=== PATIENT | female | born 1945 | race Caucasian/White ===

== ENCOUNTER 2017-02-03 14:36 | Observation (INO) | payer MEDICAID, MEDICARE, OTHER ==
--- NOTE | 2017-02-03 15:34 | RAD ---
CHEST 1 VIEW: HISTORY: Chest pain. COMPARISON: 02/03/17. FINDINGS: Cardiac silhouette is magnified by projection. Pulmonary vasculature remains upper limits of normal . Mediastinum is midline with postoperative changes evident. property assessment monitor leads overlie the [address]. IMPRESSION: Stable radiographic appearance of the chest. POS: [facility]
[2017-02-03 15:37] LABS: #Eosinphils 0.1 thou/uL (0.0-0.7); #Lymphocytes 0.6 thou/uL (1.20-3.40); #Monocytes 0.4 thou/uL (0.11-0.59); #Neutrophils 6.3 thou/uL (1.40-6.50); %Eosinophils 1.2 % (0.0-10.0); %Lymphocytes 8.5 % (21.0-51.0); %Monocytes 5.3 % (0.0-10.0); Hematocrit 37.1 % (36.0-47.0); Mean Platelet Volume 8.5 fL (7.4-10.4); Red Blood Cell (RBC) Count 3.84 mill/uL (4.20-5.40); White Blood Cell (WBC) Count 7.4 thou/uL (4.8-10.8)
[2017-02-03 16:00] LABS: Troponin I Less than 0.010 ng/mL (< 0.028)
[2017-02-03 16:10] LABS: ALT (SGPT) 26 U/L (8-55); AST (SGOT) 31 U/L (5-34); Alkaline Phosphatase 107 U/L (40-150); Anion Gap 13 mmol/L (10-20); BUN (Urea Nitrogen) 40 mg/dL (9.8-20.1); Bilirubin, Total Less than 1.0 mg/dL (0.2-1.2); Calc. Creatinine Clearance 0 mL/min (70-130); Calcium 8.7 mg/dL (7.8-10.44); Carbon Dioxide 21 mmol/L (23-31); Chloride 105 mmol/L (98-107); Estimated GFR-MDRD 25; Globulin 4.8 g/dL (2.4-3.5); Protein, Total 7.9 g/dL (6.0-8.3)
[2017-02-03 18:57] LABS: Troponin I Less than 0.010 ng/mL (< 0.028)
[2017-02-03] MEDS ORDERED: Nitroglycerin 0.4 MG TAB (25 Tab Bottle) PO PRN (18:57)
[2017-02-03] MEDS ORDERED: Dextrose 5% in Water 1,000 ML IV PRN (19:00)
[2017-02-03] MEDS ORDERED: Dextrose 50% Abboject 50 ML SYRINGE SLOW IVP PRN (19:00)
[2017-02-03 19:21] VITALS: BMI 34.0
--- NOTE | 2017-02-03 19:39 | HP ---
DATE OF ADMISSION: 02/03/2017 DATE OF DISCHARGE: 02/03/2017 PRIMARY CARE PHYSICIAN: Dr. Elie Crenshaw. CHIEF COMPLAINT: Chest pain. HISTORY OF PRESENT ILLNESS: Ms. Shaffer is a pleasant 71-year-old lady who was seen at [facility] on 02/03/2017 for chest discomfort. She reports the 2 days ago, she woke up around 9:00 p.m. after falling asleep. She did not remember going to bed. She reports that his chest felt \\\\"funny.\\\\" She reports that it was hurting, but s he is unable to describe it further. She tried to stand up, but could not. She called her friend a nd daughter, they saw her at her house, she was reportedly pale, the episode was resolved. Today, she was at [employer] and she felt nauseous and had a strange feeling in the chest. She drove to the emergency room at [place] and was subsequently transferred here for further management. She reports that the chest pain has resolved. She denies any cough, fever, or chills. She is unabl e to characterize the pain further. She also reports that 2 days ago, prior to the first episode, her blood sugar was in the 600 range. She reports that it has improved since then. REVIEW OF SYSTEMS: The following complete review of systems was negative, unless otherwise mentione d in the HPI or below: Constitutional: Weight loss or gain, sense of well-being, ability to conduct usual activities, exer cise tolerance. Skin/Breast: Rash, itching, changes in hair growth or loss, nail changes, breast lumps, tenderness, swelling, nipple discharge. Eyes: Vision, double vision, tearing, blind spots, pain. ENT/Mouth: Headaches (location, time of onset, duration, precipitating factors), vertigo, lighthead edness, injury. Vision, double vision, tearing, blind spots, pain, nose bleeding, colds, obstruction , discharge, dental difficulties, gingival bleeding, dentures, neck stiffness, pain, tenderness, mas ses in thyroid or other areas. Cardiovascular: Precordial pain, substernal distress, palpitations, syncope, dyspnea on exertion, o rthopnea, nocturnal paroxysmal dyspnea, edema, cyanosis, hypertension, heart murmurs, varicosities, phlebitis, claudication. Respiratory: Pain, shortness of breath, wheezing, stridor, cough, hemoptysis, fever or night sweats . Gastrointestinal: Poor appetite, dysphagia, indigestion, abdominal pain, heartburn, eructation, syeda sea, vomiting, hematemesis, jaundice, constipation, or diarrhea, abnormal stools (verona-colored, ced y, bloody, greasy, foul smelling), flatulence, hemorrhoids, recent changes in bowel habits. Genitourinary: Urgency, frequency, dysuria, nocturia, hematuria, polyuria, oliguria, unusual (or ch osvaldo in) color of urine, stones, hesitancy, change in size of stream, dribbling, acute retention or incontinence, libido, potency. Musculoskeletal: Pain, swelling, redness or heat of muscles or joints, limitation, of motion, muscu lar weakness, atrophy, cramps. Neurologic/Psychiatric: Convulsions, paralyses, tremor, incoordination, paresthesias, difficulties with memory of speech, sensory or motor disturbances, or muscular coordination (ataxia, tremor), emo tional problems, anxiety, depression, previous psychiatric care, unusual perceptions, hallucinations . Allergy/Immunologic: Skin rash, anemia, bleeding tendency, polydipsia, polyuria, intolerance to hea t or cold. PAST MEDICAL HISTORY: Significant for hypothyroidism, diabetes mellitus type 2, Crohn disease, manager payroll alek anemia, TIA, CVA, chronic pain syndrome, fibromyalgia, dyslipidemia, coronary artery disease, ga stroesophageal reflux disease, diastolic heart failure, chronic kidney disease, anxiety, and depress ion. PAST SURGICAL HISTORY: Significant for quadruple bypass, abdominal wall abscess drainage, tummy tuc k surgery repair of umbilical hernia, mastectomy, tonsillectomy, and ileostomy with partial small-benny wel resection. SOCIAL HISTORY: She denies tobacco use, alcohol use, or recreational drug use. She lives alone wit h her dog. CODE STATUS: I discussed Ms. Shaffer's code status. She is FULL CODE. ALLERGIES: She is allergic to SULFA, IMURAN, PHENERGAN, and TETANUS TOXOID. CURRENT MEDICATIONS: Metoprolol 12.5 mg 2 times a day, ursodiol 300 mg 2 times a day, Protonix 40 m g 2 times a day, Lasix 80 mg 2 times a day, potassium chloride 20 mEq 2 times a day, Mirapex 1.5 mg 2 times a day, levothyroxine 25 mcg daily, atorvastatin 10 mg daily, aspirin 81 mg daily, Celexa 20 mg daily, Feosol 325 mg daily, Lantus insulin 70 units subcutaneously 2 times a day, Jardiance 10 mg daily, NovoLog 10 units 3 times a day. FAMILY HISTORY: The patient is adopted, does not know her family history. PHYSICAL EXAMINATION: GENERAL: Ms. Shaffer is awake and alert, not in acute distress. VITAL SIGNS: Blood pressure is 112/50, pulse is 76. She is breathing at rate of 16 and saturating 96% on 2 liters of oxygen. She is afebrile. EYES: No scleral icterus. No conjunctival pallor. ENT: Moist mucosal membranes. No oropharyngeal erythema or exudates. NECK: Supple, nontender, normal range of movement. Trachea is midline. RESPIRATORY: Accessory muscles of breathing are not active. Chest wall movements are symmetric nena aterally. LUNGS: Clear to auscultation without wheeze, rhonchi, or crepitations. CARDIOVASCULAR: S1 and S2 are heard, regular. LUNGS: Peripheral pulses are palpable. No carotid bruit, no pericardial rub. ABDOMEN: Soft, nontender, bowel sounds heard. No hepatomegaly, no splenomegaly. She has a right l ower quadrant ileostomy. She also appears to have a fistula in the left lower quadrant, close to [facility]. NEUROLOGIC: Cranial nerves II through XII are intact. Deep tendon reflexes are 2+. PSYCHIATRIC: Normal mood, normal affect. Patient is oriented to time, place, and person. MUSCULOSKELETAL: Power is 5/5 in all 4 extremities. Normal range of movement at all major extremit y joints. SKIN: No rashes or subcutaneous nodules. LYMPHATIC: No cervical lymphadenopathy. LABORATORY DATA: Ms. Shaffer's labs and investigations were reviewed. I reviewed her electrocardiog rebel, which shows normal sinus rhythm, no ST changes to suggest an acute coronary syndrome. I also r eviewed his chest x-ray, which does not show any pulmonary infiltrates. Laboratory investigation sh ows a normal white count, normal hemoglobin, decreased platelet count of 97,000, decreased sodium of 135, elevated creatinine of 1.97, last known creatinine 1.83 on 08/04/2016, decreased albumin of 3. 1 and otherwise unremarkable liver profile and normal troponin I. ASSESSMENT AND PLAN: Ms. Shaffer is a pleasant 71-year-old lady who was seen at [facility] on 02/03/2017. Her problem list includes: 1. Chest pain: The etiology is unclear. Chest pain has resolved. Given her significant cardiac h istory, we will obtain a stress test to rule out cardiac causes. We will also monitor on telemetry. 2. Diabetes mellitus: Continue home medications, start Accu-Cheks and insulin sliding scale. 3. Hypothyroidism: Continue Synthroid. 4. Dyslipidemia: Continue statins. 5. Diastolic heart failure. Continue diuretics. 6. Chronic kidney disease: Appears stable. Many thanks for allowing me to participate in your patient's care. Please feel free to contact me w ith any questions or concerns. LEVEL OF RISK: High. LEVEL OF COMPLEXITY: High.
[2017-02-03] MEDS: Insulin Detemir 100 UNITS/ML 70 UNITS in Pre-Filled Syringe 1 EACH SC SCH (20:53)
[2017-02-03] MEDS: Heparin 5,000 UNITS/ML VIAL SC SCH (20:54)
[2017-02-03] MEDS: Atorvastatin Calcium 10 MG TAB PO SCH (20:54)
[2017-02-03] MEDS: Lactinex Tablet PO SCH (20:54)
[2017-02-03] MEDS: Magnesium Oxide 400 MG TAB PO SCH (20:55)
[2017-02-03] MEDS: Metoprolol Tartrate 25 MG TAB PO SCH (20:56)
[2017-02-03] MEDS: Pramipexole Di-HCl 0.25 MG TAB PO SCH (20:56)
[2017-02-03] MEDS: Ursodiol 300 MG CAP PO SCH (20:57)
[2017-02-03] MEDS ORDERED: INSULIN GLARGINE HUM REC ANLOG 70 UNIT SQ SCH (21:00)
[2017-02-04] MEDS ORDERED: ADENOSINE 60 MG/20 ML VIAL ONE ×2 (03:51→12:00)
[2017-02-04] MEDS: Levothyroxine Sodium 25 MCG TAB PO SCH (04:11)
[2017-02-04 04:21] LABS: #Eosinphils 0.2 thou/uL (0.0-0.7); #Monocytes 0.5 thou/uL (0.11-0.59); #Neutrophils 6.8 thou/uL (1.40-6.50); %Basophils 0.3 % (0.0-1.0); %Eosinophils 2.1 % (0.0-10.0); %Lymphocytes 11.4 % (21.0-51.0); %Monocytes 5.6 % (0.0-10.0); Hematocrit 39.1 % (36.0-47.0); Mean Platelet Volume 8.6 fL (7.4-10.4); Red Blood Cell (RBC) Count 4.04 mill/uL (4.20-5.40); White Blood Cell (WBC) Count 8.4 thou/uL (4.8-10.8)
[2017-02-04 04:37] LABS: Anion Gap 12 mmol/L (10-20); BUN (Urea Nitrogen) 38 mg/dL (9.8-20.1); Calc. Creatinine Clearance 34 mL/min (70-130); Calcium 8.7 mg/dL (7.8-10.44); Carbon Dioxide 22 mmol/L (23-31); Chloride 107 mmol/L (98-107); Estimated GFR-MDRD 26
[2017-02-04] MEDS ORDERED: Empagliflozin [Jardiance] 10 MG PO SCH (09:00)
[2017-02-04] MEDS ORDERED: FLU VACC TS2017-18 (>65YR) 0.5 ML SYRINGE IM ONE (09:00)
[2017-02-04] MEDS ORDERED: Lorazepam 2 MG/ML VIAL ONE (09:35)
[2017-02-04] MEDS ORDERED: Lorazepam 2 MG/ML VIAL SLOW IVP SCH (10:00)
[2017-02-04] MEDS: Insulin Detemir 100 UNITS/ML 70 UNITS in Pre-Filled Syringe 1 EACH SC SCH ×2 (12:33→20:36)
[2017-02-04] MEDS: Furosemide 40 MG TAB PO SCH ×2 (12:41→13:46)
[2017-02-04] MEDS: Ferrous Sulfate 325 MG TAB PO SCH (12:42)
[2017-02-04] MEDS: Metoprolol Tartrate 25 MG TAB PO SCH ×2 (12:42→20:36)
[2017-02-04] MEDS: Potassium Chloride 20 MEQ TAB PO SCH ×2 (12:42→17:15)
[2017-02-04] MEDS: Pramipexole Di-HCl 0.25 MG TAB PO SCH ×2 (12:43→20:35)
[2017-02-04] MEDS: Heparin 5,000 UNITS/ML VIAL SC SCH ×3 (12:43→20:37)
[2017-02-04] MEDS: Ursodiol 300 MG CAP PO SCH ×2 (12:43→20:35)
[2017-02-04] MEDS: HumaLOG 300 UNITS/3 ML VIAL SC PRN ×3 (12:44→20:41)
[2017-02-04] MEDS: Multivit, Therapeutic 1 TAB PO SCH (12:52)
--- NOTE | 2017-02-04 13:10 | PDOC.PN ---
- Subjective Encounter Start Date: 02/04/17 Encounter Start Time: 10:00 Pt seen for followup re: chest pain. Denies chest pain, shortness of breath, fevers or chills. - Objective MAR Reviewed: Yes Vital Signs & Weight: Vital Signs (12 hours) Temp Pulse Resp BP Pulse Ox 02/04/17 12:22 97.7 F 78 20 144/60 H 96 02/04/17 07:50 98.5 F 76 16 02/04/17 07:43 98.5 F 76 16 108/52 L 92 L 02/04/17 07:37 93 L 02/04/17 04:07 97.7 F 73 18 106/53 L 92 L Weight Weight 174 lb 6 oz Result Diagrams: 02/04/17 04:07 02/04/17 04:07 Additional Labs: Accuchecks 02/04/17 02/04/17 02/03/17 12:25 04:07 20:35 POC Glucose 379 H 219 H 272 H EKG Reviewed by me: Yes (Tele: NSR) Phys Exam - Physical Examination Constitutional: NAD HEENT: moist MMs, oral pharynx no lesions Neck: supple Respiratory: no wheezing, no rales, no rhonchi, clear to auscultation bilateral Cardiovascular: RRR, no rub Gastrointestinal: soft, non-tender, no distention, positive bowel sounds ostomy+; fistula+ Musculoskeletal: no edema, pulses present Neurological: non-focal, moves all 4 limbs Lymphatic: no nodes Psychiatric: normal affect, A&O x 3 Skin: no rash, normal turgor, cap refill <2 seconds Dx/Plan (1) Chest pain Code(s): R07.9 - CHEST PAIN, UNSPECIFIED Status: Acute (2) Chronic diastolic heart failure Code(s): I50.32 - CHRONIC DIASTOLIC (CONGESTIVE) HEART FAILURE Status: Chronic (3) Chronic pain syndrome Code(s): G89.4 - CHRONIC PAIN SYNDROME Status: Chronic (4) DM type 2 (diabetes mellitus, type 2) Status: Chronic Qualifiers: (5) H/O: CVA (cerebrovascular accident) Code(s): Z86.73 - PRSNL HX OF TIA (TIA), AND CEREB INFRC W/O RESID DEFICITS Status: Chronic (6) Hypertension Code(s): I10 - ESSENTIAL (PRIMARY) HYPERTENSION Status: Chronic Qualifiers: (7) Hypothyroidism Code(s): E03.9 - HYPOTHYROIDISM, UNSPECIFIED Status: Chronic Qualifiers: (8) IBD (inflammatory bowel disease) Code(s): K63.89 - OTHER SPECIFIED DISEASES OF INTESTINE Status: Chronic Comment: crohn's - Plan DVT proph w/heparin * . Await stress test, 2D echo. Continue insulin sliding scale. Continue athletic monitor. Review of Systems - Medications/Allergies Allergies/Adverse Reactions: Allergies Allergy/AdvReac Type Severity Reaction Status Date / Time azathioprine [From Imuran] Allergy Severe PANCREATITI Verified 05/14/16 10:02 S azathioprine sodium Allergy Severe PANCREATITI Verified 05/14/16 10:02 [From Imuran] S Sulfa (Sulfonamide Allergy Severe Verified 05/14/16 10:02 Antibiotics) sulfamethoxazole Allergy Severe Verified 05/14/16 10:02 [From Bactrim] tetanus and diphtheria Allergy Severe Hives Verified 05/14/16 10:02 toxoids [Tetanus&Diphtheria Toxoid] promethazine HCl Allergy Intermediate RESTLESS Verified 02/03/17 19:39 [From Phenergan] LEGS trimethoprim [From Bactrim] Allergy Unknown Verified 05/14/16 10:02 Medications: Current Medications Acidophilus (Floranex) 2 tab PO HS [facility] Last Admin: 02/03/17 20:54 Dose: 2 tab Aspirin (Aspirin Chewable) 81 mg PO DAILY [facility] Last Admin: 02/04/17 12:42 Dose: 81 mg Atorvastatin Calcium (Lipitor) 10 mg PO [facility] Last Admin: 02/03/17 20:54 Dose: 10 mg Citalopram Hydrobromide (Celexa) 20 mg PO [facility] Last Admin: 02/03/17 20:54 Dose: 20 mg Dextrose/Water (Dextrose 50%) 25 gm SLOW IVP PRN PRN PRN Reason: Hypoglycemia Ferrous Sulfate (Feosol) 325 mg PO QAM-WM [facility] Last Admin: 02/04/17 12:42 Dose: 325 mg Furosemide (Lasix) 80 mg PO 0600,1400 [facility] Last Admin: 02/04/17 12:41 Dose: 80 mg Glucagon (Glucagon) 1 mg IM PRN PRN PRN Reason: Hypoglycemia Heparin Sodium (Porcine) (Heparin) 5,000 units SC TID [facility] Last Admin: 02/04/17 12:43 Dose: 5,000 units Dextrose/Water (D5w) 1,000 mls @ 0 mls/hr IV .Q0M PRN; As Directed PRN Reason: Hypoglycemia Insulin Detemir 70 units/ (Miscellaneous Medication) 0.7 mls @ 0 mls/hr SC BID [facility] Last Admin: 02/04/17 12:33 Dose: Not Given Insulin Human Lispro (Humalog) 0 units SC .MILD SLIDING SCALE PRN PRN Reason: Mild Correctional Scale Last Admin: 02/04/17 12:44 Dose: 10 unit Levothyroxine Sodium (Synthroid) 25 mcg PO 0600 [facility] Last Admin: 02/04/17 04:11 Dose: 25 mcg Magnesium Oxide (Magnesium Oxide) 400 mg PO HS [facility] Last Admin: 02/03/17 20:55 Dose: 400 mg Metoprolol Tartrate (Lopressor) 12.5 mg PO BID [facility] Last Admin: 02/04/17 12:42 Dose: 12.5 mg Multivitamins (Theragran) 2 tab PO DAILY [facility] Last Admin: 02/04/17 12:52 Dose: Not Given Nitroglycerin (Nitrostat) 0.4 mg PO Q5MIN PRN PRN Reason: Chest Pain Empagliflozin [ (Jardiance] 10 Mg) 10 mg PO DAILY [facility] Pantoprazole Sodium (Protonix) 40 mg PO BID [facility] Last Admin: 02/04/17 12:43 Dose: 40 mg Potassium Chloride (K-Dur) 20 meq PO BID-WM [facility] Last Admin: 02/04/17 12:42 Dose: 20 meq Pramipexole Dihydrochloride (Mirapex) 0.5 mg PO BID [facility] Last Admin: 02/04/17 12:43 Dose: 0.5 mg Ursodiol (Actigal) 300 mg PO BID [facility] Last Admin: 02/04/17 12:43 Dose: 300 mg
--- NOTE | 2017-02-04 13:14 | NM ---
RADIONUCLIDE STRESS REST MYOCARDIAL PERFUSION SCAN WITH CT ATTENUATION CORRECTION AND SPECT IMAGING LEFT VENTRICULAR WALL MOTION EVALUATION AND EJECTION FRACTION: HISTORY: Chest pain. FINDINGS: Adenosine protocol was used. There is heterogeneous uptake of radiotracer throughout the left ventr icular myocardium. No focal perfusion defect or reversibility are apparent. QGS analysis of gated SPECT images shows no focal wall motion abnormalities. Left ventricular ejection fraction is calcul ated at 65%. IMPRESSION: 1. Normal myocardial perfusion scan. 2. Normal left ventricular ejection fraction. POS: [facility]
[2017-02-04] MEDS: metroNIDAZOLE 250 MG TAB PO SCH ×2 (13:46→20:36)
[2017-02-04] MEDS: Lactinex Tablet PO SCH (20:35)
[2017-02-04] MEDS: Atorvastatin Calcium 10 MG TAB PO SCH (20:36)
[2017-02-04] MEDS: Magnesium Oxide 400 MG TAB PO SCH (20:36)
[2017-02-05 04:24] VITALS: TEMP 98.2
[2017-02-05 04:38] LABS: #Eosinphils 0.1 thou/uL (0.0-0.7); #Lymphocytes 0.6 thou/uL (1.20-3.40); #Monocytes 0.3 thou/uL (0.11-0.59); #Neutrophils 4.7 thou/uL (1.40-6.50); %Basophils 0.4 % (0.0-1.0); %Eosinophils 2.2 % (0.0-10.0); %Lymphocytes 10.1 % (21.0-51.0); %Monocytes 5.9 % (0.0-10.0); Hematocrit 36.1 % (36.0-47.0); White Blood Cell (WBC) Count 5.7 thou/uL (4.8-10.8)
[2017-02-05 04:40] LABS: Anion Gap 10 mmol/L (10-20); BUN (Urea Nitrogen) 30 mg/dL (9.8-20.1); Calc. Creatinine Clearance 36 mL/min (70-130); Calcium 8.6 mg/dL (7.8-10.44); Carbon Dioxide 25 mmol/L (23-31); Chloride 103 mmol/L (98-107); Estimated GFR-MDRD 27
[2017-02-05] MEDS: HumaLOG 300 UNITS/3 ML VIAL SC PRN (05:31)
[2017-02-05] MEDS: Levothyroxine Sodium 25 MCG TAB PO SCH (05:31)
[2017-02-05] MEDS: Furosemide 40 MG TAB PO SCH (05:31)
[2017-02-05] MEDS: Pramipexole Di-HCl 0.25 MG TAB PO SCH (07:54)
[2017-02-05] MEDS: Potassium Chloride 20 MEQ TAB PO SCH (07:56)
[2017-02-05] MEDS: Ferrous Sulfate 325 MG TAB PO SCH (07:56)
[2017-02-05] MEDS: Multivit, Therapeutic 1 TAB PO SCH (07:57)
[2017-02-05] MEDS: Ursodiol 300 MG CAP PO SCH (07:57)
[2017-02-05] MEDS: metroNIDAZOLE 250 MG TAB PO SCH (07:58)
[2017-02-05] MEDS: Heparin 5,000 UNITS/ML VIAL SC SCH (08:00)
[2017-02-05] MEDS: Insulin Detemir 100 UNITS/ML 70 UNITS in Pre-Filled Syringe 1 EACH SC SCH (08:00)
[2017-02-05 09:01] VITALS: BP 113/56
[2017-02-05] MEDS: Metoprolol Tartrate 25 MG TAB PO SCH (09:24)
--- NOTE | 2017-02-05 09:47 | DIS ---
PRIMARY CARE PHYSICIAN: Dr. Elie Crenshaw DATE OF ADMISSION: 02/03/2017 DATE OF DISCHARGE: 02/05/2017 DISCHARGE DIAGNOSES: 1. Chest pain, resolved. 2. 2D echocardiogram with normal right ventricular size and function, left ventricular ejection fra ction estimated at 60-65%. CONDITION OF PATIENT AT THE TIME OF DISCHARGE: Stable. I assessed Ms. Shaffer on the day of discharge. She denies any chest pain or shortness of breath. V ital signs are stable. S1 and S2 are heard, regular. Lungs are clear to auscultation bilaterally. DISCHARGE MEDICATIONS: The same as preadmission home medications as dictated on the history and phy sical note from 02/03/2017. HOSPITAL COURSE: Ms. Shaffer is a pleasant 71-year-old lady who was admitted to [facility] on 02/03/2017 for chest pain. Her chest pain resolved. She had a nuclear stress test , which showed normal left ventricular ejection fraction at 65% and was a normal myocardial perfusio n scan. She also had a 2D echocardiogram during this hospitalization, result as described above. On 02/05/2017, she has a white count of 5700, hemoglobin 11.9, platelet count of 90,000. Sodium 130 , potassium 3.9, creatinine 1.83. Many thanks for allowing me to participate in your patient's care. Please feel free to contact me i f any questions or concerns. DISCHARGE DESTINATION: Home.
== END 2017-02-05 12:30 | disposition home or self-care (01) ==
LOC: ERS 14:36 → 2SW 17:54
PROVIDERS: ADMIT Internal Medicine; ATTEND Internal Medicine
DX: R07.89 Other chest pain (principal); I25.10 Atherosclerotic heart disease of native coronary artery without angina pectoris; K21.9 Gastro-esophageal reflux disease without esophagitis; E11.22 Type 2 diabetes mellitus with diabetic chronic kidney disease; N18.9 Chronic kidney disease, unspecified; I50.9 Heart failure, unspecified; F41.9 Anxiety disorder, unspecified; E03.9 Hypothyroidism, unspecified; F32.9 Major depressive disorder, single episode, unspecified; Z79.82 Long term (current) use of aspirin; Z79.4 Long term (current) use of insulin; Z79.899 Other long term (current) drug therapy; Z95.1 Presence of aortocoronary bypass graft; Z90.10 Acquired absence of unspecified breast and nipple; Z90.89 Acquired absence of other organs; Z90.49 Acquired absence of other specified parts of digestive tract; Z93.2 Ileostomy status; Z98.890 Other specified postprocedural states; Z86.73 Personal history of transient ischemic attack (TIA), and cerebral infarction without residual deficits
CPT/HCPCS: 71010; 78452; 80048 ×2; 80053; 82553; 82962 ×3; 84484; 85025 ×3; 93005; 93017; 93306; 94760 ×3; 96374; 99285; A9500; G0008; G0378; Q2036; 36415; 36416; 90471; 90682; 93010; J0153; J1644; J1815; J2060

== ENCOUNTER 2017-02-06 18:50 | Emergency (ER) | payer MEDICARE, MEDICAID ==
[~2017-02-06 18:50] MED LIST: Iopamidol 250 51% 100 ML VIAL FS ONE
[2017-02-06 19:27] LABS: #Eosinphils 0.1 thou/uL (0.0-0.7); #Lymphocytes 0.7 thou/uL (1.20-3.40); #Monocytes 0.5 thou/uL (0.11-0.59); #Neutrophils 8.7 thou/uL (1.40-6.50); %Basophils 0.2 % (0.0-1.0); %Eosinophils 0.6 % (0.0-10.0); %Lymphocytes 6.9 % (21.0-51.0); %Monocytes 4.6 % (0.0-10.0); Hematocrit 43.3 % (36.0-47.0); Mean Platelet Volume 8.6 fL (7.4-10.4); Red Blood Cell (RBC) Count 4.51 mill/uL (4.20-5.40); White Blood Cell (WBC) Count 9.9 thou/uL (4.8-10.8)
[2017-02-06 19:27] LABS: Bilirubin Negative (Negative); Blood, Urine Negative (Negative); Glucose, Urine (Dipstick) >=1000 mg/dL (Negative); Ketone, Urine Negative (Negative); Nitrite Negative (Negative); Protein, Urine (Dipstick) Negative (Neg-Trace); Urobilinogen 0.2 mg/dL (0.2-1.0)
[2017-02-06 19:49] LABS: ALT (SGPT) 28 U/L (8-55); AST (SGOT) 35 U/L (5-34); Alkaline Phosphatase 121 U/L (40-150); Anion Gap 13 mmol/L (10-20); BUN (Urea Nitrogen) 27 mg/dL (9.8-20.1); Bilirubin, Total 0.4 mg/dL (0.2-1.2); Calc. Creatinine Clearance 0 mL/min (70-130); Calcium 9.7 mg/dL (7.8-10.44); Carbon Dioxide 31 mmol/L (23-31); Chloride 97 mmol/L (98-107); Estimated GFR-MDRD 25; Globulin 5.6 g/dL (2.4-3.5); Lipase 51 U/L (8-78); Protein, Total 9.4 g/dL (6.0-8.3)
--- NOTE | 2017-02-06 23:49 | CT ---
CT ABDOMEN AND PELVIS WITHOUT IV CONTRAST: 02/06/17 HISTORY: Shooting abdominal pain which is episodic every two to three minutes with associated nausea and vomi ting. Patient reports history of prior pancreatitis. COMPARISON: 05/20/16 FINDINGS: There is linear bibasilar scarring and atelectasis. Midline sternotomy wires are present involving t he lower sternum. Vascular calcifications are seen in the region of the coronary arteries a well as involving the abdo alis aorta and iliac arteries. Postsurgical changes related to total colectomy are noted. Ostomy is again seen in the right lower q uadrant. There are postsurgical changes involving a loop of small bowel in the right anterolateral p cl which is mildly dilated, but this a stable finding. Previously noted thickening involving the second portion of the duodenum has resolved. There is sugg ested thickening in the region of the gastric antrum, but this is probably related to incomplete dis tention in this region and peristalsis. Contrast is seen in the ostomy bag. There is no findings to suggest a bowel obstruction. The dilated loop of small bowel in the right aspect of the pelvis was a lso seen on the prior exam. Spleen is enlarged in AP dimension measuring 14 cm. The liver, pancreas, bilateral adrenal glands, kidneys, urinary bladder, and uterus demonstrate a gr ossly normal nonenhanced CT appearance. No renal or ureteral calculi are seen bilaterally, there is no evidence of hydronephrosis. There is stable area of scarring seen in the presacral location. Midline abdominal wall defect is again seen. There is a remote burst fracture with severe loss of height involving the L1 vertebral body, also se en on prior exam. IMPRESSION: 1. Postsurgical changes related to colectomy with ostomy in the right lower quadrant. Contrast is seen in the ostomy bag. While there is a dilated loop of small bowel in the right aspect of the p cl in region of sutures, there is no evidence of a bowel obstruction. 2. Prominent area of scarring in presacral location unchanged from prior exam. This is also sta ble when compared to study in 2015. 3. Mild splenomegaly. 4. No renal or ureteral calculi are seen bilaterally. 5. Bibasilar atelectasis and/or scarring. 6. Stable burst fracture involving the L1 vertebral body. POS: [facility]
== END 2017-02-07 00:30 | disposition home or self-care (01) ==
LOC: ERS 18:50
DX: K59.00 Constipation, unspecified (principal); I25.10 Atherosclerotic heart disease of native coronary artery without angina pectoris; I25.2 Old myocardial infarction; E11.9 Type 2 diabetes mellitus without complications; E03.9 Hypothyroidism, unspecified; D50.9 Iron deficiency anemia, unspecified; K50.90 Crohn's disease, unspecified, without complications; I50.9 Heart failure, unspecified; F32.9 Major depressive disorder, single episode, unspecified; F41.9 Anxiety disorder, unspecified; Z87.891 Personal history of nicotine dependence; Z86.73 Personal history of transient ischemic attack (TIA), and cerebral infarction without residual deficits; Z79.4 Long term (current) use of insulin; Z86.14 Personal history of Methicillin resistant Staphylococcus aureus infection; Z87.01 Personal history of pneumonia (recurrent); Z79.82 Long term (current) use of aspirin; Z79.899 Other long term (current) drug therapy
CPT/HCPCS: 36415; 74176; 80053; 81003; 83690; 85025; 87070; 87077; 87186; 87205; 93005; 96360

== ENCOUNTER 2017-02-10 21:20 | Inpatient (IN) | payer MEDICARE, MEDICAID ==
[~2017-02-10 21:20] MED LIST changes: +ISOVUE-370 76%-LOCM 1 ML ONE; -Iopamidol 250 51% 100 ML VIAL FS ONE
[2017-02-10 22:25] LABS: #Lymphocytes 0.7 thou/uL (1.20-3.40); #Monocytes 0.5 thou/uL (0.11-0.59); #Neutrophils 10.8 thou/uL (1.40-6.50); %Basophils 0.1 % (0.0-1.0); %Eosinophils 0.3 % (0.0-10.0); %Lymphocytes 5.6 % (21.0-51.0); %Monocytes 3.9 % (0.0-10.0); Hematocrit 43.5 % (36.0-47.0); Mean Platelet Volume 8.4 fL (7.4-10.4); Red Blood Cell (RBC) Count 4.52 mill/uL (4.20-5.40)
[2017-02-10] MEDS ORDERED: Ondansetron HCl/PF 4 MG/2 ML Vial ONE (22:44)
[2017-02-10 22:52] LABS: ALT (SGPT) 28 U/L (8-55); AST (SGOT) 39 U/L (5-34); Alkaline Phosphatase 113 U/L (40-150); Anion Gap 16 mmol/L (10-20); BUN (Urea Nitrogen) 32 mg/dL (9.8-20.1); Bilirubin, Total 0.6 mg/dL (0.2-1.2); Calc. Creatinine Clearance 0 mL/min (70-130); Calcium 9.5 mg/dL (7.8-10.44); Carbon Dioxide 25 mmol/L (23-31); Chloride 101 mmol/L (98-107); Estimated GFR-MDRD 24; Globulin 5.4 g/dL (2.4-3.5); Lipase 47 U/L (8-78)
[2017-02-10 22:56] LABS: Troponin I Less than 0.010 ng/mL (< 0.028)
--- NOTE | 2017-02-10 23:31 | RAD ---
RADIOGRAPH CHEST 1 VIEW: HISTORY: A 71-year-old female with chest and abdominal pain with vomiting. FINDINGS: There are no air space densities, pulmonary edema, pneumothorax, or cardiomegaly. The lateral costo phrenic angles are sharp. IMPRESSION: 1. No acute cardiopulmonary findings. 2. Evidence for previous open heart surgery. 3. Chronic bilateral interstitial densities. 4. No interval change since 02/03/2017. melinda POS: [facility]
[2017-02-10 23:53] LABS: Bilirubin Negative (Negative); Blood, Urine Negative (Negative); Glucose, Urine (Dipstick) 500 mg/dL (Negative); Ketone, Urine Negative (Negative); Nitrite Negative (Negative); Protein, Urine (Dipstick) Negative (Neg-Trace); Urobilinogen 0.2 mg/dL (0.2-1.0)
[2017-02-10 23:56] LABS: Bacteria/HPF Rare-Few HPF (None Seen); Hyaline Casts/LPF 0-3 HYALINE CAST LPF (0-3 Hyaline); Squamous Epithelial 0-3 HPF (0-3); WBC/HPF 21-50 HPF (0-3)
[2017-02-11] MEDS ORDERED: Water For Inject, Bacteriostat 30 ML ONE (01:03)
[2017-02-11] MEDS ORDERED: methylPREDNISolone Sod Succ/PF 125 MG/2 ML VIAL ONE (01:03)
[2017-02-11] MEDS ORDERED: cefTRIAXone Sodium 1 MG in Syringe 0 ML IVPB SCH (01:45)
[2017-02-11] MEDS: Sodium Chloride 0.9% 1,000 ML IV SCH ×2 (01:50→17:54)
[2017-02-11] MEDS ORDERED: cefTRIAXone\\ROCEPHIN 1 GM in Sodium Chloride 0.9% 100 ML IVPB SCH (02:00)
[2017-02-11 02:19] VITALS: BMI 32.5
[2017-02-11] MEDS ORDERED: Dextrose 50% Abboject 50 ML SYRINGE SLOW IVP PRN (02:25)
[2017-02-11] MEDS ORDERED: Dextrose 5% in Water 1,000 ML IV PRN (02:25)
--- NOTE | 2017-02-11 02:42 | HP ---
PRIMARY CARE PHYSICIAN: Valente Crenshaw M.D. CHIEF COMPLAINT: Nausea and vomiting. HISTORY OF PRESENT ILLNESS: Ms. Shaffer is a pleasant 71-year-old lady who was seen at [facility] on 02/11/2017. She was hospitalized at this facility on observation status fro m 02/03/2017 to 02/05/2017 for chest pain. During that hospitalization, she had a nuclear stress te st as well as 2D echocardiogram. She has a history of Crohn's disease, ileostomy following colectomy. She reports that yesterday she developed pain over the right side of her abdomen. She describes it as a squeezing sensation, 9/10 at its worst, constant, no known aggravating or relieving factors. It has resolved now. She also reports nausea and vomiting. She thinks she may have had a low grade fever. She denies any dysuria or increased frequency of urination. REVIEW OF SYSTEMS: The following complete review of systems was negative, unless otherwise mentione d in the HPI or below: Constitutional: Weight loss or gain, sense of well-being, ability to conduct usual activities, exer cise tolerance. Skin/Breast: Rash, itching, changes in hair growth or loss, nail changes, breast lumps, tenderness, swelling, nipple discharge. Eyes: Vision, double vision, tearing, blind spots, pain. ENT/Mouth: Headaches (location, time of onset, duration, precipitating factors), vertigo, lighthead edness, injury. Vision, double vision, tearing, blind spots, pain, nose bleeding, colds, obstruction , discharge, dental difficulties, gingival bleeding, dentures, neck stiffness, pain, tenderness, mas ses in thyroid or other areas. Cardiovascular: Precordial pain, substernal distress, palpitations, syncope, dyspnea on exertion, o rthopnea, nocturnal paroxysmal dyspnea, edema, cyanosis, hypertension, heart murmurs, varicosities, phlebitis, claudication. Respiratory: Pain, shortness of breath, wheezing, stridor, cough, hemoptysis, fever or night sweats . Gastrointestinal: Poor appetite, dysphagia, indigestion, abdominal pain, heartburn, eructation, syeda sea, vomiting, hematemesis, jaundice, constipation, or diarrhea, abnormal stools (verona-colored, ced y, bloody, greasy, foul smelling), flatulence, hemorrhoids, recent changes in bowel habits. Genitourinary: Urgency, frequency, dysuria, nocturia, hematuria, polyuria, oliguria, unusual (or ch osvaldo in) color of urine, stones, hesitancy, change in size of stream, dribbling, acute retention or incontinence, libido, potency. Musculoskeletal: Pain, swelling, redness or heat of muscles or joints, limitation, of motion, muscu lar weakness, atrophy, cramps. Neurologic/Psychiatric: Convulsions, paralyses, tremor, incoordination, paresthesias, difficulties with memory of speech, sensory or motor disturbances, or muscular coordination (ataxia, tremor), emo tional problems, anxiety, depression, previous psychiatric care, unusual perceptions, hallucinations . Allergy/Immunologic: Skin rash, anemia, bleeding tendency, polydipsia, polyuria, intolerance to hea t or cold. PAST MEDICAL HISTORY: Significant for diabetes mellitus type 2, hypothyroidism, Crohn's disease, ch ronic anemia, CVA, TIA, chronic pain syndrome, fibromyalgia, dyslipidemia, coronary artery disease, gastroesophageal reflux disease, diastolic heart failure, chronic kidney disease, anxiety, and depre ssion. PAST SURGICAL HISTORY: Significant for quadruple bypass, abdominal wall abscess drainage, tummy tuc k surgery, repair of umbilical hernia, mastectomy, tonsillectomy and ileostomy with partial small-benny wel resection. SOCIAL HISTORY: The patient denies tobacco use, alcohol use or recreational drug use. She lives al one with her dog. CODE STATUS: She is FULL CODE. ALLERGIES: SULFA, IMURAN, PHENERGAN, and TETANUS TOXOID. CURRENT MEDICATIONS: Include metoprolol 12.5 mg 2 times a day, ursodiol 300 mg 2 times a day, Arjun nix 40 mg 2 times a day, Lasix 80 mg 2 times a day, potassium chloride 20 mEq 2 times a day, Mirapex 1.5 mg 2 times a day, levothyroxine 25 mcg daily, atorvastatin 10 mg daily, aspirin 81 mg daily, Ce alka 20 mg daily, Feosol 325 mg daily, Lantus insulin 70 units subcutaneously 2 times a day, Jardian ce 10 mg daily, NovoLog 10 units 3 times a day and metronidazole 500 mg 3 times a day. FAMILY HISTORY: The patient is adopted, does not know her family history. PHYSICAL EXAMINATION: GENERAL: On examination, Ms. Shaffer is awake and alert, not in acute distress. VITAL SIGNS: Blood pressure is 95/51, pulse is 79. She is breathing at rate of 18, and saturating 98% on room air. Her T-max in the emergency room was 99.4 degrees Fahrenheit. EYES: No scleral icterus, no conjunctival pallor. ENT: Moist mucosal membranes, no oropharyngeal erythema or exudates. NECK: Supple, nontender, normal range of movement. Trachea is midline. RESPIRATORY: Accessory muscles of breathing are not active. Chest wall movements are symmetric nena aterally. LUNGS: Clear to auscultation without wheeze, rhonchi, or crepitations. CARDIOVASCULAR: S1 and S2 are heard, regular. Peripheral pulses palpable. No carotid bruit, no pe ricardial rub. ABDOMEN: Soft, nontender, bowel sounds heard, no hepatomegaly, no splenomegaly. EXTREMITIES: She has a right-sided ileostomy. She also has a fistula over the abdominal wall. NEUROLOGIC: Cranial nerves II-XII intact, deep tendon reflexes are 2+. SKIN: No rashes or subcutaneous nodules. MUSCULOSKELETAL: Power is 5/5 in all 4 extremities, normal range of movement at all major extremity joints. PSYCHIATRIC: Normal mood, normal affect, patient is oriented to person, place, and time. SKIN: No rashes or subcutaneous nodules. LYMPHATIC: No cervical lymphadenopathy. LABORATORY DATA: Ms. Shaffer's labs and investigations were reviewed. I reviewed her electrocardiog rebel, which shows normal sinus rhythm, occasional PVCs, no ST changes to suggest an acute coronary sy ndrome. I also reviewed her chest x-ray, which does not show any pulmonary infiltrates. She also h ad a CT scan of the abdomen and pelvis, which reportedly shows small-bowel obstruction, according to the emergency room physician. Laboratory investigations show leukocytosis with 12,000 white cells, of which 90.1% are neutrophils, normal hemoglobin, normal platelet count, normal electrolytes, elev ated blood urea nitrogen of 32, elevated creatinine of 2.07, last known creatinine 2.00 on 7, normal lactic acid, mildly elevated AST of 39, normal ALT, normal alkaline phosphatase, normal to yusef bilirubin, normal troponin I, normal BNP, elevated serum globulin of 5.4, elevated total protein of 9.0 and normal lipase. Urinalysis is positive for moderate amount of leukocyte esterase and glu cose. ASSESSMENT AND PLAN: Ms. Shaffer is a pleasant 71-year-old lady who was seen at [facility]. Her problem list includes: 1. Small-bowel obstruction: Ms. Shaffer came with abdominal pain secondary to small-bowel obstructi on. Following CT scan, her abdominal pain has resolved. She will be kept n.p.o., consideration for nasogastric tube placement will be made if she starts vomiting again. The small-bowel obstruction is most likely secondary to flareup of Crohn's disease. Emergency room physician has already discus sed her case with her coating machine operator and consulted Gastroenterology Service. She has started he r on steroids, which I will continue, Solu-Medrol 20 mg intravenously every 6 hours. We will contin ue her oral home medications with sips of water. 2. Urinary tract infection: Based on urinalysis, the patient will be started on ceftriaxone. Awai t urine cultures. 3. Restless legs syndrome: The patient reports that her Mirapex is not working. She reports that trying several medications for restless leg syndrome in the past. She is unsure if she was ever annalisa ated with Requip. We will initiate Requip for now. 4. Diabetes mellitus: Start Accu-Cheks, insulin sliding scale. 5. Hypothyroidism: Continue Synthroid. 6. Chronic pain syndrome: Continue home medications. 7. Dyslipidemia: Continue statin. 8. History of congestive heart failure: Continue Lasix, potassium supplements. 9. History of cerebrovascular accident: Continue aspirin, statin. Many thanks for allowing me to participate in your patient's care. Please feel free to contact me w ith any questions or concerns. LEVEL OF RISK: High. LEVEL OF COMPLEXITY: High.
[2017-02-11] MEDS: Morphine Sulfate 2 MG/ML SYRINGE SLOW IVP PRN ×2 (05:40→13:30)
[2017-02-11] MEDS: Levothyroxine Sodium 25 MCG TAB PO SCH (05:40)
[2017-02-11 06:26] LABS: Anion Gap 13 mmol/L (10-20); BUN (Urea Nitrogen) 32 mg/dL (9.8-20.1); Calc. Creatinine Clearance 36 mL/min (70-130); Calcium 8.6 mg/dL (7.8-10.44); Carbon Dioxide 24 mmol/L (23-31); Chloride 103 mmol/L (98-107); Estimated GFR-MDRD 28
[2017-02-11 06:50] LABS: #Lymphocytes 0.5 thou/uL (1.20-3.40); #Monocytes 0.1 thou/uL (0.11-0.59); #Neutrophils 6.8 thou/uL (1.40-6.50); %Basophils 0.4 % (0.0-1.0); %Eosinophils 0.2 % (0.0-10.0); %Lymphocytes 6.9 % (21.0-51.0); %Monocytes 1.1 % (0.0-10.0); Hematocrit 40.8 % (36.0-47.0); Mean Platelet Volume 8.9 fL (7.4-10.4); Red Blood Cell (RBC) Count 4.21 mill/uL (4.20-5.40); White Blood Cell (WBC) Count 7.4 thou/uL (4.8-10.8)
--- NOTE | 2017-02-11 08:00 | CT ---
CT ABDOMEN WITH CONTRAST CT PELVIS WITH CONTRAST: DATE: 02/10/17 TIME: 2342 HOURS HISTORY: 71-year-old female with right-sided abdominal pain, nausea, emesis, and minimal output seen in the o stomy bag. History of Crohn's disease. Suspected small bowel obstruction. COMPARISON: 02/06/[address] TECHNIQUE: IV injection of iodinated contrast media: Isovue. Oral contrast media: Not administered. FINDINGS: Again noted is the right lower quadrant ileostomy. The colon is surgically absent; it is uncertain w hether this is a total or subtotal colectomy. While there is a new finding of collapse of small janse l loops abutting the anterior peritoneal surface of the right lower quadrant of the abdominal cavity near the ostomy, there is dilation of multiple small bowel loops also in much of the abdominal cavi ty and pelvis, especially the right lower quadrant and midline, with air fluid levels. There is stoo l filling and expanding one of the bowel loops in the right lower quadrant, which is surrounded by a suture line. It is uncertain whether this represents a segment of colon or dilated small bowel loo p (fecalization of small intestine). There are nondilated jejunal loops in the left upper quadrant a bdominal cavity. There is splenomegaly. No major pathology of the liver identified. No hydronephrosi s bilaterally. Old burst fracture of L1 with vertebra plana and bony retropulsion. No adrenal mass. No major pancreatic abnormality. No abdominal aortic aneurysm. Postsurgical scar at midline in the p osterior pelvic cavity. The uterus has moderately low attenuation now. This is nonspecific. Urinary bladder is partially filled. Old ventral abdominal surgical wound defect is again noted. No pneumope ritoneum. No pleural effusion. No ascites. IMPRESSION: 1. Status post colectomy (total vs subtotal?). 2. There is suspicion for acute small bowel obstruction at the right lower quadrant ostomy site. 3. Splenomegaly. JNR POS: TAPAN
[2017-02-11] MEDS: rOPINIRole HCl 0.25 MG TAB PO SCH (08:17)
[2017-02-11] MEDS: Metoprolol Tartrate 25 MG TAB PO SCH ×2 (08:18→21:30)
[2017-02-11] MEDS: Ursodiol 300 MG CAP PO SCH ×2 (08:20→21:30)
[2017-02-11] MEDS: Potassium Chloride 20 MEQ TAB PO SCH ×2 (08:20→19:07)
[2017-02-11] MEDS: Enoxaparin Sodium 30 MG/0.3 ML SYRINGE SC SCH (08:23)
[2017-02-11] MEDS: NPH, Human Insulin Isophane 300 UNIT/3 ML VIAL SC SCH ×3 (08:26→17:56)
--- NOTE | 2017-02-11 12:06 | PDOC.PN ---
- Subjective Encounter Start Date: 02/11/17 Encounter Start Time: 12:04 Ms. Shaffer is still having abdominal pain. She has not passed gas or had a bowel movement. She denies nausea or vomiting - Objective Resuscitation Status: Resuscitation Status FULL:Full Resuscitation MAR Reviewed: Yes Vital Signs & Weight: Vital Signs (12 hours) Temp Pulse Resp BP BP BP Pulse Ox 02/11/17 11:26 97.4 F L 74 20 116/70 90 L 02/11/17 08:23 107/66 02/11/17 08:00 97.8 F 78 20 02/11/17 07:37 97.8 F 78 20 98/62 92 L 02/11/17 04:00 98.9 F 71 20 110/70 94 L 02/11/17 03:01 97 02/11/17 01:36 97.8 F 82 16 02/11/17 01:25 97.8 F 82 16 134/68 97 Weight Weight 172 lb 3.2 oz Result Diagrams: 02/11/17 05:20 02/11/17 05:20 Additional Labs: Accuchecks 02/11/17 02/11/17 10:58 04:54 POC Glucose 231 H 143 H Phys Exam - Physical Examination HEENT: PERRLA Respiratory: no wheezing, no rales, no rhonchi, clear to auscultation bilateral Cardiovascular: RRR, no significant murmur Gastrointestinal: soft, positive bowel sounds + diffuse tenderness, no rebound or guarding Musculoskeletal: no edema Dx/Plan (1) Small bowel obstruction Code(s): K56.609 - UNSP INTESTNL OBST, UNSP TO PARTIAL VERSUS COMPLETE OBST Status: Acute (2) Crohn disease Code(s): K50.90 - CROHN'S DISEASE, UNSPECIFIED, WITHOUT COMPLICATIONS Status: Acute (3) Cholelithiasis Code(s): K80.20 - CALCULUS OF GALLBLADDER W/O CHOLECYSTITIS W/O OBSTRUCTION Status: Chronic Comment: not a candidate for surgery per patient report (4) Chronic diastolic heart failure Code(s): I50.32 - CHRONIC DIASTOLIC (CONGESTIVE) HEART FAILURE Status: Chronic (5) DM type 2 (diabetes mellitus, type 2) Status: Chronic Qualifiers: (6) Hypertension Code(s): I10 - ESSENTIAL (PRIMARY) HYPERTENSION Status: Chronic Qualifiers: (7) Hypothyroidism Code(s): E03.9 - HYPOTHYROIDISM, UNSPECIFIED Status: Chronic Qualifiers: - Plan * Small bowel obstruction- continue bowel rest, and IV fluids * Crohn's disease flair- Continue Steroids IV * Await further recommendations from GI * CAD- stable * DM- blood glucose is stable- continue NPH insulin, and SSI * HTN- blood pressure is stable
[2017-02-11] MEDS: Furosemide 80 MG TAB PO SCH (13:38)
[2017-02-11 14:36] LABS: Magnesium 2.4 mg/dL (1.6-2.6)
[2017-02-11] MEDS: metroNIDAZOLE 500 MG in Premix Bag 1 BAG IVPB SCH ×2 (15:11→21:32)
--- NOTE | 2017-02-11 17:38 | CON ---
DATE OF CONSULTATION: 02/11/2017 REASON FOR CONSULTATION: Concern for bowel obstruction. HISTORY OF PRESENT ILLNESS: Ms. Shaffer is a 71-year-old female who has had a long history of inflam matory bowel disease, initially was felt to have Crohn's disease many years ago and had a colectomy and J-pouch inflammation which was ultimately removed and she was diagnosed with Crohn's. She has h ad previous bowel obstruction requiring resection related to that. Previous therapy for inflammator y bowel disease includes Remicade in the distant past. More recently this year in April, she was started on Entyvio as she was found to have severe deep ulcers in the stomach and duodenum on endosc opy in April. She has been on that religiously since that time. She has had problems intermitten tly with fistulas draining in her abdomen and felt small fistulas. In the past couple of weeks, she has been having problems with abdominal pain in the lower abdomen around the ostomy and also on and off cramping and vomiting. She came to the hospital in the ER on and had a CAT scan and was t old she had constipation and discharged home. She was in the hospital from 02/03/2017 to 02/05/2017 with chest pain and had a negative cardiac workup. She denies fever or chills. She denies hematem esis. She denies any blood from ostomy at this time. PAST MEDICAL HISTORY: Ulcerative colitis with diagnosis changed to Crohn's as outlined above. Prio r cerebrovascular accident, diabetes, hypertension, vertebral fracture, hernias, tonsillectomy, driss nary artery bypass grafting, abdominal surgery for obstruction. She had gallstones and that is the reasons she is taking ursodiol prophylaxis for this. REVIEW OF SYSTEMS: The patient is having ostomy output except for some scant gas in the past 24 alexander rs. She has had no bleeding. SOCIAL HISTORY: The patient does not smoke, she had in the past, she has quit over 10 years. She does not drink alcohol. FAMILY HISTORY: Negative. PSYCHIATRIC HISTORY: Negative. ALLERGIES: BACTRIM, IMURAN cause pancreatitis, SULFA DRUGS, TETANUS TOXOID, PHENERGAN. HOME MEDICATIONS: Metoprolol, ursodiol, Protonix, Lasix, Klor-Con, levothyroxine, atorvastatin, asp irin, Celexa, iron, Lantus insulin, NovoLog, clonazepam p.r.n., and Entyvio. PRESENT MEDICATIONS: Aspirin, atorvastatin, Celexa, Lovenox, Lasix, glucagon, Humalog sliding scale , levothyroxine, metoprolol, morphine, insulin sliding scale, normal saline at 100 an hour, Protonix 40 b.i.d., potassium chloride p.r.n., ursodiol 300 b.i.d., Rocephin, methylprednisolone 20 mg IV q. 6 hours. She is n.p.o. presently. REVIEW OF SYSTEMS: Negative for dysphagia, odynophagia, fever, chills, rashes. She has had some dr marie just to the left of her ostomy site which she has been told small fistulas. She was most rec ently seen in the office of Dr. Patel just a couple of weeks ago. She has her next Entyvio infusion in early February. PHYSICAL EXAMINATION: VITAL SIGNS: Temperature 97.4, pulse 74, O2 sat 90%-92%, blood pressure 116/70. LUNGS: Clear. HEART: Regular rate and rhythm. ABDOMEN: Soft, slightly protuberant in the right lower quadrant. The ostomy is pink. Digital exam in the ostomy reveals no overt obstruction. Bowel sounds are quiescent. There is no rebound. The re is no guarding. There are some sinus tracts just left of the ostomy and a scar, but there is no drainage there. At this time, she states the pus does drain from them occasionally. EXTREMITIES: No clubbing, cyanosis, or edema. LABORATORY STUDIES: White count was 12,000 last night, 7000 in the day; hemoglobin is 13.1, platele t count 114, MCV 97. Sodium 135, potassium 4, chloride 103, BUN and creatinine are 32 and 1.78, 32 and 2.07 yesterday, AST 39, ALT 28, alkaline phosphatase 113. Protein 9, albumin 3.6. Troponin on 02/10/2017 was normal. Chest x-ray on 02/10/2017, chronic bilateral interstitial densities, evidence of previous surgery. CT scan of abdomen and pelvis shows fecalization in the small bowel and the distal small bowel. ___ __ obstruction in the right lower quadrant. It is unclear if this is an anastomotic site of the ost sallie on the digital exam. There is no distention of the stomach. There is some slight distension or there were some nondilated jejunal loops in the left upper quadrant, but these are not overly diste nded. There is also some splenomegaly. ASSESSMENT: This is a 71-year-old female with a long history of inflammatory bowel disease, initial ly diagnosed as ulcerative colitis, now Crohn's. She has had a complete colectomy. She has had mul tiple abdominal surgeries for fistulas, abscesses, and obstructions. It seems that she has been on Remicade in the past by her report, but she does not recall exactly and then I do not see any record that we have treated with that here but that does not mean she has not received it. She has been a patient of Dr. Reinaldo Patel for many years. Presently, she was started on Entyvio and generally this year when Dr. Sinha found that she had large ulcers in the duodenum and stomach that were felt to b e Crohn's related, evaluation was negative for Cytomegalovirus at that point in time. In terms of a nti-TNF therapy, she has had a negative QuantiFERON in April of this year. She has no signs of he patitis B or C, she has been treated in the past. Since she has been on Entyvio, she seems to be do ing much better with resolution of anemia this present April. She seems she still had some proble ms with draining fistulas in the left lower abdomen. PLAN: 1. IV fluids. 2. She is not vomiting acutely right now and has no signs of acute abdomen. We will manage with IV fluids, IV steroids, change her antibiotics to Levaquin and Flagyl which may help with Crohn's. Th is will probably cover any UTI that may be present with white blood cells of 21-50 and moderate bact eria noted on her UA on admission. We will consult Dr. Dennis of General surgeon tomorrow. 3. We will plan for upper and lower endoscopy tomorrow to evaluate the mucosa in response to the En tyvio. If she has signs of strictures may be amenable to dilatation in the ileum, it looks like the inspissated stools may be above or near her suture line there. If, however, she is not amenable to endoscopic therapy, she may need another surgery. We will discuss with Dr. Patel and Dr. Sinha who have been treating her more recently other options and therapies including TNF therapies.
[2017-02-11] MEDS: Atorvastatin Calcium 10 MG TAB PO SCH (21:31)
[2017-02-12] MEDS: Morphine Sulfate 2 MG/ML SYRINGE SLOW IVP PRN ×2 (00:35→11:34)
[2017-02-12] MEDS: Furosemide 80 MG TAB PO SCH (00:36)
[2017-02-12] MEDS: Ondansetron HCl/PF 4 MG/2 ML Vial IVP PRN ×2 (02:10→11:34)
[2017-02-12] MEDS: metroNIDAZOLE 500 MG in Premix Bag 1 BAG IVPB SCH ×3 (05:24→21:47)
[2017-02-12] MEDS: Levothyroxine Sodium 25 MCG TAB PO SCH (05:25)
[2017-02-12 06:02] LABS: #Lymphocytes 0.5 thou/uL (1.20-3.40); #Monocytes 0.2 thou/uL (0.11-0.59); #Neutrophils 6.3 thou/uL (1.40-6.50); %Basophils 0.2 % (0.0-1.0); %Eosinophils 0.1 % (0.0-10.0); %Lymphocytes 7.6 % (21.0-51.0); %Monocytes 2.3 % (0.0-10.0); Hematocrit 39.4 % (36.0-47.0); Mean Platelet Volume 9.4 fL (7.4-10.4); Red Blood Cell (RBC) Count 3.98 mill/uL (4.20-5.40)
[2017-02-12] MEDS: HumaLOG 300 UNITS/3 ML VIAL SC PRN ×2 (06:09→16:02)
[2017-02-12 06:21] LABS: Anion Gap 16 mmol/L (10-20); BUN (Urea Nitrogen) 46 mg/dL (9.8-20.1); Calc. Creatinine Clearance 34 mL/min (70-130); Calcium 8.4 mg/dL (7.8-10.44); Carbon Dioxide 18 mmol/L (23-31); Chloride 107 mmol/L (98-107); Estimated GFR-MDRD 26
[2017-02-12] MEDS: Sodium Chloride 0.9% 1,000 ML IV SCH ×3 (07:41→19:45)
[2017-02-12] MEDS: NPH, Human Insulin Isophane 300 UNIT/3 ML VIAL SC SCH ×3 (08:00→17:29)
[2017-02-12] MEDS ORDERED: Propofol 200 MG/20 ML VIAL ONE (08:07)
[2017-02-12] MEDS ORDERED: Lidocaine 1% PF 5 ML VIAL ONE (08:07)
[2017-02-12] MEDS: rOPINIRole HCl 0.25 MG TAB PO SCH (09:00)
[2017-02-12] MEDS: Ursodiol 300 MG CAP PO SCH ×2 (09:00→21:47)
[2017-02-12] MEDS: Enoxaparin Sodium 30 MG/0.3 ML SYRINGE SC SCH (09:00)
[2017-02-12] MEDS: Metoprolol Tartrate 25 MG TAB PO SCH ×2 (09:00→21:47)
--- NOTE | 2017-02-12 11:32 | OP ---
DATE OF PROCEDURE: 02/12/2017 SURGEON: Garry Stephenson M.D. OPERATIVE PROCEDURE: Esophagogastroduodenoscopy, ileoscopy. PREOPERATIVE DIAGNOSES: 1. History of Crohn's. 2. History of symptoms of what appears to be a partial small-bowel obstruction. 3. Upper endoscopy in 04/2016 with multiple large deep ulcerations in the first and second portion of duodenum related to Crohn's. Since that time she has been Entyvio. POSTOPERATIVE DIAGNOSES: 1. EGD with normal esophagus, normal stomach and duodenum, is much improved with no ulcers, erosion s or strictures. There was a little bit of proud tissue in the junction of the apex and bulb and se cond portion which was biopsied. 2. Ileoscopy normal to 22 cm, unable to advance the scope further beyond that secondary to excessiv e looping, sharp turns, no active Crohn's seen in this area. 3. 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 This in conjunction with her splenomegaly raises co ncerns for possible underlying liver disease. RECOMMENDATIONS: 1. Surgical consultation and Gastrografin small bowel follow through. 2. Continue Entyvio, it seems to be working. ANESTHESIA: TIVA. PROCEDURE IN DETAIL: After the patient was informed of the risks, benefits, possible complications of endoscopy including perforation, bleeding, reactions to medication and aspiration, informed conse nt was obtained. The patient brought to endoscopy suite where she was sedated in gradual fashion. Once she was comfortable, a bite block was placed in the incisural orifice. The endoscope was advan karis through the esophagus, stomach and second and third portion of duodenum and slowly removed. The re was good visualization of mucosa. The esophagus and stomach were normal. The esophagus was nota ble for grade I-II varices. The stomach was normal except for some mild petechia in the antrum. Th e duodenal bulb was normal to the third portion except for a few proud areas of tissue. There appea red to be inflammatory nodules, there were no ulcers or masses. These nodules were biopsied at the apex, bulb and second portion. The scope was removed. The patient tolerated this portion of the pr ocedure well with no complications. The patient was turned in the room, her ileostomy bag was removed and the duodenal exam was performe d with ileoscopy with no evidence of fistulas, fissures or strictures. The endoscope was advanced t hrough the ileostomy to a distance of about 22-23 cm. Beyond this, the scope could not be passed se condary to excessive looping and sharp turns. There was no evidence of active disease or strictures in this region. This could not rule out obstruction more proximal to this. The scope was removed. The patient tolerated the procedure well with no complications.
--- NOTE | 2017-02-12 12:23 | PDOC.PN ---
- Subjective Encounter Start Date: 02/12/17 Encounter Start Time: 09:00 -: old records requested/rev Patient seen and examined. No new complaints. No overnight events - Objective Resuscitation Status: Resuscitation Status FULL:Full Resuscitation MAR Reviewed: Yes Vital Signs & Weight: Vital Signs (12 hours) Temp Pulse Resp BP BP Pulse Ox 02/12/17 08:00 98.2 F 68 18 119/63 96 02/12/17 04:00 97.6 F 67 16 111/73 95 Weight Admit Weight 172 lb 3.2 oz Weight 172 lb 3.2 oz I&O: 02/11/17 02/12/17 02/13/17 06:59 06:59 06:59 Intake Total 1400 Output Total 20 Balance 1380 Result Diagrams: 02/12/17 05:13 02/12/17 05:13 Additional Labs: Accuchecks 02/12/17 02/11/17 02/11/17 05:31 20:00 17:26 POC Glucose 233 H 174 H 186 H Phys Exam - Physical Examination Constitutional: NAD HEENT: PERRLA, moist MMs, sclera anicteric Neck: no JVD, supple Respiratory: no wheezing, no rales, no rhonchi Cardiovascular: RRR, no significant murmur, no rub Gastrointestinal: soft, positive bowel sounds mild soreness, hypoactive bowel sound, iliostomy+ Musculoskeletal: no edema, pulses present Neurological: non-focal, normal sensation, moves all 4 limbs Psychiatric: normal affect, A&O x 3 Skin: no rash, normal turgor Dx/Plan (1) Acute worsening of stage 3 chronic kidney disease Code(s): N18.3 - CHRONIC KIDNEY DISEASE, STAGE 3 (MODERATE) Status: Acute (2) Exacerbation of Crohn's disease of small intestine Code(s): K50.00 - CROHN'S DISEASE OF SMALL INTESTINE WITHOUT COMPLICATIONS Status: Acute (3) Hyperkalemia Code(s): E87.5 - HYPERKALEMIA Status: Acute (4) Small bowel obstruction Code(s): K56.609 - UNSP INTESTNL OBST, UNSP TO PARTIAL VERSUS COMPLETE OBST Status: Acute (5) Anxiety and depression Code(s): F41.9 - ANXIETY DISORDER, UNSPECIFIED; F32.9 - MAJOR DEPRESSIVE DISORDER, SINGLE EPISODE, UNSPECIFIED Status: Chronic (6) CAD (coronary artery disease) Code(s): I25.10 - ATHSCL HEART DISEASE OF [place] CORONARY ARTERY W/O ANG PCTRS Status: Chronic Qualifiers: Comment: h/o [place] 2008 (7) Cholelithiasis Code(s): K80.20 - CALCULUS OF GALLBLADDER W/O CHOLECYSTITIS W/O OBSTRUCTION Status: Chronic Comment: not a candidate for surgery per patient report (8) Chronic diastolic heart failure Code(s): I50.32 - CHRONIC DIASTOLIC (CONGESTIVE) HEART FAILURE Status: Chronic (9) Chronic pain syndrome Code(s): G89.4 - CHRONIC PAIN SYNDROME Status: Chronic (10) DM type 2 (diabetes mellitus, type 2) Status: Chronic Qualifiers: (11) GERD (gastroesophageal reflux disease) Code(s): K21.9 - GASTRO-ESOPHAGEAL REFLUX DISEASE WITHOUT ESOPHAGITIS Status: Chronic Qualifiers: (12) H/O: CVA (cerebrovascular accident) Code(s): Z86.73 - PRSNL HX OF TIA (TIA), AND CEREB INFRC W/O RESID DEFICITS Status: Chronic (13) Hypertension Code(s): I10 - ESSENTIAL (PRIMARY) HYPERTENSION Status: Chronic Qualifiers: (14) Hypothyroidism Code(s): E03.9 - HYPOTHYROIDISM, UNSPECIFIED Status: Chronic Qualifiers: (15) IBD (inflammatory bowel disease) Code(s): K63.89 - OTHER SPECIFIED DISEASES OF INTESTINE Status: Chronic Comment: crohn's (16) TAISHA (iron deficiency anemia) Code(s): D50.9 - IRON DEFICIENCY ANEMIA, UNSPECIFIED Status: Chronic Qualifiers: (17) Obesity (BMI 30.0-34.9) Code(s): E66.9 - OBESITY, UNSPECIFIED Status: Chronic (18) RLS (restless legs syndrome) Status: Chronic - Plan cont current plan of care * will dc potassium supplement * spoke with dr sung, no obstruction and EGD was also improved finding * medication reviewed as below * symptomatic treatment * today gastrographin small bowel follow through * surgeon will see today * continue conservative treatment. Review of Systems - Review of Systems Constitutional: negative: Fever, Chills, Sweats, Weakness, Malaise, Other Eyes: negative: Pain, Vision Change, Conjunctivae Inflammation, Eyelid Inflammation, Redness, Other ENT: negative: Ear Pain, Ear Discharge, Nose Pain, Nose Discharge, Nose Congestion, Mouth Pain, Mouth Swelling, Throat Pain, Throat Swelling, Other Respiratory: negative: Cough, Dry, Shortness of Breath, Hemoptysis, SOB with Excertion, Pleuritic Pain, Sputum, Wheezing Cardiovascular: negative: Chest Pain, Palpitations, Orthopnea, Paroxysmal Noc. Dyspnea, Edema, Light Headedness, Other Gastrointestinal: Abdominal Pain. negative: Nausea, Vomiting, Diarrhea, Constipation, Melena, Hematochezia, Other Genitourinary: negative: Dysuria, Frequency, Incontinence, Hematuria, Retention , Other Musculoskeletal: negative: Neck Pain, Shoulder Pain, Arm Pain, Back Pain, Hand Pain, Leg Pain, Foot Pain, Other Skin: negative: Rash, Lesions, Alex, Bruising, Other - Medications/Allergies Allergies/Adverse Reactions: Allergies Allergy/AdvReac Type Severity Reaction Status Date / Time azathioprine [From Imuran] Allergy Severe PANCREATITI Verified 02/11/17 03:13 S azathioprine sodium Allergy Severe PANCREATITI Verified 02/11/17 03:13 [From Imuran] S Sulfa (Sulfonamide Allergy Severe Verified 02/11/17 03:13 Antibiotics) sulfamethoxazole Allergy Severe Verified 02/11/17 03:13 [From Bactrim] tetanus and diphtheria Allergy Severe Hives Verified 02/11/17 03:13 toxoids [Tetanus&Diphtheria Toxoid] promethazine HCl Allergy Intermediate RESTLESS Verified 02/11/17 03:13 [From Phenergan] LEGS trimethoprim [From Bactrim] Allergy Unknown Verified 02/11/17 03:13 Medications: Current Medications Aspirin (Aspirin Chewable) 81 mg PO DAILY [facility] BEDS AT [facility] Last Admin: 02/11/17 08:18 Dose: 81 mg Atorvastatin Calcium (Lipitor) 10 mg PO HS [facility]S [facility]CLUDE 234 BEDS AT [facility] Last Admin: 02/11/17 21:31 Dose: 10 mg Citalopram Hydrobromide (Celexa) 20 mg PO HS [facility]S [facility]CLUDE 234 BEDS AT [facility] Last Admin: 02/11/17 21:31 Dose: 20 mg Dextrose/Water (Dextrose 50%) 25 gm SLOW IVP PRN PRN PRN Reason: Hypoglycemia Enoxaparin Sodium (Lovenox) 30 mg SC 0900 COUNTS INCLUDE 234 BEDS AT THE [facility] Last Admin: 02/11/17 08:23 Dose: 30 mg Glucagon (Glucagon) 1 mg IM PRN PRN PRN Reason: Hypoglycemia Sodium Chloride (Normal Saline 0.9%) 1,000 mls @ 100 mls/hr IV .Q10H COUNTS INCLUDE 234 BEDS AT THE [facility] Last Admin: 02/12/17 07:41 Dose: Not Given Dextrose/Water (D5w) 1,000 mls @ 0 mls/hr IV .Q0M PRN; As Directed PRN Reason: Hypoglycemia Levofloxacin 500 mg/ Device 100 mls @ 100 mls/hr IVPB Q24HR COUNTS INCLUDE 234 BEDS AT THE [facility] Last Admin: 02/11/17 13:38 Dose: 100 mls Metronidazole 500 mg/ Device 100 mls @ 100 mls/hr IVPB Q8HR COUNTS INCLUDE 234 BEDS AT THE [facility] Last Admin: 02/12/17 05:24 Dose: 100 mls Insulin Human Lispro (Humalog) 0 units SC .MILD SLIDING SCALE PRN PRN Reason: Mild Correctional Scale Last Admin: 02/12/17 06:09 Dose: 4 unit/kg Insulin Human NPH (Humulin N) 10 unit SC TID-WM COUNTS INCLUDE 234 BEDS AT THE [facility] Last Admin: 02/11/17 17:56 Dose: Not Given Levothyroxine Sodium (Synthroid) 25 mcg PO 0600 COUNTS INCLUDE 234 BEDS AT THE [facility] Last Admin: 02/12/17 05:25 Dose: 25 mcg Methylprednisolone Sodium Succinate (Solu-Medrol) 20 mg IVP Q6HR COUNTS INCLUDE 234 BEDS AT THE [facility] Last Admin: 02/12/17 05:25 Dose: 20 mg Metoprolol Tartrate (Lopressor) 12.5 mg PO BID COUNTS INCLUDE 234 BEDS AT THE [facility] Last Admin: 02/11/17 21:30 Dose: 12.5 mg Morphine Sulfate (Morphine Sulfate) 2 mg SLOW IVP Q4H PRN PRN Reason: Pain 7-10 Last Admin: 02/12/17 11:34 Dose: 2 mg Ondansetron HCl (Zofran) 4 mg IVP Q6H PRN PRN Reason: Nausea/Vomiting Last Admin: 02/12/17 11:34 Dose: 4 mg Pantoprazole Sodium (Protonix) 40 mg PO BID COUNTS INCLUDE 234 BEDS AT THE [facility] Last Admin: 02/11/17 21:31 Dose: 40 mg Ropinirole HCl (Requip) 0.25 mg PO DAILY COUNTS INCLUDE 234 BEDS AT THE [facility] Last Admin: 02/11/17 08:17 Dose: 0.25 mg Sodium Chloride (Flush - Normal Saline) 10 ml IVF PRN PRN PRN Reason: Saline Flush Last Admin: 02/12/17 05:26 Dose: 10 ml Sodium Chloride (Flush - Normal Saline) 10 ml IVF PRN PRN PRN Reason: Saline Flush Ursodiol (Actigal) 300 mg PO BID [facility] Last Admin: 02/11/17 21:30 Dose: 300 mg
[2017-02-12] MEDS ORDERED: MD-Gastroview 120 ML BOT ONE (16:38)
--- NOTE | 2017-02-12 17:16 | RAD ---
GASTROGRAFIN SMALL BOWEL EXAM: 02/12/17 Patient was given gastrografin orally and sequential imaging of abdomen obtained. HISTORY: Partial small bowel obstruction. History of Crohn's disease. COMPARISON: CT of 02/10/17. That exam revealed dilated loops of small bowel with decompressed loops distally at the ostomy on the right. On today's exam, there is dilated loops of proximal and mid small bowel. The mid and distal small benny wel loops are significantly dilated. Contrast fills the ostomy bag at three hours. IMPRESSION: Continued small bowel dilatation. A partial obstruction is suspected distally which would correspond to the recent CT of 02/10/17. POS: [facility]
[2017-02-12] MEDS: Atorvastatin Calcium 10 MG TAB PO SCH (21:45)
--- NOTE | 2017-02-12 22:06 | CON ---
DATE OF CONSULTATION: 02/12/2017 SURGICAL CONSULTATION CONSULTING PHYSICIAN: Dr. Garry Stephenson. REASON FOR CONSULTATION: Small-bowel obstruction. HISTORY OF PRESENT ILLNESS: This patient is a 71-year-old chronically ill white female, well known to myself. She has a history of a total colectomy for presumed ulcerative colitis. She was subsequ ently recognized to have Crohn disease and was given a permanent ileostomy when her lower anastomosi s failed. In 2012, I performed an extensive lysis of adhesions, requiring an almost 4 hours to comp lete. Segmental small bowel resection was performed at that time. She required complex closure of her abdominal wall. Subsequent to that surgery, she had numerous medical problems for which she was hospitalized for a l engthy period of time. She ended up requiring a tracheostomy and a PEG tube placement. She require d a lengthy rehabilitation. I told her at that time that I was uncertain that she would ever tolera te another laparotomy if that became necessary. The patient presented to the hospital in April and upper GI endoscopy revealed multiple large deep ulcerations of the ulcer related to her Crohn's. She was treated at that time with Entyvio. She h ad returned at this time with coffee ground stool and some blood from her ostomy. She had apparentl y been vomiting as well. CT scan upon arrival revealed findings consistent with a bowel obstruction , was initially felt to be constipation. Further evaluation reveals that this is fecalization of ma terial within the small bowel. She underwent endoscopy today per Dr. Stephenson, revealing that [facility] findings had resolved. He was unable to pass the scope significantly at the end of the ileostomy. Gastrografin small bowel follow-through was obtained later in the day and contrast passed through the bowel into the stoma of ostomy bag. She did have some dilated bowels distally. PAST MEDICAL HISTORY: Significant for Crohn disease, prior cerebrovascular accident, diabetes, hype rtension, hernias, tonsillectomy, heart disease, and cholelithiasis. PAST SURGICAL HISTORY: Include a total colectomy with formation of a J pouch, J pouch takedown with formation of ileostomy, 4-vessel coronary artery bypass graft, repair of ventral incisional hernia with mesh, exploratory laparotomy, small bowel resection and primary anastomosis in 2012, tracheosto my, tonsillectomy, PEG tube placement, abdominoplasty, retinal surgery x2 for retinal detachment. PERSONAL AND SOCIAL HISTORY: She is , with 2 children. PHYSICAL EXAMINATION: VITAL SIGNS: Temperature 98.2, pulse 68, blood pressure 107/66. GENERAL: She is a well-developed, well-nourished, pleasant female, currently in no acute distress. She tells me she feels well. She tells me she has had substantial ostomy output today, subsequent to small bowel study. LUNGS: Clear to auscultation. CARDIAC: Regular rate and rhythm. ABDOMEN: Soft, nontender, nondistended. Bowel sounds are hypoactive at this time. Ostomy is funct ional with ostomy output in the bag currently. EXTREMITIES: Unremarkable. LABORATORY STUDIES: CBC from today reveals white blood cell count of 7 with hemoglobin of 12.6. He r creatinine is little elevated at 1.9. This is essentially at her baseline, however. ASSESSMENT AND PLAN: Patient with what appears to have been some degree of bowel obstruction. I mckeon spect that this is actually a functional constipation, leading to fecalization. It seems that the c ombination of medications that she has had (including the Gastrografin from today) has flushed out w henever hard formed material was in her small bowel that was causing the obstruction. She may have some degree of stenosis at her anastomosis (which she certainly did back in 2012). I would certainl y recommend taking any measures necessary to avoid subsequent surgery on her. As it appears that he r obstructive process is resolved, I think it is safe to initiate a clear liquid diet. We will obta in follow up x-rays tomorrow and see how those work. If she is able to progress and tolerate adequa te oral intake, then she would be able to be discharged soon. May give consideration to a low resid ue diet to minimize problems with further obstruction. Patient notes that she does not wear her bot liberty dentures when she eats she had a hard time chewing up food and therefore swallows allow her food whole and this may lead to the functional obstructions in her intestine.
[2017-02-13] MEDS: Sodium Chloride 0.9% 1,000 ML IV SCH ×2 (05:44→18:54)
[2017-02-13] MEDS: Levothyroxine Sodium 25 MCG TAB PO SCH (05:45)
[2017-02-13] MEDS: metroNIDAZOLE 500 MG in Premix Bag 1 BAG IVPB SCH ×2 (05:45→14:12)
[2017-02-13] MEDS: HumaLOG 300 UNITS/3 ML VIAL SC PRN ×4 (05:46→22:10)
[2017-02-13 05:56] LABS: Anion Gap 13 mmol/L (10-20); BUN (Urea Nitrogen) 46 mg/dL (9.8-20.1); Calc. Creatinine Clearance 41 mL/min (70-130); Calcium 7.8 mg/dL (7.8-10.44); Carbon Dioxide 16 mmol/L (23-31); Chloride 108 mmol/L (98-107); Estimated GFR-MDRD 33
[2017-02-13 05:57] LABS: #Lymphocytes 0.5 thou/uL (1.20-3.40); #Monocytes 0.1 thou/uL (0.11-0.59); #Neutrophils 5.3 thou/uL (1.40-6.50); %Basophils 0.4 % (0.0-1.0); %Eosinophils 0.2 % (0.0-10.0); %Lymphocytes 7.5 % (21.0-51.0); %Monocytes 2.3 % (0.0-10.0); Hematocrit 37.8 % (36.0-47.0); Mean Platelet Volume 9.3 fL (7.4-10.4); Red Blood Cell (RBC) Count 3.74 mill/uL (4.20-5.40); White Blood Cell (WBC) Count 5.9 thou/uL (4.8-10.8)
--- NOTE | 2017-02-13 08:36 | RAD ---
TWO VIEW ABDOMEN: History: Small bowel obstruction. Correlation made to yesterday's small bowel study. FINDINGS/IMPRESSION: Supine and upright views obtained. There continued to be gas filled dilated loops of small bowel in the right abdomen. There is no residual contrast seen within the bowel. No free air or other acute a bnormality. POS: [facility]
[2017-02-13] MEDS: Cyanocobalamin (Vitamin B-12) 1,000 MCG TAB PO SCH (09:16)
[2017-02-13] MEDS: rOPINIRole HCl 0.25 MG TAB PO SCH (09:16)
[2017-02-13] MEDS: Ursodiol 300 MG CAP PO SCH ×2 (09:16→20:45)
[2017-02-13] MEDS: Folic Acid 1 MG TAB PO SCH (09:17)
[2017-02-13] MEDS: Metoprolol Tartrate 25 MG TAB PO SCH ×2 (09:17→20:45)
[2017-02-13] MEDS: NPH, Human Insulin Isophane 300 UNIT/3 ML VIAL SC SCH ×3 (09:18→17:58)
--- NOTE | 2017-02-13 12:13 | PRG ---
DATE OF SERVICE: 02/13/2017 Ms. Shaffer is hospital day #3 in regard to her recent small-bowel obstruction. Although she still h ad some dilated loops of small bowel on her small bowel follow through yesterday, she certainly had passage of all of her contrast into her ileostomy. I started her on a clear liquid diet last night and she tolerated this well. She has had no nausea or vomiting. She denies any abdominal pain. Anju mclean notes that she still had voluminous output from her ileostomy. PHYSICAL EXAMINATION: VITAL SIGNS: On examination today, she is afebrile and vital signs are within normal limits. ABDOMEN: Soft and nontender. She has got normoactive bowel sounds. LABORATORY STUDIES: Reveal an essentially normal CBC. She has some electrolyte abnormalities on he r basic metabolic panel including hyperkalemia of 5.5. Her glucose is elevated at 280. Her abdomin al films revealed mild area of bowel dilatation with some gas within it that appears to not be an ob structive finding. ASSESSMENT: Patient with resolved small-bowel obstruction. She may have actually had a functional bezoar from food that she was eating. I will advance her today to a full liquid diet. From a surgi dino standpoint, she may be discharged at any time. Given her electrolyte abnormalities, it may be b kayla to observe this for another day or two to ensure stability before discharge home. I will see her in the future as needed.
--- NOTE | 2017-02-13 12:26 | PDOC.PN ---
- Subjective Encounter Start Date: 02/13/17 Encounter Start Time: 08:45 pt is tolerating liquid diet, no abdominal pain, feels better - Objective Resuscitation Status: Resuscitation Status FULL:Full Resuscitation MAR Reviewed: Yes Vital Signs & Weight: Vital Signs (12 hours) Temp Pulse Resp BP Pulse Ox 02/13/17 08:38 98.2 F 60 18 125/64 92 L 02/13/17 04:00 98.0 F 57 L 16 113/70 93 L Weight Admit Weight 172 lb 3.2 oz Weight 172 lb 3.2 oz I&O: 02/12/17 02/13/17 02/14/17 06:59 06:59 06:59 Intake Total 2740 Output Total 20 Balance 2720 Result Diagrams: 02/13/17 05:09 02/13/17 05:09 Additional Labs: Accuchecks 02/13/17 02/13/17 02/12/17 12:07 03:11 19:33 POC Glucose 275 H 251 H 206 H 02/12/17 16:00 POC Glucose 282 H Phys Exam - Physical Examination Constitutional: NAD HEENT: PERRLA, moist MMs, sclera anicteric Neck: no JVD, supple Respiratory: no wheezing, no rales, no rhonchi Cardiovascular: RRR, no significant murmur, no rub Gastrointestinal: soft, non-tender, no distention, positive bowel sounds iliostomy+ Musculoskeletal: no edema, pulses present Neurological: non-focal, normal sensation, moves all 4 limbs Psychiatric: normal affect, A&O x 3 Skin: no rash, normal turgor Dx/Plan (1) Acute worsening of stage 3 chronic kidney disease Code(s): N18.3 - CHRONIC KIDNEY DISEASE, STAGE 3 (MODERATE) Status: Acute (2) Exacerbation of Crohn's disease of small intestine Code(s): K50.00 - CROHN'S DISEASE OF SMALL INTESTINE WITHOUT COMPLICATIONS Status: Acute (3) Hyperkalemia Code(s): E87.5 - HYPERKALEMIA Status: Acute (4) Small bowel obstruction Code(s): K56.609 - UNSP INTESTNL OBST, UNSP TO PARTIAL VERSUS COMPLETE OBST Status: Acute (5) Anxiety and depression Code(s): F41.9 - ANXIETY DISORDER, UNSPECIFIED; F32.9 - MAJOR DEPRESSIVE DISORDER, SINGLE EPISODE, UNSPECIFIED Status: Chronic (6) CAD (coronary artery disease) Code(s): I25.10 - ATHSCL HEART DISEASE OF [place] CORONARY ARTERY W/O ANG PCTRS Status: Chronic Qualifiers: Comment: h/o [place] 2008 (7) Cholelithiasis Code(s): K80.20 - CALCULUS OF GALLBLADDER W/O CHOLECYSTITIS W/O OBSTRUCTION Status: Chronic Comment: not a candidate for surgery per patient report (8) Chronic diastolic heart failure Code(s): I50.32 - CHRONIC DIASTOLIC (CONGESTIVE) HEART FAILURE Status: Chronic (9) Chronic pain syndrome Code(s): G89.4 - CHRONIC PAIN SYNDROME Status: Chronic (10) DM type 2 (diabetes mellitus, type 2) Status: Chronic Qualifiers: (11) GERD (gastroesophageal reflux disease) Code(s): K21.9 - GASTRO-ESOPHAGEAL REFLUX DISEASE WITHOUT ESOPHAGITIS Status: Chronic Qualifiers: (12) H/O: CVA (cerebrovascular accident) Code(s): Z86.73 - PRSNL HX OF TIA (TIA), AND CEREB INFRC W/O RESID DEFICITS Status: Chronic (13) Hypertension Code(s): I10 - ESSENTIAL (PRIMARY) HYPERTENSION Status: Chronic Qualifiers: (14) Hypothyroidism Code(s): E03.9 - HYPOTHYROIDISM, UNSPECIFIED Status: Chronic Qualifiers: (15) IBD (inflammatory bowel disease) Code(s): K63.89 - OTHER SPECIFIED DISEASES OF INTESTINE Status: Chronic Comment: crohn's (16) TAISHA (iron deficiency anemia) Code(s): D50.9 - IRON DEFICIENCY ANEMIA, UNSPECIFIED Status: Chronic Qualifiers: (17) Obesity (BMI 30.0-34.9) Code(s): E66.9 - OBESITY, UNSPECIFIED Status: Chronic (18) RLS (restless legs syndrome) Status: Chronic - Plan cont current plan of care * renal function continue to improve * monitor potassium * SBO resolved and now advanced diet to full liquid diet * spoke with surgeon and they are ok with discharge * now will monitor today and repeat labs tomorrow, if renal function and potassium stable and improve, will discharge tomorrow * medication reviewed as below * symptomatic treatment. Review of Systems - Review of Systems ENT: negative: Ear Pain, Ear Discharge, Nose Pain, Nose Discharge, Nose Congestion, Mouth Pain, Mouth Swelling, Throat Pain, Throat Swelling, Other Respiratory: negative: Cough, Dry, Shortness of Breath, Hemoptysis, SOB with Excertion, Pleuritic Pain, Sputum, Wheezing Cardiovascular: negative: Chest Pain, Palpitations, Orthopnea, Paroxysmal Noc. Dyspnea, Edema, Light Headedness, Other Gastrointestinal: negative: Nausea, Vomiting, Abdominal Pain, Diarrhea, Constipation, Melena, Hematochezia, Other Genitourinary: negative: Dysuria, Frequency, Incontinence, Hematuria, Retention , Other Musculoskeletal: negative: Neck Pain, Shoulder Pain, Arm Pain, Back Pain, Hand Pain, Leg Pain, Foot Pain, Other - Medications/Allergies Allergies/Adverse Reactions: Allergies Allergy/AdvReac Type Severity Reaction Status Date / Time azathioprine [From Imuran] Allergy Severe PANCREATITI Verified 02/11/17 03:13 S azathioprine sodium Allergy Severe PANCREATITI Verified 02/11/17 03:13 [From Imuran] S Sulfa (Sulfonamide Allergy Severe Verified 02/11/17 03:13 Antibiotics) sulfamethoxazole Allergy Severe Verified 02/11/17 03:13 [From Bactrim] tetanus and diphtheria Allergy Severe Hives Verified 02/11/17 03:13 toxoids [Tetanus&Diphtheria Toxoid] promethazine HCl Allergy Intermediate RESTLESS Verified 02/11/17 03:13 [From Phenergan] LEGS trimethoprim [From Bactrim] Allergy Unknown Verified 02/11/17 03:13 Medications: Current Medications Aspirin (Aspirin Chewable) 81 mg PO DAILY [facility] Last Admin: 02/13/17 09:16 Dose: 81 mg Atorvastatin Calcium (Lipitor) 10 mg PO [facility] Last Admin: 02/12/17 21:45 Dose: 10 mg Citalopram Hydrobromide (Celexa) 20 mg PO HS [facility] Last Admin: 02/12/17 21:46 Dose: 20 mg Cyanocobalamin (Vitamin B-12) 1,000 mcg PO DAILY [facility] Last Admin: 02/13/17 09:16 Dose: 1,000 mcg Dextrose/Water (Dextrose 50%) 25 gm SLOW IVP PRN PRN PRN Reason: Hypoglycemia Folic Acid (Folvite) 1 mg PO DAILY [facility] Last Admin: 02/13/17 09:17 Dose: 1 mg Glucagon (Glucagon) 1 mg IM PRN PRN PRN Reason: Hypoglycemia Sodium Chloride (Normal Saline 0.9%) 1,000 mls @ 30 mls/hr IV .Q24H [facility] Last Admin: 02/13/17 05:44 Dose: 1,000 mls Dextrose/Water (D5w) 1,000 mls @ 0 mls/hr IV .Q0M PRN; As Directed PRN Reason: Hypoglycemia Levofloxacin 500 mg/ Device 100 mls @ 100 mls/hr IVPB Q24HR [facility] Last Admin: 02/12/17 14:22 Dose: 100 mls Metronidazole 500 mg/ Device 100 mls @ 100 mls/hr IVPB Q8HR [facility] Last Admin: 02/13/17 05:45 Dose: 100 mls Insulin Human Lispro (Humalog) 0 units SC .MILD SLIDING SCALE PRN PRN Reason: Mild Correctional Scale Last Admin: 02/13/17 05:46 Dose: 6 unit/kg Insulin Human NPH (Humulin N) 10 unit SC TID-WM [facility] Last Admin: 02/13/17 09:18 Dose: 10 units Levothyroxine Sodium (Synthroid) 25 mcg PO 0600 [facility] Last Admin: 02/13/17 05:45 Dose: 25 mcg Methylprednisolone Sodium Succinate (Solu-Medrol) 20 mg IVP Q6HR [facility] Last Admin: 02/13/17 05:45 Dose: 20 mg Metoprolol Tartrate (Lopressor) 12.5 mg PO BID [facility] Last Admin: 02/13/17 09:17 Dose: 12.5 mg Morphine Sulfate (Morphine Sulfate) 2 mg SLOW IVP Q4H PRN PRN Reason: Pain 7-10 Last Admin: 02/12/17 11:34 Dose: 2 mg Ondansetron HCl (Zofran) 4 mg IVP Q6H PRN PRN Reason: Nausea/Vomiting Last Admin: 02/12/17 11:34 Dose: 4 mg Pantoprazole Sodium (Protonix) 40 mg PO BID [facility] Last Admin: 02/13/17 09:18 Dose: 40 mg Ropinirole HCl (Requip) 0.25 mg PO DAILY [facility] Last Admin: 02/13/17 09:16 Dose: 0.25 mg Sodium Chloride (Flush - Normal Saline) 10 ml IVF PRN PRN PRN Reason: Saline Flush Last Admin: 02/13/17 01:00 Dose: 10 ml Ursodiol (Actigal) 300 mg PO BID [facility] Last Admin: 02/13/17 09:16 Dose: 300 mg
[2017-02-13] MEDS: Atorvastatin Calcium 10 MG TAB PO SCH (20:45)
[2017-02-13] MEDS: metroNIDAZOLE 500 MG TAB PO SCH (20:45)
[2017-02-14 04:22] LABS: #Lymphocytes 0.7 thou/uL (1.20-3.40); #Monocytes 0.5 thou/uL (0.11-0.59); #Neutrophils 3.9 thou/uL (1.40-6.50); %Basophils 0.6 % (0.0-1.0); %Eosinophils 0.3 % (0.0-10.0); %Lymphocytes 14.3 % (21.0-51.0); %Monocytes 8.8 % (0.0-10.0); Hematocrit 35.5 % (36.0-47.0); Mean Platelet Volume 9.3 fL (7.4-10.4); White Blood Cell (WBC) Count 5.2 thou/uL (4.8-10.8)
[2017-02-14 04:35] LABS: Anion Gap 9 mmol/L (10-20); BUN (Urea Nitrogen) 40 mg/dL (9.8-20.1); Calc. Creatinine Clearance 48 mL/min (70-130); Carbon Dioxide 22 mmol/L (23-31); Chloride 107 mmol/L (98-107); Estimated GFR-MDRD 39
[2017-02-14 04:36] LABS: Calcium 8.2 mg/dL (7.8-10.44)
[2017-02-14] MEDS: Levothyroxine Sodium 25 MCG TAB PO SCH (05:30)
[2017-02-14] MEDS: metroNIDAZOLE 500 MG TAB PO SCH ×2 (05:30→14:44)
[2017-02-14] MEDS ORDERED: predniSONE 20 MG TAB PO SCH ×2 (08:00→09:00)
[2017-02-14 08:32] VITALS: BP 119/55; TEMP 97.5
[2017-02-14] MEDS: Cyanocobalamin (Vitamin B-12) 1,000 MCG TAB PO SCH (08:32)
[2017-02-14] MEDS: Metoprolol Tartrate 25 MG TAB PO SCH (08:32)
[2017-02-14] MEDS: Folic Acid 1 MG TAB PO SCH (08:32)
[2017-02-14] MEDS: Ursodiol 300 MG CAP PO SCH (08:33)
[2017-02-14] MEDS: NPH, Human Insulin Isophane 300 UNIT/3 ML VIAL SC SCH ×2 (08:33→12:51)
[2017-02-14] MEDS: rOPINIRole HCl 0.25 MG TAB PO SCH (08:33)
--- NOTE | 2017-02-14 10:08 | PRG ---
DATE OF SERVICE: 02/13/2017 Ms. Shaffer is tolerating a full liquid diet. Her small bowel follow through did shows some dilated loops of small bowel distally. The follow up x-ray this morning shows gas filled loops of small bow el in the right upper abdomen. No residual contrast was present. VITAL SIGNS: Temperature is 98.2, pulse 60, blood pressure 125/64. LUNGS: Clear. ABDOMEN: Soft, nontender. LABORATORY STUDIES: White count 5.9, hemoglobin 11.6, MCV 101, platelet count 88, BUN and creatinin e are 46 and 1.56. ASSESSMENT: 1. Crohn's disease. 2. History of large gastric ulcers, now healed. Biopsies of the duodenum showed mild duodenitis. Ileoscopy was normal. 3. Bowel obstruction likely related to stricture anastomosis. There was no evidence of stenosis at the ileostomy and normal functioning ileostomy. She has noted some [id number] material in her bowels at times; however, she is not significa ntly anemic. She does have sed rate of 95 on admission. CRP was less than 25. PLAN: At this time, will progress with a low residue diet, continue her Entyvio as it seems that he r Crohn's is doing much better and treat her as having a partial bowel obstruction secondary to adhe sions from prior surgery or anastomotic stricture. At this time since she has been able to avoid a surgery she has had intermittent symptoms like this in the past. In the future, it may be reasonabl e to proceed with a CT enterography. When she is discharged, she can follow up with Dr. Patel in a w [place] or two.
--- NOTE | 2017-02-14 10:49 | PDOC.PN ---
- Subjective Encounter Start Date: 02/14/17 Encounter Start Time: 10:00 Patient seen and examined. No new complaints. No overnight events - Objective Resuscitation Status: Resuscitation Status FULL:Full Resuscitation MAR Reviewed: Yes Vital Signs & Weight: Vital Signs (12 hours) Temp Pulse Resp BP BP Pulse Ox 02/14/17 08:31 97.5 F L 60 16 119/55 L 94 L 02/14/17 08:00 97.5 F L 60 16 02/14/17 04:05 97.8 F 61 20 137/70 96 02/14/17 00:00 97.9 F 55 L 20 100/56 L 92 L Weight Admit Weight 172 lb 3.2 oz Weight 172 lb 3.2 oz I&O: 02/13/17 02/14/17 02/15/17 06:59 06:59 06:59 Intake Total 2740 600 Output Total 20 Balance 2720 600 Result Diagrams: 02/14/17 03:56 02/14/17 03:56 Additional Labs: Accuchecks 02/14/17 02/13/17 02/13/17 05:34 20:52 17:14 POC Glucose 119 H 310 H 295 H 02/13/17 12:07 POC Glucose 275 H Phys Exam - Physical Examination Constitutional: NAD HEENT: PERRLA, moist MMs, sclera anicteric Neck: no JVD, supple Respiratory: no wheezing, no rales, no rhonchi Cardiovascular: RRR, no significant murmur, no rub Gastrointestinal: soft, non-tender, no distention, positive bowel sounds iliostomy+ Musculoskeletal: no edema, pulses present Neurological: non-focal, normal sensation Psychiatric: normal affect, A&O x 3 Skin: no rash, normal turgor Dx/Plan (1) Acute worsening of stage 3 chronic kidney disease Code(s): N18.3 - CHRONIC KIDNEY DISEASE, STAGE 3 (MODERATE) Status: Acute (2) Exacerbation of Crohn's disease of small intestine Code(s): K50.00 - CROHN'S DISEASE OF SMALL INTESTINE WITHOUT COMPLICATIONS Status: Acute (3) Hyperkalemia Code(s): E87.5 - HYPERKALEMIA Status: Acute (4) Small bowel obstruction Code(s): K56.609 - UNSP INTESTNL OBST, UNSP TO PARTIAL VERSUS COMPLETE OBST Status: Acute (5) Anxiety and depression Code(s): F41.9 - ANXIETY DISORDER, UNSPECIFIED; F32.9 - MAJOR DEPRESSIVE DISORDER, SINGLE EPISODE, UNSPECIFIED Status: Chronic (6) CAD (coronary artery disease) Code(s): I25.10 - ATHSCL HEART DISEASE OF FALSE PASS CORONARY ARTERY W/O ANG PCTRS Status: Chronic Qualifiers: Comment: h/o MA 2008 (7) Cholelithiasis Code(s): K80.20 - CALCULUS OF GALLBLADDER W/O CHOLECYSTITIS W/O OBSTRUCTION Status: Chronic Comment: not a candidate for surgery per patient report (8) Chronic diastolic heart failure Code(s): I50.32 - CHRONIC DIASTOLIC (CONGESTIVE) HEART FAILURE Status: Chronic (9) Chronic pain syndrome Code(s): G89.4 - CHRONIC PAIN SYNDROME Status: Chronic (10) DM type 2 (diabetes mellitus, type 2) Status: Chronic Qualifiers: (11) GERD (gastroesophageal reflux disease) Code(s): K21.9 - GASTRO-ESOPHAGEAL REFLUX DISEASE WITHOUT ESOPHAGITIS Status: Chronic Qualifiers: (12) H/O: CVA (cerebrovascular accident) Code(s): Z86.73 - PRSNL HX OF TIA (TIA), AND CEREB INFRC W/O RESID DEFICITS Status: Chronic (13) Hypertension Code(s): I10 - ESSENTIAL (PRIMARY) HYPERTENSION Status: Chronic Qualifiers: (14) Hypothyroidism Code(s): E03.9 - HYPOTHYROIDISM, UNSPECIFIED Status: Chronic Qualifiers: (15) IBD (inflammatory bowel disease) Code(s): K63.89 - OTHER SPECIFIED DISEASES OF INTESTINE Status: Chronic Comment: crohn's (16) TAISHA (iron deficiency anemia) Code(s): D50.9 - IRON DEFICIENCY ANEMIA, UNSPECIFIED Status: Chronic Qualifiers: (17) Obesity (BMI 30.0-34.9) Code(s): E66.9 - OBESITY, UNSPECIFIED Status: Chronic (18) RLS (restless legs syndrome) Status: Chronic - Plan cont current plan of care, continue antibiotics * dietary consult * discharge medication reconciled * possible discharge later today * medication reviewed as below * symptomatic treatment * lasix and potassium only as neded for edema and dyspnea as directed. Review of Systems - Review of Systems ENT: negative: Ear Pain, Ear Discharge, Nose Pain, Nose Discharge, Nose Congestion, Mouth Pain, Mouth Swelling, Throat Pain, Throat Swelling, Other Respiratory: negative: Cough, Dry, Shortness of Breath, Hemoptysis, SOB with Excertion, Pleuritic Pain, Sputum, Wheezing Cardiovascular: negative: Chest Pain, Palpitations, Orthopnea, Paroxysmal Noc. Dyspnea, Edema, Light Headedness, Other Gastrointestinal: negative: Nausea, Vomiting, Abdominal Pain, Diarrhea, Constipation, Melena, Hematochezia, Other Genitourinary: negative: Dysuria, Frequency, Incontinence, Hematuria, Retention , Other Musculoskeletal: negative: Neck Pain, Shoulder Pain, Arm Pain, Back Pain, Hand Pain, Leg Pain, Foot Pain, Other - Medications/Allergies Allergies/Adverse Reactions: Allergies Allergy/AdvReac Type Severity Reaction Status Date / Time azathioprine [From Imuran] Allergy Severe PANCREATITI Verified 02/11/17 03:13 S azathioprine sodium Allergy Severe PANCREATITI Verified 02/11/17 03:13 [From Imuran] S Sulfa (Sulfonamide Allergy Severe Verified 02/11/17 03:13 Antibiotics) sulfamethoxazole Allergy Severe Verified 02/11/17 03:13 [From Bactrim] tetanus and diphtheria Allergy Severe Hives Verified 02/11/17 03:13 toxoids [Tetanus&Diphtheria Toxoid] promethazine HCl Allergy Intermediate RESTLESS Verified 02/11/17 03:13 [From Phenergan] LEGS trimethoprim [From Bactrim] Allergy Unknown Verified 02/11/17 03:13 Medications: Current Medications Aspirin (Aspirin Chewable) 81 mg PO DAILY [facility] Last Admin: 02/14/17 08:33 Dose: 81 mg Atorvastatin Calcium (Lipitor) 10 mg PO HS [facility] Last Admin: 02/13/17 20:45 Dose: 10 mg Citalopram Hydrobromide (Celexa) 20 mg PO HS [facility] Last Admin: 02/13/17 20:45 Dose: 20 mg Cyanocobalamin (Vitamin B-12) 1,000 mcg PO DAILY [facility] Last Admin: 02/14/17 08:32 Dose: 1,000 mcg Dextrose/Water (Dextrose 50%) 25 gm SLOW IVP PRN PRN PRN Reason: Hypoglycemia Folic Acid (Folvite) 1 mg PO DAILY [facility] Last Admin: 02/14/17 08:32 Dose: 1 mg Glucagon (Glucagon) 1 mg IM PRN PRN PRN Reason: Hypoglycemia Dextrose/Water (D5w) 1,000 mls @ 0 mls/hr IV .Q0M PRN; As Directed PRN Reason: Hypoglycemia Insulin Human Lispro (Humalog) 0 units SC .MILD SLIDING SCALE PRN PRN Reason: Mild Correctional Scale Last Admin: 02/13/17 22:10 Dose: 8 unit Insulin Human NPH (Humulin N) 10 unit SC TID[facility] Last Admin: 02/14/17 08:33 Dose: 10 units Levofloxacin (Levaquin) 500 mg PO 0600 [facility] Last Admin: 02/14/17 05:30 Dose: 500 mg Levothyroxine Sodium (Synthroid) 25 mcg PO 0600 [facility] Last Admin: 02/14/17 05:30 Dose: 25 mcg Metoprolol Tartrate (Lopressor) 12.5 mg PO BID [facility] Last Admin: 02/14/17 08:32 Dose: 12.5 mg Metronidazole (Flagyl) 500 mg PO Q8HR [facility] Last Admin: 02/14/17 05:30 Dose: 500 mg Morphine Sulfate (Morphine Sulfate) 2 mg SLOW IVP Q4H PRN PRN Reason: Pain 7-10 Last Admin: 02/12/17 11:34 Dose: 2 mg Ondansetron HCl (Zofran) 4 mg IVP Q6H PRN PRN Reason: Nausea/Vomiting Last Admin: 02/12/17 11:34 Dose: 4 mg Pantoprazole Sodium (Protonix) 40 mg PO BID [facility] Last Admin: 02/14/17 08:32 Dose: 40 mg Prednisone (Prednisone) 40 mg PO QAM[facility] Last Admin: 02/14/17 08:32 Dose: 40 mg Ropinirole HCl (Requip) 0.25 mg PO DAILY [facility] Last Admin: 02/14/17 08:33 Dose: 0.25 mg Sodium Chloride (Flush - Normal Saline) 10 ml IVF PRN PRN PRN Reason: Saline Flush Last Admin: 02/13/17 01:00 Dose: 10 ml Ursodiol (Actigal) 300 mg PO BID [facility] Last Admin: 02/14/17 08:33 Dose: 300 mg
--- NOTE | 2017-02-14 11:58 | DIS ---
DATE OF ADMISSION: 02/11/2017 DATE OF DISCHARGE: 02/14/2017 PRIMARY CARE PHYSICIAN: Dr. Valente Crenshaw. DISCHARGE DISPOSITION: Home. PRIMARY DISCHARGE DIAGNOSES: 1. Acute on chronic kidney failure, baseline chronic kidney disease, stage 3. 2. Small-bowel obstruction. 3. Exacerbation of Crohn's disease in small intestine. 4. Hyperkalemia due to medication. SECONDARY DISCHARGE DIAGNOSES: 1. Thrombocytopenia. 2. Restless legs syndrome. 3. Obesity with BMI 32. 4. Macrocytosis. 5. Iron deficiency anemia. 6. Inflammatory bowel disease. 7. Hypothyroidism. 8. Hypertension. 9. History of cerebrovascular accident. 10. Gastroesophageal reflux disease. 11. Diabetes, type 2. 12. Chronic pain disorder. 13. Chronic diastolic heart failure. 14. Cholelithiasis. 15. Coronary artery disease. 16. Anxiety and depression. PRIMARY PROCEDURE/OPERATION: The patient had upper endoscopy; it was performed by Dr. Stephenson and co lonoscopy through the ileostomy. The patient had significant improvement in ulcer, erosion, and str icture in her stomach and duodenum. Ileoscopy was also unremarkable. RADIOLOGICAL INVESTIGATION: Chest x-ray was normal. Abdomen and pelvis CT scan on admission showed status post colectomy suspicious for acute small-bowel obstruction at right lower quadrant osteoma site, splenomegaly. Small bowel x-ray showed no evidence of obstruction. Abdomen x-ray was unremar kable. SIGNIFICANT LABORATORY DATA: WBC 5.2, hemoglobin 11.4, platelets 79. Sodium 134, potassium 4.4, ch loride 107, BUN 40, creatinine 1.35, glucose 120, calcium 8.2. Urinalysis: Leukocyte esterase mode rate. DISCHARGE MEDICATIONS: Aspirin 81 mg p.o. daily, Lipitor 10 mg p.o. at bedtime, Celexa 20 mg p.o. d aily, vitamin B12 1000 mcg p.o. daily, folic acid 1 mg p.o. daily, Lasix 40 mg p.o. daily as directe d, Lantus 70 units subcu b.i.d., NPH/Novolin N 10 units subcu t.i.d., Levaquin 500 mg p.o. daily for 5 days, Synthroid 25 mcg p.o. daily, metoprolol tartrate 12.5 mg p.o. b.i.d., Protonix 40 mg p.o. d aily, potassium chloride 10 mEq p.o. daily p.r.n. with Lasix, ursodiol 300 mg p.o. b.i.d., Flagyl 50 0 mg p.o. t.i.d. for 5 days, prednisone 20 mg p.o. daily for 5 days. CONTRAINDICATIONS: None. CODE STATUS: FULL CODE. INPATIENT CONSULTANTS: Dr. Stephenson was following while in hospital. Dr. Dennis was following while in hospital. TEST RESULTS PENDING ON DISCHARGE: None. ALLERGIES: AZATHIOPRINE and SULFA DRUGS. DISCHARGE PLAN: Post hospital, the patient will follow up with primary care physician, Dr. Valente [place] in 1 week. The patient is advised to follow up with primary database design analyst and Dr. Tyra shields, as instructed. HOSPITAL COURSE: A 71-year-old female, who came to hospital on 02/11/2017. Please see Dr. Robertson's H and P for further details. The patient was having nausea, vomiting, and right lower quadrant abdo alis pain. This patient had CT of the abdomen and pelvis, which showed small-bowel obstruction in the right lower quadrant at osteotomy site. This patient was also suspected for Crohn's flareup and that is why Dr. Stephenson was consulted. Dr. Stephenson did upper endoscopy and patient had improvement i n her findings, which was seen before. Patient was on Entyvio therapy for Crohn's disease. It seem s like that Entyvio therapy is working while in hospital. We continued with IV steroid, and on disc harge, we changed to p.o. prednisone for 5 more days. The patient was also given empiric antibiotic therapy with Levaquin and Flagyl while in hospital, wh ich was given for 5 more days upon discharge. Dr. Dennis was consulted and he was not thinking that this patient has any mechanical obstruction, but it was related with functional obstruction, because patient does not have any lower dentures and patient was eating food, which was not chewed well and that is why that food bezoar was causing obs truction. Dietary consultation was done before discharge. Patient is given education about low residue diet a nd is advised to chew diet very well. Patient's small-bowel obstruction resolved. We started on diet and advanced diet to regular diet wi thout any problem. While in hospital, we noted that her kidney was not working. Her potassium was high and that is why we discontinued potassium supplementation schedule and Lasix schedule. At this point, patient is e uvolemic and I advised her to take Lasix and potassium only as needed basis for edema. All new medi cation prescriptions sent to her pharmacy. Patient had mild ileostomy bleeding before discharge, but that was self-limiting. The patient is seen and examined at bedside today. Please see my progress note from today for furth er details. Total time spent on discharge day more than 30 minutes.
[2017-02-14] MEDS: HumaLOG 300 UNITS/3 ML VIAL SC PRN (12:52)
== END 2017-02-14 15:35 | disposition home health service (06) | DRG 386 ==
LOC: ERS 21:20 → T4-B 02-11 00:41
PROVIDERS: ADMIT Internal Medicine; ATTEND Internal Medicine
PROC: 0DB98ZX Excision of Duodenum, Via Natural or Artificial Opening Endoscopic, Diagnostic (ICD-10-PCS; principal; 2017-02-12)
PROC: 0DJD8ZZ Inspection of Lower Intestinal Tract, Via Natural or Artificial Opening Endoscopic (ICD-10-PCS; 2017-02-12)
DX: K50.00 Crohn's disease of small intestine without complications (principal); K56.699 Other intestinal obstruction unspecified as to partial versus complete obstruction; N17.9 Acute kidney failure, unspecified; E11.22 Type 2 diabetes mellitus with diabetic chronic kidney disease; I85.00 Esophageal varices without bleeding; D69.6 Thrombocytopenia, unspecified; I13.0 Hypertensive heart and chronic kidney disease with heart failure and stage 1 through stage 4 chronic kidney disease, or unspecified chronic kidney disease; N18.3 Chronic kidney disease, stage 3 (moderate); I50.32 Chronic diastolic (congestive) heart failure; N39.0 Urinary tract infection, site not specified; E87.5 Hyperkalemia; Z93.2 Ileostomy status; D50.9 Iron deficiency anemia, unspecified; R63.8 Other symptoms and signs concerning food and fluid intake; G25.81 Restless legs syndrome; Z90.49 Acquired absence of other specified parts of digestive tract; E66.9 Obesity, unspecified; Z68.32 Body mass index [BMI] 32.0-32.9, adult; D75.89 Other specified diseases of blood and blood-forming organs; K58.9 Irritable bowel syndrome, unspecified; E03.9 Hypothyroidism, unspecified; K21.9 Gastro-esophageal reflux disease without esophagitis; K80.20 Calculus of gallbladder without cholecystitis without obstruction; I25.10 Atherosclerotic heart disease of native coronary artery without angina pectoris; F41.9 Anxiety disorder, unspecified; F32.9 Major depressive disorder, single episode, unspecified; R16.1 Splenomegaly, not elsewhere classified; G89.4 Chronic pain syndrome; E78.5 Hyperlipidemia, unspecified; Z95.1 Presence of aortocoronary bypass graft; Z79.4 Long term (current) use of insulin
CPT/HCPCS: 36415; 36416; 71010; 74020; 74177; 74250; 80048; 80053; 81003; 81015; 82553; 83605; 83690; 83735; 83880; 84100; 84484; 85025; 85652; 86140; 86480; 87385; 87497; 88305; 93005; 96361; 96374; 96375; J0696; J1650; J1815; J1956; J2001; J2270; J2405; J2704; J2920; J2930; J7050; J7506

== ENCOUNTER 2017-02-22 10:08 | Inpatient (IN) | payer MEDICARE, MEDICAID ==
[2017-02-22] MEDS ORDERED: Fentanyl 100 MCG/2 ML VIAL ONE (10:41)
[2017-02-22 11:20] LABS: PTT 30.3 SEC (22.9-36.1); Prothrombin Time 15.3 SEC (12.0-14.7)
[2017-02-22 11:33] LABS: #Eosinphils 0.1 thou/uL (0.0-0.7); #Lymphocytes 0.9 thou/uL (1.20-3.40); #Monocytes 0.7 thou/uL (0.11-0.59); %Basophils 0.1 % (0.0-1.0); %Eosinophils 0.6 % (0.0-10.0); %Lymphocytes 8.2 % (21.0-51.0); %Monocytes 6.4 % (0.0-10.0); Hematocrit 40.1 % (36.0-47.0); Mean Platelet Volume 8.1 fL (7.4-10.4); Red Blood Cell (RBC) Count 4.11 mill/uL (4.20-5.40); White Blood Cell (WBC) Count 10.6 thou/uL (4.8-10.8)
--- NOTE | 2017-02-22 12:08 | RAD ---
LEFT ANKLE THREE VIEWS: History: Patient status post fall. FINDINGS: The bones appear somewhat demineralized. There are no signs of fracture or dislocation. Vascular dino cifications are seen. IMPRESSION: No evidence of fracture. POS: OFF
--- NOTE | 2017-02-22 12:09 | RAD ---
RADIOGRAPH CHEST 1 VIEW: HISTORY: 71-year-old female status post acute chest trauma, status post fall. FINDINGS: The thoracic aorta is tortuous and ectatic. There is no evidence of air space density, pneumothorax , or pulmonary edema. The lateral costophrenic angles are sharp. There are sternotomy wires. There is pulmonary vascular engorgement in the upper lobes. IMPRESSION: 1) No acute pulmonary findings. 2) Ectasia of thoracic aorta. brian POS: [facility]
--- NOTE | 2017-02-22 12:10 | RAD ---
AP PELVIS: History: Patient status post fall with left hip pain. FINDINGS: The bones are demineralized. There is a left femoral neck fracture. It involves the medial cortex. I t is difficult to see the entire extent. There is no significant displacement. IMPRESSION: Left femoral neck fracture. POS: OFF
--- NOTE | 2017-02-22 12:13 | RAD ---
RADIOGRAPH LEFT FEMUR TWO VIEWS: History: 71-year-old female with acute left hip traumatic pain from fall. FINDINGS: There is diffuse osteopenia. There is minimally displaced fracture of the femoral neck. There is dif fuse osteopenia. The femoral diaphysis is intact. Femoral condyles appear to be intact. Femoral head contour is maintained. No high grade degenerative changes or dislocation of the left hip. There are multiple surgical clips along the medial aspect of the left thigh. IMPRESSION: 1. Acute, traumatic, minimally displaced closed transverse fracture of the left femoral neck. 2. The femoral shaft is intact. 3. Status post left greater saphenous vein harvest. POS: [facility]
[2017-02-22 13:15] LABS: Chloride 112 mmol/L (98-107)
[2017-02-22 13:16] LABS: Calcium 9.1 mg/dL (7.8-10.44)
[2017-02-22 13:17] LABS: Globulin 5.1 g/dL (2.4-3.5); Protein, Total 8.5 g/dL (6.0-8.3)
[2017-02-22 13:18] LABS: Anion Gap 16 mmol/L (10-20); Bilirubin, Total 0.6 mg/dL (0.2-1.2); Carbon Dioxide 16 mmol/L (23-31)
[2017-02-22 13:19] LABS: Alkaline Phosphatase 69 U/L (40-150)
[2017-02-22 13:20] LABS: Calc. Creatinine Clearance 0 mL/min (70-130); Estimated GFR-MDRD 32
[2017-02-22 13:21] LABS: BUN (Urea Nitrogen) 41 mg/dL (9.8-20.1)
[2017-02-22 13:22] LABS: ALT (SGPT) 30 U/L (8-55); AST (SGOT) 81 U/L (5-34)
[2017-02-22] MEDS: Morphine 10 MG/ML VIAL ONE ×4 (13:40→15:30)
[2017-02-22] MEDS ORDERED: Ondansetron ODT 4 MG TAB SL PRN (14:04)
[2017-02-22] MEDS ORDERED: Ondansetron HCl/PF 4 MG/2 ML Vial IVP PRN ×2 (14:04→14:25)
[2017-02-22] MEDS ORDERED: Diazepam 10 MG/2 ML SYRINGE IVP PRN (14:05)
[2017-02-22] MEDS ORDERED: CEFAZOLIN/Water 2 GM/20 ML SYRINGE SLOW IVP SCH (14:15)
[2017-02-22] MEDS ORDERED: Morphine 2 MG/ML SYRINGE IVP PRN (14:25)
[2017-02-22] MEDS ORDERED: hydrALAZINE 20 MG/ML VIAL SLOW IVP PRN (14:25)
[2017-02-22] MEDS ORDERED: Ondansetron ODT 4 MG TAB PO PRN (14:25)
[2017-02-22] MEDS ORDERED: Dextrose 5% in Water 1,000 ML IV PRN (14:25)
[2017-02-22] MEDS ORDERED: Dextrose 50% Abboject 50 ML SYRINGE SLOW IVP PRN (14:25)
[2017-02-22 14:59] VITALS: BMI 27.9
[2017-02-22] MEDS: Acetaminophen 1,000 MG in Premix Bag 1 BAG IVPB SCH ×2 (15:01→22:53)
[2017-02-22] MEDS: Sodium Chloride 0.9% 1,000 ML IV SCH ×3 (15:29→23:28)
--- NOTE | 2017-02-22 16:04 | HP ---
DATE OF ADMISSION: 02/22/2017 REQUESTING PHYSICIAN: Elie Dunn M.D. ATTENDING SURGEON: Shyam Pemberton D.O. CONSULTATION: Orthopedics, Raul Henderson M.D. HISTORY OF PRESENT ILLNESS: The patient is a 71-year-old woman who was at home walking wi th her cane in her house when she slipped and fell. The patient landed on her left side and had imm ediate left hip pain. Afterwards, she started developing left knee and ankle pain. She was brought to the Emergency Department, evaluated and examined and noted have a left femoral neck fracture at which time we were asked to evaluate the patient for admission and to obtain orthopedic consultation s. ALLERGIES: AZATHIOPRINE, SULFA MEDICATIONS, PHENERGAN, and TETANUS. CURRENT MEDICATIONS: Metoprolol, ursodiol, Protonix, Lasix, Klor-Con, levothyroxine, atorvastatin, aspirin, Celexa, Feosol, Lantus, clonazepam. PAST MEDICAL HISTORY: Congestive heart failure, coronary artery disease, myocardial infarction, ins ulin-dependent diabetes, hypothyroidism, inflammatory bowel disease, Crohn's disease, iron deficienc y anemia, anxiety and depression. Patient has a history of having coccyx fracture and right arm fra cture. PAST SURGICAL HISTORY: Abdominal wall abscess, coronary artery bypass graft 4-vessel, colostomy and ileostomy with colectomy, tonsillectomy, tracheotomy, abdominoplasty, incision and drainage of abdo alis wall abscess, depression. SOCIAL HISTORY: The patient is a former tobacco user. She quit more than 10 years ago. Denies aliya g or alcohol use. She lives at home alone currently. REVIEW OF SYSTEMS: Ten-point review of systems was negative, unless otherwise stated. PHYSICAL EXAMINATION: VITAL SIGNS: Blood pressure 109/55, heart rate 84, respirations 16, oxygen saturation is 95% on cristy m air, and temperature is 98.8. HEAD: Normocephalic, atraumatic. EYES: Extraocular motion intact. PERRLA bilaterally. EARS: Atraumatic without discharge. NOSE: Atraumatic without discharge. OROPHARYNX: Clear. NECK: Nontender. Trachea is midline. No JVD. CHEST: Clear to auscultation with moderate inspiratory and expiratory effort. ABDOMEN: Soft and nontender with gas and stool in her ostomy bag. PELVIC: Stable. EXTREMITIES: Patient is tender to palpation to the left hip. She is neurologically intact x4. Cap illary refill is less than 3 seconds. Pulses are 2+ in all extremities. BACK: By report, it is nontender and atraumatic. LABORATORY DATA AND IMAGING: White blood cell count 10.6, hemoglobin 13.1, hematocrit 40.1, and arben telets 117,000. Sodium 138, potassium 6.4, chloride 112, CO2 16, BUN 41, creatinine 1.58, and gluco se 110. LFTs are unremarkable. PT 15, INR 1.2, PTT 30. AP pelvis radiograph shows a left femoral neck fracture. Radiographs of the left femur shows an acute traumatic minimally displaced closed tr ansverse fracture of the left femoral neck. AP chest shows no acute pulmonary findings. Radiograph s of the left ankle showed no evidence of fracture. ASSESSMENT AND PLAN: 1. Status post ground level fall. 2. Multiple comorbidities. 3. Left hip fracture. Plan will be to admit the patient to the surgical floor. Pulmonary toilet, gastritis, mechanical DV T prophylaxis, pain control. The patient will be evaluated by Orthopedics. Once she arrives on the floor, we will resume her home medications as soon as we were able to most likely when she is no lo nger n.p.o. The evaluation, examination, radiographic and laboratory findings were discussed with Sunni Pemberton at time of dictation. He has evaluated the patient on the surgical floor. The patient and her family questions were answered at that time.
[2017-02-22 16:15] LABS: Anion Gap 11 mmol/L (10-20); BUN (Urea Nitrogen) 38 mg/dL (9.8-20.1); Calc. Creatinine Clearance 42 mL/min (70-130); Calcium 8.8 mg/dL (7.8-10.44); Carbon Dioxide 22 mmol/L (23-31); Chloride 105 mmol/L (98-107); Estimated GFR-MDRD 35; Magnesium 1.5 mg/dL (1.6-2.6); Phosphorus 3.4 mg/dL (2.3-4.7)
[2017-02-22] MEDS ORDERED: Magnesium Sulfate 3 GM in Sodium Chloride 0.9% 250 ML 250 ML IVPB SCH (16:30)
[2017-02-22] MEDS: Dextrose 5% in Water 1,000 ML IV SCH (16:52)
[2017-02-22] MEDS ORDERED: Morphine 10 MG/ML VIAL ONE (17:08)
[2017-02-22 17:13] LABS: Bilirubin Negative (Negative); Blood, Urine Negative (Negative); Glucose, Urine (Dipstick) 250 mg/dL (Negative); Ketone, Urine Negative (Negative); Nitrite Negative (Negative); Protein, Urine (Dipstick) Trace mg/dL (Neg-Trace); Urobilinogen 0.2 mg/dL (0.2-1.0)
[2017-02-22 17:15] LABS: Bacteria/HPF None Seen HPF (None Seen); Hyaline Casts/LPF 0-3 HYALINE CAST LPF (0-3 Hyaline); RBC/HPF 0-3 HPF (0-3); Squamous Epithelial 0-3 HPF (0-3); WBC/HPF 0-3 HPF (0-3)
[2017-02-22] MEDS ORDERED: CEFAZOLIN/Water 2 GM/20 ML SYRINGE ONE (18:12)
[2017-02-22] MEDS ORDERED: Diprivan 40 ML ONE (20:02)
[2017-02-22] MEDS ORDERED: PHENYLEPHRINE-NS 100 MCG/ML 10 ML SYRINGE ONE (20:59)
[2017-02-22] MEDS ORDERED: ePHEDrine/0.9% NaCl/PF SYRINGE 50 mg/10 ml ONE (20:59)
--- NOTE | 2017-02-22 21:00 | CON ---
DATE OF CONSULTATION: 02/22/2017 HISTORY OF PRESENT ILLNESS: We were asked by ER and trauma to see patient. The patient fell today, she states her right leg gave out and she spun around and landed on her left hip. Since that time, she has had very significant pain in her hip with and without movement. The pain comes in waves, s he describes it as being quite sharp. She does have a history of neuropathies from her diabetes, bi lateral lower extremities but with touching her feet, she is able to feel them and moves fairly well . She is surrounded by her family at the bedside. She is awake, alert, answering questions well, r sabinoall the incident, and did not have any head injury or loss of consciousness. Unfortunately, the bill de la torre just left the hospital on the of this month and she was here for a partial bowel obstruc tion. She sees Dr. Dennis for that. PAST MEDICAL HISTORY: Significant for diabetes, hypothyroidism, Crohn's, anemia, CVA, TIA, chronic pain, fibromyalgia, dyslipidemia, coronary artery disease, GERD, heart failure, kidney disease, anxi ety. PAST SURGICAL HISTORY: Quadruple bypass, abdominal abscess, drainage; tummy tuck; repair of umbilic al hernia; mastectomy; tonsillectomy; ileostomy with partial small-bowel obstruction which took a ye ar for the wounds to heal per family members. SOCIAL HISTORY: She resides alone currently. Family is close by to help with any of the care needs she has. No alcohol or nicotine products. CURRENT MEDICATIONS: Metoprolol, ursodiol, Protonix, Klor-Con, Lasix, levothyroxine, atorvastatin, 81 mg aspirin, Celexa, Feosol, iron, Probio5, X-factor multivitamins, Lantus, clonazepam, Jardiance, MiraLax. SPECIAL MEDICATIONS: NovoLog, Entyvio infusions; p.r.n. meds tramadol, extra strength Tylenol and Z ofran. ALLERGIES: AZATHIOPRINE, SULFA, TETANUS, PROMETHAZINE. REVIEW OF SYSTEMS: Currently, no chest pain, no shortness of breath. She does suffer from extremit y neuropathy in the lower extremities. She does have significant pain in that left hip and does hav e extensive history of GI difficulties due to the surgeries as listed above. The rest of review of systems currently is negative. PHYSICAL EXAMINATION: GENERAL: Well-nourished female, very sweet, pleasant, but in some significant amount of pain. Spee ch clear, oriented, and again family is at the bedside. HEENT: Normal exam. NECK: Supple. Trachea midline. EXTREMITIES: Upper extremities: She has some bruising to her forearms, otherwise equal size, shape symmetry, normal bulk and tone. Lower extremities: She does have some lymphadenopathy on the left lower extremity. Right lower extremity, no redness DP, PT pulses are equal. She is able to feel l ight touch in bilateral lower extremities, just has some diminished deep sensation. She is moving b ilateral lower extremities okay. Left, little limited due to pain. ASSESSMENT: Left hip fracture. PLAN: I spoke with the family and patient extensively. Our goal will be to do percutaneous screws, but we may need to do a hemiarthroplasty and this has been explained to the patient and family, pro cedures have been discussed at length, they are amenable to go forth with either procedure, but agai n our plan would be to do percutaneous screws. I have gone over the risks and benefits of surgery v ersus not doing surgery. We discussed her GI issues that she was just released from the hospital. Our plan is to go forth with the surgery this evening keep her n.p.o. We will have anesthesia come up and evaluate her for her multiple comorbidities. I explained the x-rays with the family and the findings and the need for surgery, not only for pain control, but to get her mobile again, to keep h er GI system functional and they are happy with explanation and again amenable to go forth with surg [place]. We will get her on the surgery schedule, anesthesia will see her and we hope to plan and do th is this evening. We will allow her morphine for pain. She is having a little bit of spasm. We genaro l do a low dose of Valium for this and give her some lemon glycerin swabs as we are keeping her n.p. o. She will also need IV started. Carlo Glez PA-C, dictating for Raul Henderson M.D.
[2017-02-23] MEDS ORDERED: HYDROcodone/Acetaminophen 5/325 mg Tablet PO PRN (00:15)
[2017-02-23] MEDS: HYDROcodone/Acetaminophen 5/325 mg Tablet PO PRN ×4 (00:18→14:05)
[2017-02-23] MEDS: Dextrose 5% in Water 1,000 ML IV SCH ×3 (02:14→23:39)
[2017-02-23] MEDS: CEFAZOLIN/Water 2 GM/20 ML SYRINGE SLOW IVP SCH ×2 (02:19→14:44)
[2017-02-23 05:42] LABS: #Basophils 0.1 thou/uL (0.0-0.2); #Eosinphils 0.1 thou/uL (0.0-0.7); #Lymphocytes 0.7 thou/uL (1.20-3.40); #Neutrophils 8.9 thou/uL (1.40-6.50); %Basophils 0.7 % (0.0-1.0); %Eosinophils 0.5 % (0.0-10.0); %Lymphocytes 6.5 % (21.0-51.0); %Monocytes 9.1 % (0.0-10.0); Hematocrit 38.3 % (36.0-47.0); Mean Platelet Volume 9.3 fL (7.4-10.4); Red Blood Cell (RBC) Count 3.85 mill/uL (4.20-5.40); White Blood Cell (WBC) Count 10.6 thou/uL (4.8-10.8)
[2017-02-23 05:46] LABS: Anion Gap 8 mmol/L (10-20); BUN (Urea Nitrogen) 33 mg/dL (9.8-20.1); Calc. Creatinine Clearance 39 mL/min (70-130); Calcium 8.9 mg/dL (7.8-10.44); Carbon Dioxide 26 mmol/L (23-31); Chloride 104 mmol/L (98-107); Estimated GFR-MDRD 33
--- NOTE | 2017-02-23 08:37 | RAD ---
LEFT HIP 2 VIEWS: Date: 02/22/17 HISTORY: Left hip fracture. FINDINGS/IMPRESSION: Two spot fluoroscopic intraoperative images of the left hip demonstrate internal fixation of the fra cture of the neck of the left femur since earlier exam at 1120 hours from the same date. Three screw s have been placed. POS: DAVID
[2017-02-23] MEDS: Sodium Chloride 0.9% 1,000 ML IV SCH ×2 (09:17→17:30)
[2017-02-23] MEDS: Famotidine 20 MG TAB PO SCH (09:18)
[2017-02-23] MEDS ORDERED: Diazepam 2 MG TAB PO PRN (10:17)
--- NOTE | 2017-02-23 12:09 | OP ---
DATE OF SURGERY: 02/22/2017 PREOPERATIVE DIAGNOSIS: Left femoral neck fracture. POSTOPERATIVE DIAGNOSIS: Left femoral neck fracture. SURGICAL PROCEDURE: Closed reduction and cannulated screw fixation of left femoral neck fracture. ANESTHESIA: Spinal SURGEON: Raul Henderson M.D. ESTIMATED BLOOD LOSS: 20 mL. IMPLANTS: Synthes 7.3 mm cannulated screws x3. COMPLICATIONS: None. DRAINS: None. SPECIMEN: None. OUTCOME: Satisfactory. INDICATIONS: Patient is a 71-year-old lady status post ground level fall sustaining a left femoral neck fracture with minimal displacement. After discussion with patient and her family including ris ks and benefits, we have decided to proceed with cannulated screw stabilization given the nondisplac ed nature of her fracture. Informed consent has been obtained. I believe all questions answered. DESCRIPTION OF THE PROCEDURE: After the induction of spinal anesthesia, patient was positioned supi ne on the fracture table with the well leg held in extension and padded and the injured extremity he ld in longitudinal traction with slight scissoring of the hips to allow for AP lateral C-arm imaging . Next, a sterile prep and drape was performed of the left lateral thigh. A small incision was mad e distal to the greater trochanter and dissection bluntly extended deeper. Next, a threaded guidewi re was passed from the lateral cortex of the femur up the femoral neck into the femoral head and in an inferior position. This was then followed by placement of an anterosuperior and anteroposterior guidewire all under C-arm imaging. Once appropriate position of the threaded wires was achieved, me asurement off these wires was used to determine screw length and screws were then passed over the wi res and driven up into appropriate position and depth. The wires were then removed and final AP and lateral C-arm images were obtained that showed anatomic alignment of the fracture and appropriate p ositioning of the hardware. The small incision was then irrigated with bulb syringe and then closed in layers with 2-0 Vicryl followed by chaim. A Xeroform gauze and tape dressing was applied to t he thigh and then patient was transferred to recovery room in stable condition. There were no compl ications. She tolerated the procedure well.
--- NOTE | 2017-02-23 13:54 | PRG ---
DATE OF SERVICE: 02/23/2017 SUBJECTIVE: No acute events overnight. The patient is doing well. She is postoperative day 1 from her closed reduction, cannulated screw fixation of left femoral neck fracture. The patient reports her pain is being well controlled. No other issues at this time. PHYSICAL EXAMINATION: VITAL SIGNS: Temperature 97.6, heart rate 72, respiratory rate 16, 94% on 2 liters oxygen, blood pr essure 112/61. HEENT: No acute distress. Atraumatic and normocephalic. PULMONARY: Clear bilaterally to auscultation. CARDIOVASCULAR: S1 and S2, regular rate and rhythm. ABDOMEN: Soft, nontender, nondistended. EXTREMITIES: Surgical site is slightly tender, otherwise bilateral lower extremities no edema, posi tive pulses. LABORATORY RESULTS: WBC 10.6, hemoglobin 12.2, hematocrit 38.3, platelet count 88. Chemistries; so dium 134, potassium 4.3, chloride 104, bicarbonate 26, BUN 33, creatinine 1.57. Glucose 133. ASSESSMENT: 1. Status post fall. 2. Left femoral neck fracture. PLAN: She is postoperative day #1 from closed reduction, cannulation with screws for a femoral neck fracture. The patient will continue to work with PT and OT, have her pain optimized with p.o. and IV analgesics. We will saline lock her fluids. Restart her home medications. We will plan on disc ontinuing the Slater postoperative day 2 in the a.m. The above patient has been seen at bedside with Dr. Shyam Pemberton and he agrees with the above plan.
[2017-02-23] MEDS: Famotidine/PF 20 mg/2ml Vial SLOW IVP SCH (13:57)
[2017-02-23] MEDS: traMADol HCl 50 MG TAB PO SCH ×3 (14:45→21:35)
[2017-02-23] MEDS: Insulin Regular 300 UNITS/3 ML VIAL SC PRN (16:11)
[2017-02-23] MEDS ORDERED: Citalopram 20 MG TAB PO SCH (21:00)
[2017-02-23] MEDS ORDERED: INSULIN GLARGINE HUM REC ANLOG 50 UNIT SQ SCH (21:00)
[2017-02-23] MEDS ORDERED: Magnesium Oxide 400 MG TAB PO SCH (21:00)
[2017-02-23] MEDS ORDERED: Atorvastatin Calcium 10 MG TAB PO SCH (21:00)
[2017-02-23] MEDS ORDERED: Lactinex Tablet PO SCH (21:00)
[2017-02-23] MEDS ORDERED: Polyethylene Glycol 3350 17 GM Packet PO SCH (21:00)
[2017-02-23] MEDS: Senokot S 8.6-50 MG TAB PO SCH (21:32)
[2017-02-23] MEDS: Ursodiol 300 MG CAP PO SCH (21:32)
[2017-02-23] MEDS: Metoprolol Tartrate 25 MG TAB PO SCH (21:33)
[2017-02-23] MEDS: Insulin Detemir 100 UNITS/ML 50 UNITS in Pre-Filled Syringe 1 EACH SC SCH (21:37)
[2017-02-24] MEDS: HYDROcodone/Acetaminophen 5/325 mg Tablet PO PRN ×2 (00:35→15:30)
[2017-02-24] MEDS ORDERED: Diazepam 2 MG TAB PO SCH ×2 (01:15→18:00)
[2017-02-24] MEDS: traMADol HCl 50 MG TAB PO SCH ×3 (03:44→14:16)
[2017-02-24] MEDS ORDERED: Levothyroxine Sodium 25 MCG TAB PO SCH (06:00)
[2017-02-24 06:13] LABS: Anion Gap 8 mmol/L (10-20); BUN (Urea Nitrogen) 23 mg/dL (9.8-20.1); Calc. Creatinine Clearance 48 mL/min (70-130); Calcium 8.2 mg/dL (7.8-10.44); Carbon Dioxide 25 mmol/L (23-31); Chloride 105 mmol/L (98-107); Estimated GFR-MDRD 42; Magnesium 1.7 mg/dL (1.6-2.6); Phosphorus 2.5 mg/dL (2.3-4.7)
[2017-02-24] MEDS: Famotidine 20 MG TAB PO SCH (08:55)
[2017-02-24] MEDS: Dextrose 5% in Water 1,000 ML IV SCH ×2 (08:55→14:20)
[2017-02-24] MEDS: Famotidine/PF 20 mg/2ml Vial SLOW IVP SCH (08:55)
[2017-02-24] MEDS: Metoprolol Tartrate 25 MG TAB PO SCH (08:56)
[2017-02-24] MEDS: Insulin Detemir 100 UNITS/ML 50 UNITS in Pre-Filled Syringe 1 EACH SC SCH (08:56)
[2017-02-24] MEDS: Senokot S 8.6-50 MG TAB PO SCH (08:57)
[2017-02-24] MEDS: Ursodiol 300 MG CAP PO SCH (08:58)
[2017-02-24] MEDS ORDERED: Empagliflozin [Jardiance] 10 MG PO SCH ×2 (09:00)
[2017-02-24] MEDS: Insulin Regular 300 UNITS/3 ML VIAL SC PRN (15:31)
[2017-02-24] MEDS ORDERED: Cyclobenzaprine 10 MG TAB PO PRN (15:52)
[2017-02-24 16:07] VITALS: BP 121/67; TEMP 98.2
== END 2017-02-24 19:00 | DRG 481 ==
LOC: ERS 10:08 → SURG A 14:06
PROVIDERS: ADMIT Surgery; ATTEND Surgery
PROC: 0QS734Z Reposition Left Upper Femur with Internal Fixation Device, Percutaneous Approach (ICD-10-PCS; principal; 2017-02-22)
DX: S72.002A Fracture of unspecified part of neck of left femur, initial encounter for closed fracture (principal); K50.90 Crohn's disease, unspecified, without complications; I50.9 Heart failure, unspecified; D50.9 Iron deficiency anemia, unspecified; F32.9 Major depressive disorder, single episode, unspecified; E11.9 Type 2 diabetes mellitus without complications; E03.9 Hypothyroidism, unspecified; W01.0XXA Fall on same level from slipping, tripping and stumbling without subsequent striking against object, initial encounter; Y92.019 Unspecified place in single-family (private) house as the place of occurrence of the external cause; Z88.2 Allergy status to sulfonamides; Z88.7 Allergy status to serum and vaccine; Z88.8 Allergy status to other drugs, medicaments and biological substances; Z79.82 Long term (current) use of aspirin; Z79.4 Long term (current) use of insulin; I25.10 Atherosclerotic heart disease of native coronary artery without angina pectoris; I25.2 Old myocardial infarction; F41.9 Anxiety disorder, unspecified; Z95.1 Presence of aortocoronary bypass graft; Z90.49 Acquired absence of other specified parts of digestive tract; Z87.891 Personal history of nicotine dependence; M79.7 Fibromyalgia; G89.29 Other chronic pain; Z86.14 Personal history of Methicillin resistant Staphylococcus aureus infection; N18.9 Chronic kidney disease, unspecified
CPT/HCPCS: 36415; 36416; 71010; 72170; 76001; 80048; 80053; 81001; 83735; 84100; 85025; 85610; 85730; 86850; 86900; 86901; 87086; 93005; 96374; C1713; C1769; G8978-GP-CL; G8979-GP-CJ; G8987-GO-CK; G8988-GO-CI; G8996-GN-CI; G8996-GN-CK; G8997-GN-CI; J0131; J1815; J2270; J2704; J3010; J3475; J7050

== ENCOUNTER 2017-03-15 15:01 | Observation (INO) | payer MEDICARE, MEDICAID ==
--- NOTE | 2017-03-15 15:40 | RAD ---
LEFT HIP SERIES: Date: 03/15/17 INDICATION: Trauma. FINDINGS: There are three metallic screws traversing the left femoral head and neck. Alignment of transfixed fr acture site is grossly stable to views dated 02/22/17. No acute hardware complication identified. IMPRESSION: Grossly stable postoperative left hip. POS: C
--- NOTE | 2017-03-15 15:56 | RAD ---
AP PELVIS: DATE: 03/15/17. COMPARISON: 02/22/17. HISTORY: Trauma, pain. FINDINGS: Previously noted femoral neck fracture on the left has been treated with 3 cannulated lag screws. Th ere is no widening of the sacroiliac joints or the pubic symphysis. Pelvic ring is intact. Neither hip is dislocated. No new fracture is evident. IMPRESSION: Previously noted left femoral neck fracture. Recommend dedicated imaging of the left hip. POS: TAPAN
[2017-03-15] MEDS ORDERED: Ketorolac Tromethamine 30 MG/ML VIAL ONE (16:05)
--- NOTE | 2017-03-15 16:39 | RAD ---
TWO VIEW DISTAL LEFT FEMUR 03/15/17 CLINICAL HISTORY: Pain, slight trauma. FINDINGS: There is no fracture of the imaged mid to distal left femur. Degenerative changes incidentally noted at the left knee. IMPRESSION: No acute fracture of the mid to distal left femur. POS: C
[2017-03-15] MEDS ORDERED: Ketorolac Tromethamine 30 MG/ML VIAL IVP PRN (18:06)
[2017-03-15] MEDS ORDERED: Ondansetron ODT 4 MG TAB SL PRN (18:06)
[2017-03-15] MEDS ORDERED: Ondansetron HCl/PF 4 MG/2 ML Vial IVP PRN ×2 (18:06→18:13)
[2017-03-15] MEDS ORDERED: Acetaminophen 325 MG TAB PO PRN (18:06)
[2017-03-15] MEDS ORDERED: HYDROcodone/Acetaminophen 5/325 mg Tablet PO PRN ×4 (18:06→18:13)
[2017-03-15] MEDS ORDERED: hydrALAZINE 20 MG/ML VIAL SLOW IVP PRN (18:13)
[2017-03-15] MEDS ORDERED: HumaLOG 300 UNITS/3 ML VIAL SC PRN ×2 (18:13)
[2017-03-15] MEDS ORDERED: Ondansetron ODT 4 MG TAB PO PRN (18:13)
[2017-03-15] MEDS ORDERED: Acetaminophen 500 MG TAB PO PRN (18:13)
[2017-03-15] MEDS ORDERED: Dextrose 50% Abboject 50 ML SYRINGE SLOW IVP PRN (18:13)
[2017-03-15] MEDS ORDERED: cloNIDine 0.1 MG TAB PO PRN (18:13)
[2017-03-15] MEDS ORDERED: Dextrose 5% in Water 1,000 ML IV PRN (18:13)
[2017-03-15] MEDS ORDERED: Insulin Detemir 100 UNITS/ML 50 UNITS in Pre-Filled Syringe 1 EACH SC SCH (21:00)
[2017-03-15] MEDS: Citalopram 20 MG TAB PO SCH (21:39)
[2017-03-15] MEDS: Metoprolol Tartrate 25 MG TAB PO SCH (21:39)
[2017-03-15] MEDS: Famotidine 20 MG TAB PO SCH (21:41)
[2017-03-15] MEDS: Ursodiol 300 MG CAP PO SCH (21:41)
[2017-03-15] MEDS: Magnesium Oxide 400 MG TAB PO SCH (21:41)
[2017-03-15] MEDS: clonazePAM 1 MG TAB PO SCH (21:41)
[2017-03-15] MEDS: Atorvastatin Calcium 10 MG TAB PO SCH (21:41)
[2017-03-15] MEDS: Morphine PF 1 MG/ML SYR IVP PRN (21:46)
--- NOTE | 2017-03-15 23:22 | HP ---
DATE OF ADMISSION: 03/15/2017 PRIMARY CARE PHYSICIAN: Valente Crenshaw M.D. PRIMARY ORTHOPEDIC SURGEON: Raul Henderson M.D. CHIEF COMPLAINT: Left hip and lower extremity pain. HISTORY OF PRESENT ILLNESS: This is a 71-year-old female who presents to [facility] complaining of excruciating and debilitating left lower extremity pain after apparen tly sitting down on a recliner. The patient states she was about to sit down in her chair when she d eveloped a sharp, shooting pain down her left lower extremity from the hip region. The patient state s she underwent a closed reduction of her left hip fracture status post ground level fall in 02/23/20 17 with cannulated screw fixation of the left femoral neck fracture. The patient was given pain cont rol and referred to [facility] after discharge on 02/24/2017. The patient states she was at [facility] until 03/12/2017 being discharged back to home with home health services with [facility]. The patient states that she did not fall aft er returning home but had marked difficulty with ambulation as she was only applying approximately 50 % to the left lower extremity for weight bearing status using a rolling walker. The patient states s he had difficulty ambulating in her home, getting to the kitchen or restroom with overall weakness. The patient denies any specific fever, chills, increased left lower extremity swelling, shortness of breath, or unilateral weakness. The patient again denied any recent falls. In the emergency room, t he patient underwent general evaluation including hip, pelvic, and femur radiographs showing no evide nce of acute process with stable hardware and screw fixation in the left femoral neck. The patient w as apparently nonambulatory in the emergency room after assessment by ER personnel and was not deemed safe to return home. The patient is stating she felt like she should have been discharged to a [facility] led facility after discharge from inpatient rehabilitation due to limited mobility status. The patie nt was referred to the Hospitalist Service for evaluation. PAST MEDICAL HISTORY: 1. Status post mechanical fall with left hip fracture 02/22/2017. 2. Diabetes mellitus type 2, insulin requiring. 3. Hypothyroidism. 4. Crohn's disease. 5. Chronic anemia. 6. History of CVA/TIA. 7. Chronic pain syndrome. 8. Fibromyalgia. 9. Dyslipidemia. 10. Coronary artery disease. 11. Gastroesophageal reflux disease. 12. Diastolic heart failure, compensated. 13. Chronic kidney disease stage 3. 14. Anxiety. 15. Depression. PAST SURGICAL HISTORY: 1. Status post closed reduction with screw cannulation of the left femoral neck fracture, 02/22/2017 . 2. Status post coronary artery bypass grafting x4 vessels. 3. Status post abdominal wall abscess incision and drainage. 4. Status post tummy tuck. 5. Status post repair of umbilical hernia. 6. Status post mastectomy. 7. Status post tonsillectomy. 8. Status post ileostomy with partial small bowel resection. CURRENT MEDICATIONS: 1. Enteric coated aspirin 81 mg 1 tab p.o. daily. 2. Lipitor 10 mg p.o. at bedtime. 3. Citalopram 20 mg 1 tab p.o. at bedtime. 4. Clonazepam 1 mg p.o. at bedtime. 5. Jardiance 10 mg p.o. daily. 6. Pepcid 20 mg p.o. b.i.d. 7. Lasix 40 mg 2 tabs p.o. b.i.d. 8. Neola 5/325 mg 1 to 2 tabs p.o. q. 4-6 hours p.r.n. 9. Levemir 50 units subcutaneously b.i.d. 10. DuoNebs 3 mL nebulized q.4 hours p.r.n. 11. Feosol 65 mg p.o. daily. 12. Levothyroxine 25 mcg 1 tab p.o. daily. 13. Metoprolol tartrate 12.5 mg p.o. b.i.d. 14. Protonix 40 mg p.o. b.i.d. 15. Potassium chloride 10 mEq 1 tab p.o. b.i.d. 16. Ursodiol 300 mg p.o. b.i.d. ALLERGIES: 1. AZATHIOPRINE. 2. SULFA. 3. IMURAN. 4. PHENERGAN. 5. TETANUS TOXOID. FAMILY HISTORY: The patient is adopted. SOCIAL HISTORY: The patient resides in [place], [place]. No current alcohol, tobacco, or illicit aliya g use. Ambulatory with rolling walker and standby assistance. History of falls. Accompanied by her daughter in the emergency room. REVIEW OF SYSTEMS: The following complete review of systems was negative, unless otherwise mentioned in the HPI or below: CONSTITUTIONAL: Weight loss or gain, ability to conduct usual activities. SKIN: Rash, itching. EYES: Double vision, pain. ENT/MOUTH: Nose bleeding, neck stiffness, pain, tenderness. CARDIOVASCULAR: Palpitations, dyspnea on exertion, orthopnea. RESPIRATORY: Shortness of breath, wheezing, cough, hemoptysis, fever or night sweats. GASTROINTESTINAL: Poor appetite, abdominal pain, heartburn, nausea, vomiting, constipation, or diarr hea. GENITOURINARY: Urgency, frequency, dysuria, nocturia. MUSCULOSKELETAL: Pain, swelling. NEUROLOGIC/PSYCHIATRIC: Anxiety, depression. ALLERGY/IMMUNOLOGIC: Skin rash, bleeding tendency. PHYSICAL EXAMINATION: VITAL SIGNS: On admission, blood pressure is 128/65, pulse 68, respiratory rate 20, temperature 98.7 degrees Fahrenheit, O2 saturation 94% on room air. GENERAL APPEARANCE: This is a 71-year-old female, alert and oriented x3, pleasant, in no a cute distress. HEENT: Pupils are equal, round, and reactive to light and accommodation. Extraocular muscles are in tact. No scleral icterus, no conjunctival injection. Nares patent. OP is clear. Teeth in good rep air. NECK: Supple, no cervical adenopathy, no thyromegaly, no carotid bruits, no JVD appreciated. Cervic al spine is with full active and passive range of motion. No meningeal signs appreciated. CHEST: Lungs are clear to auscultation bilaterally. CARDIOVASCULAR: S1, S2, without noted murmur. ABDOMEN: Rounded, soft, nontender, nondistended. Bowel sounds are positive in all four quadrants. There is no hepatosplenomegaly, no abdominal bruits, no rebound or guarding appreciated. EXTREMITIES: Warm and dry with fair turgor. Mild edema of the left lower extremity. Seven chaim in the left greater trochanter region. No purulence noted. Pulses palpable distally at the dorsalis pedis, posterior tibial, and popliteal arteries bilaterally. Capillary refill is less than 2 second s. NEUROLOGIC: Cranial nerves II through XII are grossly intact. No focal or lateralizing signs apprec iated. PERTINENT LABORATORY AND X-RAY FINDINGS: From 03/07/2017 showed a sodium of 137, potassium 4.7, chlo ride 106, CO2 of 24, BUN 34, creatinine 1.46, estimated GFR of 35, calcium 8.7. CBC showed a white b lood cell count of 4.3, hemoglobin 12.3, hematocrit 38, platelet count 106 with a normal differential . ASSESSMENT AND PLAN: 1. Intractable left hip pain, nonambulatory status. The patient will be placed in observation statu s on the medical floor. We will continue pain control with morphine sulfate 2 mg IV q. 4 hours p.r.n . PT, OT evaluation in the a.m. for functional assessment. We will consult Orthopedic Surgery servi ce due to recent surgery 02/22/2017 with screw fixation of left femoral neck fracture. Case manageme nt consult for long term facility options. 2. Status post left femoral neck fracture with screw cannulation, fixation 02/22/2017. Stable hardw are by plain radiograph imaging. We will consult Orthopedic Surgery service to review radiographs an d make further recommendations for management. Pain control as needed. 3. Hypertension. Resume home antihypertensive regimen and monitor clinical response. 4. Diabetes mellitus type 2, insulin requiring. Resume home insulin regimen with Levemir 50 units s ubcutaneously q. 12 hours. Insulin sliding scale for reflexive coverage. ADA diet. 5. Chronic pain syndrome. History of chronic pain. We will resume home pain regimen and monitor cl inical response. 6. Chronic kidney disease stage 3. Avoid nephrotoxic agents and contrast media. Serial creatinine monitoring. 7. Gastroesophageal reflux. Continue Protonix 40 mg p.o. b.i.d. 8. Hypothyroidism. Resume Synthroid. 9. Prophylaxis. Sequential compression devices while in bed. General fall precautions. PT, OT joanna luation in the a.m. 10. Code status is FULL. The surrogate medical decision maker is the patient's daughter.
[2017-03-15] MEDS ORDERED: Insulin Detemir 100 UNITS/ML 5 UNITS in Pre-Filled Syringe 1 EACH SC SCH (23:45)
[2017-03-16 01:40] VITALS: BMI 27.0
[2017-03-16 04:50] LABS: Anion Gap 13 mmol/L (10-20); BUN (Urea Nitrogen) 25 mg/dL (9.8-20.1); Calc. Creatinine Clearance 37 mL/min (70-130); Calcium 8.7 mg/dL (7.8-10.44); Carbon Dioxide 27 mmol/L (23-31); Chloride 103 mmol/L (98-107); Estimated GFR-MDRD 31
[2017-03-16 05:49] LABS: Band 1 % (5-11); Neutrophil 72 % (42-75); Red Blood Cell (RBC) Count 3.79 mill/uL (4.20-5.40); White Blood Cell (WBC) Count 3.6 thou/uL (4.8-10.8)
[2017-03-16] MEDS ORDERED: Levothyroxine Sodium 25 MCG TAB PO SCH (06:00)
[2017-03-16] MEDS: Morphine PF 1 MG/ML SYR IVP PRN ×3 (06:12→22:04)
[2017-03-16] MEDS: Furosemide 40 MG TAB PO SCH ×2 (06:12→15:46)
[2017-03-16] MEDS ORDERED: Ferrous Sulfate 325 MG TAB PO SCH (08:00)
[2017-03-16] MEDS ORDERED: Multivit, Therapeutic 1 TAB PO SCH (09:00)
[2017-03-16] MEDS ORDERED: Empagliflozin [Jardiance] PO SCH (09:00)
[2017-03-16] MEDS ORDERED: Insulin Detemir 100 UNITS/ML 45 UNITS in Pre-Filled Syringe 1 EACH SC SCH (09:00)
[2017-03-16] MEDS: Ursodiol 300 MG CAP PO SCH ×2 (09:03→20:20)
[2017-03-16] MEDS: Famotidine 20 MG TAB PO SCH ×2 (09:03→20:20)
[2017-03-16] MEDS: Metoprolol Tartrate 25 MG TAB PO SCH ×2 (09:05→20:20)
--- NOTE | 2017-03-16 14:21 | PDOC.PN ---
- Subjective Encounter Start Date: 03/16/17 Encounter Start Time: 14:16 Ms. Shaffer is complaining of continued pain in her left leg. It is primary in the left knee area and thigh. She did not have this when she was in Rehab. - Objective Resuscitation Status: Resuscitation Status FULL:Full Resuscitation MAR Reviewed: Yes Vital Signs & Weight: Vital Signs (12 hours) Temp Pulse Resp BP BP Pulse Ox 03/16/17 08:00 98.2 F 62 18 03/16/17 07:23 98.2 F 62 18 109/69 92 L 03/16/17 04:56 98.3 F 75 18 111/66 95 Weight Weight 162 lb 4 oz I&O: 03/15/17 03/16/17 03/17/17 06:59 06:59 06:59 Intake Total 240 Output Total 50 Balance -50 240 Result Diagrams: 03/16/17 03:40 03/16/17 03:40 Additional Labs: Accuchecks 03/16/17 03/16/17 03/15/17 12:23 03:55 21:42 POC Glucose 164 H 175 H 234 H 03/15/17 19:26 POC Glucose 61 L Phys Exam - Physical Examination HEENT: PERRLA Respiratory: no wheezing, no rales, no rhonchi, clear to auscultation bilateral Cardiovascular: RRR, no significant murmur, no rub Gastrointestinal: soft, non-tender, positive bowel sounds Musculoskeletal: no edema + negative straight leg raises no pain on internal or external rotation + strength is intact, able to dorsiflex the foot, and toes Neurological: non-focal Dx/Plan (1) Left leg pain Code(s): M79.605 - PAIN IN LEFT LEG Status: Acute (2) CAD (coronary artery disease) Code(s): I25.10 - ATHSCL HEART DISEASE OF [place] CORONARY ARTERY W/O ANG PCTRS Status: Chronic Qualifiers: Comment: h/o NH 2008 (3) Chronic diastolic heart failure Code(s): I50.32 - CHRONIC DIASTOLIC (CONGESTIVE) HEART FAILURE Status: Chronic (4) DM type 2 (diabetes mellitus, type 2) Status: Chronic Qualifiers: (5) Hypertension Code(s): I10 - ESSENTIAL (PRIMARY) HYPERTENSION Status: Chronic Qualifiers: (6) Hypothyroidism Code(s): E03.9 - HYPOTHYROIDISM, UNSPECIFIED Status: Chronic Qualifiers: (7) IBD (inflammatory bowel disease) Code(s): K63.89 - OTHER SPECIFIED DISEASES OF INTESTINE Status: Chronic Comment: crohn's - Plan * Left leg pain- the pain does not appear to be in the hip joint clinically- will check an X-ray of the Lumbar spine, to rule out referred pain * DM- blood glucose is stable, but she is concerned about the dose of her medication- will change this to her home dose * Chronic systolic heart failure- compensated- will continue Lasix, but at 20mg a day, her current home dose * HTN - blood pressure is low normal- will monitor * Will consult case management for a jail evaluation.
--- NOTE | 2017-03-16 15:38 | RAD ---
EXAM: LUMBAR SPINE ONE VIEW 03/16/17 COMPARISON: 04/27/14 HISTORY: Radicular pain. FINDINGS: There is a moderate compression fracture at L1, likely chronic as it is suggested on the prior exam. There are five lumbar type vertebral bodies. Mild leftward curvature of the lumbar spine. Extensive a therosclerosis of the splenic artery is noted. IMPRESSION: Moderate, likely chronic compression fracture at L1. POS: DAVID
[2017-03-16] MEDS: Atorvastatin Calcium 10 MG TAB PO SCH (20:19)
[2017-03-16] MEDS: Magnesium Oxide 400 MG TAB PO SCH (20:19)
[2017-03-16] MEDS: Citalopram 20 MG TAB PO SCH (20:20)
[2017-03-16] MEDS: clonazePAM 1 MG TAB PO SCH (20:20)
[2017-03-16 20:51] VITALS: BP 101/54
[2017-03-16] MEDS ORDERED: Insulin Detemir 100 UNITS/ML 5 UNITS in Pre-Filled Syringe 1 EACH SC SCH ×4 (21:00)
[2017-03-16 21:36] VITALS: TEMP 99
--- NOTE | 2017-03-17 00:39 | DIS ---
DATE OF ADMISSION: 03/15/2017 DATE OF DISCHARGE: 03/16/2017 DISCHARGE DISPOSITION: To nursing home. DISCHARGE DIAGNOSES: 1. Recent left femoral head fracture. 2. Diabetes mellitus, type 2. 3. History of Crohn's disease. 4. Hypothyroidism. 5. Chronic anemia. 6. History of cerebrovascular accident. 7. History of fibromyalgia. DISCHARGE MEDICATIONS: These are the same as that on admission and include, Ursodiol, tramadol 100 m g q.6 hours, ropinirole 0.5 mg t.i.d., Klor-Con 10 mEq twice a day, pantoprazole 40 mg twice daily, Z ofran 4 mg q.8 hours p.r.n., Theragran-M 2 tablets daily, metoprolol 12.5 mg twice a daily, magnesium oxide 400 mg at bedtime, Synthroid 25 mcg daily, iron 65 mg Sunday, Sunday and Sunday, DuoNeb q.4 hours as needed, Levemir insulin 40 units in the morning and 5 units in the evening, [place] 5/325 two tablets q.6 hours as needed, Lasix 20 mg daily, Jardiance 10 mg daily, clonazepam 1 mg at bedtime, C elexa 20 mg at bedtime, Lipitor 10 mg at bedtime, aspirin 81 mg daily, Tylenol 1000 mg q.4 hours as n eeded, and lactobacillus 2 capsules daily. PROCEDURES DONE DURING ADMISSION: The patient had an x-ray of the lumbar spine showing a moderate li eliu chronic compression fracture at L1. The patient also had an x-ray of the femur and pelvis and h ip, which were negative for fracture. CODE STATUS: FULL CODE. ALLERGIES: AZATHIOPRINE and SULFA as well as PROMETHAZINE, TRIMETHOPRIM, TETANUS and DIPHTHERIA TOXO ID. HOSPITAL COURSE: Ms. Shaffer is a pleasant 71-year-old female who [facility] after she had been diagnosed with a left femoral head fracture. The patient had a cannulate d screw fixation of the left femoral head and had been transferred to the inpatient rehab center. Th , she was progressing well and was discharged home. Apparently, she was only home for a day when she sat down and had extreme shooting pain in the hip and was unable to ambulate and as a result retu rned back to the emergency room where she was placed in observation. She underwent x-ray of the hip and the femur and pelvis as well as the lumbar spine. There were no new fractures noted, but it was noted that she had what appears to be an old L1 lumbar fracture, which is unlikely to be causing her symptoms. She also was evaluated by physical therapy and felt a good candidate for nursing home a nd was then transferred to the nursing home on 03/16/2017.
[2017-03-17] MEDS ORDERED: Furosemide 20 MG TAB PO SCH (09:00)
[2017-03-17] MEDS ORDERED: Insulin Detemir 100 UNITS/ML 40 UNITS in Pre-Filled Syringe 1 EACH SC SCH (09:00)
== END 2017-03-16 22:34 ==
LOC: ERS 15:01 → T4-A 17:00
PROVIDERS: ADMIT Family Medicine; ATTEND Family Medicine
DX: G89.4 Chronic pain syndrome (principal); S72.052A Unspecified fracture of head of left femur, initial encounter for closed fracture; K50.90 Crohn's disease, unspecified, without complications; E03.9 Hypothyroidism, unspecified; D64.9 Anemia, unspecified; M79.7 Fibromyalgia; E78.5 Hyperlipidemia, unspecified; I25.10 Atherosclerotic heart disease of native coronary artery without angina pectoris; K21.9 Gastro-esophageal reflux disease without esophagitis; E11.22 Type 2 diabetes mellitus with diabetic chronic kidney disease; N18.3 Chronic kidney disease, stage 3 (moderate); I13.0 Hypertensive heart and chronic kidney disease with heart failure and stage 1 through stage 4 chronic kidney disease, or unspecified chronic kidney disease; I50.32 Chronic diastolic (congestive) heart failure; F32.9 Major depressive disorder, single episode, unspecified; F41.9 Anxiety disorder, unspecified; K63.89 Other specified diseases of intestine; Z79.82 Long term (current) use of aspirin; Z79.4 Long term (current) use of insulin; Z79.899 Other long term (current) drug therapy; Z88.1 Allergy status to other antibiotic agents; Z88.2 Allergy status to sulfonamides; Z88.7 Allergy status to serum and vaccine; Z88.8 Allergy status to other drugs, medicaments and biological substances; Z93.2 Ileostomy status; Z96.7 Presence of other bone and tendon implants; Z95.1 Presence of aortocoronary bypass graft; Z90.10 Acquired absence of unspecified breast and nipple; Z90.89 Acquired absence of other organs; Z98.890 Other specified postprocedural states; Z91.81 History of falling; Z87.891 Personal history of nicotine dependence; Z86.73 Personal history of transient ischemic attack (TIA), and cerebral infarction without residual deficits
CPT/HCPCS: 72020; 72170; 73502; 73552; 80048; 82962 ×2; 85007; 85027; 96374; 96375; 96376; 97139 ×3; 97530; 99284; G0378; G8987; G8988; 36415; 36416; J1815; J1885; J2274

== ENCOUNTER 2017-04-06 12:51 | Day surgery (SDC) | payer MEDICARE, MEDICAID ==
[2017-04-06] MEDS ORDERED: Sodium Chloride 0.9% 20 ML ONE (13:02)
[2017-04-06] MEDS ORDERED: Loratadine/Pseudoephedrine 10/240 mg Tablet PO PRN (13:26)
[2017-04-06] MEDS ORDERED: Vedolizumab 300 MG in Sodium Chloride 0.9% 250 ML 250 ML IVPB SCH ×2 (13:30→13:45)
[2017-04-06] MEDS ORDERED: diphenhydrAMINE 25 MG CAP PO SCH (13:30)
[2017-04-06] MEDS ORDERED: Acetaminophen 500 MG TAB PO SCH (13:30)
== END 2017-04-06 16:06 | disposition home or self-care (01) ==
LOC: ONC/OP 12:51
PROVIDERS: ATTEND Internal Medicine Gastroenterology
DX: K50.90 Crohn's disease, unspecified, without complications (principal); E03.9 Hypothyroidism, unspecified; E78.5 Hyperlipidemia, unspecified; I25.10 Atherosclerotic heart disease of native coronary artery without angina pectoris; K21.9 Gastro-esophageal reflux disease without esophagitis; F41.9 Anxiety disorder, unspecified; F32.9 Major depressive disorder, single episode, unspecified; I13.0 Hypertensive heart and chronic kidney disease with heart failure and stage 1 through stage 4 chronic kidney disease, or unspecified chronic kidney disease; E11.22 Type 2 diabetes mellitus with diabetic chronic kidney disease; I50.30 Unspecified diastolic (congestive) heart failure; N18.3 Chronic kidney disease, stage 3 (moderate); Z88.2 Allergy status to sulfonamides; Z88.1 Allergy status to other antibiotic agents; Z88.7 Allergy status to serum and vaccine; Z88.8 Allergy status to other drugs, medicaments and biological substances; Z79.899 Other long term (current) drug therapy; Z90.10 Acquired absence of unspecified breast and nipple; Z98.890 Other specified postprocedural states; Z95.1 Presence of aortocoronary bypass graft; Z86.73 Personal history of transient ischemic attack (TIA), and cerebral infarction without residual deficits
CPT/HCPCS: 96413; A4216; J3380; J7050

== ENCOUNTER 2017-05-16 09:21 | Emergency (ER) | payer MEDICARE, MEDICAID | END 2017-05-16 14:03 | disposition home or self-care (01) | LOC: ERS 09:21 | DX: K92.2 Gastrointestinal hemorrhage, unspecified (principal); I25.10 Atherosclerotic heart disease of native coronary artery without angina pectoris; I25.2 Old myocardial infarction; E11.9 Type 2 diabetes mellitus without complications; I50.9 Heart failure, unspecified; Z79.4 Long term (current) use of insulin; E03.9 Hypothyroidism, unspecified; D50.0 Iron deficiency anemia secondary to blood loss (chronic); Z86.73 Personal history of transient ischemic attack (TIA), and cerebral infarction without residual deficits; F41.9 Anxiety disorder, unspecified; F32.9 Major depressive disorder, single episode, unspecified; Z79.899 Other long term (current) drug therapy; Z79.82 Long term (current) use of aspirin | CPT/HCPCS: 99284 ==

== ENCOUNTER 2017-05-25 12:37 | Outpatient (CLI) | payer MEDICARE, MEDICAID ==
[2017-05-25] MEDS ORDERED: Sodium Chloride 0.9% 15 ML NEB ONE (15:41)
== END 2017-05-25 12:38 | disposition home or self-care (01) ==
LOC: WCC 12:37
PROVIDERS: ATTEND Family Medicine
DX: K94.00 Colostomy complication, unspecified (principal)
CPT/HCPCS: 97139; G0463; 99211; A4218

== ENCOUNTER 2017-05-31 16:30 | Inpatient (IN) | payer MEDICARE, MEDICAID ==
[2017-05-31 16:59] LABS: #Eosinphils 0.1 thou/uL (0.0-0.7); #Lymphocytes 1.2 thou/uL (1.20-3.40); #Monocytes 0.6 thou/uL (0.11-0.59); %Basophils 0.2 % (0.0-1.0); %Eosinophils 1.3 % (0.0-10.0); %Lymphocytes 15.5 % (21.0-51.0); %Monocytes 7.8 % (0.0-10.0); %Neutrophils 75.2 % (42.0-75.0); Hemoglobin 12.9 g/dL (12.0-16.0); Mean Corpuscular HGB CONC 31.2 g/dL (32.0-36.0); Mean Corpuscular Hemoglobin 30.4 pg (27.0-31.0); Mean Corpuscular Volume 97.5 fl (81.0-99.0); Mean Platelet Volume 8.4 fL (7.4-10.4); Platelet Count 144 thou/uL (130-400); Red Blood Cell (RBC) Count 4.25 mill/uL (4.20-5.40)
[2017-05-31 17:21] LABS: ALT (SGPT) 19 U/L (8-55); AST (SGOT) 25 U/L (5-34); Albumin 3.9 g/dL (3.4-4.8); Alkaline Phosphatase 113 U/L (40-150); Anion Gap 14 mmol/L (10-20); BUN (Urea Nitrogen) 21 mg/dL (9.8-20.1); Bilirubin, Total 0.5 mg/dL (0.2-1.2); Calc. Creatinine Clearance 0 mL/min (70-130); Calcium 9.7 mg/dL (7.8-10.44); Carbon Dioxide 28 mmol/L (23-31); Chloride 102 mmol/L (98-107); Estimated GFR-MDRD 30; Globulin 5.1 g/dL (2.4-3.5); Glucose 82 mg/dL (80-115); Potassium 3.5 mmol/L (3.5-5.1); Sodium 140 mmol/L (136-145)
[2017-05-31] MEDS ORDERED: Ondansetron HCl/PF 4 MG/2 ML Vial ONE (17:38)
[2017-05-31 19:21] LABS: Bilirubin Negative (Negative); Blood, Urine Negative (Negative); Clarity CLOUDY (Clear); Glucose, Urine (Dipstick) 250 mg/dL (Negative); Leukocyte Moderate (Negative); Nitrite Positive (Negative); Protein, Urine (Dipstick) Negative (Neg-Trace); Specific Gravity, Urine 1.019 (1.002-1.036); Urobilinogen 0.2 mg/dL (0.2-1.0); pH, Urine 5.5 (5.0-9.0)
[2017-05-31 19:23] LABS: Bacteria/HPF 3+ HPF (None Seen); Hyaline Casts/LPF 0-3 HYALINE CAST LPF (0-3 Hyaline); Pathc Cast-AUWi Flag 0.13 (0-2.49); Squamous Epithelial None Seen HPF (0-3)
--- NOTE | 2017-05-31 19:48 | CT ---
ABDOMEN AND PELVIC CT SCAN WITHOUT IV CONTRAST: 05/31/17 HISTORY: 71-year-old female with history of abdominal pain with concern for small bowel obstruction. Past medi dino history of Crohn's disease with an ileostomy. The lung bases are clear. The liver appears unremarkable. Stable splenomegaly. Cholelithiasis within the gallbladder without gallbladder wall thickening or pericholecystic abnormal fat stranding. There is abnormal small bowel dilatation with some associated fecalization in the right sided small bowel. The small bowel is dilated up to 5.3 cm. The distal small bowel is nondilated including the small bow el entering the ileostomy. Patient appears to be status post colectomy. IMPRESSION: Evidence for high grade small bowel obstruction with dilated small bowel and air fluid levels and mukesh e prominent fecalization within several small bowel loops with a very nondilated decompressed distal small bowel including the small bowel at the level of the ileostomy. Stable splenomegaly. No abscess or abnormal fluid collection within the abdomen or pelvis. No evidence for parastomal hernia. POS: TAPAN
[2017-05-31] MEDS ORDERED: Dextrose 50% Abboject 50 ML SYRINGE SLOW IVP PRN (20:13)
[2017-05-31] MEDS ORDERED: Dextrose 5% in Water 1,000 ML IV PRN (20:13)
[2017-05-31] MEDS ORDERED: Ondansetron HCl/PF 4 MG/2 ML Vial IVP PRN (20:44)
[2017-05-31] MEDS ORDERED: Acetaminophen 650 MG Suppository PR PRN (20:44)
[2017-05-31] MEDS ORDERED: Heparin 5,000 UNITS/ML VIAL SC SCH (21:00)
[2017-05-31] MEDS ORDERED: D5 1/2 NS 500 ML IV SCH (21:00)
--- NOTE | 2017-05-31 21:02 | RAD ---
ABDOMEN ONE VIEW: 05/31/17 HISTORY: 71-year-old female for NG tube position confirmation. The NG tube is noted coiled in the distal esophagus and will need to be pulled back and reinserted. T here is some abnormally dilated loops of small bowel as well as some fecalization within dilated smal l bowel in the right mid lower abdomen. IMPRESSION: NG tube is coiled multiple times in the distal esophagus. Gas pattern is abnormal with dilated small bowel loops as well as some fecalization within dilated small bowel loop in the right abdomen. POS: TAPAN
[2017-06-01] MEDS ORDERED: Dextrose 5 %-0.45 % NaCl 500 ML IV SCH ×2 (01:00)
--- NOTE | 2017-06-01 01:30 | CON ---
DATE OF CONSULTATION: 05/31/2017 CHIEF COMPLAINT: Abdominal pain. HISTORY OF PRESENT ILLNESS: Ms. Shaffer is a 71-year-old woman who woke up with right-sided abdominal pain this morning. She had her last output around 7:00 this morning from her ileostomy and since she has had no output from her ileostomy. She has had progressive pain that has become more gener alized in her abdomen. She ate some butternut squash yesterday which felt like caused obstruction fr om the fibrous food. She had a CT scan performed in the emergency room which showed dilated small benny wel up to 5.3 cm with fecalization in the small bowel above a strictured segment with decompression o f the distal small bowel. Air fluid levels were noted. She had some mild vomiting of a couple of ta blespoons of fluid, but she has had no significant large volume emesis. She has had no blood in the stool. She really has had no significant symptoms lately and has been well controlled with Entyvio. She is due for Entyvio infusion tomorrow. She has had no fevers. She complains of now right-sided to diffuse cramping continuous pain that has not responded adequately with 2 doses of morphine. She was hospitalized in last January with similar presentation. She ultimately underwent upper and lower endoscopy that did not show any active inflammation; however, the scope could not be advanced to the small bowel segment that was involved with apparent strictured area. She did have small bowel dilat ion at that time. Small bowel follow-through with Gastrografin, which did allow contrast to go throu gh the area of partial obstruction. PAST MEDICAL HISTORY: Intermittent small-bowel obstructions related to likely adhesions and it is un clear the role of small bowel Crohn's is also playing with this. It seems that her Crohn's has been well controlled with Entyvio over the last several months. She has a history of stroke, diabetes, hy pertension, coronary artery disease. She has known gallstones treated medically with ursodiol. PAST SURGICAL HISTORY: Abdominal surgeries for obstruction and coronary artery bypass graft, hernia repair, tonsillectomy. FAMILY HISTORY: Negative for GI malignancy. SOCIAL HISTORY: No alcohol, tobacco or drugs. ALLERGIES: IMURAN, TETANUS, PHENERGAN, BACTRIM. REVIEW OF SYSTEMS: Negative x10 systems reviewed except as stated in the history of present illness. PHYSICAL EXAMINATION: GENERAL: She is in no acute distress, alert and oriented x3. HEENT: Eyes have no scleral icterus. OROPHARYNX: Clear, without lesions. NECK: No cervical or supraclavicular lymphadenopathy. NEUROLOGIC: Cranial nerves are grossly intact. LUNGS: Clear to auscultation bilaterally. HEART: Regular rate and rhythm. ABDOMEN: Mildly distended with absent bowel sounds. She is tender diffusely, but no guarding. EXTREMITIES: She has 1+ lower extremity edema with some erythema of the left lower extremity. LABORATORY DATA: White blood cell count 8.0, hemoglobin 12.9, platelets 144, creatinine 1.67, biliru bin 0.5, AST 25, ALT 19, alkaline phosphatase 113, total protein is 9 with albumin of 3.9, globulin 5 .1, globulin has been chronically elevated in the past. IMPRESSION: 1. Crohn's disease of the small intestine. She is status post colectomy and ileostomy in the past. She was admitted in April 2016 with upper gastrointestinal bleed with deep ulcerations suggestive of Crohn's disease related ulcers. She was started on Entyvio after that and had marked clinical imp rovement with the Entyvio. She has failed to respond to Remicade in the past. 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 She had pancreatitis with azathioprine in the past. 2. Recurrent small-bowel obstruction/partial small-bowel obstruction. She was last admitted in 01/29 but ultimately her partial obstruction opened up and the Gastrografin passed through. She has farley d chronic dilation of the small bowel with fecalization above a segment in the right lower quadrant. She has decompression of the distal small bowel. It is unclear if her current symptoms are due to a n inflammatory stricture from Crohn's or if this is adhesion related obstruction. The patient states that she does not want any type of surgery and therefore we will try to treat this medically. I wou ld check a C-reactive protein and if she starts passing bowel movements and fecal calprotectin. Endo scopy in January did not show any active disease; however, the involved segment could not be reached endoscopically. RECOMMENDATIONS: 1. She is due for Entyvio tomorrow for every 8-week dosing. We will give this here in the hospital. She was supposed to have outpatient infusion tomorrow. 2. Check C-reactive protein and if she starts passing stool again, fecal calprotectin. 3. We will start IV steroids with methylprednisolone 20 mg q.8 hours. 4. Surgical consultation. She is adamant at this point that she does not want surgery; however, a s urgical opinion still valued. 5. She is not actively vomiting at this point. The NG tube curled in her esophagus and has to be re placed. She will be given low intermittent suction. If she continues or if she shows improvement an d does not have vomiting tomorrow, then we could consider Gastrografin small bowel follow through as the next step.
[2017-06-01 02:04] VITALS: BMI 27.8
--- NOTE | 2017-06-01 02:15 | HP ---
PRIMARY CARE PHYSICIAN: Valente Crenshaw M.D. PRESENTING COMPLAINT: Abdominal pain. HISTORY OF PRESENT ILLNESS: This is a 71-year-old female with a past medical history of Crohn's disease, who presented to the emergency room with abdominal pain. Patient reports she emptied her colostomy bag around 7:00 a.m. and then noticed there was no further output from the back. She reports she usually has high outputs. Later when she developed severe excruciating cramping abdominal pain, 10/10, diffuse did not radiate with no aggravating or relieving factors. She immediately called her GI physician and was seen at his office where a small bowel obstruction was suspected and then she was sent to the emergency room. She denies fevers, chills, shortness of breath, chest pain. She had no nausea or vomiting and she has no urinary symptoms. PAST MEDICAL HISTORY: Type 2 diabetes mellitus, prior CVA x2. CAD, IBD, hypertension, hypothyroidism, Crohn's disease. PAST SURGICAL HISTORY: Status post total/full colectomy. FAMILY HISTORY: Reviewed and noncontributory. SOCIAL HISTORY: Denies smoking cigarettes, drinking alcohol, or use of illicit drugs. ALLERGIES: TETANUS VACCINATION, IMURAN, BACTRIM, PHENERGAN. REVIEW OF SYSTEMS: [place]: Per HPI. Eyes: Denies any changes in vision. ENT: Denies ear pain, discharge, sore throat. Cardiovascular: Denies chest pain, shortness of breath, palpitations, PND. Respiratory: Negative. Denies cough, shortness of breath. GI: Per HPI. Skin/Psychiatric/Musculoskeletal: Negative. Skin: Positive for chronic left lower extremity swelling with erythema. Neurologic: Negative. Endocrine: Negative. Hematologic/lymphatic : Negative. Psychiatric: Negative. All other review of systems negative apart from as listed in HPI. PHYSICAL EXAMINATION: VITAL SIGNS: Stable. CONSTITUTIONAL: She was in mild distress from pain. Well oriented, nontoxic appearing. HEENT: Normocephalic, atraumatic. PERRLA, EOMI not pale, anicteric. NECK: Supple, full range of movement. RESPIRATORY: Vesicular to auscultation bilaterally with no wheezes or rales. CARDIOVASCULAR: S1 and S2, only. Regular rate and rhythm. No murmurs or gallops. ABDOMEN: Hyperactive bowel sounds. Tenderness, diffuse with no rebound or guarding. Ostomy present to the right mid abdomen with minimal output. MUSCULOSKELETAL: Moves all extremities spontaneously, has left lower extremity edema with erythema, which patient reports as chronic. NEUROLOGIC: Alert and well oriented with no focal deficits. SKIN: Erythema in the left lower extremity, but no differential warmth or tenderness. PSYCHIATRIC: Alert, normal mood and affect. LABORATORY DATA: CBC largely normal. CMP with elevated BUN/creatinine of 21/ 1.67, but seems to be patient's baseline. Urinalysis with elevated WBC, but patient is asymptomatic. CT abdomen without contrast showed evidence of high grade bowel obstruction with dilated small bowel with an air fluid levels and some prominent fecalization with several small bowel loops in the very nondilated decompressed distal small bowel including the small bowel at the level of the ileostomy. Stable splenomegaly. No abscess or abnormal fluid collection within the bowel or pelvis. No evidence of parastomal hernia. ASSESSMENT/PLAN: 1. Small-bowel obstruction. Patient is currently clinically stable and does not appear toxic. She has been deemed a poor surgical candidates in the past after multiple abdominal surgeries. GI has been consulted and they evaluated the patient in the emergency room and NG tube has been placed and draining to intermittent suction. We will ensure adequate pain control and she will also be placed on gentle hydration. The patient will remain n.p.o. and will be reevaluated by GI in the morning. 2. Lymphedema. Patient reports a chronic history of left lower extremity lymphedema, limb has some erythema, but she is asymptomatic. We will monitor. Other chronic medical conditions includes type 2 diabetes mellitus for which she will be placed on sliding scale insulin and her p.o. medications will be held. Other chronic medical conditions including hypothyroidism, CAD, restless leg syndrome on chronic diastolic heart failure. Patient not in acute exacerbation. She is currently being held n.p.o. We will monitor vital signs closely. POLO
[2017-06-01] MEDS ORDERED: Lorazepam 2 MG/ML VIAL SLOW IVP SCH ×2 (02:30→22:15)
[2017-06-01] MEDS ORDERED: rOPINIRole HCl 0.5 MG TAB PO SCH ×2 (02:30→22:15)
[2017-06-01] MEDS: Morphine 2 MG/ML SYRINGE SLOW IVP PRN ×3 (02:50→20:28)
[2017-06-01 04:39] LABS: ALT (SGPT) 18 U/L (8-55); AST (SGOT) 26 U/L (5-34); Albumin 3.5 g/dL (3.4-4.8); Alkaline Phosphatase 100 U/L (40-150); Anion Gap 14 mmol/L (10-20); BUN (Urea Nitrogen) 26 mg/dL (9.8-20.1); Bilirubin, Total 0.6 mg/dL (0.2-1.2); Calc. Creatinine Clearance 31 mL/min (70-130); Carbon Dioxide 24 mmol/L (23-31); Chloride 102 mmol/L (98-107); Estimated GFR-MDRD 27; Globulin 4.4 g/dL (2.4-3.5); Glucose 190 mg/dL (80-115); Potassium 4.8 mmol/L (3.5-5.1); Protein, Total 7.9 g/dL (6.0-8.3); Sodium 135 mmol/L (136-145)
[2017-06-01 05:26] LABS: #Basophils 0.1 thou/uL (0.0-0.2); #Lymphocytes 0.2 thou/uL (1.20-3.40); #Monocytes 0.1 thou/uL (0.11-0.59); #Neutrophils 6.4 thou/uL (1.40-6.50); %Basophils 1.3 % (0.0-1.0); %Eosinophils 0.3 % (0.0-10.0); %Lymphocytes 3.2 % (21.0-51.0); %Neutrophils 94.3 % (42.0-75.0); Hemoglobin 12.1 g/dL (12.0-16.0); Mean Corpuscular HGB CONC 31.8 g/dL (32.0-36.0); Mean Corpuscular Hemoglobin 31.1 pg (27.0-31.0); Mean Corpuscular Volume 97.8 fl (81.0-99.0); Mean Platelet Volume 9.1 fL (7.4-10.4); PLT Morphology Comment Appears Decreased; Platelet Count 104 thou/uL (130-400); RBC Distribution Width 12.8 % (11.5-14.5); Red Blood Cell (RBC) Count 3.89 mill/uL (4.20-5.40); White Blood Cell (WBC) Count 6.8 thou/uL (4.8-10.8)
[2017-06-01] MEDS ORDERED: Vedolizumab 300 MG in Sodium Chloride 0.9% 250 ML 250 ML IVPB SCH ×2 (09:00→10:00)
[2017-06-01] MEDS ORDERED: diphenhydrAMINE 50 MG/ML VIAL IVP SCH (11:45)
[2017-06-01] MEDS ORDERED: Acetaminophen 1,000 MG in Premix Bag 1 BAG IVPB SCH (11:45)
--- NOTE | 2017-06-01 12:07 | PQF ---
DATE: 06-01-17 ATTN: DR. JUS MCMANUS Please exercise your independent, professional judgment in responding to the clarification form. Clinical indicators are provided on the bottom of this form for your review Please check appropriate box(s): [ ] UTI [ ] Contaminated urine specimen without UTI [x ] Other diagnosis Asymptomatic bacteruria [ ] Unable to determine In addition, please specify: Present on Admission (POA): [ x ] Yes [ ] No [ ] Unable to determine For continuity of documentation, please document condition throughout progress notes and discharge summary. Thank You. CLINICAL INDICATORS - SIGNS / SYMPTOMS / LABS ER DIAGNOSIS: BOWEL OBSTRUCTION, CROHN'S, CYSTITIS URINE: 05-31-17: URINE GLUCOSE 250 H URINE NITRITE POSITIVE H UR LEUKOCYTE ESTERASE MODERATE H URINE WBC GREATER THAN 50-TNTC H URINE BACTERIA +3 H RISK FACTORS: ER DOCUMENTATION: HX OF CROHN'S, ILEOSTOMY, CVA X2, CHF, DM 2, MRSA ER DIAGNOSIS: BOWEL OBSTRUCTION, CROHN'S, CYSTITIS TREATMENT: ER- LEVAQUIN IV (This form is maintained as a part of the permanent medical record) 2014 [employer]. All Rights Reserved NURIS [email or web address] Office: [phone] [facility] HOSPITALSunni
--- NOTE | 2017-06-01 15:02 | PDOC.PN ---
- Subjective Encounter Start Date: 06/01/17 Encounter Start Time: 12:50 Subjective: no nausea or vomiting -: has ng tube, mild abd vague pain more on right Upper quadrant - Objective Resuscitation Status: Resuscitation Status DNR:Do Not Resuscitate MAR Reviewed: Yes Vital Signs & Weight: Vital Signs (12 hours) Temp Pulse Resp BP Pulse Ox 06/01/17 11:00 98.0 F 67 16 147/74 H 91 L 06/01/17 08:00 97.9 F 67 16 06/01/17 07:19 97.9 F 67 16 112/70 91 L 06/01/17 04:00 98.2 F 82 20 106/64 95 Weight Admit Weight 152 lb 8 oz Weight 152 lb 8 oz I&O: 05/31/17 06/01/17 06/02/17 06:59 06:59 06:59 Intake Total 281 Output Total 25 Balance 256 Result Diagrams: 06/01/17 03:39 06/01/17 03:39 Additional Labs: Accuchecks 06/01/17 06/01/17 10:55 04:19 POC Glucose 254 H 197 H Phys Exam - Physical Examination HEENT: PERRLA, moist MMs Neck: no JVD, supple Respiratory: no wheezing, no rales Cardiovascular: RRR, no significant murmur Gastrointestinal: soft ileostomy has old stool from yesterday per patient Musculoskeletal: no edema, pulses present left LE erythema+ Neurological: non-focal, moves all 4 limbs Psychiatric: A&O x 3 Dx/Plan (1) Small bowel obstruction Code(s): K56.609 - UNSP INTESTNL OBST, UNSP TO PARTIAL VERSUS COMPLETE OBST Status: Acute (2) Exacerbation of Crohn's disease of small intestine Code(s): K50.00 - CROHN'S DISEASE OF SMALL INTESTINE WITHOUT COMPLICATIONS Status: Suspected (3) CAD (coronary artery disease) Code(s): I25.10 - ATHSCL HEART DISEASE OF [place] CORONARY ARTERY W/O ANG PCTRS Status: Chronic Qualifiers: Coronary Disease-Associated Artery/Lesion type: [place] artery [place] vs. transplanted heart: [place] heart Associated angina: without angina Qualified Code(s): I25.10 - Atherosclerotic heart disease of [place] coronary artery without angina pectoris Comment: h/o [place] 2008 (4) Chronic diastolic heart failure Code(s): I50.32 - CHRONIC DIASTOLIC (CONGESTIVE) HEART FAILURE Status: Chronic (5) DM type 2 (diabetes mellitus, type 2) Status: Chronic Qualifiers: Diabetes mellitus complication status: with unspecified complications Diabetes mellitus senior living insulin use: without senior living use Qualified Code( s): E11.8 - Type 2 diabetes mellitus with unspecified complications (6) Hypertension Code(s): I10 - ESSENTIAL (PRIMARY) HYPERTENSION Status: Chronic Qualifiers: Hypertension type: essential hypertension (7) Hypothyroidism Code(s): E03.9 - HYPOTHYROIDISM, UNSPECIFIED Status: Chronic Qualifiers: Hypothyroidism type: unspecified - Plan will recieve her entyvio dose today -: for ng intermittent low suction -: iv steroids, morphine prn -: npo until her ileostomy starts working * . Review of Systems - Medications/Allergies Allergies/Adverse Reactions: Allergies Allergy/AdvReac Type Severity Reaction Status Date / Time azathioprine [From Imuran] Allergy Severe PANCREATITI Verified 06/01/17 01:18 S azathioprine sodium Allergy Severe PANCREATITI Verified 06/01/17 01:18 [From Imuran] S Sulfa (Sulfonamide Allergy Severe Verified 06/01/17 01:18 Antibiotics) sulfamethoxazole Allergy Severe Verified 06/01/17 01:18 [From Bactrim] tetanus and diphtheria Allergy Severe Hives Verified 06/01/17 01:18 toxoids [Tetanus&Diphtheria Toxoid] promethazine HCl Allergy Intermediate RESTLESS Verified 06/01/17 01:18 [From Phenergan] LEGS trimethoprim [From Bactrim] Allergy Unknown Verified 06/01/17 01:18 Medications: Current Medications Acetaminophen (Tylenol) 650 mg PA Q4H PRN PRN Reason: Headache/Fever or Pain Dextrose/Water (Dextrose 50%) 25 gm SLOW IVP PRN PRN PRN Reason: Hypoglycemia Glucagon (Glucagon) 1 mg IM PRN PRN PRN Reason: Hypoglycemia Dextrose/Water (D5w) 1,000 mls @ 0 mls/hr IV .Q0M PRN; As Directed PRN Reason: Hypoglycemia Vedolizumab 300 mg/ Sodium (Chloride) 255 mls @ 510 mls/hr IVPB 1000 BIA Stop: 06/01/17 23:59 Last Admin: 06/01/17 13:32 Dose: 255 mls Insulin Human Lispro (Humalog) 0 units SC .MILD SLIDING SCALE PRN PRN Reason: Mild Correctional Scale Methylprednisolone Sodium Succinate (Solu-Medrol) 20 mg IVP Q8HR BIA Last Admin: 06/01/17 14:07 Dose: 20 mg Morphine Sulfate (Morphine) 2 mg SLOW IVP Q4H PRN PRN Reason: Severe Pain (7-10) Last Admin: 06/01/17 14:00 Dose: 2 mg Ondansetron HCl (Zofran) 4 mg IVP Q6H PRN PRN Reason: Nausea/Vomiting
[2017-06-01] MEDS ORDERED: Polyethylene Glycol 3350 17 GM Packet PO SCH ×2 (15:30→19:30)
--- NOTE | 2017-06-01 17:46 | CON ---
DATE OF CONSULTATION: 06/01/2017 CONSULTING PHYSICIAN: Ignacio Sinha M.D. REASON FOR CONSULTATION: Small-bowel obstruction. HISTORY OF PRESENT ILLNESS: The patient is a 71-year-old chronically ill white female well known to myself. She has a history of total colectomy for presumed ulcerative colitis. She was then subseque ntly recognized to have Crohn's disease and was given a permanent ileostomy when her ileorectal anast omosis failed. In 2012, I performed an extensive lysis of adhesions requiring almost 4 hours to comp lete in treatment of a bowel obstruction. Segmental small bowel resection was performed at that time . She required complex closure of her abdominal wall. Subsequent to that surgery, she had numerous medical problems for she was hospitalized for a lengthy period of time. She ended up requiring a tra cheostomy and PEG tube placement. She required a lengthy rehabilitation. I told her that time that I was uncertain that she would ever tolerate another laparotomy if that became necessary. In 04/2016, she presented to the hospital with an upper GI endoscopy revealing numerous deep ulcerati ons related to her Crohn's disease. She was treated at that time with Entyvio and continues to be tr eated with Entyvio. She returned to the hospital on 01/2017 with evidence of some degree of bowel ob struction. She had fecalization for her small bowel that was recognized. Her obstruction resolves s pontaneously and a Gastrografin small bowel follow through was obtained, which passed through the bow el into the ostomy bag spontaneously and she was discharged home. At that time, I recommended that s he stay on daily MiraLax to attempt to keep her ostomy output as soon as possible to minimize chances of further and continued obstruction. She returns at this time complaining of abdominal pain with cessation of output from her ostomy bag a s of yesterday morning. She presented to the hospital last night. CT scan did reveal findings of fe calization of small bowel with some small bowel dilatation, potentially consistent with a recurrent s mall bowel obstruction. She does note that she has had negligible output from her ostomy. A nasogas tric tube was placed, but has not been much output from this. She notes that her pain is much better . She still has not had much coming out from her ileostomy. PAST MEDICAL HISTORY: Significant for Crohn's disease, prior cerebrovascular accident, diabetes, hyp ertension, ventral hernias, tonsillectomy, heart disease, and cholelithiasis. PAST SURGICAL HISTORY: 1. Total colectomy with formation of J pouch 2. J pouch takeout with formation of ileostomy. 3. Four vessel coronary artery bypass graft. 4. Repair of ventral incisional hernia with mesh. 5. Exploratory laparotomy with small bowel resection. 6. Tracheostomy. 7. Tonsillectomy. 8. PEG tube placement. 9. Abdominoplasty. 10. Retinal surgery x2 for retinal detachment. 11. Repair of left femoral neck fracture on 01/2017. PERSONAL AND SOCIAL HISTORY: She is with 2 children. PHYSICAL EXAMINATION: VITAL SIGNS: Temperature 98, pulse 67, blood pressure 147/74. LUNGS: Clear to auscultation. ABDOMEN: Soft, nontender, nondistended. Hypoactive bowel sounds. Ostomy is viable, minimal ooze in her bag currently. LABORATORY DATA: CBC is unremarkable with hemoglobin of 12.1, white blood cell count of 6.8. [place] lic profile reveals elevated BUN and creatinine. Creatinine is 1.3. Sugars are elevated at 190 to 2 50. Albumin is slightly low at 3.5. ASSESSMENT AND PLAN: The patient with recurrent bowel obstruction with fecalization of small bowel. Dr. Sinha has treated her with steroids and an Entyvio treatment. I agree with nasogastric tube. I would recommend MiraLax for today followed by Gastrografin small bowel follow through tomorrow. Hop efully, her obstruction resolves and she will be able to resume diet. If she does require laparotomy (for an obstruction that will not resolve with medical management), this unfortunately likely causes dire consequences for her. I will resume her surgical care on 06/04/2017.
--- NOTE | 2017-06-01 20:02 | PRG ---
DATE OF SERVICE: 06/01/2017 SUBJECTIVE: Ms. Shaffer is feeling better today. She has less pain. She has had some output of air from the ostomy and very small amount of thick green stool. She has had 500 mL out total from her NG tube which has now been clamped and she is tolerating that so far. OBJECTIVE: VITAL SIGNS: Temperature 98.0, pulse 67, blood pressure 147/74. GENERAL: She is in no acute distress. She is alert and oriented x3. LUNGS: Clear to auscultation bilaterally. HEART: Regular rate and rhythm. ABDOMEN: Soft, minimal tenderness in the right lower quadrant without guarding. Bowel sounds are ac tive. EXTREMITIES: 1+ pitting lower extremity edema. IMPRESSION: 1. Small-bowel obstruction, clinically improving. She has been started on MiraLax today. 2. Crohn's disease with small bowel disease and stricturing. RECOMMENDATIONS: 1. She received Entyvio infusion today. 2. Continue IV steroids. 3. Plan is for Gastrografin small bowel follow through tomorrow.
[2017-06-02] MEDS ORDERED: Dextrose 5 % And 0.9 % NaCl 1,000 ML IV SCH (08:30)
[2017-06-02 08:53] LABS: #Lymphocytes 0.2 thou/uL (1.20-3.40); #Monocytes 0.1 thou/uL (0.11-0.59); #Neutrophils 7.5 thou/uL (1.40-6.50); %Basophils 0.5 % (0.0-1.0); %Eosinophils 0.1 % (0.0-10.0); %Lymphocytes 3.1 % (21.0-51.0); %Monocytes 1.3 % (0.0-10.0); Hemoglobin 11.5 g/dL (12.0-16.0); Mean Corpuscular HGB CONC 31.7 g/dL (32.0-36.0); Mean Corpuscular Hemoglobin 31.1 pg (27.0-31.0); Mean Corpuscular Volume 98.3 fl (81.0-99.0); Mean Platelet Volume 8.5 fL (7.4-10.4); Platelet Count 103 thou/uL (130-400); RBC Distribution Width 12.9 % (11.5-14.5); Red Blood Cell (RBC) Count 3.68 mill/uL (4.20-5.40); White Blood Cell (WBC) Count 7.9 thou/uL (4.8-10.8)
[2017-06-02] MEDS: rOPINIRole HCl 0.5 MG TAB PO SCH ×3 (08:58→20:32)
[2017-06-02 09:11] LABS: Anion Gap 14 mmol/L (10-20); BUN (Urea Nitrogen) 42 mg/dL (9.8-20.1); Calc. Creatinine Clearance 31 mL/min (70-130); Calcium 8.5 mg/dL (7.8-10.44); Carbon Dioxide 23 mmol/L (23-31); Chloride 101 mmol/L (98-107); Estimated GFR-MDRD 27; Glucose 353 mg/dL (80-115); Potassium 4.5 mmol/L (3.5-5.1); Sodium 133 mmol/L (136-145)
--- NOTE | 2017-06-02 12:51 | PDOC.PN ---
- Subjective Encounter Start Date: 06/02/17 Encounter Start Time: 08:00 Subjective: has passed 3 stools via ileostomy -: no nausea or abd pain - Objective Resuscitation Status: Resuscitation Status DNR:Do Not Resuscitate MAR Reviewed: Yes Vital Signs & Weight: Vital Signs (12 hours) Temp Pulse Resp BP Pulse Ox 06/02/17 08:00 97.5 F L 68 18 90 L 06/02/17 07:54 97.5 F L 68 18 122/73 85 L Weight Admit Weight 152 lb 8 oz Weight 152 lb 8 oz I&O: 06/01/17 06/02/17 06/03/17 06:59 06:59 06:59 Intake Total 281 1070 Output Total 25 0 Balance 256 1070 Result Diagrams: 06/02/17 08:27 06/02/17 08:27 Additional Labs: Accuchecks 06/02/17 06/02/17 06/02/17 11:13 09:02 04:23 POC Glucose 279 H 298 H 251 H 06/01/17 19:29 POC Glucose 257 H Phys Exam - Physical Examination HEENT: PERRLA, moist MMs Neck: no JVD, supple Respiratory: no wheezing, no rales Cardiovascular: RRR, no significant murmur Gastrointestinal: soft, non-tender, positive bowel sounds Musculoskeletal: no edema, pulses present Neurological: non-focal, moves all 4 limbs Psychiatric: A&O x 3 Dx/Plan (1) Small bowel obstruction Code(s): K56.609 - UNSP INTESTNL OBST, UNSP TO PARTIAL VERSUS COMPLETE OBST Status: Acute Comment: resolving (2) Exacerbation of Crohn's disease of small intestine Code(s): K50.00 - CROHN'S DISEASE OF SMALL INTESTINE WITHOUT COMPLICATIONS Status: Suspected (3) CAD (coronary artery disease) Code(s): I25.10 - ATHSCL HEART DISEASE OF [place] CORONARY ARTERY W/O ANG PCTRS Status: Chronic Qualifiers: Coronary Disease-Associated Artery/Lesion type: [place] artery [place] vs. transplanted heart: [place] heart Associated angina: without angina Qualified Code(s): I25.10 - Atherosclerotic heart disease of [place] coronary artery without angina pectoris Comment: h/o [place] 2008 (4) Chronic diastolic heart failure Code(s): I50.32 - CHRONIC DIASTOLIC (CONGESTIVE) HEART FAILURE Status: Chronic (5) DM type 2 (diabetes mellitus, type 2) Status: Chronic Qualifiers: Diabetes mellitus complication status: with unspecified complications Diabetes mellitus half-way insulin use: without half-way use Qualified Code( s): E11.8 - Type 2 diabetes mellitus with unspecified complications (6) Hypertension Code(s): I10 - ESSENTIAL (PRIMARY) HYPERTENSION Status: Chronic Qualifiers: Hypertension type: essential hypertension (7) Hypothyroidism Code(s): E03.9 - HYPOTHYROIDISM, UNSPECIFIED Status: Chronic Qualifiers: Hypothyroidism type: unspecified - Plan sbo is resolving -: start clear liq diet and advance as tolerated -: await sbft xray results, may remove ng tube if normal -: dc iv fluids if she is on liq diet -: watch for electrolytes * . Review of Systems - Medications/Allergies Allergies/Adverse Reactions: Allergies Allergy/AdvReac Type Severity Reaction Status Date / Time azathioprine [From Imuran] Allergy Severe PANCREATITI Verified 06/01/17 01:18 S azathioprine sodium Allergy Severe PANCREATITI Verified 06/01/17 01:18 [From Imuran] S Sulfa (Sulfonamide Allergy Severe Verified 06/01/17 01:18 Antibiotics) sulfamethoxazole Allergy Severe Verified 06/01/17 01:18 [From Bactrim] tetanus and diphtheria Allergy Severe Hives Verified 06/01/17 01:18 toxoids [Tetanus&Diphtheria Toxoid] promethazine HCl Allergy Intermediate RESTLESS Verified 06/01/17 01:18 [From Phenergan] LEGS trimethoprim [From Bactrim] Allergy Unknown Verified 06/01/17 01:18 Medications: Current Medications Acetaminophen (Tylenol) 650 mg MS Q4H PRN PRN Reason: Headache/Fever or Pain Dextrose/Water (Dextrose 50%) 25 gm SLOW IVP PRN PRN PRN Reason: Hypoglycemia Glucagon (Glucagon) 1 mg IM PRN PRN PRN Reason: Hypoglycemia Dextrose/Water (D5w) 1,000 mls @ 0 mls/hr IV .Q0M PRN; As Directed PRN Reason: Hypoglycemia Insulin Human Lispro (Humalog) 0 units SC .MILD SLIDING SCALE PRN PRN Reason: Mild Correctional Scale Methylprednisolone Sodium Succinate (Solu-Medrol) 20 mg IVP Q8HR [facility] Last Admin: 06/02/17 05:40 Dose: 20 mg Morphine Sulfate (Morphine) 2 mg SLOW IVP Q4H PRN PRN Reason: Severe Pain (7-10) Last Admin: 06/01/17 20:28 Dose: 2 mg Ondansetron HCl (Zofran) 4 mg IVP Q6H PRN PRN Reason: Nausea/Vomiting Last Admin: 06/01/17 20:30 Dose: 4 mg Ropinirole HCl (Requip) 0.5 mg PO TID [facility] Last Admin: 06/02/17 08:58 Dose: 0.5 mg
[2017-06-02] MEDS ORDERED: MD-Gastroview 120 ML BOT ONE (13:28)
[2017-06-02] MEDS ORDERED: Acetaminophen 325 MG TAB PO PRN (13:31)
[2017-06-02] MEDS: Morphine 2 MG/ML SYRINGE SLOW IVP PRN (13:51)
--- NOTE | 2017-06-02 14:38 | RAD ---
SMALL BOWEL SERIES: HISTORY: A 71-year-old female with a history of small bowel obstruction. FINDINGS: NG tube tip is just above the level of the stomach with a side hole in the distal esophagus. The pat ient was given Gastrografin orally. There are some minimally dilated loops of small bowel noted on t he applications system analyst film. Gastrografin given through the NG tube passes completely through the small bowel incl uding some focally dilated areas, including 1 anteriorly in the mid abdomen and 1 in the right lower quadrant with contrast media passing within the ileostomy bag. Apparently, the patient has had a jen or colectomy. IMPRESSION: Contrast media rarely passing through the small bowel with several focal areas of small bowel dilatat ion, one in the mid abdomen and the other in the right lower quadrant, but without evidence for obstr uction. POS: [facility]
[2017-06-02] MEDS: HumaLOG 300 UNITS/3 ML VIAL SC PRN (17:51)
--- NOTE | 2017-06-02 19:15 | PRG ---
DATE OF SERVICE: 06/02/2017 SUBJECTIVE: Ms. Shaffer feels well today. She has no abdominal pain. She has had multiple bags with fluid pass through her ostomy. She has no fever or abdominal pain. OBJECTIVE: VITAL SIGNS: Temperature 97.5, pulse 68, blood pressure 122/73. GENERAL: She is in no acute distress, alert and oriented x3. LUNGS: Clear to auscultation bilaterally. HEART: Regular rate and rhythm. ABDOMEN: Soft, nontender, nondistended, bowel sounds are present. EXTREMITIES: 1+ pitting lower extremity edema. LABORATORY DATA: White blood cell count 7.9, hemoglobin 11.5, platelets 103, creatinine 1.85. IMPRESSION: 1. Small-bowel obstruction appears to be resolved. She is tolerating her regularly scheduled [place] x. 2. Crohn disease with small bowel disease and stricturing. RECOMMENDATIONS: 1. She received Entyvio infusion yesterday. 2. Continue IV steroids. 3. Small bowel follow through shows no obstruction, but several areas of small bowel dilation. 4. Plan is to change to a full liquid diet this evening and for breakfast tomorrow and if she tolera jase that, then advance to a low residue diet tomorrow. If she tolerates that, then change to oral st eroids on Sunday morning and then as long she continues to do well, anticipate discharge home Sunday afternoon late.
[2017-06-02] MEDS ORDERED: Lorazepam 2 MG/ML VIAL SLOW IVP SCH (20:15)
[2017-06-02] MEDS ORDERED: Insulin Detemir 100 UNITS/ML 10 UNITS in Pre-Filled Syringe SC SCH (20:15)
[2017-06-03 05:21] LABS: #Lymphocytes 0.5 thou/uL (1.20-3.40); #Monocytes 0.2 thou/uL (0.11-0.59); #Neutrophils 6.7 thou/uL (1.40-6.50); %Eosinophils 0.1 % (0.0-10.0); %Lymphocytes 6.4 % (21.0-51.0); %Monocytes 2.2 % (0.0-10.0); %Neutrophils 91.3 % (42.0-75.0); Hemoglobin 11.4 g/dL (12.0-16.0); Mean Corpuscular HGB CONC 31.8 g/dL (32.0-36.0); Mean Corpuscular Hemoglobin 31.2 pg (27.0-31.0); Mean Corpuscular Volume 97.8 fl (81.0-99.0); Mean Platelet Volume 9.2 fL (7.4-10.4); Platelet Count 106 thou/uL (130-400); RBC Distribution Width 12.8 % (11.5-14.5); Red Blood Cell (RBC) Count 3.66 mill/uL (4.20-5.40); White Blood Cell (WBC) Count 7.4 thou/uL (4.8-10.8)
[2017-06-03 05:36] LABS: Anion Gap 12 mmol/L (10-20); BUN (Urea Nitrogen) 48 mg/dL (9.8-20.1); Calc. Creatinine Clearance 29 mL/min (70-130); Calcium 8.6 mg/dL (7.8-10.44); Carbon Dioxide 23 mmol/L (23-31); Chloride 100 mmol/L (98-107); Estimated GFR-MDRD 25; Glucose 391 mg/dL (80-115); Potassium 4.2 mmol/L (3.5-5.1); Sodium 131 mmol/L (136-145)
[2017-06-03] MEDS: HumaLOG 300 UNITS/3 ML VIAL SC PRN ×3 (06:46→18:10)
[2017-06-03] MEDS: rOPINIRole HCl 0.5 MG TAB PO SCH ×5 (09:08→20:33)
--- NOTE | 2017-06-03 10:46 | PDOC.PN ---
- Subjective Encounter Start Date: 06/03/17 Encounter Start Time: 08:40 Pt seen for followup re: bowel obstruction. Reports tolerating diet. Good ostomy output. - Objective Resuscitation Status: Resuscitation Status DNR:Do Not Resuscitate MAR Reviewed: Yes Vital Signs & Weight: Vital Signs (12 hours) Temp Pulse Resp BP Pulse Ox 06/03/17 08:00 97.5 F L 66 18 119/62 92 L Weight Admit Weight 152 lb 8 oz Weight 152 lb 8 oz I&O: 06/02/17 06/03/17 06/04/17 06:59 06:59 06:59 Intake Total 1070 1540 240 Output Total 0 Balance 1070 1540 240 Result Diagrams: 06/03/17 03:40 06/03/17 03:40 Additional Labs: Accuchecks 06/03/17 06/02/17 06/02/17 06:43 20:05 17:18 POC Glucose 300 H 265 H 444 H 06/02/17 11:13 POC Glucose 279 H Phys Exam - Physical Examination Constitutional: NAD HEENT: moist MMs Neck: supple Respiratory: clear to auscultation bilateral Cardiovascular: RRR Gastrointestinal: soft, positive bowel sounds ostomy Neurological: moves all 4 limbs Psychiatric: normal affect Skin: no rash Dx/Plan (1) Small bowel obstruction Code(s): K56.609 - UNSP INTESTNL OBST, UNSP TO PARTIAL VERSUS COMPLETE OBST Status: Acute Comment: resolving (2) Anxiety and depression Code(s): F41.9 - ANXIETY DISORDER, UNSPECIFIED; F32.9 - MAJOR DEPRESSIVE DISORDER, SINGLE EPISODE, UNSPECIFIED Status: Chronic (3) CAD (coronary artery disease) Code(s): I25.10 - ATHSCL HEART DISEASE OF [place] CORONARY ARTERY W/O ANG PCTRS Status: Chronic Qualifiers: Coronary Disease-Associated Artery/Lesion type: [place] artery [place] vs. transplanted heart: [place] heart Associated angina: without angina Qualified Code(s): I25.10 - Atherosclerotic heart disease of [place] coronary artery without angina pectoris (4) Cholelithiasis Code(s): K80.20 - CALCULUS OF GALLBLADDER W/O CHOLECYSTITIS W/O OBSTRUCTION Status: Chronic (5) Chronic diastolic heart failure Code(s): I50.32 - CHRONIC DIASTOLIC (CONGESTIVE) HEART FAILURE Status: Chronic (6) GERD (gastroesophageal reflux disease) Code(s): K21.9 - GASTRO-ESOPHAGEAL REFLUX DISEASE WITHOUT ESOPHAGITIS Status: Chronic Qualifiers: (7) H/O: CVA (cerebrovascular accident) Code(s): Z86.73 - PRSNL HX OF TIA (TIA), AND CEREB INFRC W/O RESID DEFICITS Status: Chronic (8) Hypertension Code(s): I10 - ESSENTIAL (PRIMARY) HYPERTENSION Status: Chronic Qualifiers: Hypertension type: essential hypertension (9) Hypothyroidism Code(s): E03.9 - HYPOTHYROIDISM, UNSPECIFIED Status: Chronic Qualifiers: Hypothyroidism type: unspecified (10) IBD (inflammatory bowel disease) Code(s): K63.89 - OTHER SPECIFIED DISEASES OF INTESTINE Status: Chronic (11) RLS (restless legs syndrome) Status: Chronic - Plan * . Continue steroids. Advance diet. Likely home 24-48 hrs on oral steroids. Review of Systems - Review of Systems Constitutional: negative: fever, chills, sweats, weakness, malaise Gastrointestinal: negative: Nausea, Vomiting, Abdominal Pain, Diarrhea, Constipation, Melena, Hematochezia - Medications/Allergies Allergies/Adverse Reactions: Allergies Allergy/AdvReac Type Severity Reaction Status Date / Time azathioprine [From Imuran] Allergy Severe PANCREATITI Verified 06/01/17 01:18 S azathioprine sodium Allergy Severe PANCREATITI Verified 06/01/17 01:18 [From Imuran] S Sulfa (Sulfonamide Allergy Severe Verified 06/01/17 01:18 Antibiotics) sulfamethoxazole Allergy Severe Verified 06/01/17 01:18 [From Bactrim] tetanus and diphtheria Allergy Severe Hives Verified 06/01/17 01:18 toxoids [Tetanus&Diphtheria Toxoid] promethazine HCl Allergy Intermediate RESTLESS Verified 06/01/17 01:18 [From Phenergan] LEGS trimethoprim [From Bactrim] Allergy Unknown Verified 06/01/17 01:18 Medications: Current Medications Acetaminophen (Tylenol) 650 mg SC Q4H PRN PRN Reason: Headache/Fever or Pain Acetaminophen (Tylenol) 650 mg PO Q4H PRN PRN Reason: Headache, Fever, Pain Dextrose/Water (Dextrose 50%) 25 gm SLOW IVP PRN PRN PRN Reason: Hypoglycemia Glucagon (Glucagon) 1 mg IM PRN PRN PRN Reason: Hypoglycemia Dextrose/Water (D5w) 1,000 mls @ 0 mls/hr IV .Q0M PRN; As Directed PRN Reason: Hypoglycemia Insulin Human Lispro (Humalog) 0 units SC .MILD SLIDING SCALE PRN PRN Reason: Mild Correctional Scale Last Admin: 06/03/17 06:46 Dose: 4 unit Methylprednisolone Sodium Succinate (Solu-Medrol) 20 mg IVP Q8HR [facility] Last Admin: 06/03/17 06:45 Dose: 20 mg Morphine Sulfate (Morphine) 2 mg SLOW IVP Q4H PRN PRN Reason: Severe Pain (7-10) Last Admin: 06/02/17 13:51 Dose: 2 mg Ondansetron HCl (Zofran) 4 mg IVP Q6H PRN PRN Reason: Nausea/Vomiting Last Admin: 06/01/17 20:30 Dose: 4 mg Ropinirole HCl (Requip) 0.5 mg PO TID [facility] Last Admin: 06/03/17 09:08 Dose: 0.5 mg
[2017-06-03] MEDS: Morphine 2 MG/ML SYRINGE SLOW IVP PRN (15:30)
--- NOTE | 2017-06-03 15:42 | PRG ---
DATE OF SERVICE: 06/03/2017 SUBJECTIVE: Ms. Shaffer has tolerated full liquids well today. OBJECTIVE: VITAL SIGNS: Temperature 97.5, pulse 66, blood pressure 119/62. She is getting good output from her ostomy. LUNGS: Clear to auscultation bilaterally. HEART: Regular rate and rhythm. ABDOMEN: Soft, nontender, nondistended. Bowel sounds are present. EXTREMITIES: 1+ lower extremity edema. IMPRESSION: 1. Small-bowel obstruction, resolved. 2. Exacerbation of small bowel Crohn disease. RECOMMENDATIONS: 1. She received Entyvio infusion on 06/01/2017. 2. She is tolerating full liquids and transitioning to a low fiber diet today. 3. Change to prednisone tomorrow morning. 4. If she tolerates the low fiber diet well and with oral prednisone tomorrow, then she can likely d ischarge home tomorrow afternoon.
[2017-06-03] MEDS: Metoprolol Tartrate 25 MG TAB PO SCH (20:33)
[2017-06-03] MEDS: Ursodiol 300 MG CAP PO SCH (20:43)
[2017-06-03] MEDS ORDERED: Atorvastatin Calcium 10 MG TAB PO SCH (21:00)
[2017-06-03] MEDS ORDERED: Magnesium Oxide 400 MG TAB PO SCH (21:00)
[2017-06-03] MEDS ORDERED: BIFID ANIMALIS PO SCH (21:00)
[2017-06-03] MEDS ORDERED: ACIDOPHILUS PO SCH (21:00)
[2017-06-03] MEDS ORDERED: HumaLOG 300 UNITS/3 ML VIAL SC PRN (21:30)
[2017-06-04] MEDS: HumaLOG 300 UNITS/3 ML VIAL SC PRN ×2 (05:06→12:06)
[2017-06-04] MEDS ORDERED: Levothyroxine Sodium 25 MCG TAB PO SCH (06:00)
[2017-06-04] MEDS ORDERED: predniSONE 20 MG TAB PO SCH (08:00)
[2017-06-04] MEDS: Metoprolol Tartrate 25 MG TAB PO SCH (08:31)
[2017-06-04] MEDS: rOPINIRole HCl 0.5 MG TAB PO SCH ×2 (08:31→08:45)
[2017-06-04] MEDS: Ursodiol 300 MG CAP PO SCH (08:43)
[2017-06-04] MEDS ORDERED: Polyethylene Glycol 3350 17 GM Packet PO SCH (09:00)
[2017-06-04] MEDS ORDERED: Multivit, Therapeutic 1 TAB PO SCH (09:00)
[2017-06-04 12:18] VITALS: BP 120/62; TEMP 98.4
[2017-06-04] MEDS ORDERED: Citalopram 20 MG TAB PO SCH (21:00)
--- NOTE | 2017-06-04 22:29 | DIS ---
DATE OF ADMISSION: 05/31/2017 DATE OF DISCHARGE: 06/04/2017 PRIMARY CARE PHYSICIAN: Valente Crenshaw MD DISCHARGE DIAGNOSES: 1. Small-bowel obstruction. 2. Crohn disease of the small intestine. CONDITION OF PATIENT AT THE TIME OF DISCHARGE: Stable. Ms. Shaffer was assessed on the day of discharge. She denies any chest pain or shortness of breath. She is tolerating diet well. She has good ostomy output. Vital signs are stable. S1 and S2 are hea rd, regular. Lungs are clear to auscultation bilaterally. CONSULTATIONS DURING THIS HOSPITALIZATION: Surgery, Dr. Gerald Dennis and truck caterer, Dr. Sinha. HOSPITAL COURSE: Ms. Shaffer is a pleasant 71-year-old lady who was admitted to [facility] on 05/31/2017 for recurrent bowel obstruction. She was seen by General Surgery and [facility]. Small bowel x-ray was done on 06/02/2017, showed contrast media rarely passin g through the small bowel with several focal areas, so small bowel dilatation, one in the mid abdomen and other in the right lower quadrant, but without evidence for obstruction. She improved clinicall y. She was started on clear liquid diet and diet was advanced as tolerated. She was also started on intravenous steroids, subsequently switched to oral steroids on the day of discharge. She is being discharged home in a stable condition. DISCHARGE MEDICATIONS: Prednisone 40 mg daily for 5 days, subsequently tapered by 10 mg every 5 days until zero; aspirin 81 mg daily; Lipitor 10 mg at bedtime; citalopram 20 mg at bedtime; clonazepam 1 mg at bedtime; empagliflozin 10 mg daily; Lasix 20 mg daily; detemir insulin 40 units daily in the m orning and 5 units in the evening; Feosol 65 mg daily; metoprolol 12.5 mg 2 times a day; multivitamin s 2 tablets daily; Protonix 40 mg 2 times a day; Requip 0.5 mg daily, ursodiol 300 mg daily. Many thanks for allowing me to participate in your patient's care. Please feel free to contact me wi th any questions or concerns. DISCHARGE DESTINATION: Home. TOTAL AMOUNT OF TIME SPENT COORDINATING THIS DISCHARGE: Thirty-two minutes.
== END 2017-06-04 12:24 | disposition home or self-care (01) | DRG 389 ==
LOC: ERS 16:30 → T4-A 20:44
PROVIDERS: ADMIT Internal Medicine; ATTEND Internal Medicine
DX: K56.609 Unspecified intestinal obstruction, unspecified as to partial versus complete obstruction (principal); K50.00 Crohn's disease of small intestine without complications; I50.32 Chronic diastolic (congestive) heart failure; E11.9 Type 2 diabetes mellitus without complications; Z93.2 Ileostomy status; I25.10 Atherosclerotic heart disease of native coronary artery without angina pectoris; I25.2 Old myocardial infarction; Z79.4 Long term (current) use of insulin; E03.9 Hypothyroidism, unspecified; Z86.73 Personal history of transient ischemic attack (TIA), and cerebral infarction without residual deficits; Z95.1 Presence of aortocoronary bypass graft; Z87.891 Personal history of nicotine dependence; F17.210 Nicotine dependence, cigarettes, uncomplicated; F41.9 Anxiety disorder, unspecified; F32.9 Major depressive disorder, single episode, unspecified
CPT/HCPCS: 36415; 36416; 74018; 74176; 74250; 80048; 80053; 81003; 81015; 85025; 96365; 96366; 96375; 96376; J0131; J1200; J1815; J1956; J2060; J2270; J2405; J2920; J3380; J7050; J7506

== ENCOUNTER 2017-08-10 15:13 | Outpatient (CLI) | payer MEDICARE, MEDICAID | END 2017-08-10 15:14 | disposition home or self-care (01) | LOC: BICRAD 15:13 | PROVIDERS: ATTEND Nurse Practitioner Family | DX: M54.14 Radiculopathy, thoracic region (principal); R07.81 Pleurodynia; R91.8 Other nonspecific abnormal finding of lung field | CPT/HCPCS: 71046; 72070 ==

== ENCOUNTER 2017-08-16 10:47 | Day surgery (SDC) | payer MEDICARE, MEDICAID ==
[2017-08-16] MEDS ORDERED: diphenhydrAMINE 50 MG/ML VIAL IVP PRN (11:59)
[2017-08-16] MEDS ORDERED: diphenhydrAMINE 50 MG/ML VIAL IVP SCH (12:00)
[2017-08-16] MEDS ORDERED: Vedolizumab 300 MG in Sodium Chloride 0.9% 250 ML 250 ML IVPB SCH (12:00)
[2017-08-16] MEDS ORDERED: Sodium Chloride 0.9% 1,000 ML IV SCH (12:00)
[2017-08-16] MEDS ORDERED: Acetaminophen 500 MG TAB PO SCH (12:00)
[2017-08-16] MEDS ORDERED: Acetaminophen 500 MG TAB PO PRN (12:00)
[2017-08-16] MEDS ORDERED: Sodium Chloride 0.9% 40 ML ONE (12:04)
== END 2017-08-16 15:47 | disposition home or self-care (01) ==
LOC: ONC/OP 10:47
PROVIDERS: ATTEND Internal Medicine Gastroenterology
DX: K50.011 Crohn's disease of small intestine with rectal bleeding (principal); E11.9 Type 2 diabetes mellitus without complications; I25.10 Atherosclerotic heart disease of native coronary artery without angina pectoris; I10 Essential (primary) hypertension; E03.9 Hypothyroidism, unspecified; Z79.52 Long term (current) use of systemic steroids; Z79.4 Long term (current) use of insulin; Z79.82 Long term (current) use of aspirin; Z79.899 Other long term (current) drug therapy; Z88.1 Allergy status to other antibiotic agents; Z88.2 Allergy status to sulfonamides; Z88.7 Allergy status to serum and vaccine; Z88.8 Allergy status to other drugs, medicaments and biological substances; Z86.73 Personal history of transient ischemic attack (TIA), and cerebral infarction without residual deficits
CPT/HCPCS: 96413; A4216; J1200; J3380; J7050

== ENCOUNTER 2017-08-22 14:36 | Emergency (ER) | payer MEDICARE, MEDICAID ==
[2017-08-22] MEDS ORDERED: Lidocaine 1% w/Epinephrine 1:100K 20 ML VIAL ONE (14:45)
[2017-08-22 15:53] LABS: INR-International Normal Ratio 1.3; PTT 35.3 SEC (22.9-36.1)
[2017-08-22 15:54] LABS: #Eosinphils 0.2 thou/uL (0.0-0.7); #Lymphocytes 1.1 thou/uL (1.20-3.40); #Monocytes 0.4 thou/uL (0.11-0.59); #Neutrophils 4.6 thou/uL (1.40-6.50); %Basophils 0.4 % (0.0-1.0); %Eosinophils 2.9 % (0.0-10.0); %Lymphocytes 17.3 % (21.0-51.0); %Neutrophils 72.4 % (42.0-75.0); Hemoglobin 10.8 g/dL (12.0-16.0); Mean Corpuscular HGB CONC 32.6 g/dL (32.0-36.0); Mean Corpuscular Volume 95.1 fl (81.0-99.0); Mean Platelet Volume 8.8 fL (7.4-10.4); Platelet Count 117 thou/uL (130-400); RBC Distribution Width 12.9 % (11.5-14.5); Red Blood Cell (RBC) Count 3.47 mill/uL (4.20-5.40); White Blood Cell (WBC) Count 6.4 thou/uL (4.8-10.8)
[2017-08-22 16:05] LABS: ALT (SGPT) 10 U/L (8-55); AST (SGOT) 23 U/L (5-34); Albumin 3.1 g/dL (3.4-4.8); Alkaline Phosphatase 100 U/L (40-150); Anion Gap 11 mmol/L (10-20); BUN (Urea Nitrogen) 22 mg/dL (9.8-20.1); Bilirubin, Total 0.4 mg/dL (0.2-1.2); Calc. Creatinine Clearance 0 mL/min (70-130); Calcium 8.3 mg/dL (7.8-10.44); Carbon Dioxide 25 mmol/L (23-31); Chloride 107 mmol/L (98-107); Estimated GFR-MDRD 39; Globulin 3.9 g/dL (2.4-3.5); Glucose 148 mg/dL (80-115); Potassium 3.3 mmol/L (3.5-5.1); Sodium 140 mmol/L (136-145)
== END 2017-08-22 17:36 | disposition home or self-care (01) ==
LOC: ERS 14:36
DX: K91.840 Postprocedural hemorrhage of a digestive system organ or structure following a digestive system procedure (principal); I83.90 Asymptomatic varicose veins of unspecified lower extremity; I50.9 Heart failure, unspecified; I25.10 Atherosclerotic heart disease of native coronary artery without angina pectoris; I25.2 Old myocardial infarction; E11.9 Type 2 diabetes mellitus without complications; E03.9 Hypothyroidism, unspecified; K50.90 Crohn's disease, unspecified, without complications; F41.9 Anxiety disorder, unspecified; F32.9 Major depressive disorder, single episode, unspecified; Z86.73 Personal history of transient ischemic attack (TIA), and cerebral infarction without residual deficits; Z79.4 Long term (current) use of insulin; Z87.891 Personal history of nicotine dependence
CPT/HCPCS: 12001; 36415; 80053; 85025; 85610; 85730; 86850; 86900; 86901; 96360; J2001

== ENCOUNTER 2017-08-27 09:35 | Outpatient (CLI) | payer MEDICARE, MEDICAID ==
--- NOTE | 2017-08-27 14:21 | NM ---
WHOLE BODY BONE SCAN: Date: 08/27/17 HISTORY: Wedge compression fracture of lumbar vertebra, back pain. RADIOPHARMACEUTICAL: 31 mCi technetium-99m MDP injected intravenously. FINDINGS: There is increased uptake in the L4 and L5 vertebral bodies consistent with compression fractures. A focus of increased uptake in the left lower anterior rib (likely 8) is also most likely due to a rib fracture. Tracer excretion through the kidneys is within normal limits. Increased uptake in the shoulders and both wrists are consistent with degenerative changes. Increased uptake in the left femoral neck is likely due to old fracture/postop change seen on the sco ut film of the CT lumbar spine dated 08/06/17. IMPRESSION: Compression fractures of L4 and L5 vertebrae and anterior left lower rib. POS: [facility]
== END 2017-08-27 09:36 | disposition home or self-care (01) ==
LOC: NM 09:35
PROVIDERS: ATTEND Nurse Practitioner Family
DX: S32.050A Wedge compression fracture of fifth lumbar vertebra, initial encounter for closed fracture (principal); S22.32XA Fracture of one rib, left side, initial encounter for closed fracture; S32.040A Wedge compression fracture of fourth lumbar vertebra, initial encounter for closed fracture
CPT/HCPCS: 78306; A9503

== ENCOUNTER 2017-09-10 10:28 | Outpatient (CLI) | payer MEDICARE, MEDICAID ==
--- NOTE | 2017-09-10 13:07 | CT ---
CT LUMBAR SPINE WITHOUT CONTRAST: Technique: Multiple axial tomograms were obtained through the lumbar spine with multiplanar reconstru ction. Indications: Assess compression fractures. Closed compression fracture of L4 is listed as the region on the order form. Comparison: CT lumbar spine, 08-06-17. The exam described a severe burst type fracture involving the L1 vertebra, which was noted to be stable. That exam also described a new superior endplate compression fracture involving L5. No fracture of L4 was described. FINDINGS: Severe burst type compression of L1 is again noted. This has a vertebral plana type deformity. There is mild retropulsion of the posterior superior cortex of L1 which was noted previously. This retropul miriam does compress the thecal sac and does result in mild to moderate central canal stenosis, stable. L2 vertebra maintains height and alignment. L2-3: Mild disc bulge with mild facet arthrosis resulting in mild central canal stenosis. L3-4: Loss of disc space. Posterior disc bulge and hypertrophic change flatten the anterior thecal sa c resulting in mild central canal stenosis, stable. There is evidence of superior endplate depression of L3 which appears new when compared to 08-06-17. This results in mild loss of central height of L3. Review of the L4 vertebra reveals no significant loss of height. There is increased sclerosis seen in the inferior aspect of L4 which could represent acute compression deformity without significant heig ht loss at this time. There is some mild superior endplate irregularity which appears stable from jen or exam. There is vertebroplasty material within the L5 vertebra which has been placed since the prior study. This appears to stabilize the superior endplate compression at L5 which was described previously. L4-5: Mild diffuse disc bulge combined with facet hypertrophy results in mild to moderate central can al stenosis. L5-S1: Diffuse disc bulge combined with hypertrophic change and facet hypertrophy results in mild to moderate central canal stenosis. IMPRESSION: 1. Severe burst type compression deformity at L1 appears stable. The retropulsion at L1 is unchanged. 2. There is new superior endplate compression at L3 since prior exam with mild loss of central height at L3 which appears new. 3. L4 vertebra does not show significant height loss although there is abnormal new sclerosis seen al rene the inferior endplate of L4, worrisome for acute compression injury without significant loss of h eight at this time. Continued close follow up is recommended to assess for evaluation with compressio n. 4. Vertebroplasty material along the superior endplate of L5 has been placed since the prior exam and there has been no progression of the height loss at this vertebra. 5. Posterior disc bulges result in central canal stenosis at several levels as described above. POS: [facility]
== END 2017-09-10 10:29 | disposition home or self-care (01) ==
LOC: CT 10:28
PROVIDERS: ATTEND Specialist
DX: M48.56XA Collapsed vertebra, not elsewhere classified, lumbar region, initial encounter for fracture (principal); M48.061 Spinal stenosis, lumbar region without neurogenic claudication; Z98.1 Arthrodesis status
CPT/HCPCS: 72131

== ENCOUNTER 2017-09-12 17:35 | Observation (INO) | payer MEDICARE, MEDICAID ==
[2017-09-12] MEDS ORDERED: Calcium Carbonate 500 MG ChewTAB PO PRN (17:48)
[2017-09-12] MEDS ORDERED: HYDROcodone/Acetaminophen 5/325 mg Tablet PO PRN (17:48)
[2017-09-12] MEDS ORDERED: Senokot 8.6 MG TAB PO PRN (17:48)
[2017-09-12] MEDS ORDERED: Acetaminophen 325 MG TAB PO PRN (17:48)
[2017-09-12] MEDS ORDERED: Sodium Chloride 0.9% 1,000 ML IV SCH (18:00)
[2017-09-12 18:13] VITALS: BMI 28.4
--- NOTE | 2017-09-12 18:49 | RAD ---
CHEST ONE VIEW: 09/12/17 HISTORY: Shortness of breath. COMPARISON: Radiograph from 2017. FINDINGS: Lungs are clear. No pneumothorax or effusion. The cardiac silhouette and mediastinal contours are wit hin normal limits. Chronic lung changes in both lung bases. Old left clavicular injury. No acute osseous abnormality. IMPRESSION: No acute intrathoracic abnormality. POS: [facility]
[2017-09-12 19:17] LABS: #Eosinphils 0.1 thou/uL (0.0-0.7); #Lymphocytes 0.6 thou/uL (1.20-3.40); #Monocytes 0.4 thou/uL (0.11-0.59); #Neutrophils 5.7 thou/uL (1.40-6.50); %Basophils 0.1 % (0.0-1.0); %Eosinophils 1.2 % (0.0-10.0); %Lymphocytes 9.1 % (21.0-51.0); %Monocytes 5.7 % (0.0-10.0); %Neutrophils 83.9 % (42.0-75.0); Hemoglobin 10.8 g/dL (12.0-16.0); Mean Corpuscular HGB CONC 31.8 g/dL (32.0-36.0); Mean Corpuscular Hemoglobin 30.4 pg (27.0-31.0); Mean Corpuscular Volume 95.7 fl (81.0-99.0); Mean Platelet Volume 8.6 fL (7.4-10.4); Platelet Count 108 thou/uL (130-400); RBC Distribution Width 12.7 % (11.5-14.5); Red Blood Cell (RBC) Count 3.55 mill/uL (4.20-5.40); White Blood Cell (WBC) Count 6.8 thou/uL (4.8-10.8)
[2017-09-12 19:35] LABS: ALT (SGPT) 11 U/L (8-55); AST (SGOT) 21 U/L (5-34); Albumin 3.7 g/dL (3.4-4.8); Alkaline Phosphatase 119 U/L (40-150); Anion Gap 9 mmol/L (10-20); BUN (Urea Nitrogen) 17 mg/dL (9.8-20.1); Bilirubin, Total 0.6 mg/dL (0.2-1.2); Calc. Creatinine Clearance 35 mL/min (70-130); Calcium 9.3 mg/dL (7.8-10.44); Carbon Dioxide 30 mmol/L (23-31); Chloride 99 mmol/L (98-107); Estimated GFR-MDRD 32; Globulin 4.7 g/dL (2.4-3.5); Glucose 150 mg/dL (80-115); Potassium 3.5 mmol/L (3.5-5.1); Protein, Total 8.4 g/dL (6.0-8.3); Sodium 134 mmol/L (136-145)
[2017-09-12 19:45] LABS: Troponin I 0.038 ng/mL (< 0.028)
[2017-09-12] MEDS ORDERED: Famotidine 20 MG TAB PO SCH (21:00)
[2017-09-12 21:29] LABS: Troponin I 0.015 ng/mL (< 0.028)
[2017-09-12] MEDS: Sodium Chloride 0.9% 1,000 ML IV SCH (21:52)
[2017-09-12] MEDS ORDERED: Naloxone HCl 0.4 mg/ml Vial IV PRN (22:23)
[2017-09-12] MEDS ORDERED: Dextrose 5% in Water 1,000 ML IV PRN (22:35)
[2017-09-12] MEDS ORDERED: Insulin Regular 300 UNITS/3 ML VIAL SC PRN (22:35)
[2017-09-12] MEDS ORDERED: Dextrose 50% Abboject 50 ML SYRINGE SLOW IVP PRN (22:35)
[2017-09-12] MEDS: Docusate 100 MG CAP PO SCH (22:52)
[2017-09-12] MEDS: Insulin Regular 300 UNITS/3 ML VIAL SC PRN (23:17)
--- NOTE | 2017-09-12 23:21 | HP ---
DATE OF ADMISSION: 09/12/2017 PRIMARY CARE PHYSICIAN: Valente Crenshaw M.D. PRIMARY PAIN SPECIALIST: Dr. Underwood. CHIEF COMPLAINT: Altered mentation and hypoxemia after kyphoplasty. HISTORY OF PRESENT ILLNESS: The patient is a 71-year-old female with chronic pain syndrome, presente d to the hospital as a direct admit from the pain clinic with above complaints. The patient underwent percutaneous balloon kyphoplasty L3-L4 at Dr. Amalia Underwood's office. She rece ived a total of 5 mg Versed. She also had fentanyl patch on when she presented for the procedure. T he fentanyl patch was discontinued prior to the procedure. She also takes [place] as needed for the pa in. Postprocedure, patient was found to have persistent hypoxemia with O2 saturation in 87%. For this re ason, the patient was sent to the hospital as a direct admit. At this time, patient is somnolent; ho wever, is able to answer appropriately. She is alert, awake, oriented x3. She denies any complaints except for back pain. No fever, chills, headache, focal neurologic deficit reported. PAST MEDICAL HISTORY: 1. Chronic pain syndrome. 2. Diabetes mellitus type 2. 3. History of cerebrovascular accident. 4. Coronary artery disease. 5. Hypertension. 6. Hypothyroidism. 7. Crohn's disease. 8. Chronic pain syndrome. 9. Fibromyalgia. 10. Chronic kidney disease stage 3. 11. Anxiety and depression. 12. Osteoporosis. PAST SURGICAL HISTORY: 1. Multiple orthopedic surgeries. 2. Coronary artery bypass grafting. 3. Abdominal wall abscess incision and drainage. 4. Tummy tuck. 5. Umbilical hernia repair. 6. Mastectomy. 7. Tonsillectomy. 8. Ileostomy with partial small bowel resection. CURRENT HOME MEDICATIONS: The patient is on multiple medications including fentanyl patch, lidocaine patch, clonazepam 1 mg at bedtime, hydrocodone every 8 hourly, Levemir insulin, levothyroxine, metop rolol tartrate, Protonix, and Requip. SOCIAL HISTORY: The patient currently lives in [place]. No alcohol, tobacco, or drug use. Uses a rolling walker to ambulate. She has history of falls. She makes her own decision with the help of h er family. She is FULL CODE. ALLERGIES: The patient is allergic to TETANUS TOXOID, IMURAN, SULFA, PHENERGAN, and AZATHIOPRINE. REVIEW OF SYSTEMS: The following complete review of systems was negative, unless otherwise mentioned in the HPI or below: Constitutional: Weight loss or gain, ability to conduct usual activities. Sk in: Rash, itching. Eyes: Double vision, pain. ENT/Mouth: Nose bleeding, neck stiffness, pain, ten derness. Cardiovascular: Palpitations, dyspnea on exertion, orthopnea. Respiratory: Shortness of breath, wheezing, cough, hemoptysis, fever or night sweats. Gastrointestinal: Poor appetite, abdomi nal pain, heartburn, nausea, vomiting, constipation, or diarrhea. Genitourinary: Urgency, frequency , dysuria, nocturia. Musculoskeletal: Pain, swelling. Neurologic/Psychiatric: Anxiety, depression . Allergy/Immunologic: Skin rash, bleeding tendency. FAMILY HISTORY: The patient is adopted. PHYSICAL EXAMINATION: VITAL SIGNS: Temperature 98.1, pulse rate of 67, respiration of 16, blood pressure of 107/55 with O2 saturation of 96% on room air. GENERAL: A 71-year-old female in no apparent distress. She is able to hold a conversation. She is somewhat somnolent in between. NECK: Supple, no JVD appreciated. No carotid bruit. LUNGS: Clear to auscultation bilaterally, no wheezing, rales, rhonchi. HEART: S1, S2 present. Regular rate and rhythm. No murmur, rubs, or gallops appreciated. Healed m idline scar from previous CABG. ABDOMEN: Soft, nontender, bowel sounds present. EXTREMITIES: No edema or calf tenderness. NEUROLOGIC: Cranial nerves II-XII are normal on examination. Power was 5/5 in all extremities. Fin eleonora-to-nose and weoc-dn-oxwr test was normal. Reflexes were equivocal. Power was 5/5 in all extremi ties. PSYCHIATRY: As discussed above. SKIN: Warm and dry. LYMPH NODES: No palpable lymph nodes in the neck. PERIPHERAL VASCULAR: Radial pulses palpable bilaterally. MUSCULOSKELETAL: No joint swelling or tenderness. LABORATORY DATA AND X-RAY FINDINGS: CBC showed WBC of 6.8 with hemoglobin 10.8, hematocrit 34, and p latelet of 108. Chemistries showed sodium 134, potassium 3.5, chloride 99, bicarb 30, BUN 17, creati nine 1.61. Troponin initially was 0.038. Repeat troponin was 0.015. BNP 109. Chest x-ray by my re view was negative for infiltrate. EKG by my review showed sinus rhythm without significant ST-T wave changes. IMPRESSION: 1. Toxic metabolic encephalopathy secondary to narcotics/benzodiazepines. 2. Diabetes mellitus type 2. 3. Indeterminate troponins, probably secondary to transient hypoxemia. 4. Acute hypoxic respiratory failure secondary to pain medications/narcotics. 5. Chronic kidney disease stage 3. 6. Gastroesophageal reflux disease. 7. Chronic pain syndrome. 8. Hypothyroidism. PLAN: The patient will be monitored on the telemetry unit. Continuous pulse oximetry will be monito red. We will be started on Narcan as needed, sliding scale. We will hold benzodiazepines and narcot ics. IV hydration. Neuro checks. We will resume selected home medications. We will avoid nephroto xic agents. Plan of care was discussed with the patient in detail, she stated understanding.
[2017-09-13 05:38] LABS: Bilirubin Negative (Negative); Blood, Urine Trace (Negative); Clarity CLOUDY (Clear); Glucose, Urine (Dipstick) >=1000 mg/dL (Negative); Leukocyte Moderate (Negative); Nitrite Positive (Negative); Protein, Urine (Dipstick) Trace mg/dL (Neg-Trace); Specific Gravity, Urine 1.026 (1.002-1.036); Urobilinogen 0.2 mg/dL (0.2-1.0); pH, Urine 5.5 (5.0-9.0)
[2017-09-13 05:41] LABS: Bacteria/HPF 4+ HPF (None Seen); Hyaline Casts/LPF 0-3 HYALINE CAST LPF (0-3 Hyaline); Squamous Epithelial 0-3 HPF (0-3)
[2017-09-13] MEDS ORDERED: Levothyroxine Sodium 25 MCG TAB PO SCH (06:00)
[2017-09-13] MEDS ORDERED: Diabetic Tussin 200 MG/10 ML UDCUP PO PRN (06:18)
[2017-09-13] MEDS: Insulin Regular 300 UNITS/3 ML VIAL SC PRN (06:34)
[2017-09-13] MEDS: Sodium Chloride 0.9% 1,000 ML IV SCH (06:34)
[2017-09-13] MEDS ORDERED: Insulin Glargine 10 UNITS in Pre-Filled Syringe 1 EACH SC SCH (09:00)
[2017-09-13] MEDS ORDERED: Lidocaine 5% Patch TD SCH (09:00)
[2017-09-13] MEDS ORDERED: Metoprolol Tartrate 25 MG TAB PO SCH (09:00)
[2017-09-13] MEDS: Docusate 100 MG CAP PO SCH (09:15)
[2017-09-13] MEDS ORDERED: HYDROcodone/Acetaminophen 10/325 mg Tablet PO PRN (10:00)
--- NOTE | 2017-09-13 14:05 | DIS ---
DATE OF DISCHARGE: 09/13/2017 DISCHARGE DISPOSITION: Home. DISCHARGE INSTRUCTIONS: 1. Follow up with primary care physician, Dr. Crenshaw in 1 week. 2. Fall precaution with 24-hour supervision was recommended. The patient was seen and examined on the day of discharge, denies any new complaints, no chest pain, shortness of breath or palpitations. BRIEF HOSPITAL COURSE: The patient is a 71-year-old female with chronic pain syndrome, status post b alloon kyphoplasty at L3-L4 yesterday presented to the hospital as direct admit with altered mentatio n and hypoxemia post-kyphoplasty. She had persistent hypoxemia with O2 saturation of 87%. Please re soledad to the history and physical dated 09/12/2017 for further details. The patient was admitted to the hospital with a diagnosis of toxic metabolic encephalopathy secondary to pain medication/benzodiazepines. Narcotics and benzodiazepines were held. She was started on IV fluids. This morning, she is awake, alert, and is saturating 97% on room air. Patient has a histor y of chronic pain syndrome. Fentanyl patch has been restarted today. She will continue hydrocodone for pain. A 24-hour supervision with fall precaution was emphasized. FINAL DIAGNOSES: 1. Toxic metabolic encephalopathy secondary to pain medication/benzodiazepines. 2. Diabetes mellitus type 2. 3. Indeterminate troponins with initial troponin of 0.038, suspected secondary to hypoxemia. Repeat troponins were normal. Telemetry monitoring did not show any significant arrhythmias. 4. Acute hypoxic respiratory failure secondary to #1, resolved. 5. Chronic kidney disease stage 3. 6. Gastroesophageal reflux disease. 7. Hypothyroidism. 8. Chronic pain syndrome. 9. No changes in her home medications were made.
[2017-09-13 16:38] VITALS: BP 133/61; TEMP 98.8
[2017-09-13] MEDS ORDERED: Insulin Glargine 20 UNITS in Pre-Filled Syringe 1 EACH SC SCH (21:00)
[2017-09-13] MEDS ORDERED: Famotidine 20 MG TAB PO SCH (21:00)
--- NOTE | 2017-09-17 18:32 | EKG ---
Test Reason : Blood Pressure : / mmHG Vent. Rate : 069 BPM Atrial Rate : 069 BPM P-R Int : 164 ms QRS Dur : 104 ms QT Int : 448 ms P-R-T Axes : 040 004 053 degrees QTc Int : 480 ms Normal sinus rhythm Normal ECG When compared with ECG of 22-FEB-2017 10:45, Incomplete right bundle branch block is no longer Present Confirmed by MAMADOU PARRA (2) on 09/17/2017 6:31:54 PM Referred By: PATTY Confirmed By:MAMADOU PARRA
== END 2017-09-13 16:38 | disposition home or self-care (01) ==
LOC: 2SW 17:35
PROVIDERS: ADMIT Internal Medicine; ATTEND Internal Medicine
DX: G92 Toxic encephalopathy (principal); T42.4X5A Adverse effect of benzodiazepines, initial encounter; J96.01 Acute respiratory failure with hypoxia; G89.4 Chronic pain syndrome; I25.10 Atherosclerotic heart disease of native coronary artery without angina pectoris; E03.9 Hypothyroidism, unspecified; I12.9 Hypertensive chronic kidney disease with stage 1 through stage 4 chronic kidney disease, or unspecified chronic kidney disease; E11.22 Type 2 diabetes mellitus with diabetic chronic kidney disease; N18.3 Chronic kidney disease, stage 3 (moderate); K50.90 Crohn's disease, unspecified, without complications; K21.9 Gastro-esophageal reflux disease without esophagitis; F41.8 Other specified anxiety disorders; M81.0 Age-related osteoporosis without current pathological fracture; Z86.73 Personal history of transient ischemic attack (TIA), and cerebral infarction without residual deficits; Z95.1 Presence of aortocoronary bypass graft; Z79.891 Long term (current) use of opiate analgesic; Z79.4 Long term (current) use of insulin; Z79.899 Other long term (current) drug therapy; Z88.2 Allergy status to sulfonamides; Z88.1 Allergy status to other antibiotic agents; Z88.8 Allergy status to other drugs, medicaments and biological substances; Z79.82 Long term (current) use of aspirin; Y92.531 Health care provider office as the place of occurrence of the external cause
CPT/HCPCS: 71045; 80053; 82962 ×2; 83880; 84484 ×2; 85025; 93005; 94640 ×3; 94760; 96360; 96361 ×2; 97139; G0378; G0379; 36415; 36416; 81003; 81015; 93010; A4216; J1815; J2001; J2250; J7620; S0020

== ENCOUNTER 2017-10-30 11:20 | Emergency (ER) | payer MEDICARE, MEDICAID ==
[2017-10-30 13:28] LABS: #Eosinphils 0.1 thou/uL (0.0-0.7); #Lymphocytes 0.7 thou/uL (1.20-3.40); #Monocytes 0.2 thou/uL (0.11-0.59); #Neutrophils 3.4 thou/uL (1.40-6.50); %Basophils 0.7 % (0.0-1.0); %Eosinophils 2.7 % (0.0-10.0); %Lymphocytes 14.9 % (21.0-51.0); %Monocytes 4.8 % (0.0-10.0); %Neutrophils 76.9 % (42.0-75.0); Hemoglobin 12.3 g/dL (12.0-16.0); Mean Corpuscular HGB CONC 32.4 g/dL (32.0-36.0); Mean Corpuscular Hemoglobin 29.8 pg (27.0-31.0); Mean Corpuscular Volume 92.2 fL (78.0-98.0); Mean Platelet Volume 9.4 fL (7.4-10.4); Platelet Count 80 thou/uL (130-400); RBC Distribution Width 13.3 % (11.5-14.5); Red Blood Cell (RBC) Count 4.13 mill/uL (4.20-5.40); White Blood Cell (WBC) Count 4.4 thou/uL (4.8-10.8)
[2017-10-30 13:39] LABS: Bilirubin Negative (Negative); Blood, Urine Small (Negative); Clarity Clear (Clear); Glucose, Urine (Dipstick) Negative (Negative); Leukocyte Moderate (Negative); Nitrite Negative (Negative); Protein, Urine (Dipstick) Trace mg/dL (Neg-Trace); Urobilinogen 0.2 mg/dL (0.2-1.0)
[2017-10-30 13:40] LABS: Specific Gravity, Urine QNS (1.005-1.030)
[2017-10-30 13:43] LABS: ALT (SGPT) 13 U/L (8-55); AST (SGOT) 23 U/L (5-34); Albumin 3.9 g/dL (3.4-4.8); Alkaline Phosphatase 111 U/L (40-150); Anion Gap 11 mmol/L (10-20); BUN (Urea Nitrogen) 22 mg/dL (9.8-20.1); Bilirubin, Total 0.5 mg/dL (0.2-1.2); Calc. Creatinine Clearance 0 mL/min (70-130); Calcium 9.7 mg/dL (7.8-10.44); Carbon Dioxide 25 mmol/L (23-31); Chloride 102 mmol/L (98-107); Estimated GFR-MDRD 39; Globulin 4.7 g/dL (2.4-3.5); Glucose 167 mg/dL (83-110); Potassium 4.1 mmol/L (3.5-5.1); Protein, Total 8.6 g/dL (6.0-8.3); Sodium 134 mmol/L (136-145)
[2017-10-30 13:43] LABS: Other Microscopic Description Less than 2 mL rec'd
[2017-10-30 13:44] LABS: RBC/HPF 0-3 HPF (0-3); Squamous Epithelial 0-3 HPF (0-3); Transitional Epithelial 0-3 HPF (0-3)
[2017-10-30 13:45] LABS: Bacteria/HPF Rare-Few HPF (None Seen); Hyaline Casts/LPF NONE SEEN LPF (0-3 Hyaline)
--- NOTE | 2017-10-30 15:05 | CT ---
CT ABDOMEN AND PELVIS WITH IV CONTRAST: History: Abdominal pain, ostomy infection. Crohn's disease. Comparison: 05-31-17 FINDINGS: Mild atelectasis at the lung bases is again demonstrated. Gallbladder is nondistended with multiple h yperdense stones in the dependent portion of the gallbladder lumen. No significant gallbladder wall t hickening. Spleen remains enlarged at 14.4 cm. Prominent calcification throughout the arterial structures. Urina ry bladder is incompletely distended. Degenerative changes lumbar spine. Lack of oral contrast limits evaluation of the bowel. No evidence of obstruction. Post-operative ramirez ges include right lower quadrant ostomy with small parastomal hernia, similar in appearance to the pr evious exam. No adjacent fluid collections. Open defect of the subcutaneous tissues at the infraumbil ical midline is stable compared to the previous study. IMPRESSION: 1. Cholelithiasis. Gallbladder distention without findings of inflammation. Clinical correlation rega rding other signs and symptoms of acute biliary obstruction of the gallbladder and acute cholecystiti s is required. 2. Post-operative changes of the abdomen and bowel, mild splenomegaly, and other findings are stable. Right lower quadrant ostomy without evidence of complication. 3. Atherosclerosis. POS: [facility]
== END 2017-10-30 15:35 | disposition home or self-care (01) ==
LOC: ERS 11:20
DX: K94.03 Colostomy malfunction (principal); I25.10 Atherosclerotic heart disease of native coronary artery without angina pectoris; I25.2 Old myocardial infarction; E11.9 Type 2 diabetes mellitus without complications; Z79.4 Long term (current) use of insulin; E03.9 Hypothyroidism, unspecified; D50.0 Iron deficiency anemia secondary to blood loss (chronic); I50.9 Heart failure, unspecified; Z86.73 Personal history of transient ischemic attack (TIA), and cerebral infarction without residual deficits; F41.9 Anxiety disorder, unspecified; F32.9 Major depressive disorder, single episode, unspecified; Z87.891 Personal history of nicotine dependence; Z79.899 Other long term (current) drug therapy; Z79.82 Long term (current) use of aspirin
CPT/HCPCS: 74177; 80053; 81003; 81015; 85025; 87086

== ENCOUNTER 2017-11-21 01:05 | Emergency (ER) | payer MEDICARE, MEDICAID ==
[2017-11-21 02:05] LABS: Hemoglobin 12.1 g/dL (12.0-16.0); Mean Corpuscular HGB CONC 33.2 g/dL (32.0-36.0); Mean Corpuscular Hemoglobin 30.4 pg (27.0-31.0); Mean Corpuscular Volume 91.5 fL (78.0-98.0); Mean Platelet Volume 9.4 fL (7.4-10.4); Platelet Count 82 thou/uL (130-400); RBC Distribution Width 13.7 % (11.5-14.5); Red Blood Cell (RBC) Count 3.98 mill/uL (4.20-5.40); White Blood Cell (WBC) Count 5.4 thou/uL (4.8-10.8)
[2017-11-21 02:23] LABS: ALT (SGPT) 14 U/L (8-55); AST (SGOT) 23 U/L (5-34); Albumin 3.7 g/dL (3.4-4.8); Alkaline Phosphatase 102 U/L (40-150); Anion Gap 13 mmol/L (10-20); BUN (Urea Nitrogen) 19 mg/dL (9.8-20.1); Bilirubin, Total 0.5 mg/dL (0.2-1.2); Calc. Creatinine Clearance 0 mL/min (70-130); Calcium 9.4 mg/dL (7.8-10.44); Carbon Dioxide 21 mmol/L (23-31); Chloride 106 mmol/L (98-107); Estimated GFR-MDRD 44; Globulin 4.7 g/dL (2.4-3.5); Glucose 201 mg/dL (83-110); Potassium 4.4 mmol/L (3.5-5.1); Protein, Total 8.4 g/dL (6.0-8.3); Sodium 136 mmol/L (136-145)
[2017-11-21 02:26] LABS: #Eosinphils 0.1 thou/uL (0.0-0.7); #Lymphocytes 0.6 thou/uL (1.20-3.40); #Monocytes 0.5 thou/uL (0.11-0.59); #Neutrophils 4.2 thou/uL (1.40-6.50); %Basophils 0.1 % (0.0-1.0); %Eosinophils 1.9 % (0.0-10.0); %Lymphocytes 11.8 % (21.0-51.0); %Monocytes 8.7 % (0.0-10.0); %Neutrophils 77.5 % (42.0-75.0); PLT Morphology Comment Appears Decreased
[2017-11-21] MEDS ORDERED: Acetaminophen 500 MG TAB ONE (03:29)
--- NOTE | 2017-11-21 08:31 | RAD ---
PORTABLE AP CHEST: Date: 11/21/17 HISTORY: Bleeding, feces, and urine coming from ostomy. COMPARISON: 09/17/17. FINDINGS: Postsurgical changes related to CABG are again noted. Cardiac silhouette and pulmonary vasculature ar e within normal limits for the portable technique of the study. A few scattered linear densities are seen in the lungs bilaterally which may be related to mild scarring. Lungs are otherwise clear. Vascu lar calcifications are seen in the thoracic aorta. There is mild prominence of the right paratracheal soft tissues, but this is unchanged from the prior exam, and was also present on the prior study on 03/31/16. This may represent vascular structures. No consolidation or pleural fluid is seen in the sheryl ngs bilaterally. There is osteopenia. IMPRESSION: Overall stable chest without evidence of an acute cardiopulmonary process. POS: [facility]
== END 2017-11-21 05:18 | disposition home or self-care (01) ==
LOC: ERS 01:05
DX: K94.03 Colostomy malfunction (principal); I50.9 Heart failure, unspecified; I25.10 Atherosclerotic heart disease of native coronary artery without angina pectoris; I25.2 Old myocardial infarction; E11.9 Type 2 diabetes mellitus without complications; Z79.4 Long term (current) use of insulin; E03.9 Hypothyroidism, unspecified; D50.0 Iron deficiency anemia secondary to blood loss (chronic); Z86.73 Personal history of transient ischemic attack (TIA), and cerebral infarction without residual deficits; F41.9 Anxiety disorder, unspecified; F32.9 Major depressive disorder, single episode, unspecified; Z87.891 Personal history of nicotine dependence; Z79.899 Other long term (current) drug therapy; Z79.82 Long term (current) use of aspirin
CPT/HCPCS: 71045; 80053; 83605; 85025; 87040

== ENCOUNTER 2018-01-21 19:29 | Emergency (ER) | payer MEDICARE, OTHER ==
[2018-01-21 20:09] LABS: Hemoglobin 11.2 g/dL (12.0-16.0); Mean Corpuscular HGB CONC 31.9 g/dL (32.0-36.0); Mean Corpuscular Hemoglobin 30.7 pg (27.0-31.0); Mean Corpuscular Volume 96.3 fL (78.0-98.0); Mean Platelet Volume 9.1 fL (7.4-10.4); Platelet Count 89 thou/uL (130-400); RBC Distribution Width 13.3 % (11.5-14.5); Red Blood Cell (RBC) Count 3.64 mill/uL (4.20-5.40); White Blood Cell (WBC) Count 3.7 thou/uL (4.8-10.8)
[2018-01-21 20:24] LABS: Eosinophils 2 % (0-10); Lymphocytes 20 % (21-51); MDiff Complete? YES; Monocytes 6 % (0-10); Neutrophil 72 % (42-75); PLT Morphology Comment Appears Decreased; Polychromasia SLIGHT = 2-3 cells (100X) (0-2/hpf); Vacuoles SLIGHT
[2018-01-21 20:26] LABS: ALT (SGPT) 8 U/L (8-55); AST (SGOT) 18 U/L (5-34); Albumin 3.1 g/dL (3.4-4.8); Alkaline Phosphatase 87 U/L (40-150); Anion Gap 11 mmol/L (10-20); BUN (Urea Nitrogen) 19 mg/dL (9.8-20.1); Bilirubin, Total 0.3 mg/dL (0.2-1.2); Calc. Creatinine Clearance 0 mL/min (70-130); Calcium 8.6 mg/dL (7.8-10.44); Carbon Dioxide 28 mmol/L (23-31); Chloride 105 mmol/L (98-107); Estimated GFR-MDRD 36; Glucose 142 mg/dL (83-110); Potassium 3.5 mmol/L (3.5-5.1); Protein, Total 7.1 g/dL (6.0-8.3); Sodium 140 mmol/L (136-145)
--- NOTE | 2018-01-21 21:55 | ULT ---
ULTRASOUND WITH DOPPLER DUPLEX VENOUS LOWER EXTREMITIES BILATERAL: HISTORY: A 72-year-old female with bilateral lower extremity pain and edema. TECHNIQUE: Color flow Doppler, spectral waveform analysis of pulsed Doppler, and joaquin-scale imaging with hitesh miriam and augmentation, were used to evaluate the bilateral common femoral, femoral, popliteal, oven tender bagels ior tibial, and superficial femoral, veins; and the proximal portions of the profunda femoral and gre ater saphenous, veins. FINDINGS: There is normal compressibility, demonstration of blood flow by color Doppler and pulsed Doppler, and response to augmentation, in all interrogated veins. IMPRESSION: Negative. No deep vein thrombosis in the bilateral lower extremities. jn[] POS: [facility]
== END 2018-01-21 22:15 | disposition home or self-care (01) ==
LOC: ERS 19:29
DX: K94.01 Colostomy hemorrhage (principal); I25.10 Atherosclerotic heart disease of native coronary artery without angina pectoris; I25.2 Old myocardial infarction; E11.9 Type 2 diabetes mellitus without complications; E03.9 Hypothyroidism, unspecified; Z86.73 Personal history of transient ischemic attack (TIA), and cerebral infarction without residual deficits; I50.9 Heart failure, unspecified; F41.9 Anxiety disorder, unspecified; F32.9 Major depressive disorder, single episode, unspecified; Z87.891 Personal history of nicotine dependence
CPT/HCPCS: 36415; 80053; 85025; 93970

== ENCOUNTER 2018-02-19 12:19 | Emergency (ER) | payer MEDICARE, OTHER ==
[2018-02-19 13:08] LABS: #Basophils 0.1 thou/uL (0.0-0.2); #Lymphocytes 0.6 thou/uL (1.20-3.40); #Monocytes 0.4 thou/uL (0.11-0.59); #Neutrophils 5.3 thou/uL (1.40-6.50); %Basophils 1.1 % (0.0-1.0); %Eosinophils 0.6 % (0.0-10.0); %Lymphocytes 8.9 % (21.0-51.0); %Monocytes 6.9 % (0.0-10.0); %Neutrophils 82.5 % (42.0-75.0); Hemoglobin 12.2 g/dL (12.0-16.0); Mean Corpuscular HGB CONC 31.9 g/dL (32.0-36.0); Mean Corpuscular Hemoglobin 30.6 pg (27.0-31.0); Mean Corpuscular Volume 95.9 fL (78.0-98.0); Mean Platelet Volume 8.4 fL (7.4-10.4); Platelet Count 99 thou/uL (130-400); RBC Distribution Width 13.1 % (11.5-14.5); Red Blood Cell (RBC) Count 3.98 mill/uL (4.20-5.40); White Blood Cell (WBC) Count 6.4 thou/uL (4.8-10.8)
[2018-02-19 13:27] LABS: Bilirubin Negative (Negative); Blood, Urine Negative (Negative); Clarity CLOUDY (Clear); Glucose, Urine (Dipstick) Negative (Negative); Leukocyte Moderate (Negative); Nitrite Negative (Negative); Protein, Urine (Dipstick) Negative (Neg-Trace); Specific Gravity, Urine 1.011 (1.002-1.036); Urobilinogen 0.2 mg/dL (0.2-1.0); pH, Urine 5.5 (5.0-9.0)
[2018-02-19 13:28] LABS: Bacteria/HPF None Seen HPF (None Seen); Hyaline Casts/LPF 0-3 HYALINE CAST LPF (0-3 Hyaline); Pathc Cast-AUWi Flag 0.58 (0-2.49); Squamous Epithelial 0-3 HPF (0-3); WBC/HPF 21-50 HPF (0-3)
[2018-02-19 13:37] LABS: ALT (SGPT) 12 U/L (8-55); AST (SGOT) 17 U/L (5-34); Albumin 3.5 g/dL (3.4-4.8); Alkaline Phosphatase 116 U/L (40-150); Anion Gap 11 mmol/L (10-20); BUN (Urea Nitrogen) 22 mg/dL (9.8-20.1); Bilirubin, Total 0.7 mg/dL (0.2-1.2); Calc. Creatinine Clearance 0 mL/min (70-130); Calcium 8.8 mg/dL (7.8-10.44); Carbon Dioxide 26 mmol/L (23-31); Chloride 101 mmol/L (98-107); Estimated GFR-MDRD 39; Globulin 4.3 g/dL (2.4-3.5); Glucose 165 mg/dL (83-110); Lipase 28 U/L (8-78); Potassium 3.9 mmol/L (3.5-5.1); Protein, Total 7.8 g/dL (6.0-8.3); Sodium 134 mmol/L (136-145)
[2018-02-19] MEDS ORDERED: Dicyclomine 20 MG TAB ONE (14:44)
[2018-02-19] MEDS ORDERED: Ondansetron HCl/PF 4 MG/2 ML Vial ONE (14:44)
[2018-02-19] MEDS ORDERED: Phenazopyridine HCl 97.5 MG TABLET ONE (14:44)
--- NOTE | 2018-02-19 17:21 | ULT ---
LEFT LOWER EXTREMITY VENOUS DUPLEX ULTRASOUND INCLUDING COLOR AND SPECTRAL DOPPLER IMAGIN02/19/18 HISTORY: 72-year-old female with left leg erythema, pain, swelling, and edema. Exam performed from groin to ankle including visualized greater saphenous, common femoral, superficia l femoral, and profunda femoral, popliteal, trifurcation, and posterior tibial vein regions demonstra te phasic flow at all levels with normal compressibility and normal augmentation. No intraluminal thr ombus. IMPRESSION: No evidence for deep venous thrombosis involving the left lower extremity. POS: [facility]
--- NOTE | 2018-02-19 17:32 | RAD ---
2 VIEWS LEFT FORELEG: Date: 02/19/18 INDICATION: Leg erythema and swelling. COMPARISON: None. FINDINGS: There is soft tissue swelling of the left foreleg. No acute fracture or subluxation is evident. There are vascular clips without medial soft tissues of the left leg related to saphenous vein harvesting. IMPRESSION: No acute osseous abnormality. Soft tissue swelling of the left leg. POS: [facility]
--- NOTE | 2018-02-19 18:51 | CT ---
NONCONTRAST CT ABDOMEN AND PELVIS: 02/19/18 HISTORY: Right lower quadrant abdominal pain. COMPARISON: 10/30/17. FINDINGS: Intravenous contrast was administered for this examination, but due to IV infiltration, parenchymal o rgans are unopacified. FINDINGS: There are dense vascular calcifications again seen in the coronary arteries as well as involving the abdominal aorta and iliac arteries as well as mesenteric vessels. Remote bilateral rib fractures are again seen. Median sternotomy wires are partially visualized. Vert ebroplasty changes are again seen involving the L3, L4 and L5 vertebral bodies with severe compressi on fracture again seen involving L1 vertebral body and the severe compression deformity is stable com pared to the prior study on 10/30/17. Postsurgical changes left hip are again present. There is bibasilar scarring and/or atelectasis present with pleural based lucencies seen which may be related to bleb although this could be related to mild honeycombing in this region. This area was no t imaged on prior exam. The spleen remains enlarged measuring approximately 14.6 cm in AP dimensions. There is evidence of cholelithiasis again present. The liver, pancreas, bilateral adrenal glands, kidneys, and urinary bladder demonstrate a grossly nor mal nonenhanced CT appearance. The uterus is also demonstrates a grossly normal nonenhanced CT appearance. Postsurgical changes of the bowel are again seen in the right lower quadrant with right lower quadran t ostomy again present with associated stable small parastomal hernia again noted similar to prior st udy. There is a stable midline defect in the anterior abdominal wall of the lower abdomen and pelvis. There is a stellate appearing soft tissue density in a presacral location, stable when compared to th e prior study as well as study on 02/06/27 which is probably related to scarring. No dilated loops of small bowel are seen. There is no other interval change. IMPRESSION: 1. Overall stable CT scan of the abdomen and pelvis. No acute findings are seen on this nonenhan karis CT examination. 2. Stable mild splenomegaly. 3. Cholelithiasis. 4. Postsurgical changes of the bowel with right lower quadrant ostomy and small parastomal herni a. 5. Stable midline defect in the lower abdominal soft tissues. 6. Stable area of scarring in a presacral location. 7. Stable burst fracture involving the L1 vertebral body with severe loss of height. POS: [facility]
== END 2018-02-19 19:16 | disposition home or self-care (01) ==
LOC: ERS 12:19
DX: L03.116 Cellulitis of left lower limb (principal); N39.0 Urinary tract infection, site not specified; I25.10 Atherosclerotic heart disease of native coronary artery without angina pectoris; I25.2 Old myocardial infarction; E11.9 Type 2 diabetes mellitus without complications; Z79.4 Long term (current) use of insulin; I50.9 Heart failure, unspecified; E03.9 Hypothyroidism, unspecified; D50.9 Iron deficiency anemia, unspecified; Z86.73 Personal history of transient ischemic attack (TIA), and cerebral infarction without residual deficits; F41.9 Anxiety disorder, unspecified; F32.9 Major depressive disorder, single episode, unspecified; Z87.891 Personal history of nicotine dependence; Z79.899 Other long term (current) drug therapy; Z79.82 Long term (current) use of aspirin
CPT/HCPCS: 36415; 74177; 80053; 81003; 81015; 83690; 85025; J2405

== ENCOUNTER 2018-03-04 11:31 | Inpatient (IN) | payer MEDICARE, MEDICAID ==
[2018-03-04 13:42] LABS: #Eosinphils 0.1 thou/uL (0.0-0.7); #Lymphocytes 0.5 thou/uL (1.20-3.40); #Monocytes 0.5 thou/uL (0.11-0.59); #Neutrophils 6.1 thou/uL (1.40-6.50); %Basophils 0.6 % (0.0-1.0); %Eosinophils 1.6 % (0.0-10.0); %Lymphocytes 6.5 % (21.0-51.0); %Monocytes 6.8 % (0.0-10.0); %Neutrophils 84.5 % (42.0-75.0); Hemoglobin 10.7 g/dL (12.0-16.0); Mean Corpuscular HGB CONC 30.9 g/dL (32.0-36.0); Mean Corpuscular Hemoglobin 30.2 pg (27.0-31.0); Mean Corpuscular Volume 97.9 fL (78.0-98.0); Mean Platelet Volume 9.1 fL (7.4-10.4); Platelet Count 126 thou/uL (130-400); RBC Distribution Width 12.6 % (11.5-14.5); Red Blood Cell (RBC) Count 3.52 mill/uL (4.20-5.40); White Blood Cell (WBC) Count 7.2 thou/uL (4.8-10.8)
[2018-03-04 14:05] LABS: ALT (SGPT) Less than 7 U/L (8-55); AST (SGOT) 13 U/L (5-34); Albumin 2.9 g/dL (3.4-4.8); Alkaline Phosphatase 99 U/L (40-150); Anion Gap 8 mmol/L (10-20); BUN (Urea Nitrogen) 17 mg/dL (9.8-20.1); Bilirubin, Total 0.5 mg/dL (0.2-1.2); Calc. Creatinine Clearance 0 mL/min (70-130); Calcium 8.2 mg/dL (7.8-10.44); Carbon Dioxide 27 mmol/L (23-31); Chloride 102 mmol/L (98-107); Estimated GFR-MDRD 34; Globulin 4.3 g/dL (2.4-3.5); Glucose 243 mg/dL (83-110); Lipase 16 U/L (8-78); Potassium 4.6 mmol/L (3.5-5.1); Protein, Total 7.2 g/dL (6.0-8.3); Sodium 132 mmol/L (136-145)
[2018-03-04] MEDS ORDERED: HYDROcodone/Acetaminophen 10/325 mg Tablet ONE (14:56)
[2018-03-04] MEDS ORDERED: Iopamidol 370 76% 100 ML VIAL ONE (15:06)
[2018-03-04 15:15] LABS: Bilirubin Negative (Negative); Blood, Urine Negative (Negative); Clarity CLEAR (Clear); Glucose, Urine (Dipstick) Negative (Negative); Leukocyte Small (Negative); Nitrite Negative (Negative); Protein, Urine (Dipstick) Trace mg/dL (Neg-Trace); Specific Gravity, Urine 1.015 (1.002-1.036); Urobilinogen 0.2 mg/dL (0.2-1.0); pH, Urine 5.5 (5.0-9.0)
[2018-03-04 15:21] LABS: Bacteria/HPF None Seen HPF (None Seen); Hyaline Casts/LPF 0-3 HYALINE CAST LPF (0-3 Hyaline); Pathc Cast-AUWi Flag 0.43 (0-2.49); RBC/HPF 0-3 HPF (0-3); Squamous Epithelial 0-3 HPF (0-3)
--- NOTE | 2018-03-04 15:46 | CT ---
CT ABDOMEN AND PELVIS WITH IV CONTRAST: HISTORY: Abdominal pain. COMPARISON: 02/19/2018 FINDINGS: Mild atelectasis at the lung bases. Hyperdense stone in the dependent portion of the gallbladder lum en. Prominent calcification throughout the arterial structures. Degenerative changes of the lumbar spine. The urinary bladder is incompletely distended. Postoperative changes of the left hip. Prior multilevel vertebroplasty of the lower lumbar spine. Lack of oral contrast limits evaluation of the bowel. A right lower quadrant colostomy is apparent. Lateral and slightly inferior to this is an inflamed, peripherally enhancing area of fluid that exte nds through the right lower quadrant abdominal wall to the level of the skin surface. Without oral c ontrast, an extraluminal fluid collection from normal bowel is not possible. There is sub tle stranding in the adjacent fat of the bowel/abscess within the abdomen. No free air. IMPRESSION: 1. New abnormality in the right lower quadrant may represent a strangulated hernia through the right lower quadrant abdominal wall or an abscess. It is not possible to differentiate without oral contr ast. The abnormality is inflamed and extends to the skin surface. 2. Cholelithiasis. 3. Atherosclerosis. 4. Moderate splenomegaly. Findings were called to in the emergency department at 1517 hours. CODE CR POS: [facility]
--- NOTE | 2018-03-04 16:11 | ULT ---
VENOUS DUPLEX SONOGRAM LEFT LOWER EXTREMITY: History: Left leg pain and edema. FINDINGS: The left common femoral vein and greater saphenous junction were evaluated along with the femoral, de ep femoral, popliteal, and posterior tibial veins. There is good color and spectral doppler flow, com pression, and augmentation. IMPRESSION: No sonographic evidence of DVT within the left lower extremity. POS: [facility]
[2018-03-04] MEDS ORDERED: diphenhydrAMINE 25 MG CAP ONE (18:12)
[2018-03-04] MEDS ORDERED: Ondansetron PF 4 MG/2 ML Vial IVP PRN (19:40)
[2018-03-04] MEDS ORDERED: Dextrose 50% Abboject 50 ML SYRINGE SLOW IVP PRN (19:40)
[2018-03-04] MEDS ORDERED: Guaifenesin DM 100-10/5 ML UDCUP PO PRN (19:40)
[2018-03-04] MEDS ORDERED: Acetaminophen 325 MG TAB PO PRN (19:40)
[2018-03-04] MEDS ORDERED: Dextrose 5% in Water 1,000 ML IV PRN (19:40)
[2018-03-04] MEDS ORDERED: HYDROcodone/Acetaminophen 10/325 mg Tablet PO SCH ×2 (20:30→22:00)
[2018-03-04] MEDS: Atorvastatin Calcium 10 MG TAB PO SCH (20:35)
[2018-03-04] MEDS: clonazePAM 1 MG TAB PO SCH (20:39)
[2018-03-04] MEDS: Citalopram 20 MG TAB PO SCH (20:39)
[2018-03-04] MEDS ORDERED: [UNRECOGNIZED DRUG - REMARK] IVPB PRN (20:48)
[2018-03-04] MEDS ORDERED: Famotidine 20 MG TAB PO SCH (21:00)
[2018-03-04] MEDS: rOPINIRole HCl 0.5 MG TAB PO SCH (22:00)
[2018-03-04] MEDS: HumaLOG 300 UNITS/3 ML VIAL SC PRN (22:14)
[2018-03-04] MEDS: Metoprolol Tartrate 25 MG TAB PO SCH (22:28)
[2018-03-04] MEDS: Piperacillin/Tazobactam 2.25 GM in Sodium Chloride 0.9% 100 ML IVPB SCH (22:33)
[2018-03-04] MEDS ORDERED: Piperacillin/Tazobactam 3.375 GM in Sodium Chloride 0.9% 100 ML IVPB SCH (23:59)
--- NOTE | 2018-03-05 02:12 | HP ---
REASON FOR ADMISSION: Abdominal wall abscess with cellulitis. HISTORY OF PRESENT ILLNESS: The patient gives history of having small protrusion right next to her colostomy 7 days back. This has been progressively getting bigger. She also developed a fever of 100 degrees and the pain got worse. The patient saw something yellowish on this area and came to the emergency room. She has been evaluated by Dr. Dennis here in the emergency room and is for incision and drainage tomorrow afternoon. No complaints of cough or expectoration. No complaints of chest pain, palpitation , PND or orthopnea. PAST MEDICAL AND SURGICAL HISTORY: Hypertension, diabetes mellitus type 2, dyslipidemia, history of Crohn's disease with initial J-pouch colostomy done 5 years back which was switched over to a permanent colostomy as due to involvement of her rectum. Chronic pain syndrome, degenerative disk disease, history of CVA x3, coronary artery disease, CABG for 4-vessel disease done in 2008, hypothyroidism, fibromyalgia, chronic kidney disease stage 3, anxiety, depression, osteoporosis, history of pancreatitis, chronic lymphedema in the left lower extremity, restless leg syndrome, kyphoplasty done at the L3-L4, tummy tuck surgery, umbilical hernia repair, mastectomy, tonsillectomy. CURRENT MEDICATIONS: Lasix 20 mg daily, ropinirole 0.5 mg 3 times daily, Protonix 40 mg daily, Levemir 40 units subcu daily and 10 units subcu at bedtime , ursodiol 300 mg p.o. twice daily, potassium chloride 10 mEq p.o. twice daily, levothyroxine 25 mcg p.o. daily, atorvastatin 10 mg p.o. at bedtime, aspirin 81 mg p.o. daily, Celexa 20 mg p.o. at bedtime, ferrous sulfate 325 mg p.o. daily, clonazepam 1 mg p.r.n. for anxiety, melatonin 3 mg p.o. at bedtime, fentanyl 25 mcg transdermal patch, Bentyl p.r.n. for pain, [place] p.r.n. for pain, gets Entyvio infusion every 8 weeks. PERSONAL HISTORY: Does not abuse alcohol or drugs. No history of smoking. FAMILY HISTORY: The patient is adopted. She has 2 children. She lives alone. CODE STATUS: FULL. Power of city attorney is her daughter, Ms. Owens. REVIEW OF SYSTEMS: The following complete review of systems was negative, unless otherwise mentioned in the HPI or below: Constitutional: Weight loss or gain, ability to conduct usual activities. Skin: Rash, itching. Eyes: Double vision, pain. ENT/Mouth: Nose bleeding, neck stiffness, pain, tenderness. Cardiovascular: Palpitations, dyspnea on exertion, orthopnea. Respiratory: Shortness of breath, wheezing, cough, hemoptysis, fever or night sweats. Gastrointestinal: Poor appetite, abdominal pain, heartburn, nausea, vomiting, constipation, or diarrhea. Genitourinary: Urgency, frequency, dysuria, nocturia. Musculoskeletal: Pain, swelling. Neurologic/Psychiatric: Anxiety, depression. Allergy/Immunologic: Skin rash, bleeding tendency. PHYSICAL EXAMINATION: GENERAL: The patient is a 72-year-old female who is currently in mild distress from abdominal pain. VITAL SIGNS: Blood pressure 120/61, pulse 80 per minute, respiratory rate 20 per minute, temperature 99.3 degrees Fahrenheit, saturating 96% on room air. NECK: Supple, no elevated JVD. HEENT: Eyes: Extraocular muscles intact. Pupils reacting to light. Oral cavity: Mucous membranes are moist. No exudates or congestion. CARDIOVASCULAR SYSTEM: S1, S2 heard. Regular rhythm. RESPIRATORY SYSTEM: Air entry 1+ bilateral. No rales or rhonchi. ABDOMEN: Soft, bowel sounds heard. There is 3x5 cm fluctuant mass in the right lower quadrant which is almost to the midline. Colostomy has stool in it. No rigidity or guarding. EXTREMITIES: Left lower extremity is chronically swollen due to lymphedema. Right lower extremity, no calf tenderness. VASCULAR SYSTEM: Peripheral pulses 1+ bilateral, no ischemic ulcerations or gangrene. CENTRAL NERVOUS SYSTEM: No gross focal deficits noted. The patient is alert, awake, oriented well. PSYCHIATRIC SYSTEM: The patient's mood is euthymic. No hallucinations or delusions. LABORATORY AND X-RAY FINDINGS: White count of 7, H&H 10 and 34, platelet count 126 with 84% neutrophils, MCV is 97. Sodium 132, serum bicarbonate 27, BUN 17, creatinine 1.5. Serum glucose 243, lactic acid 1.1. Liver enzymes within normal limits. Albumin is 2.9. Lipase is 16. Ultrasound of the left lower extremity done shows no DVT. CT of the abdomen and pelvis with IV contrast done shows new abnormality in the right lower quadrant might represent a strangulated hernia/abdominal wall abscess, the abnormalities inflamed and extends to the skin surface, there is cholelithiasis, atherosclerosis and moderate splenomegaly. CLINICAL IMPRESSION AND PLAN: The patient will be admitted to medical/surgical floor for abdominal wall abscess with patient being immunosuppressed due to Crohn's disease and likely Entyvio infusions. She will be on vancomycin and Zosyn. Dr. Dennis has evaluated the patient here in the ER. He has plans to take her for incision and drainage in the afternoon tomorrow. We will continue her atorvastatin, Celexa, Klonopin, fentanyl patch, levothyroxine, Lopressor, ropinirole as before. The patient will be on moderate Humalog coverage and we will hold off on Levemir for now. She likely will be n.p.o. from morning for possible surgery. We will continue to closely monitor her. We will obtain blood cultures as well. Wound cultures will be obtained after her incision and drainage. Code status was discussed with her and she is a FULL CODE. POLO
[2018-03-05] MEDS: HYDROcodone/Acetaminophen 10/325 mg Tablet PO SCH ×4 (03:16→21:57)
[2018-03-05] MEDS: Morphine 2 MG/ML SYRINGE SLOW IVP PRN ×2 (03:39→12:09)
[2018-03-05] MEDS: Piperacillin/Tazobactam 2.25 GM in Sodium Chloride 0.9% 100 ML IVPB SCH ×4 (04:53→22:02)
[2018-03-05] MEDS: Levothyroxine Sodium 25 MCG TAB PO SCH (05:14)
[2018-03-05 06:11] LABS: #Eosinphils 0.1 thou/uL (0.0-0.7); #Lymphocytes 0.4 thou/uL (1.20-3.40); #Monocytes 0.4 thou/uL (0.11-0.59); #Neutrophils 5.1 thou/uL (1.40-6.50); %Basophils 0.2 % (0.0-1.0); %Eosinophils 1.9 % (0.0-10.0); %Lymphocytes 6.5 % (21.0-51.0); %Monocytes 7.4 % (0.0-10.0); Hemoglobin 9.8 g/dL (12.0-16.0); Mean Corpuscular HGB CONC 31.1 g/dL (32.0-36.0); Mean Corpuscular Hemoglobin 30.5 pg (27.0-31.0); Mean Platelet Volume 9.1 fL (7.4-10.4); Platelet Count 120 thou/uL (130-400); RBC Distribution Width 12.6 % (11.5-14.5); Red Blood Cell (RBC) Count 3.23 mill/uL (4.20-5.40)
[2018-03-05 06:15] LABS: Anion Gap 11 mmol/L (10-20); BUN (Urea Nitrogen) 14 mg/dL (9.8-20.1); Calc. Creatinine Clearance 42 mL/min (70-130); Calcium 8.2 mg/dL (7.8-10.44); Carbon Dioxide 25 mmol/L (23-31); Chloride 104 mmol/L (98-107); Estimated GFR-MDRD 41; Glucose 131 mg/dL (83-110); Potassium 3.8 mmol/L (3.5-5.1); Sodium 136 mmol/L (136-145)
--- NOTE | 2018-03-05 08:24 | CON ---
DATE OF CONSULTATION: 03/05/2018 CHIEF COMPLAINT: Erythematous mass of right lower quadrant abdominal wall, suspected abscess. HISTORY OF PRESENT ILLNESS: The patient is a 72-year-old chronically ill white female well known to myself. She has a history of total colectomy for presumed ulcerative colitis. She was then subseque ntly recognized to have Crohn's disease and given a permanent ileostomy when her ileorectal anastomos is failed. In 2012, I performed extensive lysis of adhesions requiring about 4 hours to complete. T his was in treatment of a bowel obstruction and required segmental small bowel resection at that time . She required complex closure of abdominal wall. Subsequent to that, she had numerous problems for sh e was hospitalized for a lengthy period of time. About 2 months later, in 04/2013, she required a tr acheostomy and a PEG tube placement. She required lengthy rehabilitation. I told her at that time, I doubted that she would ever tolerate another laparotomy if that became necessary. In 03/2014 she had developed an abscess in the right lower quadrant lateral to her ostomy site. This required incision and drainage. It took a while to heal, but this eventually completely healed. She has presented to the hospital every now and then over the past 4-5 years with problems with abdom inal pain or wounds or some form of obstructive issues. All of these have been treated nonoperativel y. Today, she presented to the emergency room with a complaint of a fluctuant erythematous visible a nd palpable mass in the right lower quadrant lateral to the ostomy. This is in the same location whe re I performed a prior incision and drainage. CT scan of this reveals a lesion that is most likely a n abscess. There was some concern that this could be a hernia, however, she has not had vomiting and still has ostomy function and does not have any dilated bowel seen on CT scan, so I think it is more likely an abscess. Interestingly, however, she has a normal white blood cell count of 7.2. PAST MEDICAL HISTORY: Diabetes mellitus, tachycardia, coronary artery disease, cerebrovascular accid ent x3, Crohn's disease, hypothyroidism, depression, restless leg syndrome. PAST SURGICAL HISTORY: 1. Four vessel coronary artery bypass graft. 2. Total abdominal colectomy with J pouch formation. 3. J pouch removal and ileostomy creation. 4. Repair of ventral incisional hernia with mesh. 5. Exploratory laparotomy, segmental small bowel resection, primary anastomosis in 2012. 6. Tracheostomy, PEG tube placement 02/2014. 7. Tonsillectomy. 8. Abdominoplasty. 9. Retinal surgery x2 for retinal detachment. 10. Incision and drainage of right lower quadrant abscess in 03/2014. CURRENT MEDICATIONS: Outlined in Dr. Pérez's note. PHYSICAL EXAMINATION: VITAL SIGNS: She is afebrile. Vital signs within normal limits. GENERAL: She is well-developed, well-nourished, pleasant female well known to myself. She is alert and oriented x3. HEENT: Unremarkable. NECK: Supple. LUNGS: Clear to auscultation throughout. CARDIAC: Regular rate and rhythm without murmur. ABDOMEN: Soft. There is an erythematous, somewhat tender fluctuant area that is very obvious undern eath an area of scar in her right lower quadrant. This is somewhat tender. EXTREMITIES: Unremarkabl e. ASSESSMENT: Patient with right lower quadrant lesion that is most likely a recurrent abscess. Given her normal white blood cell count, this could be a seroma of some sort. Due to the concern of Radio logy that there could be bowel involvement, I believe an incision and evaluation of this would be a p referential to a needle aspiration. PLAN: I would recommend proceeding with incision and drainage in the operating room. I discussed raya benoit this with the patient. She understands and agrees to proceed.
[2018-03-05] MEDS: Enoxaparin Sodium 30 MG/0.3 ML SYRINGE SC SCH (08:47)
[2018-03-05] MEDS: Metoprolol Tartrate 25 MG TAB PO SCH ×2 (08:48→22:01)
[2018-03-05] MEDS: rOPINIRole HCl 0.5 MG TAB PO SCH ×3 (08:48→21:56)
[2018-03-05] MEDS ORDERED: Prevnar 13-Val Conj/PF 0.5 ML SYRINGE IM ONE (09:00)
[2018-03-05 10:16] VITALS: BMI 27.6
[2018-03-05] MEDS ORDERED: Lidocaine 1% PF 5 ML VIAL ONE (13:40)
[2018-03-05] MEDS ORDERED: PROPOFOL 200 MG/20 ML VIAL ONE (13:40)
[2018-03-05] MEDS ORDERED: Fentanyl 100 MCG/2 ML VIAL ONE ×2 (17:58→19:22)
[2018-03-05] MEDS: Vancomycin HCl 1 GM in Premix Bag 1 BAG IVPB SCH (18:13)
[2018-03-05] MEDS ORDERED: Bupivacaine/Epinephrine 0.25% 30 ML VIAL ONE (18:17)
[2018-03-05] MEDS ORDERED: Ondansetron HCl/PF 4 MG/2 ML Vial IVP PRN (18:50)
[2018-03-05] MEDS ORDERED: Promethazine HCl 25 MG/ML VIAL SLOW IVP PRN (18:50)
[2018-03-05] MEDS ORDERED: Promethazine HCl 25 MG/ML VIAL IM PRN (18:50)
[2018-03-05] MEDS ORDERED: Promethazine HCl 25 MG/ML VIAL ONE (19:22)
[2018-03-05] MEDS ORDERED: Ondansetron PF 4 MG/2 ML Vial ONE (19:23)
[2018-03-05] MEDS ORDERED: HYDROcodone/Acetaminophen 7.5/325 mg Tablet PO PRN ×2 (20:00)
[2018-03-05] MEDS ORDERED: Famotidine 20 MG TAB PO SCH (21:00)
[2018-03-05] MEDS: Atorvastatin Calcium 10 MG TAB PO SCH (21:59)
[2018-03-05] MEDS: clonazePAM 1 MG TAB PO SCH (22:01)
[2018-03-05] MEDS: Citalopram 20 MG TAB PO SCH (22:01)
[2018-03-06] MEDS: Piperacillin/Tazobactam 2.25 GM in Sodium Chloride 0.9% 100 ML IVPB SCH ×4 (04:48→21:30)
[2018-03-06] MEDS: HYDROcodone/Acetaminophen 10/325 mg Tablet PO SCH ×3 (04:48→14:17)
[2018-03-06] MEDS: Levothyroxine Sodium 25 MCG TAB PO SCH (05:16)
[2018-03-06 08:11] LABS: #Eosinphils 0.1 thou/uL (0.0-0.7); #Lymphocytes 0.4 thou/uL (1.20-3.40); #Monocytes 0.4 thou/uL (0.11-0.59); #Neutrophils 3.4 thou/uL (1.40-6.50); %Basophils 0.9 % (0.0-1.0); %Eosinophils 2.2 % (0.0-10.0); %Lymphocytes 9.3 % (21.0-51.0); %Monocytes 9.6 % (0.0-10.0); Hemoglobin 10.1 g/dL (12.0-16.0); Mean Corpuscular HGB CONC 30.9 g/dL (32.0-36.0); Mean Platelet Volume 8.5 fL (7.4-10.4); Platelet Count 127 thou/uL (130-400); RBC Distribution Width 12.7 % (11.5-14.5); Red Blood Cell (RBC) Count 3.24 mill/uL (4.20-5.40); White Blood Cell (WBC) Count 4.4 thou/uL (4.8-10.8)
[2018-03-06] MEDS: Metoprolol Tartrate 25 MG TAB PO SCH (08:57)
[2018-03-06] MEDS: Enoxaparin Sodium 30 MG/0.3 ML SYRINGE SC SCH (09:00)
[2018-03-06] MEDS: rOPINIRole HCl 0.5 MG TAB PO SCH ×3 (09:00→21:29)
--- NOTE | 2018-03-06 10:00 | PRG ---
DATE OF SERVICE: 03/06/2018 Ms. Shaffer is postoperative day #1 from incision and drainage of a large abdominal wall abscess in th e right lower quadrant. This was drained and irrigated yesterday. There was a large cavity that was packed with a single piece of gauze. I also placed [place] drains to allow for longer term drainage of this cavity. She has had an uneventful night. She notes that her discomfort is much better. PHYSICAL EXAMINATION: VITAL SIGNS: She is afebrile, pulse is 60, blood pressure 94/53. LUNGS: Clear to auscultation. ABDOMEN: Soft. Dressing was removed from the abscess site in the right lower quadrant. There is no active oozing or bleeding. There is a single piece of gauze within the wound as well as Manuel sampson ins on the outside. LABORATORY STUDIES: Her microbiology results are still pending. Surprisingly, there were no organis ms seen on the Gram stain. Her hemoglobin is 10.1, white blood cell count is 4.4. No chemistries we re obtained today. ASSESSMENT: She is stable following incision and drainage of a large abdominal wall abscess. There appears to be a defect in the muscular abdominal wall, but I cannot see that this communicates to any thing internally. There was no indication of any enteric contents or bowel involvement. There was a lso no evidence of any mesh involvement as I could see, nor palpate any potentially infected mesh. I would recommend observation today. She has been started on Zosyn which is probably appropriate. I am not certain if she will require any antibiotics for discharge since this has been drained appropri ately. Tomorrow I will remove the gauze packing and instruct her on further wound care. I would ant icipate discharge home tomorrow with outpatient wound care and possibility of oral antibiotics. The drains will be left in, will be removed in my office as an outpatient.
[2018-03-06] MEDS: HumaLOG 300 UNITS/3 ML VIAL SC PRN ×3 (11:26→21:30)
--- NOTE | 2018-03-06 12:38 | EKG ---
Test Reason : Blood Pressure : / mmHG Vent. Rate : 074 BPM Atrial Rate : 074 BPM P-R Int : 148 ms QRS Dur : 100 ms QT Int : 416 ms P-R-T Axes : 033 -10 031 degrees QTc Int : 461 ms Normal sinus rhythm Possible Inferior infarct , age undetermined Low voltage QRS Abnormal ECG When compared with ECG of 12-SEP-2017 18:13, No significant change was found Confirmed by DR. Kalie MOTTA (3) on 03/06/2018 12:38:01 PM Referred By: ALBERTINA Confirmed By:DR. Kalie MOTTA
[2018-03-06] MEDS ORDERED: traMADol HCl 50 MG TAB PO PRN ×3 (15:24→17:00)
[2018-03-06 17:37] LABS: Vancomycin, Trough 13.2 ug/mL
[2018-03-06] MEDS: Vancomycin HCl 1 GM in Premix Bag 1 BAG IVPB SCH (17:53)
--- NOTE | 2018-03-06 18:35 | PDOC.PN ---
- Subjective Encounter Start Date: 03/06/18 Encounter Start Time: 18:30 Subjective: f/u for abd wall abscess s/p I&D POD #1. Continues on Zosyn with wound cx -: not showing any organisms. - Objective Resuscitation Status: Resuscitation Status FULL:Full Resuscitation MAR Reviewed: Yes Vital Signs & Weight: Vital Signs (12 hours) Temp Pulse Resp BP BP Pulse Ox 03/06/18 15:21 98.2 F 60 16 95/56 L 95 03/06/18 11:49 98.2 F 62 16 103/50 L 95 03/06/18 08:10 93 L 03/06/18 08:00 98.3 F 59 L 16 93/53 L 93 L Weight Admit Weight 146 lb Weight 146 lb I&O: 03/05/18 03/06/18 03/07/18 06:59 06:59 06:59 Intake Total 900 1960 Output Total 800 Balance 900 1160 Result Diagrams: 03/06/18 07:35 03/05/18 04:59 Additional Labs: Accuchecks 03/06/18 03/06/18 03/06/18 15:55 11:09 05:25 POC Glucose 288 H 291 H 168 H 03/06/18 03/05/18 04:37 21:04 POC Glucose 158 H 143 H Microbiology 03/04/18 Unknown Urine voided Urine Culture - Final NO GROWTH AT 36 HOURS 03/05/18 18:30 Abdomen - Wall Bacterial Culture - Preliminary 03/04/18 16:25 Venous blood - Left Hand Blood Culture - Preliminary NO GROWTH AT 48 HOURS 03/04/18 16:18 Venous blood - Right Hand Blood Culture - Preliminary NO GROWTH AT 48 HOURS Laboratory Tests 02/25/18 03/04/18 03/04/18 06:10 13:25 13:25 Hgb 10.7 L Creatinine 1.49 H 1.50 H Lactic Acid Vancomycin Trough 03/04/18 03/05/18 03/06/18 13:25 04:59 17:12 Hgb 9.8 L Creatinine Lactic Acid 1.1 Vancomycin Trough 13.2 Phys Exam - Physical Examination Constitutional: NAD HEENT: PERRLA, sclera anicteric, oral pharynx no lesions Neck: no nodes, no JVD, supple, full ROM Respiratory: no wheezing, no rales, no rhonchi, clear to auscultation bilateral S1, S2 Cardiovascular: RRR, no significant murmur, no rub, gallop abd wound with dressing in place Gastrointestinal: soft, positive bowel sounds Musculoskeletal: no edema, pulses present Neurological: normal sensation, moves all 4 limbs Psychiatric: A&O x 3 Skin: no rash, normal turgor, cap refill <2 seconds Dx/Plan (1) Abdominal wall abscess Code(s): L02.211 - CUTANEOUS ABSCESS OF ABDOMINAL WALL Status: Acute Comment : s/p I&D POD #1, continue Zosyn/Vancomycin, await final wound cx results, local wound care (2) DM type 2 (diabetes mellitus, type 2) Status: Chronic Qualifiers: Comment: ISS, ADA (3) Hypothyroidism Code(s): E03.9 - HYPOTHYROIDISM, UNSPECIFIED Status: Chronic Qualifiers: Hypothyroidism type: unspecified Qualified Code(s): E03.9 - Hypothyroidism , unspecified Comment: Continue Levothyroxine 25mcg daily (4) HTN (hypertension) Code(s): I10 - ESSENTIAL (PRIMARY) HYPERTENSION Status: Chronic Qualifiers: Hypertension type: essential hypertension Qualified Code(s): I10 - Essential (primary) hypertension Comment: Continue Metoprolol, serial monitoring - Plan continue antibiotics, social sciences professor, out of bed/ambulate, DVT proph w/SCDs Stable overall -: Continue local wound care -: Continue Zosyn/Vancomycin another 24h -: OOB/ambulate -: AM lab: BMP * Likely home 03/07/18
[2018-03-06] MEDS: clonazePAM 1 MG TAB PO SCH (21:29)
[2018-03-06] MEDS: Citalopram 20 MG TAB PO SCH (21:30)
[2018-03-06] MEDS: Atorvastatin Calcium 10 MG TAB PO SCH (21:30)
[2018-03-07] MEDS: Piperacillin/Tazobactam 2.25 GM in Sodium Chloride 0.9% 100 ML IVPB SCH ×3 (04:33→16:11)
--- NOTE | 2018-03-07 04:45 | PDOC.PN ---
- Subjective Encounter Start Date: 03/05/18 Encounter Start Time: 19:00 Subjective: is post op I&D of abd wall abscess -: a bit drowsy, no pain or sob - Objective Resuscitation Status: Resuscitation Status FULL:Full Resuscitation MAR Reviewed: Yes Vital Signs & Weight: Vital Signs (12 hours) Temp Pulse Resp BP Pulse Ox 03/07/18 03:56 98.5 F 57 L 18 111/60 96 03/06/18 23:34 98.4 F 59 L 18 100/57 L 95 03/06/18 20:15 98.4 F 60 18 105/61 95 03/06/18 20:07 95 Weight Admit Weight 146 lb Weight 146 lb I&O: 03/05/18 03/06/18 03/07/18 06:59 06:59 06:59 Intake Total 900 1960 Output Total 800 Balance 900 1160 Result Diagrams: 03/06/18 07:35 03/05/18 04:59 Additional Labs: Accuchecks 03/06/18 03/06/18 03/06/18 20:38 15:55 11:09 POC Glucose 265 H 288 H 291 H 03/06/18 03/06/18 05:25 04:37 POC Glucose 168 H 158 H Phys Exam - Physical Examination HEENT: PERRLA, sclera anicteric Neck: no JVD, supple Respiratory: no wheezing, no rales Cardiovascular: RRR, no significant murmur Gastrointestinal: soft, no distention, positive bowel sounds Musculoskeletal: no edema, pulses present Neurological: non-focal, moves all 4 limbs Dx/Plan (1) Abdominal wall abscess Code(s): L02.211 - CUTANEOUS ABSCESS OF ABDOMINAL WALL Status: Acute Comment : s/p I&D (2) HTN (hypertension) Code(s): I10 - ESSENTIAL (PRIMARY) HYPERTENSION Status: Chronic Qualifiers: Hypertension type: essential hypertension Qualified Code(s): I10 - Essential (primary) hypertension (3) Anxiety and depression Code(s): F41.9 - ANXIETY DISORDER, UNSPECIFIED; F32.9 - MAJOR DEPRESSIVE DISORDER, SINGLE EPISODE, UNSPECIFIED Status: Chronic (4) CAD (coronary artery disease) Code(s): I25.10 - ATHSCL HEART DISEASE OF [place] CORONARY ARTERY W/O ANG PCTRS Status: Chronic Qualifiers: Coronary Disease-Associated Artery/Lesion type: bypass graft [place] vs. transplanted heart: [place] heart Associated angina: without angina Qualified Code(s): I25.810 - Atherosclerosis of coronary artery bypass graft(s) without angina pectoris (5) Chronic diastolic heart failure Code(s): I50.32 - CHRONIC DIASTOLIC (CONGESTIVE) HEART FAILURE Status: Chronic (6) Chronic pain syndrome Code(s): G89.4 - CHRONIC PAIN SYNDROME Status: Chronic (7) Crohns disease Code(s): K50.90 - CROHN'S DISEASE, UNSPECIFIED, WITHOUT COMPLICATIONS Status: Chronic (8) DM type 2 (diabetes mellitus, type 2) Status: Chronic Qualifiers: Diabetes mellitus terminal manager insulin use: with terminal manager use Diabetes mellitus complication status: with unspecified complications Qualified Code(s) : E11.8 - Type 2 diabetes mellitus with unspecified complications; Z79.4 - halfway (current) use of insulin Comment: TUCKER, KELSI (9) Hypothyroidism Code(s): E03.9 - HYPOTHYROIDISM, UNSPECIFIED Status: Chronic Qualifiers: Hypothyroidism type: unspecified Qualified Code(s): E03.9 - Hypothyroidism , unspecified Comment: Continue Levothyroxine 25mcg daily - Plan hemostable -: continue zosyn and vanc -: await wound culture results -: to mobilize as tolerated -: dc plan per gen surg advice * . Review of Systems - Medications/Allergies Allergies/Adverse Reactions: Allergies Allergy/AdvReac Type Severity Reaction Status Date / Time azathioprine [From Imuran] Allergy Severe PANCREATITI Verified 09/12/17 18:51 S azathioprine sodium Allergy Severe PANCREATITI Verified 09/12/17 18:51 [From Imuran] S Sulfa (Sulfonamide Allergy Severe Verified 09/12/17 18:51 Antibiotics) sulfamethoxazole Allergy Severe Verified 09/12/17 18:51 [From Bactrim] tetanus and diphtheria Allergy Severe Hives Verified 09/12/17 18:51 toxoids [Tetanus&Diphtheria Toxoid] promethazine HCl Allergy Intermediate RESTLESS Verified 09/12/17 18:51 [From Phenergan] LEGS trimethoprim [From Bactrim] Allergy Unknown Verified 09/12/17 18:51 Medications: Current Medications Acetaminophen (Tylenol) 650 mg PO Q4H PRN PRN Reason: Headache/Fever/Mild Pain (1-3) Hydrocodone Bitart/Acetaminophen ([place] 7.5/325) 1 tab PO Q4H PRN PRN Reason: Moderate Pain (4-6) Hydrocodone Bitart/Acetaminophen ([place] 7.5/325) 2 tab PO Q4H PRN PRN Reason: Severe Pain (7-10) Atorvastatin Calcium (Lipitor) 10 mg PO HS [facility] Last Admin: 03/06/18 21:30 Dose: 10 mg Citalopram Hydrobromide (Celexa) 20 mg PO [facility] Last Admin: 03/06/18 21:30 Dose: 20 mg Clonazepam (Klonopin) 1 mg PO [facility] Last Admin: 03/06/18 21:29 Dose: 1 mg Dextrose/Water (Dextrose 50%) 25 gm SLOW IVP PRN PRN PRN Reason: Hypoglycemia Enoxaparin Sodium (Lovenox) 30 mg SC 0900 [facility] Last Admin: 03/06/18 09:00 Dose: 30 mg Fentanyl (Duragesic) 25 mcg TD Q3D [facility] Glucagon (Glucagon) 1 mg IM PRN PRN PRN Reason: Hypoglycemia Guaifenesin/Dextromethorphan (Robitussin Dm) 15 ml PO Q4H PRN PRN Reason: Cough Dextrose/Water (D5w) 1,000 mls @ 0 mls/hr IV .Q0M PRN PRN Reason: Hypoglycemia Vancomycin HCl 1 gm/ Device 200 mls @ 200 mls/hr IVPB Q24HR [facility] Last Admin: 03/06/18 17:53 Dose: 200 mls Piperacillin Sod/Tazobactam (Sod 2.25 gm/ Sodium Chloride) 100 mls @ 200 mls/ hr IVPB 0400,1000,1600,2200 [facility] Last Admin: 03/07/18 04:33 Dose: 100 mls Insulin Human Lispro (Humalog) 0 units SC .MODERATE SLIDING SC PRN PRN Reason: Moderate Correctional Scale Last Admin: 03/06/18 16:51 Dose: 6 unit Insulin Human Lispro (Humalog) 0 units SC .BEDTIME SLIDING SC PRN PRN Reason: Bedtime Correctional Scale Last Admin: 03/06/18 21:30 Dose: 3 unit Levothyroxine Sodium (Synthroid) 25 mcg PO 0600 [facility] Last Admin: 03/06/18 05:16 Dose: 25 mcg Miscellaneous Medication (Pharmacy To Dose) 1 each IVPB PRN PRN PRN Reason: Pharmacy to dose Morphine Sulfate (Morphine) 2 mg SLOW IVP Q4H PRN PRN Reason: Breakthrough Pain Last Admin: 03/05/18 12:09 Dose: 2 mg Ondansetron HCl (Zofran) 4 mg IVP Q6H PRN PRN Reason: Nausea/Vomiting Pantoprazole Sodium (Protonix) 40 mg PO DAILY [facility] Last Admin: 03/06/18 09:00 Dose: 40 mg Ropinirole HCl (Requip) 0.5 mg PO TID [facility] Last Admin: 03/06/18 21:29 Dose: 0.5 mg Sodium Chloride (Flush - Normal Saline) 10 ml IVF Q12HR [facility] Last Admin: 03/06/18 21:30 Dose: 10 ml Sodium Chloride (Flush - Normal Saline) 10 ml IVF PRN PRN PRN Reason: Saline Flush Tramadol HCl (Ultram) 50 mg PO Q6H PRN PRN Reason: Mild-Moderate Pain (1-5) Last Admin: 03/06/18 16:48 Dose: 50 mg Tramadol HCl (Ultram) 100 mg PO Q6H PRN PRN Reason: Moderate to Severe Pain (6-10)
[2018-03-07] MEDS: Levothyroxine Sodium 25 MCG TAB PO SCH (05:50)
[2018-03-07] MEDS: HumaLOG 300 UNITS/3 ML VIAL SC PRN ×3 (05:53→17:55)
[2018-03-07 06:21] LABS: Anion Gap 9 mmol/L (10-20); BUN (Urea Nitrogen) 13 mg/dL (9.8-20.1); Calc. Creatinine Clearance 38 mL/min (70-130); Calcium 7.9 mg/dL (7.8-10.44); Carbon Dioxide 23 mmol/L (23-31); Chloride 107 mmol/L (98-107); Estimated GFR-MDRD 36; Glucose 209 mg/dL (83-110); Potassium 4.5 mmol/L (3.5-5.1); Sodium 134 mmol/L (136-145)
[2018-03-07] MEDS: rOPINIRole HCl 0.5 MG TAB PO SCH ×2 (08:28→16:42)
[2018-03-07] MEDS: Enoxaparin Sodium 30 MG/0.3 ML SYRINGE SC SCH (08:33)
--- NOTE | 2018-03-07 11:27 | PDOC.PN ---
- Subjective Encounter Start Date: 03/07/18 Encounter Start Time: 11:20 Subjective: f/u for abd wall abscess s/p I&D with packing and Manuel drains placed. -: Currently on Zosyn and Vancomycin. Feels ok overall. Ambulating in halls -: and tolerating po intake. - Objective Resuscitation Status: Resuscitation Status FULL:Full Resuscitation MAR Reviewed: Yes Vital Signs & Weight: Vital Signs (12 hours) Temp Pulse Resp BP BP Pulse Ox 03/07/18 07:12 98.1 F 58 L 20 118/74 95 03/07/18 03:56 98.5 F 57 L 18 111/60 96 03/06/18 23:34 98.4 F 59 L 18 100/57 L 95 Weight Admit Weight 146 lb Weight 146 lb I&O: 03/06/18 03/07/18 03/08/18 06:59 06:59 06:59 Intake Total 900 1960 680 Output Total 800 1075 Balance 900 1160 -395 Result Diagrams: 03/06/18 07:35 03/07/18 05:19 Additional Labs: Accuchecks 03/07/18 03/06/18 03/06/18 05:40 20:38 15:55 POC Glucose 202 H 265 H 288 H 03/06/18 03/06/18 05:25 04:37 POC Glucose 168 H 158 H Microbiology 03/04/18 Unknown Urine voided Urine Culture - Final NO GROWTH AT 36 HOURS 03/05/18 18:30 Abdomen - Wall Bacterial Culture - Preliminary 03/05/18 18:30 Abdomen - Wall Anaerobic Culture - Preliminary Staphylococcus aureus 03/05/18 18:30 Abdomen - Wall Bacterial Culture - Preliminary 03/04/18 16:25 Venous blood - Left Hand Blood Culture - Preliminary NO GROWTH AT 48 HOURS 03/04/18 16:18 Venous blood - Right Hand Blood Culture - Preliminary NO GROWTH AT 48 HOURS Laboratory Tests 02/25/18 03/04/18 03/04/18 06:10 13:25 13:25 Hgb 10.7 L Creatinine 1.49 H 1.50 H Lactic Acid Vancomycin Trough 03/04/18 03/05/18 03/06/18 13:25 04:59 17:12 Hgb 9.8 L Creatinine Lactic Acid 1.1 Vancomycin Trough 13.2 Phys Exam - Physical Examination Constitutional: NAD HEENT: PERRLA, sclera anicteric, oral pharynx no lesions Neck: no nodes, no JVD, supple, full ROM Respiratory: no wheezing, no rales, no rhonchi, clear to auscultation bilateral S1, S2 Cardiovascular: RRR, no significant murmur, no rub, gallop ostomy in place, viable, RLQ wound with packing/Manuel drain in place Gastrointestinal: soft, no distention, positive bowel sounds Musculoskeletal: no edema, pulses present Neurological: normal sensation, moves all 4 limbs Psychiatric: normal affect, A&O x 3 Skin: normal turgor, cap refill <2 seconds Dx/Plan (1) Abdominal wall abscess Code(s): L02.211 - CUTANEOUS ABSCESS OF ABDOMINAL WALL Status: Acute Comment : s/p I&D POD #2, continue local WCT, ?wound vac (2) DM type 2 (diabetes mellitus, type 2) Status: Chronic Qualifiers: Diabetes mellitus long term care phlebotomist insulin use: with penitentiary use Diabetes mellitus complication status: with unspecified complications Qualified Code(s) : E11.8 - Type 2 diabetes mellitus with unspecified complications; Z79.4 - long term care phlebotomist (current) use of insulin Comment: ISS, ADA (3) Hypothyroidism Code(s): E03.9 - HYPOTHYROIDISM, UNSPECIFIED Status: Chronic Qualifiers: Hypothyroidism type: unspecified Qualified Code(s): E03.9 - Hypothyroidism , unspecified Comment: Continue Levothyroxine 25mcg daily (4) HTN (hypertension) Code(s): I10 - ESSENTIAL (PRIMARY) HYPERTENSION Status: Chronic Qualifiers: Hypertension type: essential hypertension Qualified Code(s): I10 - Essential (primary) hypertension - Plan continue antibiotics, PT/OT, home health care social worker, incentive spirometry, out of bed/ ambulate, DVT proph w/SCDs Stable overall -: Staph spp noted from wound cx with sensitivities pending -: OOB/ambulate -: Continue Zosyn and Vancomycin -: Likely home in 24h * .
[2018-03-07 16:16] VITALS: BP 102/56; TEMP 97.7
--- NOTE | 2018-03-08 00:53 | DIS ---
DATE OF ADMISSION: 03/04/2018 DATE OF DISCHARGE: 03/07/2018 DISCHARGE DIAGNOSES: 1. Abdominal wall abscess with Staphylococcus aureus, status post incision and drainage. 2. Diabetes mellitus, type 2, insulin-requiring. 3. Hypothyroidism, stable. 4. Hypertension, stable. 5. Permanent colostomy. CONSULTATIONS: Dr. Dennis with general surgery service. PERTINENT LABORATORY DATA AND X-RAY FINDINGS: Creatinine ranged between 1.29 to 1.50, estimated GFR ranging between 34 to 41. Lactic acid level 1.1, lipase 16. CBC showed a white blood cell count ran ging between 4.4 to 7.2, hemoglobin ranged between 9.8 to 10.7. Blood cultures x2 dated 03/04/2018 s howed no growth at 48 hours. Urine culture dated 03/04/2018 showed no growth at 36 hours. Abdominal wound culture dated 03/05/2018 showed Staphylococcus aureus. Sensitivities pending. CT of the abdo men and pelvis dated 03/04/2018 showed right lower quadrant colostomy in place. Inflammatory process extending through the right lower quadrant abdominal wall to the level of the skin surface. Left lo wer extremity venous Doppler study dated 03/04/2018 showed no evidence for DVT. HOSPITAL COURSE: Patient was initially admitted to the surgical floor after presenting with abdomina l wall abscess with cellulitis. Patient was placed on broad spectrum IV antibiotic therapy including vancomycin and Zosyn. Patient was evaluated by the General Surgery Service and underwent incision a nd drainage of the abdominal wall abscess with wound culture showing Staphylococcus aureus species. Patient received local wound care and wound packing as well as placement of a [place] drain. Patient was monitored postoperatively without clinical decompensation. Patient continued on IV Zosyn and va ncomycin through the remainder of the hospital course transitioning to Augmentin 875 mg b.i.d. Due t o patient's need for ongoing wound care, patient will resume home health services for local wound car e and monitoring of the wound postoperatively. Overall, patient did remain clinically stable during the hospital course, tolerating regular oral intake, ambulating without assistance or difficulty. I have examined the patient at the time of discharge and discussed followup instructions. Patient verb alized understanding and agreement and ready for discharge on 03/07/2018. DISCHARGE MEDICATIONS: 1. Augmentin 875 mg 1 tab p.o. b.i.d. x10 days. 2. Enteric-coated aspirin 81 mg 1 tab p.o. daily. 3. Citalopram 20 mg p.o. at bedtime. 4. Clonazepam 1 mg p.o. at bedtime. 5. Fentanyl 25 mcg transdermally q.72 hours. 6. Lasix 20 mg p.o. daily. 7. Dalton 10/325 mg 1 tab p.o. q.8 hours p.r.n. pain. 8. Levemir 35 units subcutaneously q.a.m. 9. Feosol 65 mg p.o. daily. 10. Synthroid 25 mcg p.o. daily. 11. Protonix 40 mg p.o. daily. 12. MiraLax 17 grams half a pack p.o. daily. 13. Klor-Con 10 mEq p.o. b.i.d. 14. Requip 0.5 mg p.o. t.i.d. 15. Ursodiol 300 mg p.o. b.i.d. 16. Lipitor 10 mg p.o. at bedtime. FOLLOWUP: Patient will follow up with Dr. Valente Crenshaw. Patient will follow up with Dr. Gerald Guzman with general surgery service. CONDITION ON DISCHARGE: Fair. ACTIVITY: Ad lilly. SPECIAL INSTRUCTIONS: Patient to receive home health services with [facility] services for w ound care and ostomy care. DIET: ADA. CODE STATUS: FULL. DISPOSITION: Home with home health services on 03/07/2018. Total time preparing and coordinating discharge 34 minutes.
--- NOTE | 2018-03-08 15:09 | OP ---
DATE OF PROCEDURE: 03/05/2018 PREOPERATIVE DIAGNOSIS: Right lower quadrant abdominal wall abscess. POSTOPERATIVE DIAGNOSIS: Right lower quadrant abdominal wall abscess. OPERATION PERFORMED: Complex incision and drainage of large abdominal wall abscess. SURGEON: Gerald Dennis M.D. ANESTHESIA: General with laryngeal mask airway. INDICATIONS: The patient is a 72-year-old white female, well known to myself from prior surgery and ongoing care. She has a history of a prior right lower quadrant abscess that was drained about 4 or 5 years ago. She presents this time with an obvious erythematous, painful lesion consistent with an abscess with pointing in 2 separate areas. I recommend incision and drainage under anesthesia. PROCEDURE IN DETAIL: Informed consent was obtained. The patient was taken to the operating room whe re general anesthesia was obtained with the patient in supine position. Her ileostomy appliance was left intact. The abscess was lateral to the ileostomy. This area was prepped with ChloraPrep and dr aped in sterile fashion. Local anesthetic was infiltrated using 0.25% Marcaine with epinephrine. Th e area of maximum fluctuance was incised and a large volume of creamy purulent material was expressed . There was no foul smell associated with this. The second area of fluctuance was incised as well. This was about 3 or 4 cm away. There was an intact bridge of skin between the two. Some additional skin was removed at the larger side in order to unroof the abscess cavity. I visually and digitally explored the wound. There did appear to be a depression through the fascia. There was no enteric d rainage or evidence of bowel contents. I could neither palpate nor see any evidence of mesh within t he wound. The etiology of the abscess was not apparent at the time of surgical exploration. I obtained a quarter inch [place] drain and passed this through the fascial defect internally. This only seemed to go a centimeter or so beyond the fascia. To help it drain this area, I placed a deep suture at the level of the muscle of 3-0 Vicryl. This was brought up to the large opening. I placed a half inch [place] drain as a loop between the 2 areas of fluctuance. This drain was sutured to it self with a 3-0 nylon. I also secured the quarter inch [place] drain to the skin with a 3-0 nylon. Due to the large size of the cavity, I placed a single 4x4 piece of gauze within the wound and placed dry gauze dressing externally. There were no complications. Blood loss was negligible. Not mentioned above is that the wound was irrigated with peroxide and before any irrigation was perfo rmed, cultures were sent.
== END 2018-03-07 18:40 | disposition home health service (06) | DRG 580 ==
LOC: ERS 11:31 → SURG A 18:34
PROVIDERS: ADMIT Internal Medicine; ATTEND Internal Medicine
PROC: 0W9F00Z Drainage of Abdominal Wall with Drainage Device, Open Approach (ICD-10-PCS; principal; 2018-03-05)
DX: L02.211 Cutaneous abscess of abdominal wall (principal); K50.90 Crohn's disease, unspecified, without complications; I13.0 Hypertensive heart and chronic kidney disease with heart failure and stage 1 through stage 4 chronic kidney disease, or unspecified chronic kidney disease; I50.32 Chronic diastolic (congestive) heart failure; L03.311 Cellulitis of abdominal wall; E78.5 Hyperlipidemia, unspecified; G89.4 Chronic pain syndrome; Z86.73 Personal history of transient ischemic attack (TIA), and cerebral infarction without residual deficits; I25.10 Atherosclerotic heart disease of native coronary artery without angina pectoris; Z95.1 Presence of aortocoronary bypass graft; E03.9 Hypothyroidism, unspecified; M79.7 Fibromyalgia; E11.22 Type 2 diabetes mellitus with diabetic chronic kidney disease; N18.3 Chronic kidney disease, stage 3 (moderate); F41.9 Anxiety disorder, unspecified; F32.9 Major depressive disorder, single episode, unspecified; M81.0 Age-related osteoporosis without current pathological fracture; G25.81 Restless legs syndrome; Z79.82 Long term (current) use of aspirin; Z79.4 Long term (current) use of insulin; B95.61 Methicillin susceptible Staphylococcus aureus infection as the cause of diseases classified elsewhere; Z93.3 Colostomy status
CPT/HCPCS: 36415; 36416; 74177; 80048; 80053; 80202; 81003; 81015; 83605; 83690; 85025; 86850; 86900; 86901; 87040; 87070; 87077; 87086; 87186; 87205; 90471; 90670; 93005; 93010; 96365; 96367; G0009; J1650; J2001; J2270; J2405; J2543; J2550; J2704; J3010; J3370; J7050

== ENCOUNTER 2018-04-17 10:54 | Emergency (ER) | payer MEDICARE, MEDICAID ==
[2018-04-17 11:33] LABS: #Eosinphils 0.1 thou/uL (0.0-0.7); #Lymphocytes 0.4 thou/uL (1.20-3.40); #Monocytes 0.2 thou/uL (0.11-0.59); #Neutrophils 2.8 thou/uL (1.40-6.50); %Basophils 0.9 % (0.0-1.0); %Eosinophils 1.8 % (0.0-10.0); %Lymphocytes 11.5 % (21.0-51.0); %Monocytes 6.9 % (0.0-10.0); %Neutrophils 78.9 % (42.0-75.0); Hemoglobin 11.9 g/dL (12.0-16.0); Mean Corpuscular HGB CONC 33.1 g/dL (32.0-36.0); Mean Corpuscular Hemoglobin 31.7 pg (27.0-31.0); Mean Corpuscular Volume 95.8 fL (78.0-98.0); Mean Platelet Volume 9.9 fL (7.4-10.4); Platelet Count 73 thou/uL (130-400); RBC Distribution Width 13.7 % (11.5-14.5); Red Blood Cell (RBC) Count 3.76 mill/uL (4.20-5.40); White Blood Cell (WBC) Count 3.5 thou/uL (4.8-10.8)
[2018-04-17 11:47] LABS: ALT (SGPT) 13 U/L (8-55); AST (SGOT) 20 U/L (5-34); Albumin 3.4 g/dL (3.4-4.8); Alkaline Phosphatase 110 U/L (40-150); Anion Gap 13 mmol/L (10-20); BUN (Urea Nitrogen) 30 mg/dL (9.8-20.1); Bilirubin, Total 0.3 mg/dL (0.2-1.2); Calc. Creatinine Clearance 0 mL/min (70-130); Calcium 8.9 mg/dL (7.8-10.44); Carbon Dioxide 20 mmol/L (23-31); Chloride 104 mmol/L (98-107); Estimated GFR-MDRD 34; Globulin 4.5 g/dL (2.4-3.5); Glucose 418 mg/dL (83-110); Lipase 44 U/L (8-78); Potassium 4.5 mmol/L (3.5-5.1); Protein, Total 7.9 g/dL (6.0-8.3); Sodium 132 mmol/L (136-145)
== END 2018-04-17 16:37 | disposition home or self-care (01) ==
LOC: ERS 10:54
DX: K94.03 Colostomy malfunction (principal); I25.2 Old myocardial infarction; I25.10 Atherosclerotic heart disease of native coronary artery without angina pectoris; E11.9 Type 2 diabetes mellitus without complications; E03.9 Hypothyroidism, unspecified; D50.9 Iron deficiency anemia, unspecified; I50.9 Heart failure, unspecified; F41.9 Anxiety disorder, unspecified; F32.9 Major depressive disorder, single episode, unspecified; Z87.891 Personal history of nicotine dependence; Z87.01 Personal history of pneumonia (recurrent); Z79.4 Long term (current) use of insulin; Z79.82 Long term (current) use of aspirin; Z79.899 Other long term (current) drug therapy
CPT/HCPCS: 36416; 80053; 83690; 85025; 96360

== ENCOUNTER 2018-04-19 17:05 | Emergency (ER) | payer MEDICARE, OTHER ==
[2018-04-19 19:27] LABS: #Eosinphils 0.1 thou/uL (0.0-0.7); #Lymphocytes 0.6 thou/uL (1.20-3.40); #Monocytes 0.2 thou/uL (0.11-0.59); #Neutrophils 2.3 thou/uL (1.40-6.50); %Basophils 1.3 % (0.0-1.0); %Eosinophils 1.8 % (0.0-10.0); %Lymphocytes 18.2 % (21.0-51.0); %Monocytes 6.7 % (0.0-10.0); Hemoglobin 11.2 g/dL (12.0-16.0); Mean Corpuscular HGB CONC 33.3 g/dL (32.0-36.0); Mean Corpuscular Hemoglobin 31.5 pg (27.0-31.0); Mean Corpuscular Volume 94.4 fL (78.0-98.0); Mean Platelet Volume 9.5 fL (7.4-10.4); Platelet Count 65 thou/uL (130-400); RBC Distribution Width 13.6 % (11.5-14.5); Red Blood Cell (RBC) Count 3.57 mill/uL (4.20-5.40); White Blood Cell (WBC) Count 3.3 thou/uL (4.8-10.8)
[2018-04-19 19:45] LABS: ALT (SGPT) 12 U/L (8-55); AST (SGOT) 22 U/L (5-34); Albumin 3.2 g/dL (3.4-4.8); Alkaline Phosphatase 104 U/L (40-150); Anion Gap 10 mmol/L (10-20); BUN (Urea Nitrogen) 17 mg/dL (9.8-20.1); Bilirubin, Total 0.4 mg/dL (0.2-1.2); Calc. Creatinine Clearance 0 mL/min (70-130); Calcium 8.8 mg/dL (7.8-10.44); Carbon Dioxide 24 mmol/L (23-31); Chloride 107 mmol/L (98-107); Estimated GFR-MDRD 44; Globulin 4.5 g/dL (2.4-3.5); Glucose 220 mg/dL (83-110); Lipase 43 U/L (8-78); Potassium 4.3 mmol/L (3.5-5.1); Protein, Total 7.7 g/dL (6.0-8.3); Sodium 137 mmol/L (136-145)
== END 2018-04-19 20:31 | disposition home or self-care (01) ==
LOC: ERS 17:05
DX: K21.9 Gastro-esophageal reflux disease without esophagitis (principal); E11.9 Type 2 diabetes mellitus without complications; I50.9 Heart failure, unspecified; I25.10 Atherosclerotic heart disease of native coronary artery without angina pectoris; I25.2 Old myocardial infarction; K58.9 Irritable bowel syndrome, unspecified; F41.9 Anxiety disorder, unspecified; D50.9 Iron deficiency anemia, unspecified; F32.9 Major depressive disorder, single episode, unspecified; Z86.73 Personal history of transient ischemic attack (TIA), and cerebral infarction without residual deficits; Z87.891 Personal history of nicotine dependence; Z79.4 Long term (current) use of insulin; Z79.899 Other long term (current) drug therapy; Z79.82 Long term (current) use of aspirin
CPT/HCPCS: 80053; 83690; 85025; 86850; 86900; 86901; 96360

== ENCOUNTER 2018-04-21 10:12 | Inpatient (IN) | payer MEDICARE, MEDICAID ==
[2018-04-21 11:21] LABS: #Eosinphils 0.1 thou/uL (0.0-0.7); #Lymphocytes 0.6 thou/uL (1.20-3.40); #Monocytes 0.3 thou/uL (0.11-0.59); #Neutrophils 3.8 thou/uL (1.40-6.50); %Basophils 0.2 % (0.0-1.0); %Eosinophils 1.8 % (0.0-10.0); %Lymphocytes 12.3 % (21.0-51.0); %Monocytes 5.3 % (0.0-10.0); %Neutrophils 80.4 % (42.0-75.0); Hemoglobin 12.5 g/dL (12.0-16.0); Mean Corpuscular HGB CONC 32.7 g/dL (32.0-36.0); Mean Corpuscular Volume 94.6 fL (78.0-98.0); Mean Platelet Volume 9.7 fL (7.4-10.4); Platelet Count 79 thou/uL (130-400); RBC Distribution Width 13.8 % (11.5-14.5); Red Blood Cell (RBC) Count 4.03 mill/uL (4.20-5.40); White Blood Cell (WBC) Count 4.8 thou/uL (4.8-10.8)
[2018-04-21 11:41] LABS: ALT (SGPT) 14 U/L (8-55); AST (SGOT) 20 U/L (5-34); Albumin 3.6 g/dL (3.4-4.8); Alkaline Phosphatase 112 U/L (40-150); Anion Gap 14 mmol/L (10-20); BUN (Urea Nitrogen) 17 mg/dL (9.8-20.1); Bilirubin, Total 0.5 mg/dL (0.2-1.2); Calc. Creatinine Clearance 0 mL/min (70-130); Calcium 9.3 mg/dL (7.8-10.44); Carbon Dioxide 22 mmol/L (23-31); Chloride 102 mmol/L (98-107); Estimated GFR-MDRD 37; Globulin 4.8 g/dL (2.4-3.5); Glucose 228 mg/dL (83-110); Lipase 35 U/L (8-78); Potassium 4.1 mmol/L (3.5-5.1); Protein, Total 8.4 g/dL (6.0-8.3); Sodium 134 mmol/L (136-145)
[2018-04-21] MEDS ORDERED: Dicyclomine 20 MG TAB ONE (11:41)
[2018-04-21 12:07] LABS: Bilirubin Negative (Negative); Blood, Urine Moderate (Negative); Glucose, Urine (Dipstick) Negative (Negative); Leukocyte Small (Negative); Nitrite Negative (Negative); Protein, Urine (Dipstick) 30 mg/dL (Neg-Trace); Urobilinogen 0.2 mg/dL (0.2-1.0)
[2018-04-21 12:13] LABS: Clarity Hazy (Clear); Specific Gravity, Urine 1.022 (1.002-1.036)
[2018-04-21 12:14] LABS: Squamous Epithelial 0-3 HPF (0-3)
[2018-04-21 12:15] LABS: Bacteria/HPF 1+ HPF (None Seen); Hyaline Casts/LPF NONE SEEN LPF (0-3 Hyaline)
[2018-04-21] MEDS ORDERED: Dextrose 5% in Water 1,000 ML IV PRN (13:32)
[2018-04-21] MEDS ORDERED: Dextrose 50% Abboject 50 ML SYRINGE SLOW IVP PRN (13:32)
[2018-04-21] MEDS ORDERED: Vedolizumab 300 MG in Sodium Chloride 0.9% 250 ML 250 ML IVPB SCH ×2 (13:45→14:00)
[2018-04-21 16:32] VITALS: BMI 27.5
[2018-04-21] MEDS: Sodium Chloride 0.9% 1,000 ML IV SCH ×2 (17:05→17:31)
[2018-04-21] MEDS: rOPINIRole HCl 0.5 MG TAB PO SCH ×2 (17:30→21:10)
[2018-04-21] MEDS ORDERED: Heparin 5,000 UNITS/ML VIAL SC SCH (17:30)
[2018-04-21] MEDS: Polyethylene Glycol 3350 17 GM Packet PO SCH ×2 (17:30→21:09)
--- NOTE | 2018-04-21 20:19 | HP ---
HISTORY OF PRESENT ILLNESS: Mrs. Shaffer is a 72-year-old woman. She has a history of Crohn's disease and she missed her medications recently, and she has been having increasing diarrhea. In view of this fact, she was referred by her conference services director to the hospital for admission and initiation of therapy. She denies any associated fever. She denies vomiting. PAST MEDICAL HISTORY: Her past medical history is remarkable for Crohn's disease as mentioned earlier, which was diagnosed about 30 years ago. She is also known to have diabetes mellitus, coronary artery disease, CVA, and previous thrombosis involving the mesenteric vessels. She cannot be more precise. PAST SURGICAL HISTORY: Remarkable for CABG, total colectomy with subsequent ileostomy. ALLERGIES: SHE CLAIMS TO HAVE ALLERGY TO TETANUS TOXOID, IMURAN, BACTRIM, AND PHENERGAN. SOCIAL HISTORY: She is a former smoker. She denies EtOH abuse. She denies drug abuse. FAMILY HISTORY: Her family history was reviewed and is noncontributory. MEDICATIONS: Her home medications are to be identified. REVIEW OF SYSTEMS: CONSTITUTIONAL: Admits to some weakness. Denies fever. HEENT: No headache. No ocular pain. No sore throat. No rhinorrhea. No earache. No epistaxis. NECK: No neck pain. No neck stiffness. CARDIOVASCULAR: No shortness of breath. No chest pain. PULMONARY: No coughing. GASTROINTESTINAL: Admits to severe diarrhea as mentioned earlier. No nausea, no vomiting. GENITOURINARY: No dysuria. No hematuria. ENDOCRINOLOGY: No heat or cold intolerance. No polyuria, polydipsia, or polyphagia. MUSCULOSKELETAL: No arthritis. HEMATOLOGY: No abnormal bleeding. No ecchymosis. LYMPHATIC: No palpable lymphadenopathy. No painful lymphadenopathy. SKIN: No itching. ALLERGY: No hay fever. NEUROLOGICAL: No seizure. PSYCHIATRIC: She has a history of depression and has been on medication. PHYSICAL EXAMINATION: GENERAL: At the current time, she is alert and oriented, in no distress. VITAL SIGNS: Her latest vital signs show a temperature of 98.5, pulse rate 69, respiratory rate 18, and blood pressure 108/63. HEENT: Her head is normocephalic and atraumatic. Both her pupils are equal and reactive. Ears and nose are normal. Oral mucosa is moist. Pharyngeal area is clear with no exudate. No hyperemia. NECK: Supple. There is no distention of the jugular vein. No lymphadenopathy felt. Thyroid not palpable. There is no carotid bruit. CHEST: Symmetrical, irregular. S1 and S2. LUNGS: Clear. ABDOMEN: Soft. There is an ileostomy bag in place. LYMPH: She has edema of the lower extremities, more on the left side. NEUROLOGICAL: She moves all extremities. LABORATORY DATA: CBC done today show a WBC of 4.8, hemoglobin of 12.5, hematocrit of 38.2, MCV of 94.6, and platelets of 79. Chemistry and lytes show a sodium of 134, potassium of 4.1, chloride 102, CO2 of 22, BUN 17, creatinine 1.39, glucose 228, calcium 9.3. Urinalysis was reviewed. ASSESSMENT: This is a 72-year-old woman with history of Crohn's disease, diabetes mellitus, coronary artery disease, CVA, previous thrombotic event involving the mesenteric vessels, was admitted because of severe diarrhea for initiation of therapy, namely solumedrol and Vedolizumab. The patient is being admitted to the medical floor. Gastroenterology will be consulted. She will be on regular insulin via sliding scale, and we will identify her home medications as soon as they are available for possible initiation of home medications. Further evaluation and management will depend on her course of this hospitalization and her response to therapy. Job ID: [id number]
[2018-04-21] MEDS: Atorvastatin Calcium 10 MG TAB PO SCH (21:10)
[2018-04-21] MEDS: clonazePAM 1 MG TAB PO SCH (21:10)
[2018-04-21] MEDS: Heparin 5,000 UNITS/ML VIAL SC SCH (21:11)
[2018-04-21] MEDS: HumaLOG 300 UNITS/3 ML VIAL SC PRN (21:12)
[2018-04-21] MEDS: Ursodiol 300 MG CAP PO SCH (21:12)
--- NOTE | 2018-04-21 22:16 | CON ---
DATE OF CONSULTATION: REASON FOR CONSULT: Worsening diarrhea and history of Crohn's disease. HISTORY OF PRESENT ILLNESS: Ms. Shaffer is a 72-year-old female with a long history of Crohn's of the small bowel and colon. She has a history of a colostomy in the distant past and has ileostomy now. She was last in hospital for exacerbation of symptoms in November of 2007 when she was having intermittent bleeding from her ostomy bag. In April of 2016, she had severe deep ulcers in the stomach and duodenum on endoscopy and was started on Entyvio for that. She had a repeat endoscopy in 01/2017, which showed resolution of her ulcers and erosions on EGD and an ileoscopy. The patient did well until 02/23/2018, when she fell and had a left femoral neck fracture. She follows up intermittently in the office this year. She was seen in May of [address] Sinha with a small bowel obstruction. She was overdue for Entyvio and that was given. Ultimately, her symptoms resolved. In July of this year, she was in the hospital with compression fracture. Biopsy showed no signs of malignancy. In November she was back in again. She had some intermittent bleeding. It was determined she has not had an Entyvio infusion for 4 months at that time and she received her infusion while she was here. Wound care saw her with regard to her difficulties caring for her ostomy. She was ultimately discharged. In February, she returned with abdominal wall abscess, which was drained on 03/10/[address] Dennis, her surgeon. She has not had Entyvio infusion since November. When asked why she states she forgot or could not get a ride. Presently, she denies any pain. She was in the emergency room two days ago with complaints of some bleeding in her ostomy bag. However, hemoglobin was 11.2 on 04/19/2018 and that was stable from 11.9 and 9.8 in February of this year. She states she is having to empty her bag all through the day and night about every 30 minutes, where typically she will have to empty her bag about six times per day. She states she is losing some weight. She denies any fever, chills, myalgias, arthralgias, or abdominal pain. She has had no discharge or drainage, where she had the surgery earlier in the month. PAST MEDICAL HISTORY: Crohn's disease. Previous colectomy and J-pouch and takedown of J-pouch, ileostomy secondary to progression from ulcerative colitis, which was first diagnosed as Crohn's. She has had small bowel resections for obstruction. She has had abdominal wall abscess recently. Her treatment history is notable for Remicade, which she did not tolerate, Imuran which gave her pancreatitis, now she is on Entyvio, which she has been on since April 2016. She is noncompliant with therapy. PAST MEDICAL HISTORY: Other medical issues include steatohepatitis, fibromyalgia, osteoporosis, diabetes, anxiety, depression, stroke, hypertension, coronary artery disease, systemic lupus erythematosus, spine compression, hip fracture likely related to osteoporosis. PAST SURGICAL HISTORY: Colectomy with J-pouch to the ileostomy, small bowel resections, hernia repair, abdominal wall abscess surgery, coronary artery disease, and bypass grafting. FAMILY HISTORY: Negative for GI malignancies. SOCIAL HISTORY: Negative for alcohol, drugs, or tobacco. ALLERGIES: TETANUS, PHENERGAN AND BACTRIM. OUTPATIENT MEDICATIONS: 1. Presently Entyvio, which she has not taken since November from what I can tell and that is the best of her recollection. She does not remember the last time she took it. 2. She is also on furosemide daily. 3. Ropinirole 0.5 mg three times a day as needed. 4. Pantoprazole 40 mg daily. 5. Ursodiol 300 mg daily. 6. Klor-Con daily. 7. Levothyroxine 25 mcg daily. 8. Aspirin 81 mg a day. 9. Celebrex 20 mg daily. 10. Feosol 325 mg daily. 11. Clonazepam 1 mg daily. 12. Melatonin 2 mg daily. 13. Fentanyl. 14. Lantus. 15. NovoLog. PHYSICAL EXAMINATION: VITAL SIGNS: Blood pressure 127/49, pulse 69, respiratory rate 16, and temperature is 98. GENERAL: She is resting comfortably, but she seems to be in no distress. Oropharynx, mucous membranes moist. NECK: Supple without lymphadenopathy. LUNGS: Clear. HEART: Regular rate and rhythm without rubs or murmurs. ABDOMEN: There are multiple scars in the abdomen. The ostomy site appears clean and dry. The ostomy is pink. There is a water thin brown stool in the bag. Bowel sounds positive. There is no evidence of hernias. There is no evidence of abscesses. SKIN: Without rashes or lesions. EXTREMITIES: No clubbing, cyanosis, or edema. LABORATORY STUDIES: White count is 4.9. It was 3.3 on the , 3.5 on 04/17/2018, and 4.4 on 03/06/2018; hemoglobin is 12.5. This is a little bit up over the past three hemoglobin that were checked. Platelet count 79,000. INR was 1.3 on 08/22/2017, not repeated since then. Sodium is 134, potassium 4.1, chloride is 102, bicarb 22, BUN and creatinine 17 and 1.39, glucose 228. Bilirubin is 0.5, AST and ALT are 20 and 14, alkaline phosphatase is 112, protein 8.4, albumin 3.46. Lipase is 35. Indeterminate QuantiFERON in 01/2017, abdominal wall infection with Staph. On 04/21/2018, she has got urine with greater than 50 white blood cells. ASSESSMENT: A 72-year-old female, who has history of Crohn's and long history of noncompliance. She is supposed to be on Entyvio. She has not had a dose since November from review of the records and she is not sure when she had her last dose. In the past six weeks, she notes she has had increased watery diarrhea. She has no associated pain with this. She was in the emergency room complaining of blood in her bag, but her hemoglobin has been stable. On physical exam, she maybe slightly dehydrated, but otherwise appears well. She did have a recent complication of abdominal wall abscess, which seems to be resolved at this time. RECOMMENDATIONS: I would check C-reactive protein and a sedimentation rate. I think we can hold off on IV steroids. I think when we get some stool studies and make sure there is no infection, we recent antibiotics is very rare, but can get C diff of the small bowel. I think she needs to get her Entyvio tomorrow. She does get infusions typically here at the hospital, so hopefully does here for her is already pre-approved and that can be given. Job ID: [id number]
[2018-04-22] MEDS: Levothyroxine Sodium 25 MCG TAB PO SCH (05:48)
[2018-04-22] MEDS: HumaLOG 300 UNITS/3 ML VIAL SC PRN ×3 (05:48→16:11)
[2018-04-22] MEDS ORDERED: HYDROcodone/Acetaminophen 10/325 mg Tablet PO PRN (07:37)
[2018-04-22] MEDS ORDERED: Sodium Chloride 0.65% Nasal 44 ML BOT EA NARE PRN (07:39)
[2018-04-22] MEDS ORDERED: Diphenoxylate HCl/Atropine Tablet PO PRN (07:39)
[2018-04-22] MEDS ORDERED: Acetaminophen 500 MG TAB PO PRN (07:39)
[2018-04-22] MEDS ORDERED: Ondansetron PF 4 MG/2 ML Vial IVP PRN (07:39)
[2018-04-22] MEDS ORDERED: Senokot S 8.6-50 MG TAB PO PRN (07:39)
[2018-04-22] MEDS ORDERED: Calcium Carbonate 500 MG ChewTAB PO PRN (07:39)
[2018-04-22] MEDS ORDERED: Cepastat Lozenges 1 LOZ PO PRN (07:39)
[2018-04-22] MEDS ORDERED: Ondansetron ODT 4 MG TAB PO PRN (07:39)
[2018-04-22] MEDS ORDERED: Diabetic Tussin 200 MG/10 ML UDCUP PO PRN (07:39)
[2018-04-22] MEDS ORDERED: Artificial Tears 18 DROP/0.9 ML EA EYE PRN (07:39)
[2018-04-22] MEDS ORDERED: hydrALAZINE 20 MG/ML VIAL SLOW IVP PRN (07:39)
[2018-04-22] MEDS ORDERED: Eucerin (Mineral Oil/Petrolatum,White) 30 gm Jar TOP PRN (07:39)
[2018-04-22] MEDS ORDERED: Zolpidem Tartrate 5 MG TAB PO PRN (07:39)
[2018-04-22] MEDS: Sodium Chloride 0.9% 1,000 ML IV SCH ×3 (08:50→22:02)
[2018-04-22] MEDS: Polyethylene Glycol 3350 17 GM Packet PO SCH ×4 (08:51→20:52)
[2018-04-22] MEDS: Potassium Chloride 10 MEQ TAB PO SCH ×2 (08:52→16:10)
[2018-04-22] MEDS: rOPINIRole HCl 0.5 MG TAB PO SCH ×3 (08:52→20:51)
[2018-04-22] MEDS: Heparin 5,000 UNITS/ML VIAL SC SCH ×3 (08:52→20:53)
[2018-04-22] MEDS: Ursodiol 300 MG CAP PO SCH ×2 (08:52→20:51)
[2018-04-22] MEDS: Furosemide 20 MG TAB PO SCH (08:52)
[2018-04-22] MEDS ORDERED: INSULIN DETEMIR SQ SCH (09:00)
[2018-04-22] MEDS ORDERED: Insulin Glargine 35 UNITS in Pre-Filled Syringe 1 EACH SC SCH ×2 (09:00→21:00)
--- NOTE | 2018-04-22 09:57 | PDOC.PN ---
- Subjective Encounter Start Date: 04/22/18 Encounter Start Time: 08:00 -: old records requested/rev Patient seen and examined. No new complaints. No overnight events - Objective Resuscitation Status - Order Detail: 04/21/18 13:40 Resuscitation Status Routine Resuscitation Status: DNAR: NO Resuscitation Discussed with: patient MANUEL Reviewed: Yes Vital Signs & Weight: Vital Signs (12 hours) Temp Pulse Resp BP Pulse Ox 04/22/18 07:48 97.8 F 86 17 124/72 94 L 04/22/18 04:00 98.1 F 79 82 H 165/63 H 18 L 04/22/18 00:00 98.1 F 76 18 118/69 95 Weight Weight 140 lb 12.8 oz I&O: 04/21/18 04/22/18 04/23/18 06:59 06:59 06:59 Intake Total 1801 Balance 1801 Result Diagrams: 04/21/18 11:11 04/21/18 11:11 Additional Labs: Accuchecks 04/22/18 04/21/18 04/21/18 04:57 19:54 16:59 POC Glucose 402 H 416 H 200 H Phys Exam - Physical Examination Constitutional: NAD HEENT: PERRLA, moist MMs, sclera anicteric Neck: no JVD, supple Respiratory: no wheezing, no rales, no rhonchi Cardiovascular: RRR, no significant murmur, no rub Gastrointestinal: soft, no distention, positive bowel sounds iliostomy+ Musculoskeletal: no edema, pulses present Neurological: non-focal, normal sensation Lymphatic: no nodes Psychiatric: normal affect, A&O x 3 Skin: no rash, normal turgor Dx/Plan (1) Exacerbation of Crohn's disease Code(s): K50.90 - CROHN'S DISEASE, UNSPECIFIED, WITHOUT COMPLICATIONS Status: Acute (2) Anxiety and depression Code(s): F41.9 - ANXIETY DISORDER, UNSPECIFIED; F32.9 - MAJOR DEPRESSIVE DISORDER, SINGLE EPISODE, UNSPECIFIED Status: Chronic (3) CAD (coronary artery disease) Code(s): I25.10 - ATHSCL HEART DISEASE OF [place] CORONARY ARTERY W/O ANG PCTRS Status: Chronic Qualifiers: (4) Cholelithiasis Code(s): K80.20 - CALCULUS OF GALLBLADDER W/O CHOLECYSTITIS W/O OBSTRUCTION Status: Chronic (5) Chronic pain syndrome Code(s): G89.4 - CHRONIC PAIN SYNDROME Status: Chronic (6) Chronic stage c diastolic heart failure Code(s): I50.32 - CHRONIC DIASTOLIC (CONGESTIVE) HEART FAILURE Status: Chronic (7) Colostomy in place Code(s): Z93.3 - COLOSTOMY STATUS Status: Chronic (8) Compression fracture of vertebral column Code(s): M48.50XA - COLLAPSED VERTEBRA, NEC, SITE UNSP, INIT Status: Chronic (9) Crohns disease Code(s): K50.90 - CROHN'S DISEASE, UNSPECIFIED, WITHOUT COMPLICATIONS Status: Chronic (10) DM type 2 (diabetes mellitus, type 2) Status: Chronic Qualifiers: Comment: ISS, ADA (11) GERD (gastroesophageal reflux disease) Code(s): K21.9 - GASTRO-ESOPHAGEAL REFLUX DISEASE WITHOUT ESOPHAGITIS Status: Chronic Qualifiers: (12) H/O: CVA (cerebrovascular accident) Code(s): Z86.73 - PRSNL HX OF TIA (TIA), AND CEREB INFRC W/O RESID DEFICITS Status: Chronic (13) HTN (hypertension) Code(s): I10 - ESSENTIAL (PRIMARY) HYPERTENSION Status: Chronic Qualifiers: (14) Hypothyroidism Code(s): E03.9 - HYPOTHYROIDISM, UNSPECIFIED Status: Chronic Qualifiers: Comment: Continue Levothyroxine 25mcg daily (15) IBD (inflammatory bowel disease) Code(s): K63.89 - OTHER SPECIFIED DISEASES OF INTESTINE Status: Chronic (16) TAISHA (iron deficiency anemia) Code(s): D50.9 - IRON DEFICIENCY ANEMIA, UNSPECIFIED Status: Chronic Qualifiers: (17) Macrocytosis Code(s): D75.89 - OTHER SPECIFIED DISEASES OF BLOOD AND BLOOD-FORMING ORGANS Status: Chronic (18) RLS (restless legs syndrome) Status: Chronic (19) Thrombocytopenia Code(s): D69.6 - THROMBOCYTOPENIA, UNSPECIFIED Status: Chronic - Plan cont current plan of care * i will dc steroid as per GI recommendation * continue IVF * repeat labs tomorrow * GI following * medication reviewed as below * symptomatic treatment. * Vedolizumab given in ER Review of Systems - Review of Systems ENT: negative: Ear Pain, Ear Discharge, Nose Pain, Nose Discharge, Nose Congestion, Mouth Pain, Mouth Swelling, Throat Pain, Throat Swelling, Other Respiratory: negative: Cough, Dry, Shortness of Breath, Hemoptysis, SOB with Excertion, Pleuritic Pain, Sputum, Wheezing Cardiovascular: negative: chest pain, palpitations, orthopnea, paroxysmal nocturnal dyspnea, edema, light headedness, other Gastrointestinal: negative: Nausea, Vomiting, Abdominal Pain, Diarrhea, Constipation, Melena, Hematochezia, Other Genitourinary: negative: Dysuria, Frequency, Incontinence, Hematuria, Retention , Other Musculoskeletal: negative: Neck Pain, Shoulder Pain, Arm Pain, Back Pain, Hand Pain, Leg Pain, Foot Pain, Other - Medications/Allergies Allergies/Adverse Reactions: Allergies Allergy/AdvReac Type Severity Reaction Status Date / Time azathioprine [From Imuran] Allergy Severe PANCREATITI Verified 09/12/17 18:51 S azathioprine sodium Allergy Severe PANCREATITI Verified 09/12/17 18:51 [From Imuran] S Sulfa (Sulfonamide Allergy Severe Verified 09/12/17 18:51 Antibiotics) sulfamethoxazole Allergy Severe Verified 09/12/17 18:51 [From Bactrim] tetanus and diphtheria Allergy Severe Hives Verified 09/12/17 18:51 toxoids [Tetanus&Diphtheria Toxoid] promethazine HCl Allergy Intermediate RESTLESS Verified 09/12/17 18:51 [From Phenergan] LEGS trimethoprim [From Bactrim] Allergy Unknown Verified 09/12/17 18:51 Medications: Current Medications Acetaminophen (Tylenol) 500 mg PO Q6H PRN PRN Reason: Mild Pain (1-3) Hydrocodone Bitart/Acetaminophen ([place] 10/325) 1 tab PO Q8H PRN PRN Reason: Moderate to Severe Pain (6-10) Artificial Tears (Tears Naturale) 2 drop EA EYE PRN PRN PRN Reason: Dry Eyes Aspirin (Aspirin Chewable) 81 mg PO DAILY [facility] Last Admin: 04/22/18 08:52 Dose: 81 mg Atorvastatin Calcium (Lipitor) 10 mg PO HS [facility] Last Admin: 04/21/18 21:10 Dose: 10 mg Calcium Carbonate (Tums) 1,000 mg PO Q4H PRN PRN Reason: Heartburn or Indigestion Citalopram Hydrobromide (Celexa) 20 mg PO HS [facility] Clonazepam (Klonopin) 1 mg PO HS [facility] Last Admin: 04/21/18 21:10 Dose: 1 mg Dextrose/Water (Dextrose 50%) 25 gm SLOW IVP PRN PRN PRN Reason: Hypoglycemia Diphenoxylate HCl/Atropine (Lomotil) 1 tab PO QIDPRN PRN PRN Reason: Diarrhea/Loose Stools Fentanyl (Duragesic) 25 mcg TD Q3D [facility] Last Admin: 04/21/18 18:25 Dose: Not Given Furosemide (Lasix) 20 mg PO DAILY [facility] Last Admin: 04/22/18 08:52 Dose: 20 mg Glucagon (Glucagon) 1 mg IM PRN PRN PRN Reason: Hypoglycemia Guaifenesin (Robitussin Sf) 200 mg PO Q4H PRN PRN Reason: Cough Heparin Sodium (Porcine) (Heparin) 5,000 units SC TID [facility] Last Admin: 04/22/18 08:52 Dose: Not Given Hydralazine HCl (Apresoline) 10 mg SLOW IVP Q4H PRN PRN Reason: SBP > 180 and HR < 70 Dextrose/Water (D5w) 1,000 mls @ 0 mls/hr IV .Q0M PRN PRN Reason: Hypoglycemia Sodium Chloride (Normal Saline 0.9%) 1,000 mls @ 75 mls/hr IV .[id number] [facility] Last Admin: 04/22/18 08:50 Dose: 1,000 mls Insulin Glargine 35 units/ (Miscellaneous Medication) 0.35 mls @ 0 mls/hr SC [facility] Insulin Human Lispro (Humalog) 0 units SC .MODERATE SLIDING SC PRN PRN Reason: Moderate [facility] [facility] Last Admin: 04/22/18 05:48 Dose: 10 unit Levothyroxine Sodium (Synthroid) 25 mcg PO 0600 [facility] Last Admin: 04/22/18 05:48 Dose: 25 mcg Loperamide HCl (Imodium) 2 mg PO PRN PRN PRN Reason: Diarrhea/Loose Stools Melatonin (Melatonin) 3 mg PO [facility] Mineral Oil/White Petrolatum (Eucerin Cream) 0 gm TOP BIDPRN PRN PRN Reason: Dry Skin Ondansetron HCl (Zofran Odt) 4 mg PO Q6H PRN PRN Reason: Nausea/Vomiting Ondansetron HCl (Zofran) 4 mg IVP Q6H PRN PRN Reason: Nausea/Vomiting Pantoprazole Sodium (Protonix) 40 mg PO DAILY [facility] Last Admin: 04/22/18 08:52 Dose: 40 mg Polyethylene Glycol (Miralax) 8.5 gm PO ACHS [facility] Last Admin: 04/22/18 08:51 Dose: 8.5 gm Potassium Chloride (Klor-Con 10) 10 meq PO BID-[facility] Last Admin: 04/22/18 08:52 Dose: 10 meq Ropinirole HCl (Requip) 0.5 mg PO TID [facility] Last Admin: 04/22/18 08:52 Dose: 0.5 mg Senna/Docusate Sodium (Senokot S) 2 tab PO BID PRN PRN Reason: Constipation Sodium Chloride ([place] Nasal [place] 0.65%) 0 ml EA NARE QIDPRN PRN PRN Reason: Nasal Congestion Throat Lozenges (Cepastat Lozenges) 1 gemini PO Q2H PRN PRN Reason: Sore Throat Ursodiol (Actigal) 300 mg PO BID [facility] Last Admin: 04/22/18 08:52 Dose: 300 mg Zolpidem Tartrate (Ambien) 5 mg PO HSPRN PRN PRN Reason: Insomnia
[2018-04-22] MEDS: clonazePAM 1 MG TAB PO SCH (20:51)
[2018-04-22] MEDS: Atorvastatin Calcium 10 MG TAB PO SCH (20:51)
[2018-04-22] MEDS: Loperamide HCl 2 MG CAP PO PRN (20:56)
[2018-04-22] MEDS ORDERED: Melatonin 3 MG TAB PO SCH (21:00)
[2018-04-22] MEDS ORDERED: Citalopram 20 MG TAB PO SCH (21:00)
[2018-04-23] MEDS: Levothyroxine Sodium 25 MCG TAB PO SCH (05:25)
[2018-04-23 07:30] LABS: ALT (SGPT) 13 U/L (8-55); AST (SGOT) 16 U/L (5-34); Albumin 2.7 g/dL (3.4-4.8); Alkaline Phosphatase 77 U/L (40-150); Anion Gap 9 mmol/L (10-20); BUN (Urea Nitrogen) 24 mg/dL (9.8-20.1); Bilirubin, Total 0.4 mg/dL (0.2-1.2); CRP (Inflammatory) Less than 0.50 mg/dL (= or < 0.5); Calc. Creatinine Clearance 45 mL/min (70-130); Calcium 8.1 mg/dL (7.8-10.44); Carbon Dioxide 23 mmol/L (23-31); Chloride 113 mmol/L (98-107); Estimated GFR-MDRD 47; Globulin 3.4 g/dL (2.4-3.5); Glucose 69 mg/dL (83-110); Potassium 3.6 mmol/L (3.5-5.1); Protein, Total 6.1 g/dL (6.0-8.3); Sodium 141 mmol/L (136-145)
[2018-04-23 08:11] LABS: #Lymphocytes 0.8 thou/uL (1.20-3.40); #Monocytes 0.2 thou/uL (0.11-0.59); #Neutrophils 2.3 thou/uL (1.40-6.50); %Basophils 0.8 % (0.0-1.0); %Eosinophils 0.7 % (0.0-10.0); %Monocytes 6.3 % (0.0-10.0); %Neutrophils 68.3 % (42.0-75.0); Hemoglobin 10.1 g/dL (12.0-16.0); Mean Corpuscular HGB CONC 32.4 g/dL (32.0-36.0); Mean Corpuscular Hemoglobin 30.9 pg (27.0-31.0); Mean Corpuscular Volume 95.3 fL (78.0-98.0); Mean Platelet Volume 9.1 fL (7.4-10.4); Platelet Count 60 thou/uL (130-400); RBC Distribution Width 13.7 % (11.5-14.5); Red Blood Cell (RBC) Count 3.26 mill/uL (4.20-5.40); White Blood Cell (WBC) Count 3.4 thou/uL (4.8-10.8)
[2018-04-23] MEDS: Ursodiol 300 MG CAP PO SCH (08:31)
[2018-04-23] MEDS: Potassium Chloride 10 MEQ TAB PO SCH (08:32)
[2018-04-23] MEDS: Furosemide 20 MG TAB PO SCH (08:32)
[2018-04-23] MEDS: rOPINIRole HCl 0.5 MG TAB PO SCH (08:32)
[2018-04-23] MEDS: Polyethylene Glycol 3350 17 GM Packet PO SCH (08:33)
[2018-04-23] MEDS: Heparin 5,000 UNITS/ML VIAL SC SCH (08:33)
[2018-04-23] MEDS: Loperamide HCl 2 MG CAP PO PRN (08:38)
[2018-04-23 10:13] VITALS: BP 101/79; TEMP 97.8
--- NOTE | 2018-04-23 10:35 | DIS ---
DATE OF ADMISSION: 04/21/2018 DATE OF DISCHARGE: 04/23/2018 PRIMARY CARE PHYSICIAN: Valente Crenshaw MD DISCHARGE DISPOSITION: Home. PRIMARY DISCHARGE DIAGNOSIS: Diarrhea, likely related with mild exacerbation of Crohn disease. SECONDARY DISCHARGE DIAGNOSES: 1. Chronic thrombocytopenia. 2. Restless legs syndrome. 3. Macrocytosis. 4. Chronic iron deficiency anemia. 5. Crohn disease. 6. Hypothyroidism. 7. Hypertension. 8. History of cerebrovascular accident. 9. Gastroesophageal reflux disease. 10. Diabetes, type 2. 11. Compression fracture of vertebra. 12. Colostomy in place. 13. Chronic stage C diastolic heart failure. 14. Chronic pain disorder. 15. Asymptomatic cholelithiasis. 16. Anxiety and depression. 17. Coronary artery disease. PRIMARY PROCEDURE/OPERATION: None. RADIOLOGICAL INVESTIGATION: None. LABORATORY DATA: Significant labs; WBC 3.4, hemoglobin 10.1, and platelets 60. ESR 17. Sodium 141, potassium 3.6, BUN 24, creatinine 1.15, and calcium 8.1. LFT normal. Urinalysis unremarkable. DISCHARGE MEDICATIONS: Macrobid 100 mg p.o. twice daily for urinary tract infection. The patient will continue all her previous home medication. 1. [place] 10 one tablet q.8 hourly p.r.n. 2. Zofran 4 mg q.8 hourly p.r.n. 3. Aspirin 81 mg daily. 4. Celexa 20 mg p.o. at bedtime. 5. Clonazepam 1 mg p.o. at bedtime. 6. Duragesic 25 mcg every 3 days. 7. Lasix 20 mg p.o. daily. 8. Lantus 35 units subcu at bedtime. 9. Iron 65 one tablet p.o. daily. 10. Synthroid 25 mcg p.o. daily. 11. Melatonin 3 mg p.o. at bedtime. 12. Protonix 40 mg p.o. daily. 13. Potassium chloride 10 mEq p.o. b.i.d. 14. Ropinirole 0.5 mg p.o. t.i.d. 15. Ursodiol 300 mg p.o. b.i.d. 16. Lipitor 10 mg p.o. at bedtime. 17. Macrobid 100 mg p.o. b.i.d. CONTRAINDICATION: None. CODE STATUS: DNR. INPATIENT DIET CONSULTANT: Dr. Stephenson. TEST RESULTS PENDING ON DISCHARGE: None. ALLERGIES: AZATHIOPRINE. DISCHARGE PLAN: Posthospital, the patient will follow up with primary care physician. HOSPITAL COURSE: A 72-year-old female, who was brought to emergency room for diarrhea. Her stool for infection workup was negative. She received vedolizumab (Entyvio) medication in the emergency room. She was treated with IV steroid and her blood sugar got worse. Dr. Stephenson evaluated this patient and he recommended to discontinue steroid. The patient's diarrhea was related with her home medication of MiraLAX. During this admission, her CRP and ESR are completely normal. GI has no more recommendation for her diarrhea. Her stool for infection is negative. We advised her not to take MiraLAX and take Imodium on as-needed basis. The patient is also advised to hold blood pressure medication if her blood pressure remains low. The patient is also advised to keep herself hydrated. Her urinalysis was suspicious for urinary tract infection, but culture is negative. We prescribed Macrobid 100 mg p.o. b.i.d. given her immunocompromised status. The patient is doing very well. Her diarrhea is improving. She wants to go home because of Freddie. PHYSICAL EXAMINATION: The patient is seen and examined at the bedside today. VITAL SIGNS: Currently, temperature 98.1, pulse 65, respiratory rate 19, saturation 94%, and blood pressure 87/45. Weight 140 pounds. GENERAL: The patient is currently alert, awake. No obvious acute distress. HEENT: Head; normocephalic, atraumatic. Eyes; pupils are round and reactive to light. Extraocular muscle intact. ENT; oropharynx within normal limits. Moist mucous membranes. No oral lesion. No pharyngeal erythema. No exudate. NECK: Supple. No JVD. No thyromegaly. No carotid bruit. No jugular venous distention. LUNGS: Clear to auscultation without any rhonchi or rales. CARDIAC: S1 and S2. Regular without any significant murmur. ABDOMEN: Ileostomy in place. EXTREMITIES: No edema. NEUROLOGIC: Nonfocal examination. The patient is overall doing very well and stable for discharge. Job ID: [id number]
--- NOTE | 2018-04-23 22:17 | PRG ---
DATE OF SERVICE: 04/22/2018 SUBJECTIVE: Ms. Shaffer is up, walking in the acevedo. She feels well. She states she has had some loose stools. She has had about 3 bowel movements today so far. She had received Entyvio in the emergency room yesterday, so we did not repeat that when she got to the floor. She has had no blood from her ostomy tube. She has no abdominal pain or fever. PRESENT MEDICATIONS: Tylenol, aspirin, atorvastatin, calcium, Klonopin, Duragesic patch, furosemide, heparin, hydralazine, hydrocodone p.r.n., levothyroxine, loperamide p.r.n., Zofran, MiraLAX p.r.n. for constipation, senna p.r.n., ursodiol 300 mg p.o. b.i.d. PHYSICAL EXAMINATION: VITAL SIGNS: Temperature is 97.8, pulse 86, blood pressure 132/64. ABDOMEN: Soft and nontender. There is no rebound or guarding. Stools without any evidence of blood in her ostomy bag. No blood test today. Microbiology; stool for C. diff, negative. Campylobacter, Shiga toxin, stool culture negative thus far. UA from the emergency room, urine was dirty. Urine cultures, mixed skin anne-marie and enteric anne-marie. ASSESSMENT: 1. She has no UTI symptoms. 2. Crohn disease, poorly managed. Poor compliance to treatment. Just received Entyvio. I think if she continues to improve and electrolytes were fine tomorrow, she can go home on symptomatic care and resume her home medications. Job ID: [id number]
== END 2018-04-23 11:14 | disposition home or self-care (01) | DRG 386 ==
LOC: ERS 10:12 → T4-B 15:39
PROVIDERS: ADMIT Hospitalist; ATTEND Hospitalist
DX: K50.90 Crohn's disease, unspecified, without complications (principal); I50.32 Chronic diastolic (congestive) heart failure; N39.0 Urinary tract infection, site not specified; E11.9 Type 2 diabetes mellitus without complications; I25.10 Atherosclerotic heart disease of native coronary artery without angina pectoris; D69.6 Thrombocytopenia, unspecified; G25.81 Restless legs syndrome; D50.9 Iron deficiency anemia, unspecified; E03.9 Hypothyroidism, unspecified; I11.0 Hypertensive heart disease with heart failure; K21.9 Gastro-esophageal reflux disease without esophagitis; F41.9 Anxiety disorder, unspecified; F32.9 Major depressive disorder, single episode, unspecified; G89.29 Other chronic pain; Z66 Do not resuscitate; Z93.2 Ileostomy status; Z91.14 Patient's other noncompliance with medication regimen; Z86.73 Personal history of transient ischemic attack (TIA), and cerebral infarction without residual deficits; Z87.891 Personal history of nicotine dependence; Z88.2 Allergy status to sulfonamides; Z88.7 Allergy status to serum and vaccine; Z88.8 Allergy status to other drugs, medicaments and biological substances; Z90.49 Acquired absence of other specified parts of digestive tract; Z95.1 Presence of aortocoronary bypass graft; Z79.82 Long term (current) use of aspirin; Z79.4 Long term (current) use of insulin; Z79.899 Other long term (current) drug therapy
CPT/HCPCS: 36415; 36416; 80053; 81003; 81015; 83690; 85025; 85652; 86140; 86850; 86900; 86901; 87045; 87046; 87086; 87324; 87449; 87899; 96360; J1644; J2920; J3380; J7050

== ENCOUNTER 2018-05-05 09:49 | Emergency (ER) | payer MEDICARE, MEDICAID ==
[2018-05-05 10:58] LABS: #Eosinphils 0.1 thou/uL (0.0-0.7); #Lymphocytes 0.5 thou/uL (1.20-3.40); #Monocytes 0.4 thou/uL (0.11-0.59); #Neutrophils 6.4 thou/uL (1.40-6.50); %Basophils 0.1 % (0.0-1.0); %Eosinophils 0.9 % (0.0-10.0); %Lymphocytes 6.2 % (21.0-51.0); %Monocytes 5.6 % (0.0-10.0); %Neutrophils 87.2 % (42.0-75.0); Hemoglobin 12.2 g/dL (12.0-16.0); Mean Corpuscular HGB CONC 32.5 g/dL (32.0-36.0); Mean Corpuscular Hemoglobin 31.3 pg (27.0-31.0); Mean Corpuscular Volume 96.1 fL (78.0-98.0); Mean Platelet Volume 9.2 fL (7.4-10.4); Platelet Count 90 thou/uL (130-400); RBC Distribution Width 13.8 % (11.5-14.5); Red Blood Cell (RBC) Count 3.89 mill/uL (4.20-5.40); White Blood Cell (WBC) Count 7.3 thou/uL (4.8-10.8)
[2018-05-05 11:03] LABS: INR-International Normal Ratio 1.2; Prothrombin Time 15.7 SEC (12.0-14.7)
[2018-05-05 11:21] LABS: ALT (SGPT) 10 U/L (8-55); AST (SGOT) 19 U/L (5-34); Albumin 3.4 g/dL (3.4-4.8); Alkaline Phosphatase 108 U/L (40-150); Anion Gap 14 mmol/L (10-20); BUN (Urea Nitrogen) 19 mg/dL (9.8-20.1); Bilirubin, Total 0.6 mg/dL (0.2-1.2); Calc. Creatinine Clearance 0 mL/min (70-130); Calcium 9.3 mg/dL (7.8-10.44); Carbon Dioxide 23 mmol/L (23-31); Chloride 99 mmol/L (98-107); Estimated GFR-MDRD 30; Globulin 4.4 g/dL (2.4-3.5); Glucose 407 mg/dL (83-110); Lipase 25 U/L (8-78); Potassium 5.1 mmol/L (3.5-5.1); Protein, Total 7.8 g/dL (6.0-8.3); Sodium 131 mmol/L (136-145)
[2018-05-05 11:34] LABS: Bilirubin Negative (Negative); Blood, Urine Negative (Negative); Clarity CLEAR (Clear); Glucose, Urine (Dipstick) >=1000 mg/dL (Negative); Leukocyte Negative (Negative); Nitrite Negative (Negative); Protein, Urine (Dipstick) Trace mg/dL (Neg-Trace); Urobilinogen 0.2 mg/dL (0.2-1.0); pH, Urine 5.5 (5.0-9.0)
[2018-05-05] MEDS ORDERED: Ondansetron PF 4 MG/2 ML Vial ONE (11:54)
--- NOTE | 2018-05-05 12:56 | ULT ---
VENOUS DUPLEX SONOGRAM LEFT LOWER EXTREMITY: Date: 05/05/18 HISTORY: Left leg pain and edema. FINDINGS: The left common femoral vein and greater saphenous junction were evaluated along with the femoral and deep femoral, popliteal, and posterior tibial veins. There is good color and spectral Doppler flow, compression, and augmentation. IMPRESSION: No sonographic evidence of deep venous thrombosis within the left lower extremity. POS: DAVID
== END 2018-05-05 14:47 | disposition home or self-care (01) ==
LOC: ERS 09:49
DX: E86.0 Dehydration (principal); R19.7 Diarrhea, unspecified; N17.9 Acute kidney failure, unspecified; M79.89 Other specified soft tissue disorders; I11.0 Hypertensive heart disease with heart failure; I50.9 Heart failure, unspecified; I25.2 Old myocardial infarction; E11.9 Type 2 diabetes mellitus without complications; E03.9 Hypothyroidism, unspecified; D50.9 Iron deficiency anemia, unspecified; F41.9 Anxiety disorder, unspecified; F32.9 Major depressive disorder, single episode, unspecified; Z87.891 Personal history of nicotine dependence; Z86.73 Personal history of transient ischemic attack (TIA), and cerebral infarction without residual deficits; Z79.899 Other long term (current) drug therapy; Z79.82 Long term (current) use of aspirin; Z79.4 Long term (current) use of insulin
CPT/HCPCS: 36415; 51701; 80053; 81003; 83605; 83690; 85025; 85610; 93005; 96361; 96374; A4353; J2405

== ENCOUNTER 2018-06-21 06:26 | Day surgery (SDC) | payer MEDICARE, MEDICAID ==
[~2018-06-21 06:26] MED LIST changes: +Acetaminophen 500 MG TAB PO PRN; +Acetaminophen 500 MG TAB PO SCH; -ISOVUE-370 76%-LOCM 1 ML ONE; +Sodium Chloride 0.9% 1,000 ML IV SCH; +Vedolizumab 300 MG in Sodium Chloride 0.9% 250 ML 250 ML IVPB SCH
[2018-06-21] MEDS ORDERED: Sodium Chloride 0.9% 20 ML ONE (10:21)
[2018-06-21 11:30] VITALS: BP 117/61; TEMP 98.2
== END 2018-06-21 12:22 | disposition home or self-care (01) ==
LOC: ONC/OP 06:26
PROVIDERS: ATTEND Internal Medicine Gastroenterology
DX: K50.011 Crohn's disease of small intestine with rectal bleeding (principal); Z88.2 Allergy status to sulfonamides; Z88.7 Allergy status to serum and vaccine; Z88.8 Allergy status to other drugs, medicaments and biological substances
CPT/HCPCS: 96413; J3380; J7050

== ENCOUNTER 2018-07-11 14:57 | Emergency (ER) | payer MEDICARE, OTHER ==
--- NOTE | 2018-07-11 16:04 | ULT ---
LEFT LOWER EXTREMITY VENOUS DUPLEX ULTRASOUND INCLUDING COLOR AND SPECTRAL DOPPLER IMAGING: Date: 07/11/18 HISTORY: Left lower extremity pain. TECHNIQUE: Exam performed from groin to ankle including visualized greater saphenous, common femoral, superficia l femoral, profunda femoral, popliteal, trifurcation, and posterior tibial vein regions. FINDINGS: There is phasic flow at all levels with normal compressibility and normal augmentation. No intralumin al thrombus. IMPRESSION: No evidence for deep venous thrombosis. POS: [facility]
== END 2018-07-11 16:23 | disposition home or self-care (01) ==
LOC: ERS 14:57
DX: L03.116 Cellulitis of left lower limb (principal); E03.9 Hypothyroidism, unspecified; E11.9 Type 2 diabetes mellitus without complications; Z86.73 Personal history of transient ischemic attack (TIA), and cerebral infarction without residual deficits; I50.9 Heart failure, unspecified; Z87.891 Personal history of nicotine dependence; Z79.82 Long term (current) use of aspirin; Z79.4 Long term (current) use of insulin

== ENCOUNTER 2018-08-23 09:35 | Day surgery (SDC) | payer MEDICARE, MEDICAID ==
[2018-08-23] MEDS ORDERED: Sodium Chloride 0.9% 20 ML ONE (09:36)
[2018-08-23 10:07] VITALS: BP 132/60; TEMP 98
== END 2018-08-23 11:04 | disposition home or self-care (01) ==
LOC: ONC/OP 09:35
PROVIDERS: ATTEND Internal Medicine Gastroenterology
DX: K50.011 Crohn's disease of small intestine with rectal bleeding (principal); Z88.2 Allergy status to sulfonamides; Z88.7 Allergy status to serum and vaccine
CPT/HCPCS: 96413; J3380; J7050

== ENCOUNTER 2018-09-18 10:47 | Outpatient (CLI) | payer MEDICARE, MEDICAID ==
--- NOTE | 2018-09-18 13:23 | CT ---
CT lumbar spine without contrast: HISTORY: Spinal stenosis. Left leg pain. COMPARISON: 09/10/2017 FINDINGS: Vascular calcifications are seen in the abdominal aorta and involving the iliac arteries. Postsurgica l changes of loops of bowel are seen. There is irregular soft tissue density seen in the presacral location with associated calcification with absence of the rectum in this region. Findings are likely related to scarring and stable from prior exam. There are radiopaque densities seen within the duodenum likely due to ingested material (medication). Gallbladder calculi are again seen. Severe burst fracture L1 vertebral body is again seen with stable degree of retropulsion of fracture fragments into the central spinal canal. Degree of height loss is stable from prior study. There are vertebroplasty changes now seen involving the L3 and L4 vertebral bodies with stable vertebroplas ty changes involving the L5 vertebral body. There is slight exaggerated kyphosis of the thoracolumbar spine centered at the level of the L1 vertebral body fracture. No new fracture is seen, and there is no evidence of a subluxation. T12-L1 level: There is [id number] narrowing of the central spinal canal secondary to the retrop ulsion of fracture fragments into the central spinal canal. Vacuum phenomenon is seen in the intervertebral disc. There is a mild disc bulge. Neural foramina are patent at this level. L1-2: There is a disc osteophyte complex resulting slight effacement of the thecal sac. There is mild left and moderate right-sided neural foraminal narrowing. L2-3: Vacuum phenomenon is seen in the intervertebral disc. There is a broad-based disc osteophyte co mplex resulting in slight effacement of the ventral aspect of the thecal sac. Neural foramina are patent. L3-4: There is loss of intervertebral disc height. There is minimal disc osteophyte complex slightly effacing the thecal sac. Neural foramina are patent. L4-5: Vacuum phenomenon is present in the intervertebral disc, and there is loss of intervertebral di sc height. There is a broad-based disc osteophyte complex with mild facet hypertrophic changes as well as ligamentous thickening. There is generalized mild to moderate narrowing of the central spinal canal with mild bilateral neural foraminal narrowing. L5-S1: There is loss of intervertebral disc height. Vacuum phenomenon is seen in the intervertebral d isc. Disc osteophyte complex is present with mild facet hypertrophic changes and ligamentous thickening. There is only minimal narrowing of the central spinal canal. There is moderate bilateral neural foraminal narrowing greater on the left. IMPRESSION: 1. Stable severe burst fracture L1 vertebral body with degree of retropulsion of fracture fragments s table from the prior study again resulting in narrowing of the central spinal canal. No new fracture or subluxation is seen involving the lumbar spine. Exaggerated kyphosis centered at the L1 v ertebral body is noted. 2. Vertebroplasty changes involving the L3, L4, and L5 vertebral bodies. 3. Stable degenerative changes seen throughout the lumbar spine with disc degenerative changes at all levels and vacuum phenomenon now present within the intervertebral discs at all levels of the lumbar spine.
== END 2018-09-18 10:48 | disposition home or self-care (01) ==
LOC: CT 10:47
PROVIDERS: ATTEND Specialist
DX: M48.062 Spinal stenosis, lumbar region with neurogenic claudication (principal); S32.011D Stable burst fracture of first lumbar vertebra, subsequent encounter for fracture with routine healing; M51.36 Other intervertebral disc degeneration, lumbar region; M47.816 Spondylosis without myelopathy or radiculopathy, lumbar region
CPT/HCPCS: 72131

== ENCOUNTER 2018-12-05 09:39 | Day surgery (SDC) | payer MEDICARE, MEDICAID ==
[2018-12-05 09:45] VITALS: BP 126/59; TEMP 98.2
== END 2018-12-05 11:28 | disposition home or self-care (01) ==
LOC: ONC/OP 09:39
PROVIDERS: ATTEND Internal Medicine Gastroenterology
DX: K50.011 Crohn's disease of small intestine with rectal bleeding (principal); Z88.2 Allergy status to sulfonamides; Z88.7 Allergy status to serum and vaccine; Z88.8 Allergy status to other drugs, medicaments and biological substances
CPT/HCPCS: 96413; J3380; J7050

== ENCOUNTER 2019-01-03 11:20 | Outpatient (CLI) | payer MEDICARE, MEDICAID ==
--- NOTE | 2019-01-03 12:02 | ULT ---
EXAM: Left lower extremity venous Doppler US HISTORY: left lower extremity edema and pain FINDINGS: Grayscale, color-flow, Doppler evaluation, spectral analysis of the left lower extremity venous struc tures is performed with 2-D imaging. The left common femoral, superficial femoral, popliteal, posterior tibial, proximal greater saphenous and profunda femoral veins are imaged. There is normal luminal compressibility, flow, and augmentation the visualized deep venous structures of the left lower extremity. IMPRESSION: No evidence of a deep vein thrombosis in the left lower extremity.
--- NOTE | 2019-01-03 12:11 | CT ---
EXAM: CT left hip PROVIDED CLINICAL HISTORY: Pain COMPARISON: None FINDINGS: Postoperative changes of cannulated, partially threaded lag screw transfixing healed left femoral nec k fracture. No evidence for hardware loosening or migration. There is osteonecrosis involving the anterosuperior left femoral head with associated subchondral collapse. Osteophyte formation is seen a bout the hip. The left hip joint space appears mildly narrowed posterosuperiorly. Alignment appears anatomic. Vascular calcifications are seen. No inguinal lymph node enlargement appa rent. No concerning lytic or blastic lesions are seen. IMPRESSION: Postoperative changes involving the left hip without evidence for hardware loosening or migration. Se quela of prior osteonecrosis of the left femoral head and associated subchondral collapse. Mild degenerative change.
== END 2019-01-03 11:21 | disposition home or self-care (01) ==
LOC: CT 11:20
PROVIDERS: ATTEND Specialist
DX: M80.052A Age-related osteoporosis with current pathological fracture, left femur, initial encounter for fracture (principal); R60.0 Localized edema; M16.12 Unilateral primary osteoarthritis, left hip; Z98.890 Other specified postprocedural states

== ENCOUNTER 2019-01-21 07:05 | Inpatient (IN) | payer MEDICARE, MEDICAID ==
[2019-01-20 10:27] VITALS: BMI 26.4
--- NOTE | 2019-01-21 09:32 | NM ---
NM Lymphoscintigraphy History: Breast cancer Comparison: Mammogram 2019 Findings: Patient was brought to lymphoscintigraphy suite. All questions were answered. Informed cons ent was obtained. The patient's right breast was prepped and draped in normal sterile fashion. A total of 4 aliquots of 0.42 mCi technetium 99m filtered sulfur colloid instilled in the right periareolar soft tissues. There is uptake in the right axilla. Impression: Right axillary uptake of radiotracer.
[2019-01-21] MEDS ORDERED: Ketorolac Tromethamine 30 MG/ML VIAL ONE (10:30)
[2019-01-21 10:51] LABS: #Eosinphils 0.1 thou/uL (0.0-0.7); #Lymphocytes 0.5 thou/uL (1.20-3.40); #Monocytes 0.2 thou/uL (0.11-0.59); #Neutrophils 3.6 thou/uL (1.40-6.50); %Basophils 0.5 % (0.0-1.0); %Eosinophils 1.4 % (0.0-10.0); %Lymphocytes 10.5 % (21.0-51.0); %Monocytes 4.2 % (0.0-10.0); %Neutrophils 83.4 % (42.0-75.0); Hemoglobin 11.3 g/dL (12.0-16.0); Mean Corpuscular Hemoglobin 31.6 pg (27.0-31.0); Mean Corpuscular Volume 95.8 fL (78.0-98.0); Mean Platelet Volume 10.1 fL (7.4-10.4); Platelet Count 70 thou/uL (130-400); RBC Distribution Width 12.6 % (11.5-14.5); Red Blood Cell (RBC) Count 3.57 mill/uL (4.20-5.40); White Blood Cell (WBC) Count 4.3 thou/uL (4.8-10.8)
[2019-01-21 11:09] LABS: Anion Gap 12 mmol/L (10-20); BUN (Urea Nitrogen) 28 mg/dL (9.8-20.1); Calc. Creatinine Clearance 38 mL/min (70-130); Calcium 9.1 mg/dL (7.8-10.44); Carbon Dioxide 27 mmol/L (23-31); Chloride 102 mmol/L (98-107); Estimated GFR-MDRD 39; Glucose 231 mg/dL (83-110); Sodium 137 mmol/L (136-145)
[2019-01-21] MEDS ORDERED: Bupivacaine/Epinephrine 0.25% 30 ML VIAL ONE (11:47)
[2019-01-21] MEDS ORDERED: Lidocaine 2% Jelly 5 ML TUBE ONE (11:56)
[2019-01-21] MEDS ORDERED: Fentanyl 100 MCG/2 ML VIAL ONE ×3 (11:56→15:33)
[2019-01-21] MEDS ORDERED: Isosulfan Blue 50 MG/5 ML VIAL ONE (12:19)
[2019-01-21] MEDS ORDERED: Bacitracin Zinc Ointment 30 gm TUBE ONE (13:57)
[2019-01-21] MEDS ORDERED: Ondansetron HCl/PF 4 MG/2 ML Vial IVP PRN (14:16)
[2019-01-21] MEDS ORDERED: Ondansetron PF 4 MG/2 ML Vial IVP PRN (14:35)
[2019-01-21] MEDS ORDERED: hydrALAZINE 20 MG/ML VIAL SLOW IVP PRN (14:35)
[2019-01-21] MEDS ORDERED: Dextrose 5% in Water 1,000 ML IV PRN (14:35)
[2019-01-21] MEDS ORDERED: Promethazine HCl 25 MG/ML VIAL IM PRN (14:35)
[2019-01-21] MEDS ORDERED: Dextrose 50% Abboject 50 ML SYRINGE SLOW IVP PRN (14:35)
[2019-01-21] MEDS ORDERED: HYDROcodone/Acetaminophen 7.5/325 mg Tablet PO PRN (14:35)
[2019-01-21] MEDS ORDERED: HumaLOG 300 UNITS/3 ML VIAL SC PRN (14:35)
[2019-01-21] MEDS ORDERED: Morphine 2 MG/ML SYRINGE SLOW IVP PRN (14:35)
[2019-01-21] MEDS ORDERED: Acetaminophen 325 MG TAB PO PRN (14:35)
[2019-01-21] MEDS: Sodium Chloride 0.9% 1,000 ML IV SCH (16:00)
[2019-01-21] MEDS: Insulin Regular 300 UNITS/3 ML VIAL SC PRN ×2 (18:47→21:22)
[2019-01-21] MEDS: HYDROcodone/Acetaminophen 7.5/325 mg Tablet PO PRN ×2 (19:30→20:04)
[2019-01-21] MEDS ORDERED: Atorvastatin Calcium 10 MG TAB PO SCH (21:00)
[2019-01-21] MEDS ORDERED: Famotidine 20 MG TAB PO SCH (21:00)
[2019-01-21] MEDS ORDERED: Ondansetron PF 4 MG/2 ML Vial ONE (21:19)
[2019-01-21] MEDS ORDERED: Lidocaine 1% PF 5 ML VIAL ONE (21:19)
[2019-01-21] MEDS ORDERED: Rocuronium Bromide 10 MG/ML (10ML VIAL) ONE (21:19)
[2019-01-21] MEDS ORDERED: PROPOFOL 200 MG/20 ML VIAL ONE (21:19)
[2019-01-21] MEDS ORDERED: Glycopyrrolate 0.2 MG/ML 5 ML SYRINGE ONE (21:19)
[2019-01-21] MEDS: Ursodiol 300 MG CAP PO SCH (21:19)
[2019-01-21] MEDS ORDERED: Metoprolol Tartrate 5 MG/5 ML VIAL ONE (21:19)
[2019-01-22] MEDS: Sodium Chloride 0.9% 1,000 ML IV SCH (04:35)
[2019-01-22] MEDS ORDERED: Levothyroxine Sodium 25 MCG TAB PO SCH (06:00)
[2019-01-22 06:08] LABS: #Eosinphils 0.1 thou/uL (0.0-0.7); #Lymphocytes 0.6 thou/uL (1.20-3.40); #Monocytes 0.3 thou/uL (0.11-0.59); #Neutrophils 4.5 thou/uL (1.40-6.50); %Basophils 0.8 % (0.0-1.0); %Eosinophils 1.9 % (0.0-10.0); %Lymphocytes 10.2 % (21.0-51.0); %Monocytes 4.6 % (0.0-10.0); %Neutrophils 82.4 % (42.0-75.0); Hemoglobin 10.5 g/dL (12.0-16.0); Mean Corpuscular Hemoglobin 31.8 pg (27.0-31.0); Mean Corpuscular Volume 99.4 fL (78.0-98.0); Mean Platelet Volume 9.8 fL (7.4-10.4); Platelet Count 69 thou/uL (130-400); RBC Distribution Width 12.9 % (11.5-14.5); Red Blood Cell (RBC) Count 3.29 mill/uL (4.20-5.40); White Blood Cell (WBC) Count 5.5 thou/uL (4.8-10.8)
[2019-01-22 06:55] LABS: Anion Gap 11 mmol/L (10-20); BUN (Urea Nitrogen) 28 mg/dL (9.8-20.1); Calc. Creatinine Clearance 40 mL/min (70-130); Calcium 8.1 mg/dL (7.8-10.44); Carbon Dioxide 25 mmol/L (23-31); Chloride 105 mmol/L (98-107); Estimated GFR-MDRD 41; Glucose 133 mg/dL (83-110); Potassium 3.8 mmol/L (3.5-5.1); Sodium 137 mmol/L (136-145)
[2019-01-22] MEDS ORDERED: Furosemide 40 MG TAB PO SCH (09:00)
[2019-01-22] MEDS ORDERED: Potassium Chloride 10 MEQ TAB PO SCH (09:00)
[2019-01-22] MEDS ORDERED: INSULIN DETEMIR 50 UNIT SC SCH (09:00)
[2019-01-22] MEDS ORDERED: Aspirin Chewable 81 MG TAB PO SCH (09:00)
[2019-01-22] MEDS ORDERED: PRAMIPEXOLE DI HCL 0.75 MG PO SCH (09:00)
[2019-01-22] MEDS ORDERED: Ferrous Sulfate 325 MG TAB PO SCH (09:00)
[2019-01-22] MEDS ORDERED: Insulin Glargine 50 UNITS in Pre-Filled Syringe SC SCH (09:00)
[2019-01-22] MEDS: Ursodiol 300 MG CAP PO SCH (09:36)
[2019-01-22] MEDS: Insulin Regular 300 UNITS/3 ML VIAL SC PRN (11:55)
[2019-01-22] MEDS: HYDROcodone/Acetaminophen 7.5/325 mg Tablet PO PRN (16:03)
[2019-01-22 16:16] VITALS: BP 125/80; TEMP 99
[2019-01-22] MEDS ORDERED: Famotidine 20 MG TAB PO SCH (21:00)
--- NOTE | 2019-01-23 14:37 | OP ---
DATE OF PROCEDURE: 01/21/2019 PREOPERATIVE DIAGNOSIS: Right breast cancer. POSTOPERATIVE DIAGNOSIS: Right breast cancer. PROCEDURE PERFORMED: Right mastectomy with right axillary sentinel lymph node biopsy. ANESTHESIA: General endotracheal. INDICATIONS: The patient is a 73-year-old chronically ill white female. She has recently been diagnosed with lobular cancer of the central portion of the right breast. After discussing options, the patient has decided to proceed with a mastectomy and sentinel lymph node biopsy. Preoperative lymphoscintigraphy has documented sentinel lymph nodes within the right axilla. DESCRIPTION OF OPERATION: Informed consent was obtained. The patient was taken to the operating room, where general endotracheal anesthesia was obtained with the patient in supine position. Right breast and axilla were prepped with ChloraPrep and draped in sterile fashion. An elliptical incision was created across the right chest wall using plasma blade cautery device. Attention was turned first to the lateral aspect. Before beginning the surgery, it infiltrated 3 mL of isosulfan blue into the right periareolar subdermal tissue. Utilizing the Neoprobe and searching for blue dye, I was able to identify 2 separate sentinel lymph nodes within the right axilla. These were each dissected circumferentially and removed from the axilla and passed off the field for touch prep. All investing lymphatics were divided between clamps and 3-0 silk ties. The touch prep on both of these lymph nodes was negative. The remainder of the mastectomy in addition was then completed through the skin and subcutaneous tissue, and flaps were raised superiorly, inferiorly, and medially. The breast was swept in a medial to lateral fashion off the chest wall. At the level of the axilla, the breast tissue and the axillary tail of the breast were from the axillary tissue. Using continued plasma blade cautery, the specimen was tagged for orientation and passed off the field. The wound was copiously irrigated with sterile water. Meticulous hemostasis was obtained. A #19 round fluted drain was brought out laterally and inferiorly and secured to the skin with 3-0 nylon suture. The wound was carefully closed in layers using 3-0 Vicryl and skin chaim. A Xeroform gauze with fluffed gauze dressing was applied and held in place with the Zonia wrap. There were no complications. Blood loss was minimal. The patient tolerated the procedure well and was taken to recovery room in stable condition. Job ID: [id number]
--- NOTE | 2019-01-26 16:56 | EKG ---
Test Reason : PREOP Blood Pressure : / mmHG Vent. Rate : 077 BPM Atrial Rate : 077 BPM P-R Int : 164 ms QRS Dur : 102 ms QT Int : 414 ms P-R-T Axes : 043 -13 044 degrees QTc Int : 468 ms Normal sinus rhythm Normal ECG When compared with ECG of 05-MAY-2018 11:01, T wave amplitude has increased in Anterior leads Confirmed by MAMADOU PARRA (2) on 01/26/2019 4:56:13 PM Referred By: QUITA Confirmed By:MAMADOU PARRA
== END 2019-01-22 16:24 | disposition home or self-care (01) | DRG 581 ==
LOC: SDC 07:05 → 3SE 14:35
PROVIDERS: ADMIT Specialist; ATTEND Specialist
PROC: 0HBT0ZZ Excision of Right Breast, Open Approach (ICD-10-PCS; principal; 2019-01-21)
PROC: 07B50ZX Excision of Right Axillary Lymphatic, Open Approach, Diagnostic (ICD-10-PCS; 2019-01-21)
DX: C50.911 Malignant neoplasm of unspecified site of right female breast (principal); E11.9 Type 2 diabetes mellitus without complications; I10 Essential (primary) hypertension; I25.10 Atherosclerotic heart disease of native coronary artery without angina pectoris; Z95.1 Presence of aortocoronary bypass graft; Z93.2 Ileostomy status; Z88.7 Allergy status to serum and vaccine; Z88.2 Allergy status to sulfonamides; Z79.82 Long term (current) use of aspirin; Z79.899 Other long term (current) drug therapy; Z88.8 Allergy status to other drugs, medicaments and biological substances; Z86.73 Personal history of transient ischemic attack (TIA), and cerebral infarction without residual deficits
CPT/HCPCS: 36415; 36416; 78195; 80048; 85025; 88305; 88307; 88309; 88331; 88332; 88334; 88341; 88342; 93005; 93010; A9541; J0131; J0690; J1815; J1885; J2001; J2405; J2704; J3010; Q9968

== ENCOUNTER → 2019-01-30 | Day surgery (SDC) | payer MEDICARE, MEDICAID ==
[~2019-01-30] MED LIST changes: +Sodium Chloride 0.9% 20 ML ONE
[2019-01-30 13:30] VITALS: BP 130/62; TEMP 97.8
== END ==
LOC: ONC/OP 10:47
PROVIDERS: ATTEND Internal Medicine Gastroenterology
DX: K50.011 Crohn's disease of small intestine with rectal bleeding (principal); Z88.1 Allergy status to other antibiotic agents; Z88.2 Allergy status to sulfonamides; Z88.7 Allergy status to serum and vaccine; Z88.8 Allergy status to other drugs, medicaments and biological substances
CPT/HCPCS: 96413; J3380; J7050

== ENCOUNTER 2019-04-10 09:34 | Day surgery (SDC) | payer MEDICARE, MEDICAID ==
[~2019-04-10 09:34] MED LIST changes: -Sodium Chloride 0.9% 20 ML ONE
[2019-04-10] MEDS ORDERED: Sodium Chloride 0.9% 20 ML ONE (10:09)
== END 2019-04-10 15:50 | disposition home or self-care (01) ==
LOC: ONC/OP 09:34
PROVIDERS: ATTEND Internal Medicine Gastroenterology
DX: K50.011 Crohn's disease of small intestine with rectal bleeding (principal); Z88.2 Allergy status to sulfonamides; Z88.7 Allergy status to serum and vaccine; Z88.8 Allergy status to other drugs, medicaments and biological substances
CPT/HCPCS: 96413; J3380; J7050

== ENCOUNTER 2019-04-18 14:34 | Inpatient (IN) | payer MEDICARE, MEDICAID ==
[2019-04-18] MEDS ORDERED: Ondansetron PF 4 MG/2 ML Vial IVP PRN (18:52)
[2019-04-18] MEDS ORDERED: Morphine 2 MG/ML SYRINGE SLOW IVP PRN (18:52)
[2019-04-18] MEDS ORDERED: Dextrose 5% in Water 1,000 ML IV PRN (18:52)
[2019-04-18] MEDS ORDERED: Dextrose 50% Abboject 50 ML SYRINGE SLOW IVP PRN (18:52)
[2019-04-18] MEDS ORDERED: Acetaminophen 325 MG TAB PO PRN (18:55)
[2019-04-18] MEDS ORDERED: traMADol HCl 50 MG TAB PO PRN ×2 (18:55)
[2019-04-18] MEDS ORDERED: HYDROcodone/Acetaminophen 10/325 mg Tablet ONE (19:11)
[2019-04-18] MEDS ORDERED: Acetaminophen 500 MG TAB ONE (19:14)
[2019-04-18] MEDS ORDERED: HYDROcodone/Acetaminophen 10/325 mg Tablet PO PRN (20:28)
[2019-04-18] MEDS ORDERED: Dicyclomine 20 MG TAB PO PRN (20:55)
[2019-04-18] MEDS ORDERED: Ondansetron ODT 4 MG TAB PO PRN (20:55)
[2019-04-18] MEDS ORDERED: Vancomycin HCl 1.25 GM in Sodium Chloride 0.9% 250 ML 250 ML IVPB SCH (21:00)
[2019-04-18] MEDS: Sodium Chloride 0.9% 1,000 ML IV SCH (21:55)
[2019-04-18] MEDS: Ursodiol 300 MG CAP PO SCH (21:56)
[2019-04-18] MEDS: Pramipexole Di-HCl 1 MG TAB PO SCH (21:57)
[2019-04-18] MEDS: Atorvastatin Calcium 10 MG TAB PO SCH (21:57)
[2019-04-18 22:42] VITALS: BMI 32.6
[2019-04-18] MEDS: Piperacillin/Tazobactam 2.25 GM in Sodium Chloride 0.9% 100 ML IVPB SCH (23:44)
--- NOTE | 2019-04-19 00:39 | PRG ---
DATE OF SERVICE: 04/18/2019 SUBJECTIVE: The patient was seen this evening, sitting up in bed with no signs of acute distress. She is tolerating her regular diet. She reports pain is well controlled. She will be n.p.o. at midnight. At the time of my evaluation, she reported she needed to void and nursing assisted her to the restroom. OBJECTIVE: VITAL SIGNS: Temperature 98.2, pulse 76, respirations 16, oxygen saturation 94% on room air, blood pressure 126/49. GENERAL: Well-appearing elderly female, sitting up in bed eating with no signs of acute distress pulmonary equal chest rise and fall. No signs of acute respiratory distress. ASSESSMENT: 1. Abdominal fluid collection, intraabdominal abscess versus hernia. 2. History of Crohn's, chronic kidney disease, coronary artery bypass graft, diabetes, coronary artery disease, and cerebrovascular accident. PLAN: The patient will be n.p.o. at midnight. In the meantime, she will continue her diabetic diet. We will repeat blood work in the morning. Continue IV Zosyn as well as normal saline at 75 an hour. Continue home medications. Job ID: [id number]
[2019-04-19] MEDS: Piperacillin/Tazobactam 2.25 GM in Sodium Chloride 0.9% 100 ML IVPB SCH ×2 (04:17→13:58)
[2019-04-19 05:27] LABS: INR-International Normal Ratio 1.3; Prothrombin Time 16.2 SEC (12.0-14.7)
[2019-04-19 05:28] LABS: PTT 36.1 SEC (22.9-36.1)
[2019-04-19 05:41] LABS: Anion Gap 11 mmol/L (10-20); BUN (Urea Nitrogen) 25 mg/dL (9.8-20.1); CRP (Inflammatory) 3.13 mg/dL (= or < 0.5); Calc. Creatinine Clearance 42 mL/min (70-130); Calcium 8.1 mg/dL (7.8-10.44); Carbon Dioxide 26 mmol/L (23-31); Chloride 106 mmol/L (98-107); Estimated GFR-MDRD 36; Glucose 289 mg/dL (83-110); Magnesium 1.7 mg/dL (1.6-2.6); Potassium 4.2 mmol/L (3.5-5.1); Sodium 139 mmol/L (136-145)
[2019-04-19 06:38] LABS: Band 2 % (5-11); Eosinophils 3 % (0-10); Hemoglobin 9.6 g/dL (12.0-16.0); Lymphocytes 10 % (21-51); MDiff Complete? YES; Mean Corpuscular HGB CONC 33.4 g/dL (32.0-36.0); Mean Corpuscular Hemoglobin 32.5 pg (27.0-31.0); Mean Corpuscular Volume 97.2 fL (78.0-98.0); Mean Platelet Volume 9.1 fL (7.4-10.4); Monocytes 5 % (0-10); Neutrophil 80 % (42-75); Platelet Count 83 thou/uL (130-400); Platelet Morphology Comment Appears Decreased; RBC Distribution Width 12.8 % (11.5-14.5); Red Blood Cell (RBC) Count 2.96 mill/uL (4.20-5.40); White Blood Cell (WBC) Count 3.8 thou/uL (4.8-10.8)
[2019-04-19] MEDS: Levothyroxine Sodium 25 MCG TAB PO SCH (07:35)
[2019-04-19] MEDS ORDERED: PROPOFOL 200 MG/20 ML VIAL ONE (09:24)
[2019-04-19] MEDS ORDERED: Lidocaine 1% PF 5 ML VIAL ONE (09:24)
[2019-04-19] MEDS: Sodium Chloride 0.9% 1,000 ML IV SCH ×2 (10:47→22:01)
[2019-04-19] MEDS: Pramipexole Di-HCl 1 MG TAB PO SCH ×2 (10:48→21:04)
[2019-04-19] MEDS: Ursodiol 300 MG CAP PO SCH ×2 (10:48→21:05)
[2019-04-19] MEDS: Ferrous Sulfate 325 MG TAB PO SCH (10:48)
[2019-04-19] MEDS ORDERED: Fentanyl 100 MCG/2 ML VIAL ONE ×2 (11:54→13:25)
[2019-04-19] MEDS ORDERED: Meperidine HCl/PF 25 MG/ML VIAL SLOW IVP PRN (12:50)
[2019-04-19] MEDS ORDERED: Morphine Sulfate 2 MG/ML SYRINGE SLOW IVP PRN (12:50)
[2019-04-19] MEDS ORDERED: Ondansetron HCl/PF 4 MG/2 ML Vial IVP PRN (12:50)
[2019-04-19] MEDS ORDERED: PACU-Morphine 4MG/ML VIAL SLOW IVP PRN (12:50)
[2019-04-19] MEDS ORDERED: HYDROmorphone 2 MG/ML VIAL SLOW IVP PRN (12:50)
--- NOTE | 2019-04-19 13:33 | OP ---
DATE OF PROCEDURE: 04/19/2019 PREOPERATIVE DIAGNOSIS: Right lower quadrant abdominal wall abscess. POSTOPERATIVE DIAGNOSIS: Right lower quadrant abdominal wall abscess. PROCEDURE PERFORMED: Incision and drainage of right lower quadrant abdominal wall abscess. ANESTHESIA: General. ESTIMATED BLOOD LOSS: 10 mL. FLUIDS GIVEN: 150 mL of crystalloids. COUNTS: Sponge and instrument counts were verified as correct x2. COMPLICATIONS: None apparent at the time of operation. INDICATIONS FOR OPERATION: Adeola Shaffer is a 73-year-old woman, no previous history of Crohn disease, multiple abdominal operations, and recurrent right lower quadrant abdominal wall abscesses. She presented this time with recurrent flocculent, tender right lower quadrant abdominal wall induration. Clinical radiographic examination was consistent with acute recurrent abdominal wall abscess, for which the patient was brought to the operating room today for incision and drainage. Findings are consistent with an old abscess cavity with old blood and pus. DESCRIPTION OF PROCEDURE: Informed consent was obtained from the patient. The patient was brought to the operating room and placed in supine position. Abdomen was sterilely prepped and draped in usual fashion. The previous colostomy was draped off the operative field. Punctate area in the dome of the flocculence was noted. Using a 15 scalpel, incision was carefully made over this, allowing us access into the cavity. We evacuated old blood clots and purulent pus. The wound cavity was then copiously irrigated, clear with saline. A half-inch Oran drain was then inserted into the wound cavity and secured to the anterior abdominal wall using 3-0 nylon suture. Sterile dressings were applied. The patient tolerated the procedure without any apparent complication and was returned to recovery room in satisfactory condition. Job ID: [id number]
[2019-04-19] MEDS ORDERED: HYDROcodone/Acetaminophen 10/325 mg Tablet PO PRN ×3 (20:37→21:27)
[2019-04-19] MEDS ORDERED: Acetaminophen 325 MG TAB PO SCH (20:45)
[2019-04-19] MEDS: Atorvastatin Calcium 10 MG TAB PO SCH (21:03)
[2019-04-19] MEDS: Doxycycline 100 MG CAP PO SCH (21:06)
[2019-04-19] MEDS ORDERED: Acetaminophen 325 MG TAB PO PRN (21:27)
[2019-04-19] MEDS: Acetaminophen 325 MG TAB PO PRN (21:55)
[2019-04-19] MEDS: HYDROcodone/Acetaminophen 10/325 mg Tablet PO PRN (21:56)
--- NOTE | 2019-04-19 22:11 | PRG ---
DATE OF SERVICE: 04/19/2019 SUBJECTIVE: The patient was seen this evening, sitting up in bed with no signs of acute distress. She reported her pain was well controlled and she was tolerating her clear liquid diet. She is postoperative day zero after I and D of the right lower quadrant abdominal wall abscess. She reported she wants to take her pain medications as she does at home, which is actually less than what she is getting now. OBJECTIVE: VITAL SIGNS: Temperature 98.4, pulse 72, respirations 16, oxygen saturation 92% on room air, and blood pressure 130/68. GENERAL: Well-appearing elderly female, sitting up in bed with no signs of acute distress. PULMONARY: Equal chest rise and fall. No signs of acute respiratory distress. ASSESSMENT: 1. Status post I and D of the right lower quadrant abdominal wall abscess, now postop day zero. 2. Left lower extremity cellulitis, chronic. 3. History of colectomy with colostomy, Crohn's, chronic kidney disease, coronary artery bypass grafting, diabetes, cerebrovascular accident, and coronary artery disease. PLAN: Continue current clear liquid diet and normal saline at 75 an hour. We will deescalate her pain regimen back to her home regimen. Continue current antibiotics. Continue physical and occupational therapy. Job ID: [id number]
[2019-04-19] MEDS ORDERED: Vancomycin HCl 750 MG in Sodium Chloride 0.9% 250 ML 250 ML IVPB SCH (23:00)
[2019-04-20] MEDS: Levothyroxine Sodium 25 MCG TAB PO SCH (05:27)
[2019-04-20] MEDS: Sodium Chloride 0.9% 1,000 ML IV SCH (08:47)
[2019-04-20] MEDS: Pramipexole Di-HCl 1 MG TAB PO SCH ×2 (08:48→21:27)
[2019-04-20] MEDS: Doxycycline 100 MG CAP PO SCH ×2 (08:49→21:26)
[2019-04-20] MEDS: Ferrous Sulfate 325 MG TAB PO SCH (08:49)
[2019-04-20] MEDS: Ursodiol 300 MG CAP PO SCH ×2 (08:49→21:27)
[2019-04-20] MEDS: HYDROcodone/Acetaminophen 10/325 mg Tablet PO PRN ×2 (13:12→21:27)
[2019-04-20] MEDS: Acetaminophen 325 MG TAB PO PRN ×2 (13:12→21:26)
[2019-04-20] MEDS: Atorvastatin Calcium 10 MG TAB PO SCH (21:26)
--- NOTE | 2019-04-20 21:50 | DIS ---
DATE OF ADMISSION: 04/18/2019 DATE OF DISCHARGE: 04/20/2019 ADMITTING PHYSICIAN: Shyam Pemberton DO DISCHARGING PHYSICIAN: Shyam Pemberton DO ADMITTING DIAGNOSIS: Right lower quadrant abdominal wall abscess. DISCHARGE DIAGNOSIS: Right lower quadrant abdominal wall abscess. OPERATIONS AND PROCEDURES: Incision and drainage of right lower quadrant abdominal wall abscess on 04/19/2019. HISTORY AND HOSPITAL COURSE: A 73-year-old woman with history of chronic Crohn disease with multiple abdominal operations. The patient also has had 2 previous right lower quadrant abdominal wall abscesses in 2013 and 2016. She presented on 04/18/2019, with recurrent abscess of the same location. Clinical radiographic examination was consistent with recurrent right lower quadrant abdominal wall fluid collections suspicious for abscess. Additionally, clinical examination showed erythema of the overlying skin. The patient underwent incision and drainage of the said abscess on 04/19/2019, finding old blood clots with minor purulent exudates. The abscess cavity was washed out and a Manuel drain was placed. The patient has done well, otherwise has remained hemodynamically stable and afebrile. Examination of the wound this morning reveals no surrounding redness or induration. There is serosanguineous drainage from the [place]. The patient is adequately pain controlled. She is tolerating general diet. Ileostomy has good output. DISCHARGE INSTRUCTIONS: The patient will be discharged home today with the following instructions: 1. She follows up with Dr. Dennis, her primary surgeon in 1 week, at which time, Dr. Dennsi will give consideration to removing the [place] drain. 2. Given the previous wound infection was positive for MRSA which was sensitive to doxycycline, the patient is being discharged home today with doxycycline 100 mg to be taken one p.o. b.i.d. for 7 days. 3. She may resume all the pre-hospitalization medications as prescribed by her primary care physician. 4. She is to call Dr. Dennis' office or myself with any problems including exacerbation of abdominal pain, fever in excess of 101 degrees Fahrenheit, or intolerance to oral intake prior to her clinic appointment. 5. The patient indicates understanding of information given. I have answered her questions. Job ID: [id number]
--- NOTE | 2019-04-21 01:22 | PRG ---
DATE OF SERVICE: 04/20/2019 SUBJECTIVE: The patient was seen this evening during rounds. She was sitting up in bed with no signs of acute distress. She reported her pain is well controlled. She states that she has been having trouble difficulty for the past 2 months. She is pending a speech evaluation tomorrow. OBJECTIVE: VITAL SIGNS: Temperature 98.3, pulse 66, respirations 16, oxygen saturation 92% on 1.5 L nasal cannula, and blood pressure 131/63. GENERAL: Well-appearing elderly female, sitting up in bed with no signs of acute distress. PULMONARY: Equal chest rise and fall. No signs of acute respiratory distress. ASSESSMENT: 1. Postoperative day #1, status post I and D of abdominal fluid collection. 2. History of colectomy, ileostomy, chronic kidney disease, Crohn disease, diabetes, and cerebrovascular accident. PLAN: The patient was originally discharged today. However, family said that they could not take care of her at home, so she is pending placement at a [facility] facility. She will be discharged with doxycycline for 7 days. She is pending a speech evaluation. Job ID: [id number]
[2019-04-21] MEDS: Levothyroxine Sodium 25 MCG TAB PO SCH (05:39)
[2019-04-21] MEDS: HYDROcodone/Acetaminophen 10/325 mg Tablet PO PRN ×2 (05:44→14:15)
[2019-04-21] MEDS: Acetaminophen 325 MG TAB PO PRN ×2 (05:44→14:15)
--- NOTE | 2019-04-21 08:24 | HP ---
HISTORY OF PRESENT ILLNESS: This is a 73-year-old woman with history of Crohn's disease and complicated multiple abdominal surgeries. Patient presented to the emergency department today with recurrent right lower quadrant abdominal wall induration and pain. This is about the same area where she had had previous abdominal wall abscesses, which required incision and drainage. Patient reports fever a bit low-grade, temperature was 100.6 degrees Fahrenheit. She denies any chills. She denies any unusual bowel habits as the high ileostomy output has been at baseline high output. PAST MEDICAL HISTORY: Significant for Crohn's disease, fibromyalgia, chronic depression, coronary artery disease, systemic lupus erythematosus, osteoporosis , and type 2 diabetes mellitus. PAST SURGICAL HISTORY: Significant for multiple abdominal operations culminating in total colectomy with a J-pouch. J-pouch was subsequently closed and an ileostomy formed. Other pertinent surgical history includes incision and drainage of right lower quadrant abdominal wall abscesses x2, coronary artery bypass graft, hernia repair, and multiple endoscopies. She also had a closed reduction and fixation of left femoral neck fracture in January of 2017, as well as right mastectomy with right axillary sentinel lymph node biopsy in December of 2018 for lobular carcinoma of the breast. SOCIAL HISTORY: Patient denies any cigarette smoking, ethanol, or illicit drug abuse. FAMILY HISTORY: Noncontributory for this patient's age. PRE-HOSPITAL MEDICATIONS: Numerous though not reconciled but may include; 1. Aspirin 81 mg p.o. daily. 2. Lipitor 10 mg p.o. at bedtime. 3. Furosemide 40 mg p.o. daily. 4. Hydrocodone 10 mg 1 to 2 p.o. q.6 hours p.r.n. pain. 5. Levemir insulin 50 units subcutaneously daily. 6. 65 mg p.o. daily. 7. Levothyroxine 25 mcg p.o. daily. 8. Pantoprazole 40 mg p.o. daily. 9. Potassium chloride 10 mEq p.o. daily. 10. Actigall 1 capsule p.o. b.i.d. 11. Entyvio infusion q.8 weeks. According to the patient, the most recent infusion was within the last 1 week. ALLERGIES: TO SULFA DRUGS. REVIEW OF SYSTEMS: Ten-point review of systems essentially unremarkable, except as stated in the past medical history and chief complaint. PHYSICAL EXAMINATION: GENERAL: This reveals a 73-year-old normally developed woman, who is otherwise coherent, interactive, appears stated age. The patient is alert and oriented x3 , appears to be in no acute distress at time of my evaluation. HEENT: Pupils are equal, round, reactive to light bilaterally. NECK: She has no jugular venous distention noted. HEART: Reveals regular rate and rhythm. No murmurs or gallops auscultated. LUNGS: Clear to auscultation bilaterally. Breathing, regular and nonlabored. ABDOMEN: Soft and nondistended. She has a functional and viable ileostomy. In the right lower quadrant approximately 6 cm inferior lateral to the ileostomy site is an indurated skin with some flocculence and palpable tenderness. She does not have any peritoneal signs on examination. NEUROLOGIC: Reveals no focal deficits present. LABORATORY FINDINGS: Include a CBC with 7007 white blood cells, hemoglobin and hematocrit 11.2 and 35.2 respectively, and platelet count is 95,000. Metabolic profile; sodium 137, potassium is , chloride is 104, bicarb is 23, BUN 29, creatinine is at baseline 1.51, glucose is 224, lactic acid is 1.0. I have personally reviewed the CT scan of the abdomen and pelvis, which was obtained in [place] prior to transfer to [facility] in [place], [place] and this shows recurrent right lower quadrant abdominal wall fluid collection, which is smaller in size when compared to the CT scan obtained on March 04, 2018, during the last incision and drainage of the abdominal wall abscess mostly noted though that the abdominal CT scan is without contrast. It appears that the fluid collection extends past the fascia with loops of bowel right underneath the fascia at the site of the suprafascial fluid collection. There appears to be no intraperitoneal fluid collection or pneumoperitoneum present. IMPRESSION: Recurrent right lower quadrant abdominal wall abscess versus evolving enterocutaneous fistula. PLAN: 1. Initiate broad-spectrum antibiotic therapy including coverage for MRSA as the last abscess yielded MRSA. 2. Patient will be taken to the operating room tomorrow for incision and drainage of the said abscess. 3. Above findings and plan have been discussed with the patient and family at bedside. 4. I informed the patient of the risks and benefits of the proposed surgery to include, but not limited to bleeding, infection, including recurrent abdominal wall abscess. 5. Of significant risk is the potential for enterotomy or enterocutaneous fistulas. 6. Patient and family have indicated understanding information I provided them today. I reviewed the CT scan of the abdomen pelvis with them at bedside. Job ID: [id number] MTDD
[2019-04-21] MEDS: Ferrous Sulfate 325 MG TAB PO SCH (09:45)
[2019-04-21] MEDS: Pramipexole Di-HCl 1 MG TAB PO SCH ×2 (09:45→19:54)
[2019-04-21] MEDS: Doxycycline 100 MG CAP PO SCH ×2 (09:46→19:53)
[2019-04-21] MEDS: Ursodiol 300 MG CAP PO SCH ×2 (09:46→19:54)
--- NOTE | 2019-04-21 18:31 | PRG ---
DATE OF SERVICE: 04/21/2019 SUBJECTIVE: The patient was seen this morning during rounds. The patient continues to ambulate frequently without any difficulty. The patient's pain is well controlled. The patient was initially going to be discharged home yesterday evening, but the patient's family did not feel like she could be cared for at home and wanted her placed in a long-term facility. The patient was evaluated by Speech earlier today. It was recommended the patient have food thickened by Speech Therapy and also recommended neuromuscular electrical stimulation. OBJECTIVE: VITAL SIGNS: Temperature 98.2, pulse 69, respirations 16, SpO2 of 92% on room air, blood pressure 134/69. GENERAL: Well-appearing elderly female, sitting up in hospital bed, in no acute distress. RESPIRATORY: Equal chest rise and fall. Respirations nonlabored. ABDOMEN: Soft, nontender, and nondistended. EXTREMITIES: Moves all extremities. No focal deficits. ASSESSMENT: 1. Postoperative day #2 status post irrigation and debridement of abdominal fluid collection. 2. History of colectomy, ileostomy, chronic kidney disease, Crohn disease, diabetes, and cerebrovascular accident. PLAN: Continue supportive care. Continue Speech recommendations for diet modifications. Continue doxycycline. The patient is pending placement to long-term facility per family's request. The patient is able to be discharged at this time. The plan was discussed with the patient. Job ID: [id number]
[2019-04-21] MEDS: Atorvastatin Calcium 10 MG TAB PO SCH (19:53)
--- NOTE | 2019-04-21 23:33 | PRG ---
DATE OF SERVICE: 04/21/2019 SUBJECTIVE: The patient was seen this evening, sitting up in bed and asleep with no signs of acute distress. Nursing reported no acute events. OBJECTIVE: VITAL SIGNS: Temperature 98.1, pulse 66, respirations 16, oxygen saturation 93% on 1 L nasal cannula, blood pressure 135/63. GENERAL: Well-appearing elderly female, sitting up in bed, asleep with no signs of acute distress. PULMONARY: Equal chest rise and fall. No signs of acute respiratory distress. ASSESSMENT: 1. Postoperative day 2, status post incision and drainage of abdominal wall abscess. 2. History of colectomy, ileostomy, chronic kidney disease, Crohn's, diabetes, and cerebrovascular accident. PLAN: The patient was seen today by Speech Language Pathology and modifications to her diabetic diet were made. Continue doxycycline for a total of 7 days. Continue physical and occupational therapy. The patient is pending placement at a senior care facility. Job ID: [id number]
[2019-04-22] MEDS: HYDROcodone/Acetaminophen 10/325 mg Tablet PO PRN ×2 (04:30→21:13)
[2019-04-22] MEDS: Acetaminophen 325 MG TAB PO PRN ×2 (04:30→21:13)
[2019-04-22] MEDS: Levothyroxine Sodium 25 MCG TAB PO SCH (05:00)
[2019-04-22] MEDS: Ursodiol 300 MG CAP PO SCH ×2 (08:21→21:12)
[2019-04-22] MEDS: Pramipexole Di-HCl 1 MG TAB PO SCH ×2 (08:21→21:12)
[2019-04-22] MEDS: Doxycycline 100 MG CAP PO SCH ×2 (08:22→21:12)
[2019-04-22] MEDS: Ferrous Sulfate 325 MG TAB PO SCH (08:22)
--- NOTE | 2019-04-22 10:15 | PRG ---
DATE OF SERVICE: 04/22/2019 SUBJECTIVE: Ms. Shaffer is a 73-year-old female who I know from several prior surgeries. I had previously taken care of abscess in the right lower quadrant lateral to her permanent ileostomy. I had drained this in 2013 and about one year ago as well. Both times, there appeared to be an infectious process that emanated from within the abdomen and tracked through the fascia externally. She had presented to the hospital few days ago and in my absence, Dr. Pemberton graciously took care of her surgical care. She drained the abscess and placed a [place] drain. I saw the patient at her bedside yesterday, on 04/21, primarily for social reasons. She noted that she felt much better. She has been having progressive problems with mobility secondary to severe pain in her hip. For this reason, nursing home has been requested for placement for her, which I believe is appropriate. She is still awaiting placement. She has external dressings over the wound site. Previously, the abscess was MRSA. I do not see any culture results from this current admission. She inquired about following up with myself for drain removal. Under normal circumstances, I would be more than happy to assume her care as I cared for her over the past several years. Unfortunately, I will be out of town for the next couple of weeks. I told her that she can either followup with Dr. Pemberton for the [place] drain removal or she may see either Dr. Yan or Dr. Warren in my absence. If there are any ongoing problems with this, I would certainly be happy to assume her care when I return in early April. Job ID: [id number]
[2019-04-22] MEDS: Atorvastatin Calcium 10 MG TAB PO SCH (21:12)
[2019-04-23] MEDS: Levothyroxine Sodium 25 MCG TAB PO SCH (05:40)
[2019-04-23] MEDS: Acetaminophen 325 MG TAB PO PRN ×3 (05:40→21:30)
[2019-04-23] MEDS: HYDROcodone/Acetaminophen 10/325 mg Tablet PO PRN ×3 (05:40→21:30)
[2019-04-23] MEDS: Ferrous Sulfate 325 MG TAB PO SCH (08:27)
[2019-04-23] MEDS: Ursodiol 300 MG CAP PO SCH ×2 (08:27→21:19)
[2019-04-23] MEDS: Pramipexole Di-HCl 1 MG TAB PO SCH ×2 (08:27→21:19)
[2019-04-23] MEDS: Doxycycline 100 MG CAP PO SCH ×2 (08:27→21:19)
--- NOTE | 2019-04-23 17:01 | PRG ---
DATE OF SERVICE: 04/23/2019 SUBJECTIVE: The patient remains on the surgical floor. She is status post irrigation and debridement of abdominal fluid collection. She is tolerating a diet. Her pain is controlled. Bowel function has returned. She is currently awaiting placement to a prison facility. OBJECTIVE: VITAL SIGNS: Temperature is 97.8, heart rate 71, blood pressure 140/61, respirations 16, oxygen saturation 93% on room air. GENERAL: The patient is resting comfortably in bed. She has been working with Physical and Occupational Therapy. LUNGS: Respirations are nonlabored. ABDOMEN: Soft and nontender with active bowel sounds. EXTREMITIES: The patient is neurovascularly intact x4 in all extremities. LABORATORY DATA: There are no labs or radiographs to review this morning. ASSESSMENT AND PLAN: 1. The patient is postoperative day 4 status post irrigation and debridement of abdominal fluid collection. 2. History of colectomy, ileostomy, chronic kidney disease, Crohn disease, diabetes, and cerebrovascular accident. PLAN: Plan will be to continue supportive care. Await placement decision. Continue her antibiotics. We will assess her [place] drain tomorrow and see if it is possible to remove it prior to her going to a prison facility. If not, it will likely be there for 7 days. Job ID: [id number]
[2019-04-23] MEDS: Atorvastatin Calcium 10 MG TAB PO SCH (21:19)
[2019-04-24] MEDS: HYDROcodone/Acetaminophen 10/325 mg Tablet PO PRN ×3 (05:34→22:42)
[2019-04-24] MEDS: Acetaminophen 325 MG TAB PO PRN ×3 (05:34→22:43)
[2019-04-24] MEDS: Levothyroxine Sodium 25 MCG TAB PO SCH (05:34)
[2019-04-24] MEDS: Pramipexole Di-HCl 1 MG TAB PO SCH ×2 (08:58→20:17)
[2019-04-24] MEDS: Ferrous Sulfate 325 MG TAB PO SCH (08:58)
[2019-04-24] MEDS: Doxycycline 100 MG CAP PO SCH ×2 (09:59→20:17)
[2019-04-24] MEDS: Ursodiol 300 MG CAP PO SCH ×2 (09:59→20:17)
[2019-04-24] MEDS: Atorvastatin Calcium 10 MG TAB PO SCH (20:17)
[2019-04-25] MEDS: HYDROcodone/Acetaminophen 10/325 mg Tablet PO PRN (06:46)
[2019-04-25] MEDS: Acetaminophen 325 MG TAB PO PRN (06:46)
[2019-04-25] MEDS: Levothyroxine Sodium 25 MCG TAB PO SCH (06:46)
[2019-04-25] MEDS: Ferrous Sulfate 325 MG TAB PO SCH (08:59)
[2019-04-25] MEDS: Pramipexole Di-HCl 1 MG TAB PO SCH (09:00)
[2019-04-25] MEDS ORDERED: Aspirin 81 mg Enteric Coated Tablet PO SCH (09:00)
[2019-04-25] MEDS: Ursodiol 300 MG CAP PO SCH (09:37)
[2019-04-25] MEDS: Doxycycline 100 MG CAP PO SCH (09:37)
[2019-04-25 12:21] VITALS: BP 117/63; TEMP 98.3
--- NOTE | 2019-04-28 06:20 | PQF ---
SUSAN NESBITT VINCENT U [id number] SURG A- [id number] CLINICAL DOCUMENTATION CLARIFICATION FORM: POST DISCHARGE Addendum to original discharge summary date: ____ Late entry note date: __ DATE:04/28/2019 ATTN:SHYAM PEMBERTON Please exercise your independent, professional judgment in responding to the clarification form. Clinical indicators are provided on the bottom of this form for your review Please check appropriate box(s): [ ] Abdominal wall abscess is due to abdominal surgeries complication [ x ] Abdominal wall abscess is not due to abdominal surgeries complication [ ] Other diagnosis [ ] Unable to determine CLINICAL INDICATORS - SIGNS / SYMPTOMS / LABS This is a 73 year old woman with history of Crohn's disease and complicated abdominal surgeries-Documented in H&P on 04/18 by Shyam Pemberton PSH:Significant for multiple abdominal operations culminating in total colectomy with a J-pouch.J-Pouch was subsequently closed and an ileostomy formed -Documented in H&P on 04/18 by Shyam Pemberton Right lower quadrant abdominal wall abscess-Documented in OP note on 04/19 by Shyam Pemberton The patient also had 2 previous right lower quadrant abdominal wall abscesses in 2013 and 2016.She presented on 04/18 with recurrent abscess of the same location-Documented in Discharge summary on 04/20 by Shyam Pemberton. Clinical radiographic examination was consistent with recurrent right lower quadrant abdominal wall fluid collections suspicious for abscess-Documented in Discharge summary on 04/20 by Shyam Pemberton. RISK FACTORS PSH:Significant for multiple abdominal operations culminating in total colectomy with a J-pouch.J-Pouch was subsequently closed and an ileostomy formed -Documented in H&P on 04/18 by Shyam Pemberton TREATMENT: Initiate broad -spectrum antibiotic therapy -Documented in H&P on 04/18 by Shyam Pemberton IV Zosyn as wel as normal saline at 72 an hour-Documented in PN on by Sachi Shaffer Incision and drainage of right lower quadrant abdominal wall abscess-Documented in OP note on 04/19 by Shyam Pemberton [employer] Win[employer] (This form is maintained as a part of the permanent medical record) 2014 [employer]. All Rights Reserved Ron [email or web address] [not provided] MTDD
--- NOTE | 2019-04-29 10:22 | DIS ---
DATE OF ADMISSION: 04/18/2019 DATE OF DISCHARGE: 04/25/2019 ADDENDUM: The patient was originally due to be discharged on 04/20. Unfortunately, family member stated they were not able to take care of the patient and they requested her to be discharged to a facility that was delayed due to the holiday and insurance, but the patient was eventually placed. There are no additional changes to the original discharge summary by Dr. Pemberton with the exception of the patient did have her [place] drain discontinued prior to her leaving. She will complete her doxycycline per her original instructions and her followup will continue with Dr. Dennis, though she has our contact information if needed. Job ID: [id number]
== END 2019-04-25 15:29 | DRG 580 ==
LOC: ERS 14:34 → SURG A 17:43
PROVIDERS: ADMIT Surgery; ATTEND Surgery
PROC: 0W9F0ZZ Drainage of Abdominal Wall, Open Approach (ICD-10-PCS; principal; 2019-04-18)
DX: L02.211 Cutaneous abscess of abdominal wall (principal); L03.116 Cellulitis of left lower limb; I25.10 Atherosclerotic heart disease of native coronary artery without angina pectoris; Z86.73 Personal history of transient ischemic attack (TIA), and cerebral infarction without residual deficits; Z95.1 Presence of aortocoronary bypass graft; E11.22 Type 2 diabetes mellitus with diabetic chronic kidney disease; I12.9 Hypertensive chronic kidney disease with stage 1 through stage 4 chronic kidney disease, or unspecified chronic kidney disease; N18.9 Chronic kidney disease, unspecified; Z90.49 Acquired absence of other specified parts of digestive tract; Z93.3 Colostomy status
CPT/HCPCS: 36415; 36416; 80048; 83735; 84100; 85007; 85027; 85610; 85730; 86140; 86850; 86900; 86901; J2001; J2543; J2704; J3010; J3370; J3490; J7050

== ENCOUNTER 2019-06-03 12:43 | Observation (INO) | payer MEDICARE, MEDICAID ==
[2019-06-03 13:04] LABS: #Eosinphils 0.1 thou/uL (0.0-0.7); #Lymphocytes 0.8 thou/uL (1.20-3.40); #Monocytes 0.4 thou/uL (0.11-0.59); %Basophils 0.2 % (0.0-1.0); %Eosinophils 1.4 % (0.0-10.0); %Lymphocytes 12.3 % (21.0-51.0); %Monocytes 6.2 % (0.0-10.0); %Neutrophils 79.9 % (42.0-75.0); Hemoglobin 12.5 g/dL (12.0-16.0); Mean Corpuscular HGB CONC 31.7 g/dL (32.0-36.0); Mean Corpuscular Hemoglobin 30.8 pg (27.0-31.0); Mean Corpuscular Volume 97.1 fL (78.0-98.0); Mean Platelet Volume 8.6 fL (7.4-10.4); Platelet Count 126 thou/uL (130-400); RBC Distribution Width 13.7 % (11.5-14.5); Red Blood Cell (RBC) Count 4.06 mill/uL (4.20-5.40); White Blood Cell (WBC) Count 6.2 thou/uL (4.8-10.8)
[2019-06-03 13:11] LABS: INR-International Normal Ratio 1.2; Prothrombin Time 14.7 SEC (12.0-14.7)
[2019-06-03 13:12] LABS: PTT 35.1 SEC (22.9-36.1)
--- NOTE | 2019-06-03 13:14 | RAD ---
XR Chest 1 View Portable HISTORY: Altered mental status COMPARISON: 02/24/2019 FINDINGS: The heart size is normal. There are changes of median sternotomy. The aorta is tortuous. Ch ronic changes again seen. The lungs are well expanded without focal areas of consolidation, pneumothorax or pleural effusions. IMPRESSION: No radiographic evidence of acute cardiopulmonary process.
[2019-06-03 13:29] LABS: ALT (SGPT) 16 U/L (8-55); AST (SGOT) 30 U/L (5-34); Albumin 3.7 g/dL (3.4-4.8); Alkaline Phosphatase 82 U/L (40-110); Anion Gap 12 mmol/L (10-20); BUN (Urea Nitrogen) 21 mg/dL (9.8-20.1); Bilirubin, Total 0.5 mg/dL (0.2-1.2); CK (CPK) 27 U/L (29-168); Calc. Creatinine Clearance 0 mL/min (70-130); Calcium 9.6 mg/dL (7.8-10.44); Carbon Dioxide 30 mmol/L (23-31); Chloride 101 mmol/L (98-107); Estimated GFR-MDRD 36; Glucose 88 mg/dL (83-110); Lipase 21 U/L (8-78); Potassium 4.4 mmol/L (3.5-5.1); Protein, Total 8.7 g/dL (6.0-8.3); Sodium 139 mmol/L (136-145)
[2019-06-03] MEDS ORDERED: HYDROcodone/Acetaminophen 10/325 mg Tablet ONE (14:09)
[2019-06-03] MEDS ORDERED: Dicyclomine 20 MG TAB PO PRN (19:14)
[2019-06-03] MEDS ORDERED: Dextrose 5% in Water 1,000 ML IV PRN (19:19)
[2019-06-03] MEDS ORDERED: HumaLOG 300 UNITS/3 ML VIAL SC PRN (19:19)
[2019-06-03] MEDS ORDERED: Dextrose 50% Abboject 50 ML SYRINGE SLOW IVP PRN (19:19)
[2019-06-03] MEDS ORDERED: Loperamide HCl 2 MG CAP PO PRN (19:21)
[2019-06-03] MEDS ORDERED: Ondansetron PF 4 MG/2 ML Vial IVP PRN (19:21)
[2019-06-03] MEDS ORDERED: Calcium Carbonate 500 MG ChewTAB PO PRN (19:21)
[2019-06-03] MEDS ORDERED: Acetaminophen 325 MG TAB PO PRN (19:21)
[2019-06-03] MEDS ORDERED: Ondansetron ODT 4 MG TAB PO PRN (19:21)
[2019-06-03] MEDS ORDERED: Bisacodyl 5 MG TAB PO PRN (19:21)
[2019-06-03] MEDS ORDERED: Melatonin 3 MG TAB PO PRN (19:25)
[2019-06-03] MEDS ORDERED: diphenhydrAMINE 25 MG CAP PO PRN (19:25)
[2019-06-03] MEDS ORDERED: Labetalol HCl 100 MG/20 ML VIAL SLOW IVP PRN (19:25)
[2019-06-03] MEDS ORDERED: Docusate 100 MG CAP PO PRN (19:25)
[2019-06-03] MEDS ORDERED: Benzonatate 100 MG CAP PO PRN (19:25)
--- NOTE | 2019-06-03 19:51 | PDOC.HHP ---
Hospitalist HPI - History of Present Illness AMS and weakness History of Present Illness: 73-year-old female with complex past medical history presents with altered mental status and generalized weakness. Patient with initial concerns for CVA on admission by emergency department physician. Patient with past medical history of insulin-dependent diabetes mellitus, hypertension, hyperlipidemia, Crohn's disease on immunosuppressive therapy in the past, left hip osteonecrosis chronically, chronic pain syndrome, chronic left leg lymphedema, GERD, hypothyroidism, and generalized debility. Patient was recently admitted to [facility] for complication of ventral wall abscess. Patient with colostomy from Crohn's disease. This a.m. the patient was more weak and confused per her family, she was not acting like her normal self. Patient's family has been trying to get her placed in a retirement facility in [place] through her primary care physician and was even seen in the office today. When they were unable to get the patient into retirement facility today they brought her to the emergency department as they are unable to care for her. Patient with chronic left hip pain and lymphedema for which she takes narcotics daily. Patient does not remember when she has taken her last doses the family believes she is erroneously taking too much pain medication. Had a long discussion with the patient and family at bedside. Patient in the emergency department she is laying flat on the bed and no apparent distress. She is talking in full sentences. She is able to move all extremities without focal neurologic deficits. She is generally weak though she was able to stand out a wheelchair and get into the CT scan machine. Patient's family wishes assistance in placing her in retirement facility. Hospitalist ROS - Review of Systems All other systems reviewed; all pertinent +/- noted in HPI/Subj Hospitalist History - Past Medical History Source: patient, family, old records Cardiac: reports: HTN, Hyperlipidemia Pulmonary: reports: lung disease Gastrointestinal: reports: GERD, GI bleed, Inflam bowel disease Heme/Onc: reports: Iron deficiency anemia Endocrine: reports: Diabetes - Past Surgical History Past Surgical History: reports: Other (Colostomy. Left hip surgery) - Family History Family History: reports: diabetes mellitus - Social History Smoking Status: Never smoker Alcohol: reports: None Drugs: reports: none Living Situation: With Family Domestic Violence: Negative Activity level: uses cane/walker - Exam General Appearance: NAD, awake alert Eye: PERRL, anicteric sclera ENT: normocephalic atraumatic, moist mucosa Neck: supple, symmetric Heart: no murmur, no gallops, no rubs, normal peripheral pulses Respiratory: CTAB, no wheezes, no rales, no ronchi, normal chest expansion, no tachypnea Gastrointestinal: soft, non-tender, no palpable masses, no guarding, no rigidity Extremities - other findings: Left leg 3+ edema with chronic erythmatous changes Skin: no rashes (lef) Neurological: cranial nerve grossly intact, normal sensation to touch, no focal deficits Musculoskeletal: generalized weakness Psychiatric: normal affect, normal behavior, A&O x 3 Hospitalist Results - Labs Result Diagrams: 06/03/19 12:51 06/03/19 12:51 Lab results: WBC 6.2 thou/uL (4.8-10.8) 06/03/19 12:51 Hgb 12.5 g/dL (12.0-16.0) 06/03/19 12:51 Hct 39.5 % (36.0-47.0) 06/03/19 12:51 MCV 97.1 fL (78.0-98.0) 06/03/19 12:51 Plt Count 126 thou/uL (130-400) L 06/03/19 12:51 Neutrophils % 79.9 % (42.0-75.0) H 06/03/19 12:51 Sodium 139 mmol/L (136-145) 06/03/19 12:51 Potassium 4.4 mmol/L (3.5-5.1) 06/03/19 12:51 Chloride 101 mmol/L (98-107) 06/03/19 12:51 Carbon Dioxide 30 mmol/L (23-31) 06/03/19 12:51 BUN 21 mg/dL (9.8-20.1) H 06/03/19 12:51 Creatinine 1.43 mg/dL (0.6-1.1) H 06/03/19 12:51 Glucose 88 mg/dL (83-110) 06/03/19 12:51 Lactic Acid 1.1 mmol/L (0.5-2.2) 06/03/19 13:34 Calcium 9.6 mg/dL (7.8-10.44) 06/03/19 12:51 Total Bilirubin 0.5 mg/dL (0.2-1.2) 06/03/19 12:51 AST 30 U/L (5-34) 06/03/19 12:51 ALT 16 U/L (8-55) 06/03/19 12:51 Alkaline Phosphatase 82 U/L (40-110) 06/03/19 12:51 Ammonia 29 umol/L (18-72) 06/03/19 13:26 Creatine Kinase 27 U/L (29-168) L 06/03/19 12:51 Troponin I Less than 0.010 ng/mL (< 0.028) 06/03/19 12:51 B-Natriuretic Peptide 38.6 pg/mL (0-100) 06/03/19 12:51 Serum Total Protein 8.7 g/dL (6.0-8.3) H 06/03/19 12:51 Albumin 3.7 g/dL (3.4-4.8) 06/03/19 12:51 Lipase 21 U/L (8-78) 06/03/19 12:51 - Radiology Interpretation CT scan - head Status: image reviewed by ks Hospitalist H&P A/P - Problem (1) AMS (altered mental status) Code(s): R41.82 - ALTERED MENTAL STATUS, UNSPECIFIED Status: Acute (2) TIA (transient ischemic attack) Code(s): G45.9 - TRANSIENT CEREBRAL ISCHEMIC ATTACK, UNSPECIFIED Status: Acute (3) Anxiety and depression Code(s): F41.9 - ANXIETY DISORDER, UNSPECIFIED; F32.9 - MAJOR DEPRESSIVE DISORDER, SINGLE EPISODE, UNSPECIFIED Status: Chronic (4) CAD (coronary artery disease) Code(s): I25.10 - ATHSCL HEART DISEASE OF [place] CORONARY ARTERY W/O ANG PCTRS Status: Chronic Qualifiers: (5) Chronic pain syndrome Code(s): G89.4 - CHRONIC PAIN SYNDROME Status: Chronic (6) Chronic stage c diastolic heart failure Code(s): I50.32 - CHRONIC DIASTOLIC (CONGESTIVE) HEART FAILURE Status: Chronic (7) Colostomy in place Code(s): Z93.3 - COLOSTOMY STATUS Status: Chronic (8) Compression fracture of vertebral column Code(s): M48.50XA - COLLAPSED VERTEBRA, NEC, SITE UNSP, INIT Status: Chronic (9) Crohns disease Code(s): K50.90 - CROHN'S DISEASE, UNSPECIFIED, WITHOUT COMPLICATIONS Status: Chronic (10) DM type 2 (diabetes mellitus, type 2) Status: Chronic (11) GERD (gastroesophageal reflux disease) Code(s): K21.9 - GASTRO-ESOPHAGEAL REFLUX DISEASE WITHOUT ESOPHAGITIS Status: Chronic Qualifiers: (12) H/O: CVA (cerebrovascular accident) Code(s): Z86.73 - PRSNL HX OF TIA (TIA), AND CEREB INFRC W/O RESID DEFICITS Status: Chronic (13) HTN (hypertension) Code(s): I10 - ESSENTIAL (PRIMARY) HYPERTENSION Status: Chronic Qualifiers: (14) Hypothyroidism Code(s): E03.9 - HYPOTHYROIDISM, UNSPECIFIED Status: Chronic Qualifiers: (15) IBD (inflammatory bowel disease) Code(s): K63.89 - OTHER SPECIFIED DISEASES OF INTESTINE Status: Chronic (16) TAISHA (iron deficiency anemia) Code(s): D50.9 - IRON DEFICIENCY ANEMIA, UNSPECIFIED Status: Chronic Qualifiers: (17) Macrocytosis Code(s): D75.89 - OTHER SPECIFIED DISEASES OF BLOOD AND BLOOD-FORMING ORGANS Status: Chronic (18) RLS (restless legs syndrome) Status: Chronic (19) Thrombocytopenia Code(s): D69.6 - THROMBOCYTOPENIA, UNSPECIFIED Status: Chronic - Plan Plan: Plan: admit to medical unit telemetry - stroke unit MRI brain CT scan of the head negative echocardiogram ultrasound of the carotid case management consultation requested for discharge planning to retirement facility in [place] patient is alert and oriented times three, fair insight to clinical condition moving all extremities without focal neurologic deficits, low concern for acute CVA not a tPA candidate secondary to resolution of symptoms and low NIH score patient states that she is a do not resuscitate and do not intubate patient with chronic left hip osteonecrosis patient with chronic left leg lymphedema, though there are is no signs of sepsis at this time long and short acting insulin for glucose control blood pressure control continue home medications as able G.I. prophylaxis DVT prophylaxis disposition: long-term prognosis is poor.
[2019-06-03] MEDS ORDERED: Non-Formulary Item 1 EACH (Insulin Detemir [Levemir Flextouch] 25 UNITS) SC SCH (21:00)
[2019-06-03] MEDS: HYDROcodone/Acetaminophen 10/325 mg Tablet PO PRN (23:15)
[2019-06-03] MEDS: Famotidine 20 MG TAB PO SCH (23:19)
[2019-06-03] MEDS: Atorvastatin Calcium 10 MG TAB PO SCH (23:19)
[2019-06-03] MEDS: Heparin 5,000 UNITS/ML VIAL SC SCH (23:20)
[2019-06-03] MEDS: Insulin Glargine 25 UNITS in Pre-Filled Syringe SC SCH (23:28)
[2019-06-04 05:54] LABS: Anion Gap 10 mmol/L (10-20); BUN (Urea Nitrogen) 19 mg/dL (9.8-20.1); Calc. Creatinine Clearance 52 mL/min (70-130); Calcium 8.4 mg/dL (7.8-10.44); Carbon Dioxide 29 mmol/L (23-31); Chloride 105 mmol/L (98-107); Estimated GFR-MDRD 55; Glucose 63 mg/dL (83-110); Potassium 3.9 mmol/L (3.5-5.1); Sodium 140 mmol/L (136-145)
[2019-06-04 06:04] LABS: #Lymphocytes 0.7 thou/uL (1.20-3.40); #Monocytes 0.3 thou/uL (0.11-0.59); #Neutrophils 2.5 thou/uL (1.40-6.50); %Basophils 0.4 % (0.0-1.0); %Eosinophils 1.4 % (0.0-10.0); %Monocytes 7.5 % (0.0-10.0); %Neutrophils 71.7 % (42.0-75.0); Hemoglobin 9.7 g/dL (12.0-16.0); Mean Corpuscular HGB CONC 30.3 g/dL (32.0-36.0); Mean Corpuscular Hemoglobin 29.6 pg (27.0-31.0); Mean Corpuscular Volume 97.9 fL (78.0-98.0); Mean Platelet Volume 8.8 fL (7.4-10.4); Platelet Count 93 thou/uL (130-400); Platelet Morphology Comment Appears Decreased; RBC Distribution Width 13.9 % (11.5-14.5); Red Blood Cell (RBC) Count 3.26 mill/uL (4.20-5.40); White Blood Cell (WBC) Count 3.5 thou/uL (4.8-10.8)
[2019-06-04] MEDS: Levothyroxine Sodium 25 MCG TAB PO SCH (06:43)
--- NOTE | 2019-06-04 08:17 | ULT ---
BILATERAL CAROTID DUPLEX ULTRASOUND: HISTORY: Level 1 stroke. Altered mental status TECHNIQUE: Grayscale, color-flow and spectral Doppler ultrasound imaging of the extracranial carotid artery syst ems was performed bilaterally. FINDINGS: There is plaque formation bilaterally. The peak systolic velocity in the right ICA measures 111 cm/s with an end-diastolic velocity of 17 cm /s and a systolic ratio of 1.0. The peak systolic velocity in the left ICA measures 111 cm/s with an end-diastolic velocity of 24 cm/s and a systolic ratio of 1.02. Flow in both vertebral arteries remains antegrade. IMPRESSION: No evidence of hemodynamically significant stenosis in either ICA
[2019-06-04] MEDS ORDERED: Ondansetron ODT 4 MG TAB PO PRN (08:27)
--- NOTE | 2019-06-04 08:28 | PDOC.HOSPP ---
- Subjective Encounter Date: 06/04/19 Encounter Time: 10:00 Subjective: Patient without further confusion since in the hospital. Back to baseline, though very debilitated at baseline and struggles with anxiety. Got out of SNF a couple weeks ago after a traumatic stay where she wasn't treated well. Family trying to get her in another SNF as they don't feel they can take care of her well at home. - Objective Vital Signs & Weight: Vital Signs (12 hours) Temp Pulse Resp BP Pulse Ox 06/04/19 08:00 98.3 F 77 15 146/62 H 97 06/04/19 04:00 97.6 F 72 16 96/57 L 92 L 06/03/19 22:37 97.8 F 81 16 142/78 H 92 L Weight Weight 142 lb 4.8 oz I&O: 06/03/19 06/04/19 06/05/19 06:59 06:59 06:59 Intake Total 750 Output Total 250 Balance 500 Result Diagrams: 06/04/19 04:51 06/04/19 04:51 Additional Labs: Accuchecks 06/04/19 06/04/19 06/03/19 06:16 03:30 23:31 POC Glucose 75 72 76 06/03/19 12:53 POC Glucose 104 Hospitalist ROS - Review of Systems Constitutional: denies: fever, chills Respiratory: denies: cough, shortness of breath Cardiovascular: denies: chest pain, palpitations Gastrointestinal: denies: nausea, vomiting, abdominal pain Neurological: denies: weakness, change in speech, confusion - Medication Medications: Active Medications Generic Name Dose Route Start Last Admin Trade Name Kevynq PRN Reason Stop Dose Admin Acetaminophen 650 mg 06/03/19 19:21 06/03/19 23:18 Tylenol PO 650 mg Q4H PRN Administration Headache/Fever/Mild Pain (1-3) Hydrocodone Bitart/Acetaminophen 1 tab 06/03/19 19:14 06/03/19 23:15 [place] 10/325 PO 1 tab Q4H PRN Administration Severe Pain (-10) Atorvastatin Calcium 10 mg 06/03/19 21:00 06/03/19 23:19 Lipitor PO 10 mg HS BIA Administration Famotidine 20 mg 06/03/19 21:00 06/03/19 23:19 Pepcid PO Not Given BID BIA Heparin Sodium (Porcine) 5,000 units 06/03/19 21:00 06/03/19 23:20 Heparin SC Not Given TID [facility] Insulin Glargine 25 units/ 0.25 mls @ 0 mls/hr 06/03/19 21:00 06/03/19 23:28 Miscellaneous Medication SC Not Given BID [facility] Levothyroxine Sodium 25 mcg 06/04/19 06:00 06/04/19 06:43 Synthroid PO 25 mcg 0600 [facility] Administration - Exam General Appearance: NAD, awake alert ENT: moist mucosa Heart: RRR, no murmur, no gallops, no rubs Respiratory: CTAB, no wheezes, no rales, no ronchi Gastrointestinal: soft, non-tender, non-distended, normal bowel sounds Psychiatric: normal behavior, A&O x 3 Psychiatric - other findings: anxious, tearful about the idea of MRI due to claustraphobia Hosp A/P - Plan (1) AMS (altered mental status) Code(s): R41.82 - ALTERED MENTAL STATUS, UNSPECIFIED Status: Acute (2) TIA (transient ischemic attack) Code(s): G45.9 - TRANSIENT CEREBRAL ISCHEMIC ATTACK, UNSPECIFIED Status: Acute (3) Anxiety and depression Code(s): F41.9 - ANXIETY DISORDER, UNSPECIFIED; F32.9 - MAJOR DEPRESSIVE DISORDER, SINGLE EPISODE, UNSPECIFIED Status: Chronic (4) CAD (coronary artery disease) Code(s): I25.10 - ATHSCL HEART DISEASE OF [place] CORONARY ARTERY W/O ANG PCTRS Status: Chronic Qualifiers: (5) Chronic pain syndrome Code(s): G89.4 - CHRONIC PAIN SYNDROME Status: Chronic (6) Chronic stage c diastolic heart failure Code(s): I50.32 - CHRONIC DIASTOLIC (CONGESTIVE) HEART FAILURE Status: Chronic (7) Colostomy in place Code(s): Z93.3 - COLOSTOMY STATUS Status: Chronic (8) Compression fracture of vertebral column Code(s): M48.50XA - COLLAPSED VERTEBRA, NEC, SITE UNSP, INIT Status: Chronic (9) Crohns disease Code(s): K50.90 - CROHN'S DISEASE, UNSPECIFIED, WITHOUT COMPLICATIONS Status: Chronic (10) DM type 2 (diabetes mellitus, type 2) Status: Chronic (11) GERD (gastroesophageal reflux disease) Code(s): K21.9 - GASTRO-ESOPHAGEAL REFLUX DISEASE WITHOUT ESOPHAGITIS Status: Chronic Qualifiers: (12) H/O: CVA (cerebrovascular accident) Code(s): Z86.73 - PRSNL HX OF TIA (TIA), AND CEREB INFRC W/O RESID DEFICITS Status: Chronic (13) HTN (hypertension) Code(s): I10 - ESSENTIAL (PRIMARY) HYPERTENSION Status: Chronic Qualifiers: (14) Hypothyroidism Code(s): E03.9 - HYPOTHYROIDISM, UNSPECIFIED Status: Chronic Qualifiers: (15) IBD (inflammatory bowel disease) Code(s): K63.89 - OTHER SPECIFIED DISEASES OF INTESTINE Status: Chronic (16) TAISHA (iron deficiency anemia) Code(s): D50.9 - IRON DEFICIENCY ANEMIA, UNSPECIFIED Status: Chronic Qualifiers: (17) Macrocytosis Code(s): D75.89 - OTHER SPECIFIED DISEASES OF BLOOD AND BLOOD-FORMING ORGANS Status: Chronic (18) RLS (restless legs syndrome) Status: Chronic (19) Thrombocytopenia Code(s): D69.6 - THROMBOCYTOPENIA, UNSPECIFIED Status: Chronic - Plan Plan: Plan: patient in observation on the stroke unit MRI brain today- will have to be done at the [facility] as ours is broken, patient very anxious about it, willing to try with pretreatment, has been resistant to sedatives in the past so will try a 10mg oral dose Valium prior to ambulance transport to the [facility] CT scan of the head negative echocardiogram pending ultrasound of the carotid- negative case management consultation requested for discharge planning to nursing home facility in [place] patient is alert and oriented times three, fair insight to clinical condition moving all extremities without focal neurologic deficits, low concern for acute CVA not a tPA candidate secondary to resolution of symptoms and low NIH score patient states that she is a do not resuscitate and do not intubate patient with chronic left hip osteonecrosis patient with chronic left leg lymphedema, though there are is no signs of sepsis at this time long and short acting insulin for glucose control blood pressure control continue home medications G.I. prophylaxis DVT prophylaxis disposition: long-term prognosis is poor.
[2019-06-04] MEDS ORDERED: CHOLECALCIFEROL 50000 UNIT FS SCH (09:15)
[2019-06-04] MEDS: Insulin Glargine 25 UNITS in Pre-Filled Syringe SC SCH ×2 (09:45→21:20)
[2019-06-04] MEDS: Ferrous Sulfate 325 MG TAB PO SCH (10:01)
[2019-06-04] MEDS: Furosemide 40 MG TAB PO SCH (10:01)
[2019-06-04] MEDS: Heparin 5,000 UNITS/ML VIAL SC SCH ×3 (10:01→21:20)
[2019-06-04] MEDS: Potassium Chloride 10 MEQ TAB PO SCH (10:01)
[2019-06-04] MEDS: Aspirin Chewable 81 MG TAB PO SCH (10:02)
[2019-06-04] MEDS: Famotidine 20 MG TAB PO SCH (10:02)
[2019-06-04] MEDS: Ursodiol 300 MG CAP PO SCH ×2 (10:05→21:19)
[2019-06-04] MEDS ORDERED: Diazepam 5 MG TAB PO SCH ×3 (11:45→13:00)
[2019-06-04 16:31] VITALS: BMI 27.8
[2019-06-04] MEDS: HumaLOG 300 UNITS/3 ML VIAL SC PRN (17:35)
[2019-06-04] MEDS: HYDROcodone/Acetaminophen 5/325 mg Tablet PO PRN (18:41)
[2019-06-04] MEDS: Pramipexole Di-HCl 1 MG TAB PO SCH (21:19)
[2019-06-04] MEDS: Atorvastatin Calcium 10 MG TAB PO SCH (21:19)
[2019-06-04] MEDS: HYDROcodone/Acetaminophen 10/325 mg Tablet PO PRN (23:44)
[2019-06-05] MEDS: Levothyroxine Sodium 25 MCG TAB PO SCH (06:16)
[2019-06-05] MEDS: HYDROcodone/Acetaminophen 5/325 mg Tablet PO PRN (06:16)
[2019-06-05] MEDS: Ursodiol 300 MG CAP PO SCH (08:45)
[2019-06-05] MEDS: Potassium Chloride 10 MEQ TAB PO SCH (08:46)
[2019-06-05] MEDS: Ferrous Sulfate 325 MG TAB PO SCH (08:46)
[2019-06-05] MEDS: Aspirin Chewable 81 MG TAB PO SCH (08:46)
[2019-06-05] MEDS: Furosemide 40 MG TAB PO SCH (08:46)
[2019-06-05] MEDS: Pramipexole Di-HCl 1 MG TAB PO SCH (08:50)
[2019-06-05] MEDS: Heparin 5,000 UNITS/ML VIAL SC SCH ×2 (08:51→16:19)
[2019-06-05] MEDS: Insulin Glargine 25 UNITS in Pre-Filled Syringe SC SCH (08:51)
--- NOTE | 2019-06-05 08:59 | PDOC.HOSPP ---
- Subjective Encounter Date: 06/05/19 Encounter Time: 11:50 Subjective: Patient feeling much better today. No confusion. Was able to get MRI with Valium pretreatment. Awaiting [facility] to fax over results. - Objective Vital Signs & Weight: Vital Signs (12 hours) Temp Pulse Resp BP Pulse Ox 06/05/19 07:24 98.3 F 75 16 108/58 L 94 L 06/05/19 04:39 97.5 F L 70 16 107/60 92 L 06/05/19 00:00 98 F 74 16 92/52 L 92 L Weight Admit Weight 142 lb 4.8 oz Weight 142 lb 4.8 oz I&O: 06/04/19 06/05/19 06/06/19 06:59 06:59 06:59 Intake Total 750 1560 Output Total 250 500 Balance 500 1060 Result Diagrams: 06/04/19 04:51 06/04/19 04:51 Additional Labs: Accuchecks 06/05/19 06/04/19 06/04/19 06:19 20:46 16:54 POC Glucose 101 109 260 H 06/04/19 11:09 POC Glucose 224 H Hospitalist ROS - Review of Systems Constitutional: denies: fever, chills Respiratory: denies: cough, shortness of breath Cardiovascular: denies: chest pain, palpitations, orthopnea Gastrointestinal: denies: nausea, vomiting, abdominal pain - Medication Medications: Active Medications Generic Name Dose Route Start Last Admin Trade Name Freq PRN Reason Stop Dose Admin Acetaminophen 650 mg 06/03/19 19:21 06/03/19 23:18 Tylenol PO 650 mg Q4H PRN Administration Headache/Fever/Mild Pain (1-3) Hydrocodone Bitart/Acetaminophen 1 tab 06/03/19 19:14 06/04/19 23:44 Madill 10/325 PO 1 tab Q4H PRN Administration Severe Pain (-10) Hydrocodone Bitart/Acetaminophen 1 tab 06/03/19 19:21 06/05/19 06:16 Madill 5/325 PO 1 tab Q4H PRN Administration Moderate Pain (4-6) Aspirin 81 mg 06/04/19 09:00 06/04/19 10:02 Aspirin Chewable PO 81 mg DAILY BIA Administration Atorvastatin Calcium 10 mg 06/03/19 21:00 06/04/19 21:19 Lipitor PO 10 mg HS BIA Administration Diazepam 10 mg 06/04/19 13:00 06/04/19 12:52 Valium PO 10 mg WILLCALL BIA Administration Fentanyl 12 mcg 06/04/19 08:30 06/04/19 11:15 Duragesic TD 12 mcg Q3D BIA Administration Ferrous Sulfate 325 mg 06/04/19 09:00 06/04/19 10:01 Feosol PO 325 mg DAILY BIA Administration Furosemide 40 mg 06/04/19 09:00 06/04/19 10:01 Lasix PO 40 mg DAILY BIA Administration Heparin Sodium (Porcine) 5,000 units 06/03/19 21:00 06/04/19 21:20 Heparin SC Not Given TID ON LICENSE OF [facility] Insulin Glargine 25 units/ 0.25 mls @ 0 mls/hr 06/03/19 21:00 06/04/19 21:20 Miscellaneous Medication SC Not Given BID ON LICENSE OF [facility] Insulin Human Lispro 0 units 06/03/19 19:19 06/04/19 17:35 Humalog SC 6 unit .MODERATE SLIDING SC PRN Administration Moderate Correctional Scale Levothyroxine Sodium 25 mcg 06/04/19 06:00 06/05/19 06:16 Synthroid PO 25 mcg 0600 BIA Administration Melatonin 3 mg 06/03/19 19:25 06/04/19 21:19 Melatonin PO 3 mg HS PRN Administration Insomnia Pantoprazole Sodium 40 mg 06/04/19 09:00 06/04/19 10:01 Protonix PO 40 mg DAILY ON LICENSE OF [facility] Administration Potassium Chloride 10 meq 06/04/19 09:00 06/04/19 10:01 Klor-Con 10 PO 10 meq DAILY ON LICENSE OF [facility] Administration Pramipexole Dihydrochloride 1.5 mg 06/04/19 21:00 06/04/19 21:19 Mirapex PO 1.5 mg BID ON LICENSE OF [facility] Administration Ursodiol 300 mg 06/04/19 09:00 06/04/19 21:19 Actigal PO 300 mg BID ON LICENSE OF [facility] Administration - Exam General Appearance: NAD, awake alert ENT: moist mucosa Heart: RRR, no murmur, no gallops, no rubs Respiratory: CTAB, no wheezes, no rales, no ronchi Gastrointestinal: soft, non-tender, non-distended, normal bowel sounds Psychiatric: normal affect, normal behavior, A&O x 3 Hosp A/P - Plan (1) AMS (altered mental status) Code(s): R41.82 - ALTERED MENTAL STATUS, UNSPECIFIED Status: Acute (2) TIA (transient ischemic attack) Code(s): G45.9 - TRANSIENT CEREBRAL ISCHEMIC ATTACK, UNSPECIFIED Status: Acute (3) Anxiety and depression Code(s): F41.9 - ANXIETY DISORDER, UNSPECIFIED; F32.9 - MAJOR DEPRESSIVE DISORDER, SINGLE EPISODE, UNSPECIFIED Status: Chronic (4) CAD (coronary artery disease) Code(s): I25.10 - ATHSCL HEART DISEASE OF [place] CORONARY ARTERY W/O ANG PCTRS Status: Chronic Qualifiers: (5) Chronic pain syndrome Code(s): G89.4 - CHRONIC PAIN SYNDROME Status: Chronic (6) Chronic stage c diastolic heart failure Code(s): I50.32 - CHRONIC DIASTOLIC (CONGESTIVE) HEART FAILURE Status: Chronic (7) Colostomy in place Code(s): Z93.3 - COLOSTOMY STATUS Status: Chronic (8) Compression fracture of vertebral column Code(s): M48.50XA - COLLAPSED VERTEBRA, NEC, SITE UNSP, INIT Status: Chronic (9) Crohns disease Code(s): K50.90 - CROHN'S DISEASE, UNSPECIFIED, WITHOUT COMPLICATIONS Status: Chronic (10) DM type 2 (diabetes mellitus, type 2) Status: Chronic (11) GERD (gastroesophageal reflux disease) Code(s): K21.9 - GASTRO-ESOPHAGEAL REFLUX DISEASE WITHOUT ESOPHAGITIS Status: Chronic Qualifiers: (12) H/O: CVA (cerebrovascular accident) Code(s): Z86.73 - PRSNL HX OF TIA (TIA), AND CEREB INFRC W/O RESID DEFICITS Status: Chronic (13) HTN (hypertension) Code(s): I10 - ESSENTIAL (PRIMARY) HYPERTENSION Status: Chronic Qualifiers: (14) Hypothyroidism Code(s): E03.9 - HYPOTHYROIDISM, UNSPECIFIED Status: Chronic Qualifiers: (15) IBD (inflammatory bowel disease) Code(s): K63.89 - OTHER SPECIFIED DISEASES OF INTESTINE Status: Chronic (16) TAISHA (iron deficiency anemia) Code(s): D50.9 - IRON DEFICIENCY ANEMIA, UNSPECIFIED Status: Chronic Qualifiers: (17) Macrocytosis Code(s): D75.89 - OTHER SPECIFIED DISEASES OF BLOOD AND BLOOD-FORMING ORGANS Status: Chronic (18) RLS (restless legs syndrome) Status: Chronic (19) Thrombocytopenia Code(s): D69.6 - THROMBOCYTOPENIA, UNSPECIFIED Status: Chronic (20) DYSPHAGIA - Plan Plan: Plan: Patient with trouble with thin liquids. This is a recurring problem. Didn't like thickened liquids in past so she discussed with Speech Therapy and asked to take thin liquids with risk. I reiterated the risk of aspiration pneumonia with patient and she agreed to try the thickened liquids again patient in observation on the stroke unit MRI brain done at [facility] yesterday- awaiting fax with results CT scan of the head negative echocardiogram with diastolic dysfunction and dilated aortic root ultrasound of the carotid- negative case management working on SNF approval, then can go patient is alert and oriented times three, fair insight to clinical condition patient states that she is a do not resuscitate and do not intubate long and short acting insulin for glucose control blood pressure control continue home medications G.I. prophylaxis DVT prophylaxis disposition: long-term prognosis is poor, to SNF once approved
[2019-06-05] MEDS ORDERED: Famotidine 20 MG TAB PO SCH (09:00)
[2019-06-05] MEDS: HumaLOG 300 UNITS/3 ML VIAL SC PRN (12:26)
[2019-06-05] MEDS ORDERED: Ergocalciferol 1.25 MG(50,000 UNITS) CAP PO SCH (14:00)
[2019-06-05 15:47] VITALS: BP 92/48; TEMP 98.3
--- NOTE | 2019-06-06 01:04 | DIS ---
DATE OF ADMISSION: 06/03/2019 DATE OF DISCHARGE: 06/05/2019 PRIMARY CARE PHYSICIAN: Valente Crenshaw MD REASON FOR ADMISSION: Altered mental status and weakness. DIAGNOSES AT DISCHARGE: 1. Altered mental status, resolved. 2. Anxiety and depression, worsened by recent traumatic SNF stay. 3. Coronary artery disease. 4. Chronic pain syndrome. 5. Chronic stage C diastolic heart failure. 6. Colostomy. 7. Compression fracture, vertebral column. 8. Crohn disease. 9. Diabetes mellitus type 2. 10. Gastroesophageal reflux disease. 11. History of stroke. 12. Hypertension. 13. Hypothyroidism. 14. Inflammatory bowel disease. 15. Iron deficiency anemia. 16. Macrocytosis. 17. Restless legs syndrome. 18. Thrombocytopenia. 19. Dysphagia. PROCEDURES PERFORMED: 1. No acute intracranial abnormality per report. ER physician dictation not back. 2. MRI of the brain showing no acute intracranial abnormality. 3. Echocardiogram showing ejection fraction of 65% to 70% and diastolic dysfunction along with a dilated aortic root. 4. Carotid Doppler study showing no evidence of hemodynamically significant stenosis. CONSULTATIONS: None. SUMMARY OF HOSPITAL COURSE: This is a 73-year-old white female, who has a history of insulin-dependent diabetes, hypertension, hyperlipidemia, Crohn disease on immunosuppressive therapy, left hip osteonecrosis, chronic pain syndrome, chronic left leg lymphedema, and generalized debility. She was recently in [facility] for complication of ventral wall abscess. She also has a colostomy from her Crohn disease. The patient was discharged to a [facility]dc facility, where she was for little over a week. Apparently, she had a very traumatic stay there was very mean to her and so, she was eventually taken home. Her daughter was caring for her. She reports that she has been very anxious and distressed ever since that fdc facility stay. She has had an episode where she felt very shaky, could not control her hands very well, the food she was holding she kind of threw up in the air, and then she was altered mentally at that time. There was some concern by the family that she might also be taking too much pain medications. She was brought to the emergency room. There, she was without neurologic deficits and was without any altered mental status. The family was concerned about her need to actually go to a fdc facility. The patient was put in observation in the hospital. She was given judicious pain medications and was not taking too much here. She had evaluation done as above. No evidence of acute stroke. She was feeling much better by the time of discharge. However, she would have times where she would get very anxious and very tearful about what happened to her in the previous SNF stay. She started feeling very weak all over and exhausted. The patient was excepted to a different SNF and so, she is being discharged there now. DISCHARGE MANAGEMENT: Discharged to [facility]. ACTIVITY: As tolerated. DIET: Regular diet with texture ground with extra sauce and gravy and nectar thick liquids by spoon. No straws. THERAPY: Occupational, physical, and speech therapy. MEDICATIONS: 1. Aspirin 81 mg daily. 2. Atorvastatin 10 mg at night. 3. Vitamin D 50,000 units every 7 days. 4. Ergocalciferol 1.25 mg every 7 days. 5. Dicyclomine 20 mg every 8 hours as needed for stomach cramping. 6. Fentanyl patch 12 mcg topically every 3 days. I did write for a triple script for the fdc facility with 10 patches. 7. Furosemide 40 mg daily. 8. Hydrocodone 10/325 one to two tablets every 8 hours as needed for pain. I did write a triplet script for the long-term as well with 60 tablets. 9. Feosol 65 mg daily. 10. Levothyroxine 25 mcg daily. 11. Melatonin 3 mg at night. 12. Ondansetron 4 mg every 8 hours as needed for nausea and vomiting. 13. Protonix 40 mg daily. 14. Potassium chloride 10 mEq daily. 15. Pramipexole 0.75 mg extended release two tablets twice a day. 16. Ursodiol 300 mg twice a day. 17. Entyvio 300 mg IV every 8 weeks. 18. Insulin sliding scale. 19. Levemir 50 units daily. Arranging the details of this discharge took 35 minutes. Job ID: [id number]
== END 2019-06-05 17:15 ==
LOC: ERS 12:43 → ERHOLD 17:08 → 2SE 22:48
PROVIDERS: ADMIT Internal Medicine; ATTEND Internal Medicine
DX: R41.82 Altered mental status, unspecified (principal); I11.0 Hypertensive heart disease with heart failure; I50.32 Chronic diastolic (congestive) heart failure; E11.9 Type 2 diabetes mellitus without complications; I25.10 Atherosclerotic heart disease of native coronary artery without angina pectoris; E03.9 Hypothyroidism, unspecified; F41.9 Anxiety disorder, unspecified; F32.9 Major depressive disorder, single episode, unspecified; G89.4 Chronic pain syndrome; D50.9 Iron deficiency anemia, unspecified; G25.81 Restless legs syndrome; D69.6 Thrombocytopenia, unspecified; K50.90 Crohn's disease, unspecified, without complications; M87.9 Osteonecrosis, unspecified; E78.5 Hyperlipidemia, unspecified; K21.9 Gastro-esophageal reflux disease without esophagitis; K63.89 Other specified diseases of intestine; Z79.4 Long term (current) use of insulin; Z79.82 Long term (current) use of aspirin; Z79.899 Other long term (current) drug therapy; Z86.73 Personal history of transient ischemic attack (TIA), and cerebral infarction without residual deficits; Z87.891 Personal history of nicotine dependence; Z88.2 Allergy status to sulfonamides; Z88.7 Allergy status to serum and vaccine; Z88.8 Allergy status to other drugs, medicaments and biological substances; Z93.3 Colostomy status
CPT/HCPCS: 70450; 71045; 80048; 82140; 82550; 82962 ×3; 83605; 83690; 83880; 84484; 85025; 85610; 85730; 87040; 93005; 93306; 93880; 96360; 97116 ×2; 97139 ×3; 97530 ×2; 97535; 99285; G0378 ×4; 36415; 36416; 80053; 84443; J1815